=== PATIENT | female | born 1960 | race Caucasian/White ===

== ENCOUNTER 2017-11-25 16:16 | Emergency (ER) | payer OTHER, SELFPAY ==
[2017-11-25 16:17] VITALS: BP 157/88; PULSE 72; RESP 18; TEMP 36.8; O2SAT 96; BMI 32.7
--- NOTE | 2017-11-25 16:57 | CT_ITS ---
STUDY: CT ABDOMEN AND PELVIS WITH CONTRAST REASON FOR EXAM: Female, 57 years old. Right lower quadrant pain for 2 weeks RADIATION DOSAGE (If Supplied By Facility): CTDIvol = ( 16.25 ) mGy, DLP = ( 968.26 ) mGycm TECHNIQUE: Transaxial images were obtained from the dome of the diaphragm to the symphysis pubis without oral contrast. 100ml ml of Isovue 300 contrast was administered. Sagittal and coronal images were reconstructed. Individualized dose optimization techniques were used for this CT. COMPARISON: None. FINDINGS: There is minor atelectasis within the dependent portion of the lungs.. The visualized portions of the heart are within normal limits. Normal liver. Normal gallbladder and extrahepatic biliary system. Normal spleen. Normal pancreas. Normal bilateral adrenal glands. Normal right kidney. Normal left kidney. Normal visualized stomach. Normal small intestine. Normal colon. No evidence for acute appendicitis. Normal abdominal aorta. Normal inferior vena cava. Normal retroperitoneum. Normal urinary bladder. There are tiny calcifications within uterus possibly related to fibroids. Normal abdominal wall. Normal osseous structures. CT/Abdomen/Pelvis WITH Contrast IMPRESSION: Findings which may be consistent with tiny uterine fibroid calcifications.. No acute abnormalities. Electronically Signed: Victoriano Zhong MD at 18:59 EST , Service support ,
[2017-11-25 17:03] LABS: Anion Gap 8 (5-15); BUN 10 mg/dL (7-18); BUN/Creat Ratio 18.4 RATIO (10-20); Calcium,Total 8.9 mg/dL (8.5-10.1); Chloride 107 mmol/L (98-107); Creatinine, Serum 0.54 mg/dL (0.55-1.02); EST Glomerular Filtration Rate 123 mL/min (>60); Est Glom Filt Rate - Afr Amer 148 mL/min (>60); Estimated Creatinine Clearance 99.26 ml/min; Glucose 85 mg/dL (74-106); Potassium 3.5 mmol/L (3.5-5.1); Sodium Level 143 mmol/L (136-145)
[2017-11-25 17:12] LABS: Absolute Lymphocyte Count 3.12 X10^3/ul (0.83-4.51); Absolute Neutrophil Count 4.7 X10^3/uL (2.0-7.7); Basophil# 0.03 X10^3/uL; Basophil% 0.3 % (0-1); Eosinophil# 0.26 X10^3/uL; Hematocrit 40.6 % (37-47); Hemoglobin 13.3 g/dl (12.0-15.0); Lymphocyte # 3.12 X10^3/ul (4.0); Lymphocyte % 35.7 % (19-41); Mean Corp Hgb Conc 32.8 g/gl (32-36); Mean Corpuscular Hgb 29.7 pg (27.0-32.0); Mean Corpuscular Volume 90.6 fL (81-99); Mean Platelet Vol. 11.4 fl (6.2-12.0); Monocyte# 0.68 X10^3/uL; Monocyte% 7.8 % (0-10); Neutrophil # 4.65 X10^3/uL (2.7-7.7); Neutrophil % 53.1 % (47-70); Platelet Count 235 K/mm3 (150-450); RBC Distribution Width CV 13.6 % (11.6-14.6); RBC Distribution Width SD 44.8 fl (35.1-43.9); Red Blood Count 4.48 M/mm3 (4.2-5.4); White Blood Count 8.8 K/mm3 (4.4-11.0)
[2017-11-25 17:14] LABS: POSITIVE COUNT NO; POSITIVE DIFFERENTIAL NO; POSITIVE MORPHOLOGY NO
[2017-11-25 17:16] LABS: Bacteria 0 SEEN /hpf (None Seen); Mucous, Urine 0 SEEN /hpf (<or=2+); White Blood Cells 0 SEEN /hpf (0-5)
[2017-11-25 17:24] LABS: AST(SGOT) 26 U/L (15-37); Alanine Aminotransfer ALT/SGPT 41 U/L (13-56); Alkaline Phosphatase 96 U/L (45-117); Globulin 3.4 g/dL (2.2-4.2); Protein, Total 7.4 g/dL (6.4-8.2)
[2017-11-25 17:25] LABS: Color, Urine Yellow (Yellow); Glucose, Dipstick Normal (Normal); Ketone-Dipstick 50 mg/dl (Negative); Leukocyte Esterase-Dipstick Negative /ul (Negative); Nitrite-Dipstick Negative (Negative); Occult Blood-Urine 50 /ul (Negative); Protein-Dipstick 15 mg/dl (Negative); Urine Bilirubin Dipstick Negative (Negative); Urine Clarity Sl. Cloudy (Clear); Urine Urobilinogen Normal (Normal)
[2017-11-25 17:27] LABS: Lipase 152 U/L (73-393)
[2017-11-25 17:44] LABS: Red Blood Cells-Urine 0-5 SEEN /hpf (0-5); Squamous Epithelial Cells - UA 0-5 SEEN /hpf (5-10)
--- NOTE | 2017-11-25 17:47 | NURSING ---
NO LW OR POA
--- NOTE | 2017-11-25 19:07 | ED.VISSUMM ---
- ER Visit Summary Date of Service: 11/25/17 Chief Complaint: Abdominal pain History of Present Illness: The patient is a 57 F resents with 2 weeks of abdominal pain. States initially started as burning sensation in the lower pelvis about 2 weeks ago. Last night developed a sharp pain right lower quadrant. She notes a colonoscopy 7 years ago that was negative. She states that she has had similar symptoms in her 20s and was told it was IBS. Has not really had symptoms since. No vomiting or diarrhea or constipation. No urinary symptoms. No fevers. She went to urgent care was referred to the emergency department. Physical Examination: Afebrile vital signs are stable Gen: Well-nourished well-developed Head: Normocephalic atraumatic Eyes: Perrl EOMI ENT: TMs clear no rhinorrhea moist mucous membranes Neck: Supple no lymphadenopathy no JVD nontender CVS: Regular rate rhythm no murmurs normal S1-S2 Respiratory: No distress clear to auscultation bilaterally chest nontender Abdomen: Soft she has mild tenderness palpation along the descending colon and first part of the transverse colon. There is no guarding or rebound nondistended normal bowel sounds no masses Back: Nontender Extremity: Nontender no edema Skin: Normal color no rash Neuro: alert orientated ?3 CN II-XII intact normal strength sensation reflexes gait cerebellar Psych: Normal affect normal mood Test Results: CBC chemistries liver lipase normal. Urinalysis normal. CT of the abdomen pelvis demonstrated no acute disease. Emergency Department Course and Treatment: She will be referred to primary care for follow-up. Impression:. Acute abdominal pain This note was generated with Next[employer] dictation software. It may contain incorrect words, spelling, and punctuation that were not noted in review of the chart prior to signing ED Disposition - Plan for ED Patient: Disposition: Home or Assisted Living Chief Complaint: Abd Pain Instructions: ED Abdominal Pain Unkn Cause Referrals: Sue Francisco MD [Primary Care Provider] - As soon as possible (Call your doctor in the morning to arrange early follow-up)
[2017-11-25 19:16] VITALS: BP 134/88; PULSE 72; RESP 18; O2SAT 100
== END 2017-11-25 19:17 | disposition home or self-care (01) ==
PROVIDERS: Emergency Provider Emergency Medicine; Family Provider Internal Medicine; PCP Internal Medicine
DX: R10.31 Right lower quadrant pain (principal); R11.0 Nausea
CPT/HCPCS: 74177; 80048; 80076; 81001; 83690; 85025; 99283; Q9967; A4216

== ENCOUNTER → 2019-11-02 15:36 | Outpatient (CLI) | payer OTHER, SELFPAY ==
--- NOTE | 2019-11-02 15:52 | EKG12_ITS ---
Test Reason : PREOP Blood Pressure : / mmHG Vent. Rate : 119 BPM Atrial Rate : 111 BPM P-R Int : 000 ms QRS Dur : 076 ms QT Int : 332 ms P-R-T Axes : 000 019 010 degrees QTc Int : 467 ms Atrial fibrillation with rapid ventricular response Nonspecific ST abnormality , probably digitalis effect Abnormal ECG Confirmed by ADAM MARTINEZ, VIVIEN ([id number]), news editor IFRAH CABRERA ([id number]) on 11/06/2019 10:27:07 AM Referred By: Ed Ponce Confirmed By:MODESTO MEDINA MD
[2019-11-02 16:18] LABS: Absolute Lymphocyte Count 3.46 X10^3/uL (0.83-4.51); Absolute Neutrophil Count 4.4 X10^3/uL (2.0-7.7); Basophil# 0.04 X10^3/uL; Basophil% 0.5 % (0-1); Eosinophils% 1.1 % (0-5); Hematocrit 43.6 % (37-47); Hemoglobin 14.4 g/dL (12.0-15.0); Lymphocyte # 3.46 X10^3/ul (4.0); Lymphocyte % 39.5 % (19-41); Mean Corpuscular Hgb 30.2 pg (27.0-32.0); Mean Corpuscular Volume 91.4 fL (81-99); Mean Platelet Vol. 12.5 fl (6.2-12.0); NRBC Flagged by Analyzer 0 % (0-5); Neutrophil # 4.43 X10^3/uL (2.7-7.7); Neutrophil % 50.7 % (47-70); Platelet Count 216 K/mm3 (150-450); RBC Distribution Width CV 13.2 % (11.6-14.6); RBC Distribution Width SD 44.4 fl (35.1-43.9); Red Blood Count 4.77 M/mm3 (4.2-5.4); White Blood Count 8.8 K/mm3 (4.4-11.0)
[2019-11-02 18:19] LABS: Anion Gap 6 (5-15); BUN 18 mg/dL (7-18); BUN/Creat Ratio 25.6 RATIO (10-20); Calcium,Total 9.2 mg/dL (8.5-10.1); Chloride 111 mmol/L (98-107); EST Glomerular Filtration Rate 91 mL/min (>60); Est Glom Filt Rate - Afr Amer 110 mL/min (>60); Glucose 91 mg/dL (74-106); Potassium 3.6 mmol/L (3.5-5.1); Sodium Level 142 mmol/L (136-145)
== END ==
PROVIDERS: PCP Internal Medicine; Referring Provider Physician Assistant; Visit Provider Physician Assistant
DX: Z01.818 Encounter for other preprocedural examination (principal); Z01.810 Encounter for preprocedural cardiovascular examination
CPT/HCPCS: 36415; 80048; 85025; 93005

== ENCOUNTER 2019-11-02 16:15 | Emergency (ER) | payer OTHER, SELFPAY ==
[2019-11-02 16:16] VITALS: BP 152/103; PULSE 136; RESP 16; TEMP 36.6; O2SAT 97; BMI 31.8
--- NOTE | 2019-11-02 16:55 | ED.VIS.GEN ---
History of Present Illness Chief Complaint: Palpitations Informant: Patient Narrative: Patient is a 59-year-old female with history of postpolio syndrome and right knee pain presenting from preop testing with atrial fibrillation. Patient does not have a history of this. She denies any chest pain, palpitations or shortness of breath. 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 She does not have any cardiac history including hypertension or A. fib. She notes her elderly mother does have atrial fibrillation. She drinks 2 cups of coffee a day. She denies any tobacco, alcohol or drug use. She is currently in the process of getting established with Dr. Alicia for primary care doctor. She denies any leg swelling. She denies any other complaints at this time. Past Medical History - Allergies and Home Meds Allergies/Adverse Reactions: Allergies amoxicillin Adverse Reaction (Verified 11/02/19 16:36) Hives Penicillins Adverse Reaction (Verified 11/02/19 16:36) Anaphylaxis Sulfa (Sulfonamide Antibiotics) Adverse Reaction (Verified 11/02/19 16:36) Hives Primary Care Physician: Chris Alicia MD [Primary Care Provider] - Past Medical History: - - Post polio syndrome Surgical History: no surgical history Smoking Status: Former smoker Alcohol: Occasional Drugs: None Review of Systems General: Reports: Malaise. Denies: Chills, Fever, Sweats Eyes: Denies: Visual changes - bilaterally, Diplopia ENT: Denies: Rhinorrhea, Sore throat Cardiovascular: Denies: Chest pain, Palpitations Respiratory: Denies: Dyspnea, Cough, Dyspnea on exertion Gastrointestinal: Denies: Abdominal pain, Nausea, Vomiting, Diarrhea, Melena, Hematochezia Genitourinary: Denies: Dysuria, Hematuria, Frequency Musculoskeletal: Denies: Back pain, Extremity Pain Skin: Denies: Rash, Wounds Neurological: Denies: Headache, Weakness, Numbness Physical Exam Vital Signs/Narrative: Vital Signs Temp Pulse Resp BP Pulse Ox 11/02/19 16:16 98 F 136 H 16 152/103 H 97 Inital Vital Signs reviewed: Yes General: Well nourished, Well developed, No Acute Distress Head: Normocephalic, Atraumatic Eyes: Perrl, EOMI ENT: Moist mucous membranes, No rhinorrhea Neck: Supple, Nontender Cardiovascular: No murmurs, Irregular, Tachycardia. Negative for: Murmur Respiratory: No distress, CTA bilaterally, Chest nontender Abdomen: Soft, Nontender, Nondistended, Normal bowel sounds Back: Nontender, Normal Inspection Extremities: Nontender, No edema, - - Patient has braces on her bilateral ankles Skin: Normal color, No rash Neurological: Alert, Oriented x3, Cranial nerves II-XII grossly intact, Normal Strength, Normal Sensation Psychological: Normal affect, Normal Mood Diagnostic/Tx/Re-eval Chest X-Ray - ED: 2 View, Read by ED Physician, Read by Radiologist, No Acute Disease Clinical Impression(s) from Imaging Studies Chest X-Ray 11/02/19 17:27 IMPRESSION: Borderline cardiac enlargement. No CHF or pneumonic infiltrate. Electronically Signed: Fabian Shepherd MD at 18:23 EST , Service support , Laboratory Data 11/02/19 11/02/19 11/02/19 16:37 16:37 16:37 WBC 8.4 RBC 4.78 Hgb 14.3 Hct 43.6 MCV 91.2 MCH 29.9 MCHC 32.8 RDW Std Deviation 44.3 H RDW Coeff of [place] 13.2 Plt Count 199 MPV 12.3 H Immature Gran % (Auto) 0.200 Neut % (Auto) 50.1 Lymph % (Auto) 40.1 [place] % (Auto) 8.0 Eos % (Auto) 1.1 Baso % (Auto) 0.5 Absolute Neuts (auto) 4.2 Absolute Lymphs (auto) 3.36 Nucleated RBC % 0 PT 13.0 INR 1.0 Sodium 139 Potassium 3.5 Chloride 108 H Carbon Dioxide 27.0 Anion Gap 4 L BUN 18 Creatinine 0.69 Estim Creat Clear Calc 72.62 Est GFR (MDRD) Af Amer 112 Est GFR (MDRD) Non-Af 93 BUN/Creatinine Ratio 26.1 H Glucose 88 Calcium 9.3 Troponin I < 0.015 TSH 1.63 - Rhythm Strip Rhythm Strip: A-fib Rate: 119 Ectopy: None - EKG Initial EKG Interpretation: Atrial Fibrillation, - - Atrial fibrillation at a rate of 119 Normal axis QRS [address] segment changes - Medical Decision Making Patient is evaluated for new onset atrial fibrillation with RVR that was found incidentally on preop testing. Patient appears nontoxic in no acute distress. She is hemodynamically stable despite her tachycardia. Patient does not have any known risk factors for A. fib. Troponin, TSH, CBC and BMP are all within normal limits. Patient is given 5 of IV metoprolol with improvement of her rate. She continues to be asymptomatic. She is also given IV fluids. Chest x-ray does show some mild cardiomegaly so patient might have some underlining hypertension versus cardiomyopathy. Patient's chadsvasc2 score is 1 and she is low risk for stroke. At this time she does not require anticoagulation. As she is asymptomatic with a normal troponin I think she is stable for outpatient follow-up. I did discuss with PCP on-call, Dr. Santana who was agreeable with this. She will be started on a daily aspirin. She is also started on metoprolol twice daily for rate control. Patient is counseled on signs and symptoms requiring return to the emergency room. Patient verbalizes agreement and understand this plan. Patient discharged home in stable and improved condition. ED Disposition - Plan for ED Patient: Disposition: Home or Assisted Living Diagnosis: Atrial fibrillation Instructions: Atrial Fibrillation Prescriptions: Metoprolol Tartrate [Lopressor (beta antoni)] 12.5 mg PO BID #30 tab Prescription Printed Referrals: Chris Alicia MD [Primary Care Provider] - Additional Instructions: Start taking an 81 mg aspirin daily. Please call the office tomorrow to see if your new patient appointment can be moved up. You have been started on a new medication to help control your heart rate. Return the emergency room if you have any worsening symptoms.
[2019-11-02 17:04] LABS: Absolute Lymphocyte Count 3.36 X10^3/uL (0.83-4.51); Absolute Neutrophil Count 4.2 X10^3/uL (2.0-7.7); Basophil# 0.04 X10^3/uL; Basophil% 0.5 % (0-1); Eosinophil# 0.09 X10^3/uL; Eosinophils% 1.1 % (0-5); Hematocrit 43.6 % (37-47); Hemoglobin 14.3 g/dL (12.0-15.0); Lymphocyte # 3.36 X10^3/ul (4.0); Lymphocyte % 40.1 % (19-41); Mean Corp Hgb Conc 32.8 g/dL (32-36); Mean Corpuscular Hgb 29.9 pg (27.0-32.0); Mean Corpuscular Volume 91.2 fL (81-99); Mean Platelet Vol. 12.3 fl (6.2-12.0); Monocyte# 0.67 X10^3/uL; NRBC Flagged by Analyzer 0 % (0-5); Neutrophil # 4.19 X10^3/uL (2.7-7.7); Neutrophil % 50.1 % (47-70); Platelet Count 199 K/mm3 (150-450); RBC Distribution Width CV 13.2 % (11.6-14.6); RBC Distribution Width SD 44.3 fl (35.1-43.9); Red Blood Count 4.78 M/mm3 (4.2-5.4); White Blood Count 8.4 K/mm3 (4.4-11.0)
[2019-11-02 17:10] VITALS: BP 135/83; PULSE 112; RESP 16; O2SAT 96
[2019-11-02] MEDS: Metoprolol Tartrate 5 MG/5 ML Vial IV ×3 (17:11→17:51)
[2019-11-02] MEDS: 0.9% Normal Saline 1,000 ML 999 ML IV (17:11)
[2019-11-02 17:27] LABS: Anion Gap 4 (5-15); BUN 18 mg/dL (7-18); BUN/Creat Ratio 26.1 RATIO (10-20); Calcium,Total 9.3 mg/dL (8.5-10.1); Chloride 108 mmol/L (98-107); Creatinine, Serum 0.69 mg/dL (0.55-1.02); EST Glomerular Filtration Rate 93 mL/min (>60); Est Glom Filt Rate - Afr Amer 112 mL/min (>60); Estimated Creatinine Clearance 72.62 ml/min; Glucose 88 mg/dL (74-106); Potassium 3.5 mmol/L (3.5-5.1); Sodium Level 139 mmol/L (136-145); Thyroid Stim Hormone (TSH) 1.63 uIU/mL (0.358-3.74)
--- NOTE | 2019-11-02 17:27 | RAD_ITS ---
STUDY: X-RAY CHEST REASON FOR EXAM: Female, 59 years old. AFIB TECHNIQUE: PA and lateral views of the chest. COMPARISON: CT abdomen and pelvis November 25, 2017. FINDINGS: The lungs are clear and expanded. There is no demonstrated pleural abnormality. There is borderline cardiomegaly. Additional fullness in the right cardiophrenic angle on the frontal image correlates to a prominent right epicardial fat pad on CT. Normal mediastinum and amberly. Normal visualized pulmonary arteries. Normal visualized aortic arch and descending thoracic aorta. There are diffuse degenerative changes of the visualized thoracic spine. Normal visualized ribs, clavicles, and shoulders. There is no demonstrated abnormality of the visualized soft tissue structures of the upper abdomen. RAD/Chest PA and Lateral IMPRESSION: Borderline cardiac enlargement. No CHF or pneumonic infiltrate. Electronically Signed: Fabian Shepherd MD at 18:23 EST , Service support ,
[2019-11-02 17:36] VITALS: BP 132/84; PULSE 97; RESP 16; O2SAT 97
[2019-11-02 17:52] VITALS: BP 133/71; PULSE 86; RESP 16; O2SAT 96
[2019-11-02 18:10] VITALS: BP 144/88; PULSE 87; RESP 16; O2SAT 94
[2019-11-02] MEDS: Metoprolol Tartrate 25 MG Tablet 12.5 MG PO (19:13)
[2019-11-02 19:15] VITALS: BP 137/92; PULSE 96; RESP 18; O2SAT 98
== END 2019-11-02 19:16 | disposition home or self-care (01) ==
PROVIDERS: Emergency Provider Emergency Medicine; PCP Family Medicine
DX: I48.91 Unspecified atrial fibrillation (principal); Z87.891 Personal history of nicotine dependence; Z88.0 Allergy status to penicillin; Z88.2 Allergy status to sulfonamides; G14 Postpolio syndrome
CPT/HCPCS: 36415; 71046; 80048; 84443; 84484; 85025; 85610; 93005; 96361; 96374; 99285; J7030; A4216

== ENCOUNTER → 2019-11-07 15:11 | Outpatient (CLI) | payer OTHER, SELFPAY ==
[2019-11-06 15:08] VITALS: BMI 32.1
--- NOTE | 2019-11-07 15:12 | ECHOD_ITS ---
Reason For Study: Afib/Flutter Procedure This was a 2D Doppler, Color Flow transthoracic echocardiogram. Exam performed in department. Left Ventricle Normal LV size. Left ventricular systolic function is normal. Diastolic function is indeterminate. No regional wall motion abnormalities noted. Right Ventricle Normal RV size. Normal systolic function. Atria Normal left atrium. Normal right atrium. Mitral Valve Normal mitral valve. Tricuspid Valve Normal tricuspid valve. Mild (1+) tricuspid valve insufficiency. Pulmonary artery systolic pressure is 28 mmHg. Aortic Valve Trisinus/trileaflet aortic valve. Pulmonic Valve Normal pulmonic valve. Great Vessels Normal aortic root. The pulmonary artery is normal size. Normal inferior vena cava. Pericardium/Pleural No pericardial effusion. MMode/2D Measurements & Calculations LVIDd: 4.7 cm IVSd: 1.2 cm Ao root diam: 2.9 cm LVIDs: 2.9 cm LVPWd: 0.92 cm LA dimension: 4.0 cm RVDd: 2.3 cm FS: 39.3 % LAV(MOD-bp): 59.5 ml LA A4 area: 20.3 cm2 RA A4 area: 13.7 cm2 LAV(MOD-bp) Indexed: 31.8 ml/m2 LAV(MOD-sp2): 57.1 ml LAV(MOD-sp4): 56.7 ml Doppler Measurements & Calculations MV E max niki: 98.8 cm/sec Ao V2 max: 114.5 cm/sec LV V1 max: 82.8 cm/sec Ao max P.2 mmHg LV V1 max P.7 mmHg PA V2 max: 69.1 cm/sec TR max niki: 243.9 cm/sec TR max P.8 mmHg Interpretation Summary Normal LV size. Left ventricular systolic function is normal. Diastolic function is indeterminate. Pulmonary artery systolic pressure is 28 mmHg. Ordering Physician: Meliton Conway Referring Physician: Meliton Conway Performed By: Laron Zavaleta RCS
== END ==
PROVIDERS: PCP Family Medicine; Referring Provider Internal Medicine Cardiovascular Disease; Visit Provider Internal Medicine Cardiovascular Disease
DX: I48.91 Unspecified atrial fibrillation (principal); I48.92 Unspecified atrial flutter
CPT/HCPCS: 93306

== ENCOUNTER → 2020-04-12 12:40 | Outpatient (CLI) | payer OTHER, SELFPAY ==
[2020-03-26 15:10] VITALS: BMI 32.5
--- NOTE | 2020-04-12 12:42 | BI_ITS ---
MAMMOGRAPHY - BILATERAL SCREENING REASON FOR EXAM: Female, 60 years old. Routine annual screening examination. PERTINENT HISTORY: Mother with breast cancer. TECHNIQUE: Digital bilateral breast buffy (3D mammographic acquisition) in the CC and MLO projections. 2-D mediolateral oblique (MLO) and craniocaudad (CC) views of both breasts were obtained. CAD: Full Field Digital Mammography with Computer Added Detection was performed. COMPARISON: Comparison is made with prior examination dated March 02, 2019. FINDINGS: Breast Composition: There are scattered areas of fibroglandular density. There are no dominant masses or suspicious calcifications. Stable benign-appearing bilateral axillary lymph nodes. No other significant abnormalities are identified. There has been no significant change since the prior study. BI/SCREEN MAMM (CAD) W/BUFFY BILAT IMPRESSION: Stable bilateral screening mammogram. Yearly follow-up mammogram recommended. (A) ASSESSMENT CATEGORY: BIRADS Category 2: Benign. A letter regarding these results will be sent to the patient by the facility within 30 days. Approximately 10% of breast cancers are not detected by mammography. A normal mammogram should not delay biopsy of a clinically suspicious abnormality. [id number] Electronically Signed: Christoph Davila, at 13:50 EDT , Service support ,
== END ==
PROVIDERS: PCP Family Medicine; Referring Provider Family Medicine; Visit Provider Family Medicine
DX: Z12.31 Encounter for screening mammogram for malignant neoplasm of breast (principal); Z80.3 Family history of malignant neoplasm of breast
CPT/HCPCS: 77063; 77067

== ENCOUNTER 2020-04-17 08:18 | Day surgery (SDC) | payer OTHER, SELFPAY ==
[2020-03-26 15:10] VITALS: BMI 32.5
--- NOTE | 2020-03-28 09:26 | HP_ITS ---
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: No Is patient in pain?: No Allergies cephalexin [From Keflex] Allergy (Unknown, Verified 03/26/20 15:06) Unknown amoxicillin Adverse Reaction (Verified 02/20/20 14:00) Hives Penicillins Adverse Reaction (Verified 02/20/20 14:00) Anaphylaxis Sulfa (Sulfonamide Antibiotics) Adverse Reaction (Verified 02/20/20 14:00) Hives Medications metoprolol tartrate 50 mg tablet 50 mg PO BID #60 tab 11/06/19 [Rx Confirmed 03/26/20] aspirin 81 mg tablet,delayed release 81 mg PO DAILY #1 tab 02/22/20 [Rx Confirmed 03/26/20] multivitamin 1 tab PO DAILY 03/26/20 [History Confirmed 03/26/20] omega-3 fatty acids 1,000 mg capsule 1,000 mg PO DAILY 03/26/20 [History Confirmed 03/26/20] REPLACED BY [facility] Medical History Numbness and tingling (Acute) Arthritis (Acute) Shortness of breath on exertion (Acute) Abnormal electrocardiogram (Acute) Encounter for pre-operative cardiovascular clearance (Acute) New onset atrial fibrillation (Acute 10/2019) GBS (Guillain Viola syndrome) (Chronic) Obesity (Chronic) Post-polio syndrome (Chronic) Surgical History Hx of colonoscopy (Acute) Hx of wisdom tooth extraction (Acute) Hx of knee surgery (Acute) Family History Grandfather Heart disease maternal Grandmother CVA (cerebral vascular accident) maternal Mother Breast cancer Lung cancer Osteoporosis Social History (Updated 03/28/20 @ 10:[address] Brittany Davila MD) Smoking Status: Former smoker second hand exposure: No alcohol intake: current alcohol intake frequency: holidays/special occasions only substance use type: does not use caffeine: Yes what type of physical activity do you participate in: aerobics frequency: daily HPI HPI HPI: ROLANDO WILLIS, is a 60 F who presents to the office today for HPI HPI Surgical H&P: Yes HPI: ROLANDO WILLIS, is a 60 F who presents to the office today for screening colonoscopy. Patient denies any abdominal pain/nausea/vomiting. Patient denies a family history of colon cancer, patient states he has bowel once daily denies any blood. Patient has been on put on Eliquis in October due to abnormal EKG however that has since been stopped and patient is only on a baby aspirin 81 mg she is also on metoprolol which patient that was started by cardiology letter as well at that time however records show that she may have been on a dose prior to that. ROS General General: No weight change, fatigue, colon cancer, breast cancer or weakness HEENT HEENT: No difficulty swallowing, eye injury, eye surgery, swollen glands or hoarseness Endo Endocrine: No thyroid disease, diabetes mellitus, thyroid cancer, Hair loss, heat intolerance or cold intolerance Skin Skin: No rash or changing moles Breast Breast: No left breast lump, right breast lump, nipple discharge, breast pain, abnormal mammogram, abnormal US or breast enlargement Musc Musculoskeletal: Yes arthritis; no back problems, rheumatoid arthritis, gout or joint pain Psych Psychiatric: No depression, anxiety or hearing voices Resp Respiratory: No shortness of breath, No sleep apnea, No cough, No COPD, No asthma, No emphysema, No wheezing Gastro Gastrointestinal: No abdominal pain, No nausea or vomiting, No diarrhea, No constipation, No blood in stool, No acid reflux, No hemorrhoids, No ulcers, No gallbladder problem, No black,tarry stools Chance Hematologic: Yes blood thinners, No blood disorders, No bleeding, No anemia, No blood clots Neuro Neurologic: Yes numbness, Yes tingling, No weakness Exam Const General: cooperative, no acute distress, well developed Chest Breast Palpation: No nipple discharge Resp Effort & Inspection: normal respiratory effort Cardio Rate: regular rate GI Inspection: non-distended Palpation: soft, nontender Assessment & Plan Problems 1. Encounter for screening for malignant neoplasm of colon Z12.11 Plan I have discussed the above with the patient. I have offered the patient colonoscopy for evaluation. I have explained the risks/benefits of the procedure and described the procedure. I have discussed the risks with the patient, including but not limited to: infection, bleeding, perforation of the GI tract requiring emergency surgery, inability to complete the procedure, injury to any internal organs, complications of anesthesia, etc. - the patient understands and agrees to proceed. I have answered all the patient's questions to the patient's satisfaction and the patient has no further questions. The patient has been given instructions for the colon cleansing preparation. One day of clears, MiraLAX Dulcolax split prep Brittany Davila M.D. Pager: [phone] [facility] [address] [place] [address], [address] [place] [address] Office: [phone] Orders Orders: Colonoscopy 03/26/20 Plan Detail Follow Up We will schedule colonoscopy Coding Level of Care Code Off vis,new,level 2 Diagnoses Encounter for screening for malignant neoplasm of colon Z12.11 COVID (Procedure Consent) Procedure Criteria Procedure Criteria: Yes Elective The surgeon/proceduralist and patient have discussed in detail the risk of exposure to and/or potential harm posed by the COVID-19 virus with having a surgery/procedure at this time versus the risk of? delaying the surgery/procedure. It is not possible to know either the risk of delaying the surgery or procedure or chance of getting an infection with perfect accuracy, but a joint decision was made between the patient and the surgeon/proceduralist ?to proceed at this time with the scheduled surgery/procedure as indicated on the consent form. 03/28/20 1048 <Electronically signed by Brittany Zafar am, MD> Date _ Brittany Davila MD I have re-examined the patient. There are no clinical changes since date of exam.
[2020-04-17] VITALS (7 sets, daily range): BP systolic 101–126; BP diastolic 69–101; PULSE 71–111; RESP 16; TEMP 36.1–36.4; O2SAT 96–99; BMI 32.4
[2020-04-17] MEDS: Lactated Ringers 1,000 ML 100 ML IV (09:03)
--- NOTE | 2020-04-17 10:11 | OP.CCLET_ITS ---
04/17/2020 Chris Alicia [address] [place] [address] Re : Colonoscopy procedure for Deya Blount Dear Dr. Alicia This procedure was performed on Friday, April 17, 2020. My impressions and recommendations are as follows: Impressions : - Hemorrhoids found on perianal exam. - External and internal hemorrhoids. - The entire examined colon is normal. - No specimens collected. Recommendations : - Discharge patient to home. - Resume previous diet. - Continue present medications. - Repeat colonoscopy in 10 years for screening purposes. My findings are described in the full procedure note, which is enclosed. If I can be of further assistance, please feel free to contact me at Doctor phone number(s): , Work: . Sincerely, MD Brittany Rosas MD 04/17/2020 10:11:24 AM This report has been signed electronically.
--- NOTE | 2020-04-17 10:11 | OP.COLON_ITS ---
Patient Name: Deya Blount Procedure Date: 04/17/2020 9:34 AM Date of : 1960 Age: 60 Procedure: Colonoscopy Indications: Screening for colorectal malignant neoplasm Providers: Brittany Davila MD Referring MD: Chris Alicia Medicines: Monitored Anesthesia Care Patient Profile: This is a 60 year old female. Last Colonoscopy: December 2009. Complications: No immediate complications. Procedure: Pre-Anesthesia Assessment: - Prior to the procedure, a History and Physical was performed, and patient medications and allergies were reviewed. The patient's tolerance of previous anesthesia was also reviewed. The risks and benefits of the procedure and the sedation options and risks were discussed with the patient. All questions were answered, and informed consent was obtained. Prior Anticoagulants: The patient has taken aspirin, last dose was 1 day prior to procedure. ASA Grade Assessment: Per anesthesia. After reviewing the risks and benefits, the patient was deemed in satisfactory condition to undergo the procedure. After I obtained informed consent, the scope was passed under direct vision. Throughout the procedure, the patient's blood pressure, pulse, and oxygen saturations were monitored continuously. The pediatric colonoscope was introduced through the anus and advanced to the cecum, identified by the appendiceal orifice, ileocecal valve and palpation. The colonoscopy was performed without difficulty. The patient tolerated the procedure well. The quality of the bowel preparation was good. Scope In: 9:43:42 AM Scope Withdrawal Time 0 hours 9 minutes 3 seconds Scope Out: 10:05:14 AM Total Procedure Duration Time 0 hours 21 minutes 32 seconds Findings: Hemorrhoids were found on perianal exam. External and internal hemorrhoids were found during retroflexion and during digital exam. The hemorrhoids were Grade I (internal hemorrhoids that do not prolapse). The entire examined colon appeared normal. Impression: - Hemorrhoids found on perianal exam. - External and internal hemorrhoids. - The entire examined colon is normal. - No specimens collected. Recommendation: - Discharge patient to home. - Resume previous diet. - Continue present medications. - Repeat colonoscopy in 10 years for screening purposes. Procedure Code(s): --- Professional --- G0121, PT, Colorectal cancer screening; colonoscopy on individual not meeting criteria for high risk Diagnosis Code(s): --- Professional --- Z12.11, Encounter for screening for malignant neoplasm of colon K64.0, First degree hemorrhoids CPT copyright 2017 [employer]. All rights reserved. The codes documented in this report are preliminary and upon polisher eyeglass frames review may be revised to meet current compliance requirements. MD Brittany Rosas MD 04/17/2020 10:11:24 AM This report has been signed electronically. Number of Addenda: 0 Note Initiated On: 04/17/2020 9:34 AM
== END 2020-04-17 11:00 | disposition home or self-care (01) ==
LOC: EN 08:19 → AC 08:21
PROVIDERS: PCP Family Medicine; Referring Provider Family Medicine; Visit Provider Surgery
PROC: 0DJD8ZZ Inspection of Lower Intestinal Tract, Via Natural or Artificial Opening Endoscopic (ICD-10-PCS; CPT 45378; principal; 2020-04-17 09:25)
DX: Z12.11 Encounter for screening for malignant neoplasm of colon (principal); K64.0 First degree hemorrhoids; K64.4 Residual hemorrhoidal skin tags; Z79.01 Long term (current) use of anticoagulants; Z79.82 Long term (current) use of aspirin; Z87.891 Personal history of nicotine dependence; Z88.0 Allergy status to penicillin; Z88.1 Allergy status to other antibiotic agents; Z88.2 Allergy status to sulfonamides; G61.0 Guillain-Barre syndrome; G14 Postpolio syndrome; I48.91 Unspecified atrial fibrillation
CPT/HCPCS: 45378; 87635; G2023; J7120; J2405; U0003

== ENCOUNTER 2020-12-17 11:58 | Day surgery (SDC) | payer OTHER, SELFPAY ==
[2020-12-04 15:18] VITALS: BMI 30.7
[2020-12-05 17:56] LABS: Anion Gap 7 (5-15); BUN 14 mg/dL (7-18); BUN/Creat Ratio 23.2 RATIO (10-20); Calcium,Total 9.4 mg/dL (8.5-10.1); Chloride 107 mmol/L (98-107); EST Glomerular Filtration Rate 107 mL/min (>60); Est Glom Filt Rate - Afr Amer 130 mL/min (>60); Glucose 81 mg/dL (74-106); Potassium 3.7 mmol/L (3.5-5.1); Sodium Level 142 mmol/L (136-145)
[2020-12-16 11:39] VITALS: BMI 30.7
--- NOTE | 2020-12-16 15:50 | RAD_ITS ---
STUDY: X-RAY CHEST REASON FOR EXAM: Female, 60 years old. Preop. DCCV. TECHNIQUE: PA and lateral views of the chest. COMPARISON: 11/02/2019. FINDINGS: The lungs are clear and expanded. There is no demonstrated pleural abnormality. Normal size heart. Normal mediastinum and amberly. Normal visualized pulmonary arteries. Normal visualized aortic arch and descending thoracic aorta. Minimal degenerative changes of the thoracic spine. Normal visualized ribs, clavicles, and shoulders. There is no demonstrated abnormality of the visualized soft tissue structures of the upper abdomen. RAD/Chest PA and Lateral IMPRESSION: No acute cardiopulmonary disease. Electronically Signed: Mario Berrios DO at 16:06 EDT Tel [phone], Service support ,
--- NOTE | 2020-12-17 13:42 | CARDIOVERS ---
Cardioversion Cardioversion: DC cardioversion. 60-year-old lady with a history of paroxysmal atrial fibrillation. Patient presented to the catheterization lab in the postabsorptive nonsedated state. Patient was seen by Dr. Ibrahim of the critical care division. Atrial fibrillation was confirmed. Patient has been on continuous anticoagulation. Informed consent was obtained. Anterior-posterior pads were applied. The patient was then administered 40 mg of intravenous propofol. 200 J of DC cardioversion energy biphasic were applied with prompt reversal to sinus rhythm. The patient reverted back to atrial fibrillation and required another 200 J of DC cardioversion energy. Conclusion: Successful DC cardioversion to sinus rhythm. We will continue beta-antoni. We will continue anticoagulation. We will start flecainide 100 mg twice a day.
--- NOTE | 2020-12-17 13:52 | PRO.PCM_ITS ---
Procedure Report Date of Procedure: 12/17/20 CONSCIOUS SEDATION REPORT DATE OF SERVICE: December 17, 2020 BRIEF HISTORY OF PRESENT ILLNESS: The patient is a 60-year-old female who presented to [facility] for an elective outpatient cardioversion due to underlying atrial fibrillation. The patient is currently anticoagulated on Eliquis. Her last surface echocardiogram revealed an ejection fraction of approximately 55 to 60%. She denied any prior anesthetic complications. She is a lifelong non-smoker and denies ever having been diagnosed with obstructive sleep apnea. PHYSICAL EXAMINATION: VITAL SIGNS: Reviewed and were acceptable. GENERAL: The patient is a female, in no apparent distress, speaking in full sentences. HEENT: Normocephalic, atraumatic. Mucous membranes are moist and pink. Good mouth opening noted. Trachea is midline. Good neck mobility. CHEST: S1, S2 irregularly irregular. No murmurs, rubs or gallops were noted. LUNGS: Clear to auscultation bilaterally without appreciable wheezes, rales or rhonchi. ABDOMEN: Soft, nontender, nondistended. Positive bowel sounds. EXTREMITIES: There is no clubbing, cyanosis or edema. ASA Class: II DESCRIPTION OF PROCEDURE: After confirmation of informed consent, the patient's anesthesia plan was reviewed in detail. Propofol was chosen. Risks and benefits were reviewed and the patient agreed to proceed. At 1334, the patient was given her first bolus of propofol. The patient received a total of 40 mg of propofol throughout the entire procedure to facilitate 2 separate attempts at cardioversion, each at 200 J, the latter of which was successful in achieving normal sinus rhythm. The patient was monitored until 1346, at which time she reached her baseline mental status and function. The patient tolerated the procedure well. COMPLICATIONS: None ESTIMATED BLOOD LOSS: None RECOMMENDATIONS: Okay to recover in usual fashion. [id number]: Other Procedure See Report - [id number]
== END 2020-12-17 14:40 | disposition home or self-care (01) ==
LOC: CLSP 11:59
PROVIDERS: Nurse Practitioner Family; PCP Family Medicine; Referring Provider Internal Medicine Cardiovascular Disease; Visit Provider Internal Medicine Cardiovascular Disease
DX: I48.0 Paroxysmal atrial fibrillation (principal); G61.0 Guillain-Barre syndrome; G14 Postpolio syndrome; Z87.891 Personal history of nicotine dependence; Z79.01 Long term (current) use of anticoagulants
CPT/HCPCS: 36415; 71046; 80048; 92960; 93005; J7040

== ENCOUNTER → 2021-02-27 07:00 | Outpatient (CLI) | payer OTHER, SELFPAY ==
[2020-12-16 11:39] VITALS: BMI 30.7
--- NOTE | 2021-02-27 09:18 | STRESSREP ---
Stress Test Report Pharmacologic myocardial perfusion stress test 61-year-old lady with a history of atrial fibrillation. Stress protocol: Resting EKG demonstrates sinus bradycardia with a rate of 53 bpm normal intervals are noted resting blood pressure is 138/78 mmHg. 0.4 mg of regadenoson was infused per usual protocol followed up intravenous saline flush injection continuous EKG monitoring was performed. The maximum heart rate was 88 bpm which was 55% of maximum predicted heart rate the maximum workload was 1 metabolic equivalent. At rest there were no ST or T wave changes noted to suggest ischemia. Myocardial perfusion protocol. 10.7 mCi of technetium 99m sestamibi was injected at rest. 0.4 mg of regadenoson was infused per usual protocol. At peak infusion 33.9 mCi of technetium 99m sestamibi was injected stress images were obtained stress and rest images were reconstructed and compared in the short axis vertical long and horizontal long axis. Gated images were also obtained for Perfusion SPECT analysis: Review of the stress images demonstrate normal uptake of tracer noted in all areas of the myocardium. The resting images similarly demonstrate normal uptake of tracer noted in all areas of the myocardium. No areas of reversibility are noted to suggest ischemia and no previous infarct is noted. Gated SPECT analysis: The gated ejection fraction is 67%. Conclusion: Normal pharmacologic myocardial perfusion stress test. Preserved ejection fraction.
== END ==
PROVIDERS: PCP Family Medicine; Referring Provider Internal Medicine Cardiovascular Disease; Visit Provider Internal Medicine Cardiovascular Disease
DX: I48.19 Other persistent atrial fibrillation (principal); I48.0 Paroxysmal atrial fibrillation
CPT/HCPCS: 78452; 93017; A9500; A4216; J2785

== ENCOUNTER → 2021-04-23 08:41 | Outpatient (CLI) | payer OTHER, SELFPAY ==
[2021-03-05 14:34] VITALS: BMI 30.5
[2021-04-23 09:00] LABS: Absolute Lymphocyte Count 2.31 X10^3/uL (0.83-4.51); Absolute Neutrophil Count 2.4 X10^3/uL (2.0-7.7); Basophil# 0.03 X10^3/uL; Basophil% 0.6 % (0-1); Eosinophils% 1.9 % (0-5); Hematocrit 41.7 % (37-47); Hemoglobin 14.1 g/dL (12.0-15.0); Lymphocyte # 2.31 X10^3/ul (0.83-4.51); Lymphocyte % 43.7 % (19-41); Mean Corp Hgb Conc 33.8 g/dL (32-36); Mean Corpuscular Hgb 31.3 pg (27.0-32.0); Mean Corpuscular Volume 92.7 fL (81-99); Mean Platelet Vol. 12.4 fl (6.2-12.0); Monocyte# 0.45 X10^3/uL; Monocyte% 8.5 % (0-10); NRBC Flagged by Analyzer 0 % (0-5); Neutrophil # 2.39 X10^3/uL (2.7-7.7); Neutrophil % 45.1 % (47-70); Platelet Count 141 K/mm3 (150-450); RBC Distribution Width CV 13.3 % (11.6-14.6); RBC Distribution Width SD 45.3 fl (35.1-43.9); White Blood Count 5.3 K/mm3 (4.4-11.0)
[2021-04-23 09:23] LABS: Anion Gap 6 (5-15); BUN 16 mg/dL (7-18); BUN/Creat Ratio 28.4 RATIO (10-20); Calcium,Total 8.7 mg/dL (8.5-10.1); Chloride 111 mmol/L (98-107); Cholesterol 196 mg/dL (200); Creatinine, Serum 0.56 mg/dL (0.55-1.02); EST Glomerular Filtration Rate 116 mL/min (>60); Est Glom Filt Rate - Afr Amer 140 mL/min (>60); Ferritin 139 ng/mL (8-252); Glucose 94 mg/dL (74-106); High Density Lipoprotein 53 mg/dL; Potassium 4.1 mmol/L (3.5-5.1); Sodium Level 143 mmol/L (136-145); Thyroid Stim Hormone (TSH) 1.77 uIU/mL (0.358-3.74); Triglycerides 100 mg/dL; Very Low Density Lipoprotein 20 mg/dL (5-40)
[2021-04-23 16:56] LABS: Xtra Tube EP Lab EXTRA TUBE
== END ==
PROVIDERS: PCP Family Medicine; Referring Provider Family Medicine; Visit Provider Family Medicine
DX: I48.91 Unspecified atrial fibrillation (principal); Z79.01 Long term (current) use of anticoagulants
CPT/HCPCS: 36415; 80048; 80061; 82728; 84443; 85025

== ENCOUNTER → 2021-05-01 07:28 | Outpatient (CLI) | payer OTHER, SELFPAY ==
[2021-03-05 14:34] VITALS: BMI 30.5
--- NOTE | 2021-05-01 16:07 | BI_ITS ---
MAMMOGRAPHY - BILATERAL SCREENING REASON FOR EXAM: Female, 61 years old. Routine annual screening examination. PERTINENT HISTORY: Screening TECHNIQUE: Digital bilateral breast buffy (3D mammographic acquisition) in the CC and MLO projections. 2-D mediolateral oblique (MLO) and craniocaudad (CC) views of both breasts were obtained. CAD: Full Field Digital Mammography with Computer Added Detection was performed. COMPARISON: 04/12/2020 FINDINGS: Breast Composition: Scattered There are no dominant masses or suspicious calcifications. No other significant abnormalities are identified. BI/SCRN MAMM (CAD)W/BUFFY BILAT IMPRESSION: Stable bilateral screening mammogram. Yearly follow-up mammogram recommended. (A) ASSESSMENT CATEGORY: BIRADS Category 1: Negative. A letter regarding these results will be sent to the patient by the facility within 30 days. BR1 Approximately 10% of breast cancers are not detected by mammography. A normal mammogram should not delay biopsy of a clinically suspicious abnormality. [id number] Electronically Signed: Justyn Marion DO at 14:32 EDT Tel , Service support ,
== END ==
PROVIDERS: PCP Family Medicine; Referring Provider Family Medicine; Visit Provider Family Medicine
DX: Z12.31 Encounter for screening mammogram for malignant neoplasm of breast (principal)
CPT/HCPCS: 77063; 77067

== ENCOUNTER 2021-12-10 09:01 | Outpatient (CLI) | payer OTHER, SELFPAY | END 2021-12-10 23:59 | disposition home or self-care (01) | LOC: PSN 09:03 | PROVIDERS: PCP Family Medicine; Referring Provider Internal Medicine Cardiovascular Disease; Visit Provider Internal Medicine Cardiovascular Disease | DX: I48.19 Other persistent atrial fibrillation (principal); I48.0 Paroxysmal atrial fibrillation; Z79.899 Other long term (current) drug therapy; Z51.81 Encounter for therapeutic drug level monitoring | CPT/HCPCS: 93225; 93226 ==

== ENCOUNTER → 2021-12-19 | Day surgery (SDC) | payer OTHER, SELFPAY ==
[2021-12-18 08:09] VITALS: BMI 31.6
[2021-12-19 11:48] LABS: Anion Gap 3 (5-15); BUN 10 mg/dL (7-18); BUN/Creat Ratio 17.4 RATIO (10-20); Calcium,Total 8.9 mg/dL (8.5-10.1); Chloride 109 mmol/L (98-107); Creatinine, Serum 0.58 mg/dL (0.55-1.02); EST Glomerular Filtration Rate 113 mL/min (>60); Est Glom Filt Rate - Afr Amer 137 mL/min (>60); Estimated Creatinine Clearance 87.96 ml/min; Glucose 107 mg/dL (74-106); Sodium Level 142 mmol/L (136-145)
== END | disposition home or self-care (01) ==
LOC: CLSP 11:22
PROVIDERS: PCP Family Medicine; Visit Provider Internal Medicine Cardiovascular Disease
DX: I48.0 Paroxysmal atrial fibrillation (principal); R00.1 Bradycardia, unspecified; Z87.891 Personal history of nicotine dependence
CPT/HCPCS: 36415; 80048; 93005

== ENCOUNTER 2022-02-02 06:25 | Inpatient (IN) | payer OTHER, SELFPAY ==
[2022-02-02] VITALS (32 sets, daily range): BP systolic 80–144; BP diastolic 47–112; PULSE 59–129; RESP 14–31; TEMP 36.4–37; O2SAT 92–100; BMI 31.6
--- NOTE | 2022-02-02 06:49 | EKG12_ITS ---
Test Reason : REPEAT-CARDIOVERSION Blood Pressure : / mmHG Vent. Rate : 093 BPM Atrial Rate : 277 BPM P-R Int : 000 ms QRS Dur : 094 ms QT Int : 362 ms P-R-T Axes : 000 -14 009 degrees QTc Int : 450 ms Atrial flutter with variable A-V block ST depression, consider subendocardial injury Abnormal ECG Confirmed by ISSAC MARTINEZ, CECILY ([id number]), department editor YOBANI COTA ([id number]) on 02/03/2022 1:15:22 PM Referred By: KAROLINE Confirmed By:CECILY DAVENPORT MD
--- NOTE | 2022-02-02 06:49 | RAD_ITS ---
STUDY: X-RAY CHEST REASON FOR EXAM: Female, 62 years old. dyspnea TECHNIQUE: Single AP portable view of the chest. COMPARISON: December 16, 2020 FINDINGS: The lungs are clear and expanded. There is no demonstrated pleural abnormality. Normal size heart. Normal mediastinum and amberly. Normal visualized pulmonary arteries. There is atherosclerotic tortuosity of the aortic arch and descending thoracic aorta. Normal visualized thoracic spine. Normal visualized ribs, clavicles, and shoulders. There is no demonstrated abnormality of the visualized soft tissue structures of the upper abdomen. RAD/Chest 1 View (Portable) IMPRESSION: No acute process. Electronically Signed: Olegario Vasquez MD at 8:12 EDT ,
[2022-02-02 06:58] LABS: Absolute Lymphocyte Count 1.84 X10^3/uL (0.83-4.51); Basophil# 0.03 X10^3/uL; Basophil% 0.4 % (0-1); Eosinophil# 0.05 X10^3/uL; Eosinophils% 0.6 % (0-5); Hematocrit 47.6 % (37-47); Lymphocyte # 1.84 X10^3/ul (0.83-4.51); Lymphocyte % 23.1 % (19-41); Mean Corp Hgb Conc 33.6 g/dL (32-36); Mean Corpuscular Hgb 30.8 pg (27.0-32.0); Mean Corpuscular Volume 91.5 fL (81-99); Mean Platelet Vol. 12.4 fl (6.2-12.0); Monocyte# 1.01 X10^3/uL; Monocyte% 12.7 % (0-10); NRBC Flagged by Analyzer 0 % (0-5); Neutrophil % 62.8 % (47-70); Platelet Count 207 K/mm3 (150-450); RBC Distribution Width CV 12.9 % (11.6-14.6); RBC Distribution Width SD 43.2 fl (35.1-43.9)
[2022-02-02] MEDS: 0.9% Normal Saline 1,000 ML 999 ML IV (06:58)
[2022-02-02 07:06] LABS: International Normalized Ratio 1.4
[2022-02-02 07:07] LABS: Partial Thromboplast Time 29.5 Seconds (24.1-36.2)
[2022-02-02] MEDS: Etomidate 20 MG/10 ML Vial 10 MG IV (07:15)
[2022-02-02 07:22] LABS: Anion Gap 11 (5-15); BUN 14 mg/dL (7-18); BUN/Creat Ratio 16.4 RATIO (10-20); Calcium,Total 8.8 mg/dL (8.5-10.1); Chloride 104 mmol/L (98-107); Creatinine, Serum 0.85 mg/dL (0.55-1.02); EST Glomerular Filtration Rate 72 mL/min (>60); Est Glom Filt Rate - Afr Amer 87 mL/min (>60); Estimated Creatinine Clearance 56.77 ml/min; Glucose 169 mg/dL (74-106); Magnesium 2.2 mg/dL (1.6-2.6); Potassium 3.4 mmol/L (3.5-5.1); Sodium Level 139 mmol/L (136-145); Thyroid Stim Hormone (TSH) 1.72 uIU/mL (0.358-3.74); Troponin-I HS 8 pg/mL (3.0-54.0)
[2022-02-02 07:36] LABS: BNP,B-Type NATRIURETIC PEPTIDE 72.5 pg/mL (0-100)
--- NOTE | 2022-02-02 07:37 | EDS_ITS ---
HPI History of Present Illness Chief Complaint: Shortness of Breath Narrative Narrative: Patient is a 62-year-old female who has a past medical history of atrial fibrillation. She is on Xarelto as well as metoprolol and flecainide secondary to this. She states that on Wednesday she began to feel unwell. She states she developed a low-grade fever up to 100 with some congestion cough and shortness of breath. She states her symptoms have been persistent throughout the weekend but seem to worsen this morning. She states she has been taking her medications as directed and the only dose that she missed where her metoprolol and flecainide which she did not take this morning because of her worsening symptoms and the fact she was presenting to the ER for evaluation [facility] Medical History Arthritis GBS (Guillain Golden syndrome) New onset atrial fibrillation (10/2019) Numbness and tingling Obesity Paroxysmal atrial fibrillation Post-polio syndrome Home Medications multivitamin 1 tab PO DAILY 03/26/20 [History Last Taken 02/01/22] metoprolol tartrate 50 mg tablet 50 mg PO BID #180 tab 08/18/21 [Rx Last Taken 02/01/22] flecainide 100 mg PO BID 02/02/22 [History Last Taken 02/01/22] rivaroxaban [Xarelto] 20 mg PO DAILY 02/02/22 [History Last Taken 02/01/22] Allergy/AdvReac Type Severity Reaction Status Date / Time cephalexin [From Keflex] Allergy Unknown Unknown Verified 09/04/21 09:59 amoxicillin AdvReac Hives Verified 09/04/21 09:59 Penicillins AdvReac Anaphylaxis Verified 09/04/21 09:59 Sulfa (Sulfonamide AdvReac Hives Verified 09/04/21 09:59 Antibiotics) Family History (Reviewed 09/04/21 @ 09:58 by Enid Allen GLOBAL CATEGORY MANAGER, GLOBAL CATEGORY MANAGER-C) Grandfather Heart disease maternal Grandmother CVA (cerebral vascular accident) maternal Mother Breast cancer Lung cancer Osteoporosis Surgical History History of cardioversion (12/17/20) Hx of colonoscopy Hx of knee surgery Hx of wisdom tooth extraction Social History Smoking Status: Former smoker how long ago did patient quit smokin years ago second hand exposure: No alcohol intake: current alcohol intake frequency: holidays/special occasions only substance use type: does not use caffeine: Yes Type: coffee Number of servings: 2 what type of physical activity do you participate in: aerobics frequency: daily ROS ROS ED Constitutional Constitutional ED: Reports chills, fever(s) and subjective Eyes Eyes: Denies change in vision ENT ENT ED: Reports rhinorrhea; Denies sore throat Cardiovascular Cardiovascular: Reports palpitations and racing heartbeat; Denies chest pain Respiratory/Chest Respiratory/Chest: Reports cough and dyspnea Gastrointestinal Gastrointestinal: Reports nausea; Denies abdominal pain, diarrhea or vomiting Genitourinary Genitourinary ED: Denies dysuria Musculoskeletal Musculoskeletal: Reports myalgias Integumentary Denies rash Neurologic Neurologic: Denies headache(s) Hematologic/Lymphatic Hematologic/Lymphatic: Reports easy bleeding and easy bruising EXAM Physical Exam Const Vital Signs: 02/02/22 06:26 02/02/22 06:32 02/02/22 06:33 Temperature 97.9 F Temperature Source Oral Pulse Rate 125 H 122 H Pulse Rate [1 (Initial Baseline)] Pulse Rate [2] Pulse Rate [3] Pulse Rate [4] Respiratory Rate 22 H Respiratory Rate [1 (Initial Baseline)] Respiratory Rate [2] Respiratory Rate [3] Respiratory Rate [4] Respiratory Effort Normal Non-Labored Respiratory Depth Normal Respiratory Pattern Tachypnea Blood Pressure 117/62 Blood Pressure [1 (Initial Baseline)] Blood Pressure [2] Blood Pressure [3] Blood Pressure [4] Blood Pressure Mean 80 Pulse Ox 97 98 Oxygen Delivery Method Room Air Nasal Cannula Nasal Cannula Oxygen Delivery Method [1 (Initial Baseline)] Oxygen Delivery Method [2] Oxygen Delivery Method [3] Oxygen Delivery Method [4] Oxygen Flow Rate (L/min) 2 2 Oxygen Flow Rate (L/min) [1 (Initial Baseline)] Oxygen Flow Rate (L/min) [2] Oxygen Flow Rate (L/min) [3] Oxygen Flow Rate (L/min) [4] 02/02/22 07:13 02/02/22 07:15 02/02/22 07:24 Temperature 98.6 F Temperature Source Pulse Rate 128 H Pulse Rate [1 (Initial Baseline)] 129 H Pulse Rate [2] 98 Pulse Rate [3] 107 H Pulse Rate [4] 105 H Respiratory Rate 25 H Respiratory Rate [1 (Initial Baseline)] 16 Respiratory Rate [2] 16 Respiratory Rate [3] 20 H Respiratory Rate [4] 24 H Respiratory Effort Respiratory Depth Respiratory Pattern Blood Pressure 109/51 L Blood Pressure [1 (Initial Baseline)] 109/51 L Blood Pressure [2] 139/79 H Blood Pressure [3] 134/72 H Blood Pressure [4] 124/64 H Blood Pressure Mean Pulse Ox 96 Oxygen Delivery Method Nasal Cannula Nasal Cannula Oxygen Delivery Method [1 (Initial Baseline)] Nasal Cannula Oxygen Delivery Method [2] Nasal Cannula Oxygen Delivery Method [3] Nasal Cannula Oxygen Delivery Method [4] Nasal Cannula Oxygen Flow Rate (L/min) 2 2 Oxygen Flow Rate (L/min) [1 (Initial Baseline)] 2 Oxygen Flow Rate (L/min) [2] 2 Oxygen Flow Rate (L/min) [3] 2 Oxygen Flow Rate (L/min) [4] 2 Positive well nourished and well developed General Appearance ED: well developed HEENT Reports dry mucous membranes Mouth ED: Yes dry mucous membranes Mouth: dry mucous membranes Eyes PERRL and EOMs intact bilaterally General Eye ED: Negative for pale conjunctiva Neck supple and no JVD Lymph Lymphatic Narrative: Positive anterior cervical lymphadenopathy Resp clear to auscultation bilaterally Resp Narrative: Breath sounds are diminished throughout but overall clear to auscultation without nasal flaring or retractions or accessory muscle use. There is slight tachypnea noted Cardio Rate: other Other Details: Irregularly irregular rhythm with tachycardic rate consistent with atrial fibrillation with rapid ventricular response GI normal to inspection, nondistended, normoactive bowel sounds, non-tender, non- distended and no masses GI Narrative: No voluntary guarding or rigidity no pulsatile mass Auscultation: normoactive bowel sounds Palpation: soft Extremity normal to inspection Extremity Narrative: No asymmetric edema no pitting edema negative Homans' sign bilaterally Neuro oriented x3 and CN's II-XII intact bilaterally Sensorium / Orientation: alert Motor Exam: strength 5/5 throughout Psych mental status grossly normal Skin no rashes or lesions noted Skin Narrative: Skin turgor is increased MDM MDM MDM Narrative Medical decision making narrative: Patient presented to the ER in atrial fibrillation with RVR going approximately 140 bpm. Despite this her oxygen level was in the mid 90s and her blood pressure was acceptable at 99/63. Her history is concerning for a viral infection leading to a atrial fibrillation exacerbation. Secondary to this a basic work-up was obtained. The patient was also displaying signs of dehydration so she was started on a liter of fluid and digoxin was added for the rate as her blood pressure was borderline hypotensive. At this time the patient will be signed out to the oncoming physician for further Lab Data Attestation: I reviewed the patient's lab results. Labs: Laboratory Results - last 24 hr 02/02/22 02/02/22 02/02/22 06:32 06:32 06:32 WBC 8.0 RBC 5.20 Hgb 16.0 H Hct 47.6 H MCV 91.5 MCH 30.8 MCHC 33.6 RDW Std Deviation 43.2 RDW Coeff of [place] 12.9 Plt Count 207 MPV 12.4 H Immature Gran % (Auto) 0.400 Neut % (Auto) 62.8 Lymph % (Auto) 23.1 [place] % (Auto) 12.7 H Eos % (Auto) 0.6 Baso % (Auto) 0.4 Absolute Neuts (auto) 5.0 Absolute Lymphs (auto) 1.84 Nucleated RBC % 0 PT 17.0 H INR 1.4 APTT 29.5 Sodium 139 Potassium 3.4 L Chloride 104 Carbon Dioxide 24.0 Anion Gap 11 BUN 14 Creatinine 0.85 Estim Creat Clear Calc 56.77 Est GFR (MDRD) Af Amer 87 Est GFR (MDRD) Non-Af 72 BUN/Creatinine Ratio 16.4 Glucose 169 H Calcium 8.8 Magnesium 2.2 Troponin I High Sens 8 B-Natriuretic Peptide TSH 1.72 02/02/22 06:32 WBC RBC Hgb Hct MCV MCH MCHC RDW Std Deviation RDW Coeff of [place] Plt Count MPV Immature Gran % (Auto) Neut % (Auto) Lymph % (Auto) [place] % (Auto) Eos % (Auto) Baso % (Auto) Absolute Neuts (auto) Absolute Lymphs (auto) Nucleated RBC % PT INR APTT Sodium Potassium Chloride Carbon Dioxide Anion Gap BUN Creatinine Estim Creat Clear Calc Est GFR (MDRD) Af Amer Est GFR (MDRD) Non-Af BUN/Creatinine Ratio Glucose Calcium Magnesium Troponin I High Sens B-Natriuretic Peptide 72.5 TSH Radiography Diagnostic Testin view chest x-ray as interpreted by the emergency medicine physician reveals no acute infiltrate pneumothorax or pleural effusion Discharge Plan Triage Chief Complaint: Shortness of Breath ED Provider: Tristan Woodward Dx/Rx/DC Orders Clinical Impression: Atrial fibrillation with RVR, COVID-19 Prescriptions: No Action multivitamin Tablet 1 tab PO DAILY RF: 0 flecainide 100 mg tablet 100 mg PO BID RF: 0 Xarelto 20 mg tablet 20 mg PO DAILY RF: 0 metoprolol tartrate 50 mg tablet 50 mg PO BID Qty: 180 RF: 3 Primary Care Provider: Chris Alicia Referrals: Chris Alicia MD [Primary Care Provider] -
--- NOTE | 2022-02-02 08:00 | EKG12_ITS ---
Test Reason : SOB\DIZZY Blood Pressure : / mmHG Vent. Rate : 141 BPM Atrial Rate : 153 BPM P-R Int : 000 ms QRS Dur : 092 ms QT Int : 282 ms P-R-T Axes : 000 007 237 degrees QTc Int : 431 ms Atrial fibrillation Marked ST abnormality, possible inferior subendocardial injury Marked ST abnormality, possible anterolateral subendocardial injury Abnormal ECG Confirmed by KYM MARTINEZ, DIOMEDES ([id number]), assignment editor YOBANI COTA ([id number]) on 02/04/2022 11:15:51 AM Referred By: Confirmed By:DIOMEDES MEJÍA MD
[2022-02-02] MEDS: Metoprolol Tartrate 5 MG/5 ML Vial IV (08:30)
--- NOTE | 2022-02-02 09:23 | ECHOD_ITS ---
Reason For Study: Afib, Aflutter Procedure This was a limited 2D transthoracic echocardiogram. Exam performed portable in patient room. The exam was abbreviated due to the COVID 19 protocol. Left Ventricle Normal LV size. Left ventricular systolic function is lower limits of normal. The estimated ejection fraction is 50 %. No regional wall motion abnormalities noted. Right Ventricle Normal RV size. Normal systolic function. Atria Normal left atrium. Normal right atrium. Mitral Valve Normal mitral valve. Tricuspid Valve Normal tricuspid valve. Aortic Valve Normal aortic valve. Pulmonic Valve Normal pulmonic valve. Great Vessels Normal aortic root. The pulmonary artery is normal size. Normal inferior vena cava. Pericardium/Pleural No pericardial effusion. MMode/2D Measurements & Calculations LVIDd: 4.3 cm IVSd: 1.3 cm LVAd ap4: 21.5 cm2 LVIDs: 2.9 cm LVPWd: 1.2 cm LVLd ap4: 6.7 cm FS: 32.8 % EDV(MOD-sp4): 57.3 ml EDV(sp4-el): 58.6 ml LVAs ap4: 14.0 cm2 LVLs ap4: 5.7 cm ESV(MOD-sp4): 29.2 ml ESV(sp4-el): 29.5 ml EF(MOD-sp4): 49.0 % EF(sp4-el): 49.7 % SV(MOD-sp4): 28.1 ml SV(sp4-el): 29.1 ml ECHO/Echo Complete Interpretation Summary Normal LV size. Left ventricular systolic function is lower limits of normal. The estimated ejection fraction is 50 %. Structurally normal valves. Ordering Physician: Helder Sánchez Referring Physician: Chris Alicia Performed By: Vidhi Magana, CARMELLA, RVT
[2022-02-02] MEDS: Acetaminophen 325 MG Tablet 650 MG PO (10:41)
[2022-02-02] MEDS: Metoprolol Tartrate 50 MG Tablet PO ×2 (10:41→22:47)
[2022-02-02] MEDS: dexAMETHasone 4 MG Tablet 6 MG PO (11:36)
--- NOTE | 2022-02-02 12:52 | CASEMGMT ---
ELIAZAR AMEZCUA assessment: Initial transition planning/care coordination assessment completed with pt. ELIAZAR AMEZCUA introduced self and role at [facility], pt voices understanding and consents to assessment. Pt is in no distress on room air. Pt is A/Ox4 and answers all questions appropriately. Care providers, pharmacy, and demographics verified. Presentation: Pt c/o difficulty catching her breath, reports fever over w/e Admitting dx: Afib RVR, COVID PCP: Ravin Specialists: Man cardio [facility]acy[facility] Insurance: MMO Prescription Benefit: MMO Living Will/HPOA: Pt has LW/HPOA and is aware that they are not on file at [facility]. Pt states her , Jorge Blount, is HPOA. LNOK: Jorge Blount, /HPOA; Saurav Garcia, son Living Arrangements: Pt lives with in 1 story home and states no concerns at home. Pt is independent with ADL's. Transportation: Pt drives self and states no transportation concerns. DME/HHC: Pt states no current DME and declines need for any further DME. Pt to be provided [facility] pulse ox at discharge. Pt states no hx of HHC or SNF in the past. Pt states no concerns with going home at time of discharge. 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 Pt does not smoke cigarettes or drink ETOH. Pt states no further concerns/needs. CM to follow for any further discharge planning/needs. Advised pt to ask for CM if any further questions/concerns/needs arise, voices understanding. Pt Goal: Home Plan[place] ELIAZAR AMEZCUA
--- NOTE | 2022-02-02 14:22 | PCM.HP.STD ---
HPI - General General Date of Admission: 02/02/22 HPI Narrative ROLANDO WILLIS, is a 62 F who presents to the hospital with worsening shortness of breath. 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 She started feeling more short of breath and like she was going to pass out. She does have a history of A. fib. She presented to the ER where she tested positive for COVID despite having both her vaccinations as well as the booster, and she was scheduled for her second booster tomorrow. She is to be in persistent atrial fibrillation and was darted on amiodarone drip and IV Toprol all. She had not taken her flecainide or her oral metoprolol this morning prior to admission. Chest x-ray on admission was negative, there is no signs of pneumonia from COVID. She was requiring initially 2 L of oxygen however she is currently on room air during my evaluation. 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) New onset atrial fibrillation (10/2019) Numbness and tingling Obesity Paroxysmal atrial fibrillation Post-polio syndrome Home Medications multivitamin 1 tab PO DAILY 03/26/20 [History Last Taken 02/01/22] metoprolol tartrate 50 mg tablet 50 mg PO BID #180 tab 08/18/21 [Rx Last Taken 02/01/22] flecainide 100 mg PO BID 02/02/22 [History Last Taken 02/01/22] rivaroxaban [Xarelto] 20 mg PO DAILY 02/02/22 [History Last Taken 02/01/22] Allergy/AdvReac Type Severity Reaction Status Date / Time cephalexin [From Keflex] Allergy Unknown Unknown Verified 09/04/21 09:59 amoxicillin AdvReac Hives Verified 09/04/21 09:59 Penicillins AdvReac Anaphylaxis Verified 09/04/21 09:59 Sulfa (Sulfonamide AdvReac Hives Verified 09/04/21 09:59 Antibiotics) Family History Grandfather Heart disease maternal Grandmother CVA (cerebral vascular accident) maternal Mother Breast cancer Lung cancer Osteoporosis Surgical History History of cardioversion (12/17/20) Hx of colonoscopy Hx of knee surgery Hx of wisdom tooth extraction Social History (Reviewed 09/04/21 @ 09:58 by Enid Allen 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, 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) Smoking Status: Former smoker how long ago did patient quit smokin years ago second hand exposure: No alcohol intake: current alcohol intake frequency: holidays/special occasions only substance use type: does not use caffeine: Yes Type: coffee Number of servings: 2 what type of physical activity do you participate in: aerobics frequency: daily ROS Constitutional Constitutional: Reports chills, fatigue and fever(s); Denies malaise Eyes Eyes: Denies blurry vision ENT HEENT: Reports nasal discharge; Denies headache(s) Cardiovascular Cardiovascular: Reports palpitations; Denies chest pain, dyspnea on exertion or syncope Respiratory/Chest Respiratory/Chest: Reports shortness of breath at rest; Denies cough or shortness of breath with exertion Gastrointestinal Gastrointestinal: Reports nausea; Denies constipation, diarrhea or vomiting Genitourinary Genitourinary: Denies dysuria Musculoskeletal Musculoskeletal: Reports myalgias Neurologic Neurologic: Denies focal weakness, numbness or tremor(s) Psychiatric Psychiatric: Denies anxiety or depression Vital Signs Vital Signs Vital Signs: 02/02/22 06:26 02/02/22 06:32 02/02/22 06:33 Temperature 97.9 F Temperature Source Oral Pulse Rate 125 H 122 H Pulse Rate [1 (Initial Baseline)] Pulse Rate [2] Pulse Rate [3] Pulse Rate [4] Pulse Strength Respiratory Rate 22 H Respiratory Rate [1 (Initial Baseline)] Respiratory Rate [2] Respiratory Rate [3] Respiratory Rate [4] Respiratory Effort Normal Non-Labored Respiratory Depth Normal Respiratory Pattern Tachypnea Blood Pressure 117/62 Blood Pressure [1 (Initial Baseline)] Blood Pressure [2] Blood Pressure [3] Blood Pressure [4] Blood Pressure Mean 80 Blood Pressure Source Blood Pressure Position Blood Pressure Location Pulse Ox 97 98 Oxygen Delivery Method Room Air Nasal Cannula Nasal Cannula Oxygen Delivery Method [1 (Initial Baseline)] Oxygen Delivery Method [2] Oxygen Delivery Method [3] Oxygen Delivery Method [4] Oxygen Flow Rate (L/min) 2 2 Oxygen Flow Rate (L/min) [1 (Initial Baseline)] Oxygen Flow Rate (L/min) [2] Oxygen Flow Rate (L/min) [3] Oxygen Flow Rate (L/min) [4] 02/02/22 07:13 02/02/22 07:15 02/02/22 07:24 Temperature 98.6 F Temperature Source Pulse Rate 128 H Pulse Rate [1 (Initial Baseline)] 129 H Pulse Rate [2] 98 Pulse Rate [3] 107 H Pulse Rate [4] 105 H Pulse Strength Respiratory Rate 25 H Respiratory Rate [1 (Initial Baseline)] 16 Respiratory Rate [2] 16 Respiratory Rate [3] 20 H Respiratory Rate [4] 24 H Respiratory Effort Respiratory Depth Respiratory Pattern Blood Pressure 109/51 L Blood Pressure [1 (Initial Baseline)] 109/51 L Blood Pressure [2] 139/79 H Blood Pressure [3] 134/72 H Blood Pressure [4] 124/64 H Blood Pressure Mean Blood Pressure Source Blood Pressure Position Blood Pressure Location Pulse Ox 96 Oxygen Delivery Method Nasal Cannula Nasal Cannula Oxygen Delivery Method [1 (Initial Baseline)] Nasal Cannula Oxygen Delivery Method [2] Nasal Cannula Oxygen Delivery Method [3] Nasal Cannula Oxygen Delivery Method [4] Nasal Cannula Oxygen Flow Rate (L/min) 2 2 Oxygen Flow Rate (L/min) [1 (Initial Baseline)] 2 Oxygen Flow Rate (L/min) [2] 2 Oxygen Flow Rate (L/min) [3] 2 Oxygen Flow Rate (L/min) [4] 2 02/02/22 09:02 02/02/22 09:05 02/02/22 09:38 Temperature 97.8 F 97.8 F 97.7 F L Temperature Source Oral Oral Temporal Pulse Rate 101 H 101 H 87 Pulse Rate [1 (Initial Baseline)] Pulse Rate [2] Pulse Rate [3] Pulse Rate [4] Pulse Strength Respiratory Rate 16 16 22 H Respiratory Rate [1 (Initial Baseline)] Respiratory Rate [2] Respiratory Rate [3] Respiratory Rate [4] Respiratory Effort Respiratory Depth Respiratory Pattern Blood Pressure 144/73 H 144/73 H 122/69 H Blood Pressure [1 (Initial Baseline)] Blood Pressure [2] Blood Pressure [3] Blood Pressure [4] Blood Pressure Mean 96 96 86 Blood Pressure Source Monitor Monitor Blood Pressure Position Semi-Fowlers Semi-Fowlers Blood Pressure Location Right Arm Right Arm Pulse Ox 95 95 95 Oxygen Delivery Method Room Air Room Air Room Air Oxygen Delivery Method [1 (Initial Baseline)] Oxygen Delivery Method [2] Oxygen Delivery Method [3] Oxygen Delivery Method [4] Oxygen Flow Rate (L/min) Oxygen Flow Rate (L/min) [1 (Initial Baseline)] Oxygen Flow Rate (L/min) [2] Oxygen Flow Rate (L/min) [3] Oxygen Flow Rate (L/min) [4] 02/02/22 09:45 02/02/22 10:00 02/02/22 10:15 Temperature 97.7 F L 97.7 F L 97.6 F L Temperature Source Temporal Temporal Temporal Pulse Rate 90 89 88 Pulse Rate [1 (Initial Baseline)] Pulse Rate [2] Pulse Rate [3] Pulse Rate [4] Pulse Strength Normal (2+) Respiratory Rate 20 H 18 21 H Respiratory Rate [1 (Initial Baseline)] Respiratory Rate [2] Respiratory Rate [3] Respiratory Rate [4] Respiratory Effort Respiratory Depth Respiratory Pattern Blood Pressure 119/73 126/73 H 143/67 H Blood Pressure [1 (Initial Baseline)] Blood Pressure [2] Blood Pressure [3] Blood Pressure [4] Blood Pressure Mean 88 90 92 Blood Pressure Source Monitor Monitor Monitor Blood Pressure Position Semi-Fowlers Semi-Fowlers Semi-Fowlers Blood Pressure Location Right Arm Right Arm Right Arm Pulse Ox 95 96 99 Oxygen Delivery Method Room Air Room Air Room Air Oxygen Delivery Method [1 (Initial Baseline)] Oxygen Delivery Method [2] Oxygen Delivery Method [3] Oxygen Delivery Method [4] Oxygen Flow Rate (L/min) Oxygen Flow Rate (L/min) [1 (Initial Baseline)] Oxygen Flow Rate (L/min) [2] Oxygen Flow Rate (L/min) [3] Oxygen Flow Rate (L/min) [4] 02/02/22 10:20 02/02/22 10:30 02/02/22 10:41 Temperature 97.6 F L Temperature Source Temporal Pulse Rate 87 92 Pulse Rate [1 (Initial Baseline)] Pulse Rate [2] Pulse Rate [3] Pulse Rate [4] Pulse Strength Respiratory Rate 22 H Respiratory Rate [1 (Initial Baseline)] Respiratory Rate [2] Respiratory Rate [3] Respiratory Rate [4] Respiratory Effort Normal Non-Labored Respiratory Depth Normal Respiratory Pattern Normal Blood Pressure 113/78 Blood Pressure [1 (Initial Baseline)] Blood Pressure [2] Blood Pressure [3] Blood Pressure [4] Blood Pressure Mean 89 Blood Pressure Source Monitor Blood Pressure Position Semi-Fowlers Blood Pressure Location Right Arm Pulse Ox 96 Oxygen Delivery Method Room Air Room Air Oxygen Delivery Method [1 (Initial Baseline)] Oxygen Delivery Method [2] Oxygen Delivery Method [3] Oxygen Delivery Method [4] Oxygen Flow Rate (L/min) Oxygen Flow Rate (L/min) [1 (Initial Baseline)] Oxygen Flow Rate (L/min) [2] Oxygen Flow Rate (L/min) [3] Oxygen Flow Rate (L/min) [4] 02/02/22 10:45 02/02/22 10:50 02/02/22 11:00 Temperature 97.6 F L 97.7 F L Temperature Source Temporal Temporal Pulse Rate 112 H 93 93 Pulse Rate [1 (Initial Baseline)] Pulse Rate [2] Pulse Rate [3] Pulse Rate [4] Pulse Strength Respiratory Rate 18 14 Respiratory Rate [1 (Initial Baseline)] Respiratory Rate [2] Respiratory Rate [3] Respiratory Rate [4] Respiratory Effort Respiratory Depth Respiratory Pattern Blood Pressure 116/86 H 102/80 Blood Pressure [1 (Initial Baseline)] Blood Pressure [2] Blood Pressure [3] Blood Pressure [4] Blood Pressure Mean 96 87 Blood Pressure Source Monitor Monitor Blood Pressure Position Semi-Fowlers Semi-Fowlers Blood Pressure Location Right Arm Right Arm Pulse Ox 95 93 Oxygen Delivery Method Room Air Room Air Oxygen Delivery Method [1 (Initial Baseline)] Oxygen Delivery Method [2] Oxygen Delivery Method [3] Oxygen Delivery Method [4] Oxygen Flow Rate (L/min) Oxygen Flow Rate (L/min) [1 (Initial Baseline)] Oxygen Flow Rate (L/min) [2] Oxygen Flow Rate (L/min) [3] Oxygen Flow Rate (L/min) [4] 02/02/22 11:30 02/02/22 12:00 02/02/22 13:00 Temperature 97.6 F L 97.6 F L 97.7 F L Temperature Source Temporal Temporal Temporal Pulse Rate 78 71 59 L Pulse Rate [1 (Initial Baseline)] Pulse Rate [2] Pulse Rate [3] Pulse Rate [4] Pulse Strength Respiratory Rate 18 17 19 H Respiratory Rate [1 (Initial Baseline)] Respiratory Rate [2] Respiratory Rate [3] Respiratory Rate [4] Respiratory Effort Respiratory Depth Respiratory Pattern Blood Pressure 95/62 85/54 L 101/61 Blood Pressure [1 (Initial Baseline)] Blood Pressure [2] Blood Pressure [3] Blood Pressure [4] Blood Pressure Mean 73 64 74 Blood Pressure Source Monitor Monitor Monitor Blood Pressure Position Semi-Fowlers Semi-Fowlers Semi-Fowlers Blood Pressure Location Right Arm Right Arm Right Arm Pulse Ox 95 95 94 Oxygen Delivery Method Room Air Room Air Room Air Oxygen Delivery Method [1 (Initial Baseline)] Oxygen Delivery Method [2] Oxygen Delivery Method [3] Oxygen Delivery Method [4] Oxygen Flow Rate (L/min) Oxygen Flow Rate (L/min) [1 (Initial Baseline)] Oxygen Flow Rate (L/min) [2] Oxygen Flow Rate (L/min) [3] Oxygen Flow Rate (L/min) [4] 02/02/22 13:42 Temperature Temperature Source Pulse Rate Pulse Rate [1 (Initial Baseline)] Pulse Rate [2] Pulse Rate [3] Pulse Rate [4] Pulse Strength Respiratory Rate Respiratory Rate [1 (Initial Baseline)] Respiratory Rate [2] Respiratory Rate [3] Respiratory Rate [4] Respiratory Effort Normal Non-Labored Respiratory Depth Normal Respiratory Pattern Normal Blood Pressure Blood Pressure [1 (Initial Baseline)] Blood Pressure [2] Blood Pressure [3] Blood Pressure [4] Blood Pressure Mean Blood Pressure Source Blood Pressure Position Blood Pressure Location Pulse Ox Oxygen Delivery Method Room Air Oxygen Delivery Method [1 (Initial Baseline)] Oxygen Delivery Method [2] Oxygen Delivery Method [3] Oxygen Delivery Method [4] Oxygen Flow Rate (L/min) Oxygen Flow Rate (L/min) [1 (Initial Baseline)] Oxygen Flow Rate (L/min) [2] Oxygen Flow Rate (L/min) [3] Oxygen Flow Rate (L/min) [4] Weight Weight: 178 lb 12.718 oz Body Mass Index (BMI) 31.6 Physical Exam Const alert and oriented x3 General Appearance: cooperative HEENT normocephalic and moist oral mucous membranes Eyes PERRL, EOMs intact bilaterally and conjunctivae normal Neck supple and no JVD Resp normal respiratory effort, no retractions, no use of accessory muscles and clear to auscultation bilaterally Auscultation: Negative for crackles, rales, rhonchi or wheezes Cardio regular rate, S1 normal heart sound, S2 normal heart sound and no murmurs Rhythm: abnormal rhythm GI soft to palpation, non-tender and non-distended; Negative for hepatosplenomegaly Extremity no clubbing, cyanosis or edema Skin no rashes or lesions noted Neuro no focal motor deficits and no sensory deficits noted Psych affect normal Appearance: appropriate Results Lab / Micro Data Result Diagrams: 02/02/22 06:32 02/02/22 06:32 Labs: Laboratory Results - last 24 hr 02/02/22 06:32: WBC 8.0, RBC 5.20, Hgb 16.0 H, Hct 47.6 H, MCV 91.5, MCH 30.8, MCHC 33.6, RDW Std Deviation 43.2, RDW Coeff of [place] 12.9, Plt Count 207, MPV 12.4 H, Immature Gran % (Auto) 0.400, Neut % (Auto) 62.8, Lymph % (Auto) 23.1, [place] % (Auto) 12.7 H, Eos % (Auto) 0.6, Baso % (Auto) 0.4, Absolute Neuts (auto) 5.0, Absolute Lymphs (auto) 1.84, Nucleated RBC % 0 02/02/22 06:32: PT 17.0 H, INR 1.4, APTT 29.5 02/02/22 06:32: Sodium 139, Potassium 3.4 L, Chloride 104, Carbon Dioxide 24.0, Anion Gap 11, BUN 14, Creatinine 0.85, Estim Creat Clear Calc 56.77, Est GFR (MDRD) Af Amer 87, Est GFR (MDRD) Non-Af 72, BUN/Creatinine Ratio 16.4, Glucose 169 H, Calcium 8.8, Magnesium 2.2, Troponin I High Sens 8, TSH 1.72 02/02/22 06:32: B-Natriuretic Peptide 72.5 Micro: Microbiology 02/02/22 07:00 Nasal Secretion SARS-CoV-2 & FLU Antigen (Rapid) - Final SARS-CoV-2 (COVID 19) Radiology Impression Chest X-Ray 02/02/22 06:49 IMPRESSION: No acute process. Electronically Signed: Olegario Vasquez MD at 8:12 EDT Reading Location ID and State: [facility] / [place] , Service support , Assessment & Plan Assessment/Plan (1) Atrial fibrillation with RVR: (2) COVID-19: PLAN: 1. COVID-19/A. fib with RVR ? She does have known A. fib and it is likely that the COVID infection pushed her into RVR ? She was started on an amiodarone drip. She was given a bolus of amiodarone as well as digoxin, and then she was also given 5 of IV metoprolol as well as her oral metoprolol dose ? Currently she has a normal heart rate but she is still in A. fib ? Discussed the situation with cardiology and they recommended restarting flecainide in the morning and then potentially increasing her metoprolol to 75 mg p.o.twice daily if necessary. At this time did not consult cardiology ? Continue with Xarelto ? We will also continue with remdesivir as well as Decadron given that she is within the 10 days of symptom onset and was initially requiring oxygen. I did not obtain a D-dimer or CTA of the chest secondary to the fact that she is already anticoagulated and the chest x-ray was negative DVT: Xarelto Charges/Coding Visit Charges Inpatient E&M: 66731 Init Hosp L2
[2022-02-02] MEDS: Rivaroxaban 20 MG Tablet PO (15:50)
[2022-02-03] VITALS (14 sets, daily range): BP systolic 98–120; BP diastolic 55–98; PULSE 61–76; RESP 17–22; TEMP 36.7; O2SAT 92–98
[2022-02-03 06:08] LABS: Absolute Lymphocyte Count 1.42 X10^3/uL (0.83-4.51); Absolute Neutrophil Count 4.3 X10^3/uL (2.0-7.7); Basophil# 0.01 X10^3/uL; Basophil% 0.2 % (0-1); Hematocrit 44.8 % (37-47); Lymphocyte # 1.42 X10^3/ul (0.83-4.51); Lymphocyte % 21.4 % (19-41); Mean Corp Hgb Conc 33.5 g/dL (32-36); Mean Corpuscular Hgb 30.7 pg (27.0-32.0); Mean Corpuscular Volume 91.6 fL (81-99); Mean Platelet Vol. 12.5 fl (6.2-12.0); Monocyte# 0.86 X10^3/uL; NRBC Flagged by Analyzer 0 % (0-5); Neutrophil # 4.32 X10^3/uL (2.7-7.7); Neutrophil % 65.1 % (47-70); Platelet Count 178 K/mm3 (150-450); RBC Distribution Width CV 12.8 % (11.6-14.6); RBC Distribution Width SD 43.2 fl (35.1-43.9); Red Blood Count 4.89 M/mm3 (4.2-5.4); White Blood Count 6.6 K/mm3 (4.4-11.0)
[2022-02-03 06:42] LABS: ALB/GLOB Ratio 0.9 RATIO (0.9-2.4); AST(SGOT) 19 U/L (15-37); Alanine Aminotransfer ALT/SGPT 31 U/L (13-56); Albumin, Serum 3.2 g/dL (3.2-5.0); Alkaline Phosphatase 85 U/L (45-117); Anion Gap 7 (5-15); BUN 10 mg/dL (7-18); BUN/Creat Ratio 18.6 RATIO (10-20); Calcium,Total 8.6 mg/dL (8.5-10.1); Chloride 109 mmol/L (98-107); Creatinine, Serum 0.54 mg/dL (0.55-1.02); EST Glomerular Filtration Rate 122 mL/min (>60); Est Glom Filt Rate - Afr Amer 148 mL/min (>60); Estimated Creatinine Clearance 89.35 ml/min; Globulin 3.6 g/dL (2.2-4.2); Glucose 106 mg/dL (74-106); Potassium 3.3 mmol/L (3.5-5.1); Protein, Total 6.8 g/dL (6.4-8.2); Sodium Level 140 mmol/L (136-145)
[2022-02-03] MEDS: Metoprolol Tartrate 50 MG Tablet PO (10:04)
[2022-02-03] MEDS: Flecainide 100 MG Tablet PO (10:07)
[2022-02-03] MEDS: dexAMETHasone 4 MG Tablet 6 MG PO (10:07)
--- NOTE | 2022-02-03 10:30 | CASEMGMT ---
Pt does not qualify for home oxygen at discharge and pt provided with [facility] pulse ox to take home at discharge. Cinthia PEREA CM
--- NOTE | 2022-02-03 10:48 | PCM.DC ---
Discharge Instructions Diet Discharge Diet: No restrictions Activity Discharge Activity: Return to Normal Activity Return to work on:: 02/10/22 Additional Activity Instructions:: Self isolate for at least 10 days (01/30-) since symptoms began or the first positive COVID-19 test AND at least one day (24 hours) have passed since resolution of fever without the use of fever-reducing agents AND improvement of symptoms (e.g., cough, shortness of breath) When around people in the same room, wear a face mask. Individuals also in the room should wear a mask. If possible, use a different bathroom and bedroom. Perform adequate hand hygiene. Avoid sharing dishes, glasses, etc. You may have your COVID booster after you have completed quarantine. Dressing / Incision Call your doctor if you observe: Shortness of breath and Chest pain Follow Up Care Test Results: Test results from this visit will be discussed in further detail at your follow-up appointment, if applicable. Discharge Plan Admission Admit Date/Time: 02/02/22 08:41 Primary Reason for Your Visit: atrial fibrillation with RVR. COVID 19 Attending Provider: Chris Jung Primary Care Provider: Chris Alicia Consulting Providers: Helder Sánchez Discharge Orders/Prescriptions Prescriptions: New dexamethasone 4 mg Tablet 6 mg PO DAILY 8 Days Qty: 12 RF: 0 Continued multivitamin Tablet 1 tab PO DAILY RF: 0 flecainide 100 mg tablet 100 mg PO BID RF: 0 Xarelto 20 mg tablet 20 mg PO DAILY RF: 0 metoprolol tartrate 50 mg tablet 50 mg PO BID Qty: 180 RF: 3 Referrals / Follow Up: [facility] [Provider Group] - 03/04/22 9:00 am Chris Alicia MD [Primary Care Provider] - Within 2 Weeks Disposition Disposition (needs filled in before D/C Order can be placed): Home, Self Care
--- NOTE | 2022-02-03 11:01 | DS.PCM_ITS ---
Providers Date of Admission: 02/02/22 Primary Care Physician: Dr. Chris Alicia MD Reason For Visit: AFIB RVR AND COVID Diagnosis Discharge Diagnosis (1) Atrial fibrillation with RVR: Status: Acute Code(s): I48.91 - Unspecified atrial fibrillation (2) COVID-19: Status: Acute Code(s): U07.1 - COVID-19 Medications at Discharge Home Medications multivitamin 1 tab PO DAILY 03/26/20 metoprolol tartrate 50 mg tablet 50 mg PO BID #180 tab 08/18/21 Xarelto 20 mg PO DAILY 02/02/22 flecainide 100 mg PO BID 02/02/22 dexamethasone 6 mg PO DAILY 8 Days #12 tab 02/03/22 Hospital Course Operations None Procedures 2-D Echocardiogram Summary of Care Provided Minutes Spent on Discharge: 32 Hospital Course: This is a 62-year-old female with a history of atrial fibrillation presents with shortness of breath. Patient started not feeling well on Wednesday of January 30. And then to start feeling worse and short of breath on the . Patient was found to be in atrial fibrillation with RVR. Patient was started on amiodarone drip and has since been in a normal rate but still in A. fib. Patient's A. fib was precipitated by an underlying COVID-19 infection. Patient did have some transient hypoxemia and was on remdesivir as well as dexamethasone. Patient is no longer hypoxic and was ambulated and did well and therefore will not require oxygen but will be discharged with dexamethasone completed 10-day course. Patient will continue with her home doses of metoprolol tartrate flecainide with no change at this time. Patient continue with her anticoagulation with rivaroxaban. Patient did well and improved much sooner than initially anticipated. Patient will be discharged home today. Physical Exam Const alert and no apparent distress Cardio regular rate, regular rhythm, S1 normal heart sound and S2 normal heart sound GI normal to inspection, nondistended, normoactive bowel sounds, soft to palpation, non-tender and non-distended Extremity normal to inspection and full ROM Neuro oriented x3 Sensorium / Orientation: awake, alert and oriented to person Weight / BMI Weight Weight: 81.1 kg Body Mass Index (BMI) 31.6 ABG / Lab / Microbiology Data Result Diagrams: 02/03/22 05:16 02/03/22 05:16 Laboratory: Laboratory Results - last 24 hr 02/03/22 05:16: WBC 6.6, RBC 4.89, Hgb 15.0, Hct 44.8, MCV 91.6, MCH 30.7, MCHC 33.5, RDW Std Deviation 43.2, RDW Coeff of [place] 12.8, Plt Count 178, MPV 12.5 H, Immature Gran % (Auto) 0.300, Neut % (Auto) 65.1, Lymph % (Auto) 21.4, [place] % (Auto) 13.0 H, Eos % (Auto) 0.0, Baso % (Auto) 0.2, Absolute Neuts (auto) 4.3, Absolute Lymphs (auto) 1.42, Nucleated RBC % 0 02/03/22 05:16: Sodium 140, Potassium 3.3 L, Chloride 109 H, Carbon Dioxide 24.0, Anion Gap 7, BUN 10, Creatinine 0.54 L, Estim Creat Clear Calc 89.35, Est GFR (MDRD) Af Amer 148, Est GFR (MDRD) Non-Af 122, BUN/Creatinine Ratio 18.6, Glucose 106, Calcium 8.6, Total Bilirubin 0.40, AST 19, ALT 31, Alkaline Phosphatase 85, Total Protein 6.8, Albumin 3.2, Globulin 3.6, Albumin/Globulin Ratio 0.9 Microbiology: Microbiology 02/02/22 07:00 Nasal Secretion SARS-CoV-2 & FLU Antigen (Rapid) - Final SARS-CoV-2 (COVID 19) Radiography Diagnostic Testing: Radiology Impression Echocardiogram 02/02/22 09:23 Interpretation Summary Normal LV size. Left ventricular systolic function is lower limits of normal. The estimated ejection fraction is 50 %. Structurally normal valves. Ordering Physician: Helder Sánchez Referring Physician: Chris Alicia Performed By: Vidhi Magana, CARMELLA, RVT D/C Instructions Discharge Diet: No restrictions Return to work on: 02/10/22 Additional Activity Instructions: Self isolate for at least 10 days (01/30- ) since symptoms began or the first positive COVID-19 test AND at least one day (24 hours) have passed since resolution of fever without the use of fever-reducing agents AND improvement of symptoms (e.g., cough, shortness of breath) When around people in the same room, wear a face mask. Individuals also in the room should wear a mask. If possible, use a different bathroom and bedroom. Perform adequate hand hygiene. Avoid sharing dishes, glasses, etc. You may have your COVID booster after you have completed quarantine. Call your doctor if you observe: Shortness of breath and Chest pain Meaningful Use Info Meaningful Use Diagnoses (Choose all that apply): None applicable Discharge Plan Admission Admit Date/Time: 02/02/22 08:41 Primary Reason for Your Visit: atrial fibrillation with RVR. COVID 19 Attending Provider: Chris Jung Primary Care Provider: Chris Alicia Consulting Providers: Helder Sánchez Discharge Orders/Prescriptions Prescriptions: New dexamethasone 4 mg Tablet 6 mg PO DAILY 8 Days Qty: 12 RF: 0 Continued multivitamin Tablet 1 tab PO DAILY RF: 0 flecainide 100 mg tablet 100 mg PO BID RF: 0 Xarelto 20 mg tablet 20 mg PO DAILY RF: 0 metoprolol tartrate 50 mg tablet 50 mg PO BID Qty: 180 RF: 3 Referrals / Follow Up: [facility] [Provider Group] - 03/04/22 9:00 am Chris Alicia MD [Primary Care Provider] - Within 2 Weeks Disposition Disposition (needs filled in before D/C Order can be placed): Home, Self Care Charges/Coding Visit Charges Inpatient E&M: 22249 Disch Hosp
--- NOTE | 2022-02-03 13:13 | PHA.DC.MR ---
Pharmacy Service has performed discharge medication reconciliation for this patient. The patient's discharge medication list was reviewed for discrepancies and discrepancies were resolved. Patient discharged before this [facility] was able to attempt to call for counseling. Medications reviewed. Home Medications multivitamin 1 tab PO DAILY 03/26/20 metoprolol tartrate 50 mg tablet 50 mg PO BID #180 tab 08/18/21 Xarelto 20 mg PO DAILY 02/02/22 flecainide 100 mg PO BID 02/02/22 dexamethasone 6 mg PO DAILY 8 Days #12 tab 02/03/22
== END 2022-02-03 11:56 | disposition home or self-care (01) | DRG 178 ==
LOC: ED 06:54 → PCU 09:10
PROVIDERS: Admitting Provider Family Medicine; Emergency Provider Emergency Medicine; PCP Family Medicine
DX: U07.1 COVID-19 (principal); I48.19 Other persistent atrial fibrillation; G61.0 Guillain-Barre syndrome; Z87.891 Personal history of nicotine dependence; Z79.01 Long term (current) use of anticoagulants
CPT/HCPCS: 36415; 71045; 80048; 80053; 83735; 83880; 84443; 84484; 85025; 85610; 85730; 87428; 93005; 93306; 99285; J7030; J7050; A4216; J0248

== ENCOUNTER → 2022-02-17 | Outpatient (CLI) | payer OTHER, SELFPAY ==
[2022-02-17 17:54] LABS: Absolute Lymphocyte Count 2.85 X10^3/uL (0.83-4.51); Absolute Neutrophil Count 4.2 X10^3/uL (2.0-7.7); Basophil# 0.04 X10^3/uL; Basophil% 0.5 % (0-1); Eosinophil# 0.16 X10^3/uL; Eosinophils% 1.9 % (0-5); Hematocrit 43.3 % (37-47); Hemoglobin 14.1 g/dL (12.0-15.0); Lymphocyte # 2.85 X10^3/ul (0.83-4.51); Lymphocyte % 34.3 % (19-41); Mean Corp Hgb Conc 32.6 g/dL (32-36); Mean Corpuscular Hgb 30.4 pg (27.0-32.0); Mean Corpuscular Volume 93.3 fL (81-99); Mean Platelet Vol. 13.4 fl (6.2-12.0); Monocyte# 0.99 X10^3/uL; Monocyte% 11.9 % (0-10); NRBC Flagged by Analyzer 0 % (0-5); Neutrophil # 4.24 X10^3/uL (2.7-7.7); Neutrophil % 51.2 % (47-70); Platelet Count 189 K/mm3 (150-450); RBC Distribution Width CV 13.2 % (11.6-14.6); RBC Distribution Width SD 44.5 fl (35.1-43.9); Red Blood Count 4.64 M/mm3 (4.2-5.4); White Blood Count 8.3 K/mm3 (4.4-11.0)
[2022-02-17 18:10] LABS: ALB/GLOB Ratio 1.1 RATIO (0.9-2.4); AST(SGOT) 20 U/L (15-37); Alanine Aminotransfer ALT/SGPT 44 U/L (13-56); Albumin, Serum 3.5 g/dL (3.2-5.0); Alkaline Phosphatase 89 U/L (45-117); Anion Gap 4 (5-15); BUN 19 mg/dL (7-18); Calcium,Total 8.9 mg/dL (8.5-10.1); Chloride 109 mmol/L (98-107); EST Glomerular Filtration Rate 89 mL/min (>60); Est Glom Filt Rate - Afr Amer 108 mL/min (>60); Globulin 3.1 g/dL (2.2-4.2); Glucose 102 mg/dL (74-106); Magnesium 2.5 mg/dL (1.6-2.6); Potassium 3.9 mmol/L (3.5-5.1); Protein, Total 6.6 g/dL (6.4-8.2); Sodium Level 141 mmol/L (136-145)
== END | disposition home or self-care (01) ==
LOC: MTLAB 15:25
PROVIDERS: PCP Family Medicine; Referring Provider Family Medicine; Visit Provider Family Medicine
DX: I48.91 Unspecified atrial fibrillation (principal)
CPT/HCPCS: 36415; 80053; 83735; 85025

== ENCOUNTER → 2022-03-16 | Day surgery (SDC) | payer OTHER, SELFPAY ==
[2022-03-16 07:01] VITALS: BMI 31.6
[2022-03-16 10:58] LABS: Anion Gap 1 (5-15); BUN 17 mg/dL (7-18); BUN/Creat Ratio 23.2 RATIO (10-20); Calcium,Total 9.2 mg/dL (8.5-10.1); Chloride 109 mmol/L (98-107); Creatinine, Serum 0.73 mg/dL (0.55-1.02); EST Glomerular Filtration Rate 85 mL/min (>60); Est Glom Filt Rate - Afr Amer 103 mL/min (>60); Glucose 96 mg/dL (74-106); Potassium 4.2 mmol/L (3.5-5.1); Sodium Level 142 mmol/L (136-145)
== END | disposition home or self-care (01) ==
PROVIDERS: Nurse Practitioner Family; PCP Family Medicine; Referring Provider Internal Medicine Cardiovascular Disease; Visit Provider Internal Medicine Cardiovascular Disease
DX: I48.91 Unspecified atrial fibrillation (principal)
CPT/HCPCS: 36415; 80048; 93005

== ENCOUNTER → 2022-04-14 | Outpatient (CLI) | payer OTHER, SELFPAY ==
--- NOTE | 2022-04-14 15:41 | RAD_ITS ---
EXAM: XR RIGHT ANKLE COMPLETE, 3 OR MORE VIEWS CLINICAL INDICATION: FOOT PAIN TECHNIQUE: Frontal, lateral and oblique views of the right ankle. This report was created using [employer] report generation technology. COMPARISON: None. FINDINGS: BONES/JOINTS: Large plantar calcaneal spur. No acute fracture. No subluxation. Normal alignment. Preservation of the joint space. No sclerotic or destructive changes observed. SOFT TISSUES: Unremarkable. No soft tissue swelling or gas. No radiopaque foreign body. RAD/Ankle min 3 Views IMPRESSION: 1. Large plantar calcaneal spur. 2. Normal ankle. Electronically Signed: Taras Engle MD at 5:04 EDT ,
== END | disposition home or self-care (01) ==
LOC: MTRAD 15:39
PROVIDERS: PCP Family Medicine; Referring Provider Family Medicine; Visit Provider Family Medicine
DX: M79.671 Pain in right foot (principal)
CPT/HCPCS: 73610

== ENCOUNTER → 2022-06-15 | Outpatient (CLI) | payer OTHER, SELFPAY ==
[2022-06-15 17:46] LABS: Absolute Lymphocyte Count 2.67 X10^3/uL (0.83-4.51); Absolute Neutrophil Count 5.1 X10^3/uL (2.0-7.7); Basophil# 0.04 X10^3/uL; Basophil% 0.5 % (0-1); Eosinophil# 0.11 X10^3/uL; Eosinophils% 1.3 % (0-5); Hematocrit 39.8 % (37-47); Hemoglobin 13.3 g/dL (12.0-15.0); Lymphocyte # 2.67 X10^3/ul (0.83-4.51); Lymphocyte % 30.5 % (19-41); Mean Corp Hgb Conc 33.4 g/dL (32-36); Mean Corpuscular Hgb 31.4 pg (27.0-32.0); Mean Corpuscular Volume 93.9 fL (81-99); Mean Platelet Vol. 12.1 fl (6.2-12.0); Monocyte# 0.84 X10^3/uL; Monocyte% 9.6 % (0-10); NRBC Flagged by Analyzer 0 % (0-5); Neutrophil # 5.08 X10^3/uL (2.7-7.7); Neutrophil % 57.9 % (47-70); Platelet Count 168 K/mm3 (150-450); RBC Distribution Width CV 12.8 % (11.6-14.6); RBC Distribution Width SD 43.9 fl (35.1-43.9); Red Blood Count 4.24 M/mm3 (4.2-5.4); White Blood Count 8.8 K/mm3 (4.4-11.0)
[2022-06-15 17:47] LABS: Anion Gap 7 (5-15); BUN 16 mg/dL (7-18); BUN/Creat Ratio 23.1 RATIO (10-20); Calcium,Total 8.9 mg/dL (8.5-10.1); Chloride 106 mmol/L (98-107); Creatinine, Serum 0.69 mg/dL (0.55-1.02); EST Glomerular Filtration Rate 91 mL/min (>60); Est Glom Filt Rate - Afr Amer 110 mL/min (>60); Glucose 87 mg/dL (74-106); Potassium 3.9 mmol/L (3.5-5.1); Sodium Level 141 mmol/L (136-145)
[2022-06-15 17:49] LABS: BNP,B-Type NATRIURETIC PEPTIDE 194.2 pg/mL (0-100)
== END | disposition home or self-care (01) ==
LOC: LAB 16:16
PROVIDERS: PCP Family Medicine; Visit Provider Nurse Practitioner Gerontology
DX: R07.89 Other chest pain (principal); R06.09 Other forms of dyspnea; R53.83 Other fatigue
CPT/HCPCS: 36415; 80048; 83880; 85025

== ENCOUNTER → 2022-06-26 | Outpatient (CLI) | payer OTHER, SELFPAY ==
--- NOTE | 2022-06-26 17:12 | STRESSREP ---
Stress Test Report Pharmacologic myocardial perfusion stress test. 63-year-old lady with a history of atrial fibrillation and chest heaviness. Stress protocol: Resting EKG demonstrates atrial fibrillation with a rate of 67 bpm normal intervals are noted the resting blood pressure is 128/78 mmHg. 0.4 mg of regadenoson was infused per usual protocol followed Intravenous saline flush injection continuous EKG monitoring was performed. At rest there were no ST or T wave changes noted to suggest abnormal flow reserve. At peak infusion there was downsloping ST depression noted in leads II, III and aVF of approximately 1.3 mm. The above is likely suggestive of abnormal flow reserve. The final blood pressure was 130/80 mmHg. Myocardial perfusion protocol. 11.9 mCi of technetium 99m sestamibi was injected at rest. 0.4 mg of regadenoson was infused per usual protocol. At peak infusion 34.7 mCi of technetium 99m sestamibi was injected stress images were obtained stress and rest images were reconstructed and compared in the short axis vertical long and horizontal long axis. Gated images were also obtained to Perfusion SPECT analysis: Review of the stress images demonstrate normal uptake of tracer noted in all areas of the myocardium. The resting images similarly demonstrate normal uptake of tracer noted in all areas of the myocardium. No areas of reversibility are noted suggest ischemia no previous infarct is noted. Gated SPECT analysis: The gated ejection fraction is noted to be 63%. Conclusion: Normal pharmacologic myocardial perfusion stress test. Atrial fibrillation noted. Preserved ejection fraction.
== END | disposition home or self-care (01) ==
LOC: CVS 06:32
PROVIDERS: PCP Family Medicine; Referring Provider Nurse Practitioner Gerontology; Visit Provider Nurse Practitioner Gerontology
DX: R07.89 Other chest pain (principal); I48.91 Unspecified atrial fibrillation; R06.09 Other forms of dyspnea; R53.83 Other fatigue
CPT/HCPCS: 78452; 93017; A9500; A4216; J2785

== ENCOUNTER → 2022-07-29 | Outpatient (CLI) | payer OTHER, SELFPAY ==
--- NOTE | 2022-07-29 16:18 | RAD_ITS ---
INDICATION: Cardioversion-atrial fibrillation EXAMINATION/TECHNIQUE: X-RAY - XR Chest 2 Views COMPARISON: February 02, 2022. FINDINGS: LINES/DEVICES: None. LUNGS: No consolidation, edema or effusion. No pneumothorax. MEDIASTINUM AND CARDIOVASCULAR STRUCTURES: Cardiac silhouette not enlarged. BONES AND SOFT TISSUES: Unremarkable. RAD/Chest PA and Lateral IMPRESSION: No radiographic evidence of acute cardiopulmonary disease. Electronically Signed: Anuj Meza MD at 16:44 EDT ,
[2022-07-29 17:23] LABS: Anion Gap 3 (5-15); BUN 17 mg/dL (7-18); BUN/Creat Ratio 24.7 RATIO (10-20); Calcium,Total 9.6 mg/dL (8.5-10.1); Chloride 106 mmol/L (98-107); Creatinine, Serum 0.69 mg/dL (0.55-1.02); EST Glomerular Filtration Rate 92 mL/min (>60); Est Glom Filt Rate - Afr Amer 111 mL/min (>60); Glucose 90 mg/dL (74-106); Potassium 4.1 mmol/L (3.5-5.1); Sodium Level 141 mmol/L (136-145)
== END | disposition home or self-care (01) ==
LOC: RAD 16:12
PROVIDERS: PCP Family Medicine; Referring Provider Nurse Practitioner Gerontology; Visit Provider Nurse Practitioner Gerontology
DX: I48.91 Unspecified atrial fibrillation (principal)
CPT/HCPCS: 36415; 71046; 80048

== ENCOUNTER → 2022-08-17 | Day surgery (SDC) | payer OTHER, SELFPAY ==
[2022-08-14 07:00] VITALS: BMI 33.5
--- NOTE | 2022-08-17 12:40 | PCM.OP.BLANK ---
Problems Associated Problem List Diagnoses (1) New onset atrial fibrillation: Operative Report Date of Procedure: 08/17/22 DC cardioversion. 62-year-old lady with a history of atrial fibrillation. The patient was seen by Dr. Vazquez of the critical care division. Patient was noted to be in persistent atrial fibrillation. Patient was confirmed to be compliant with her medications. Anterior-posterior pads were applied informed consent was obtained. The patient was then administered 40 mg of intravenous propofol and 200 J of biphasic DC cardioversion energy were applied with prompt reversal to sinus rhythm. Patient tolerated the procedure well. Conclusion: Successful DC cardioversion from atrial fibrillation to sinus rhythm. Continue current medications.
--- NOTE | 2022-08-17 13:22 | PCM.OP.PRO ---
Procedure Report Date of Procedure: 08/17/22 CONSCIOUS SEDATION REPORT BRIEF HISTORY OF PRESENT ILLNESS: The patient is a 62-year-old female who presented to [facility] for an elective outpatient cardioversion due to underlying atrial fibrillation. The patient reports no PO intake since midnight, but is currently therapeutic on anticoagulation. The patient does not have a history of GRACE, but does snore on a regular basis. The patient reports a history of smoking, but denies COPD. The patient denies any recent constitutional symptoms such as fevers, chills, nausea or vomiting. The patient denies previous applicable anesthetic complications. Patient's last known ejection fraction was 50%. Patient did verify that she had taken Xarelto on the day of the procedure. PHYSICAL EXAMINATION: VITAL SIGNS: Reviewed and were acceptable. GENERAL: The patient is a female, in no apparent distress, speaking in full sentences. HEENT: Normocephalic, atraumatic. Mucous membranes are moist and pink. Good mouth opening noted. Trachea is midline. Good neck mobility. MP III CHEST: S1, S2 irregularly irregular. No murmurs, rubs or gallops were noted. LUNGS: Clear to auscultation bilaterally without appreciable wheezes, rales or rhonchi. ABDOMEN: Soft, nontender, nondistended. Positive bowel sounds. EXTREMITIES: There is no clubbing, cyanosis or edema. ASA Class: II DESCRIPTION OF PROCEDURE: After confirmation of informed consent, the patient's anesthesia plan was reviewed in detail. Propofol was chosen. Risks and benefits were reviewed and the patient agreed to proceed. At 12:30 PM, the patient was given 40 mg of propofol. The patient achieved an appropriate level of sedation and received 1 attempt synchronized cardioversion, at [address] Conway at the bedside. This was successful in achieving normal sinus rhythm. The patient was monitored until 12:45 PM, at which time the patient reached their baseline mental status and function. The patient tolerated the procedure well. COMPLICATIONS: None ESTIMATED BLOOD LOSS: None RECOMMENDATIONS: Okay to recover in usual fashion. Procedures Pulmonary 9xxxx: [id number] Con Sedation
== END | disposition home or self-care (01) ==
LOC: CLSP 11:00
PROVIDERS: PCP Family Medicine; Referring Provider Internal Medicine Cardiovascular Disease; Visit Provider Internal Medicine Cardiovascular Disease
DX: I48.0 Paroxysmal atrial fibrillation (principal); Z79.899 Other long term (current) drug therapy; Z79.01 Long term (current) use of anticoagulants; Z87.891 Personal history of nicotine dependence
CPT/HCPCS: 92960; 93005; J7040

== ENCOUNTER 2022-10-23 10:52 | Observation (INO) | payer OTHER, SELFPAY ==
[2022-10-23] VITALS (14 sets, daily range): BP systolic 117–198; BP diastolic 66–106; PULSE 55–599; RESP 15–19; TEMP 35.7–37.1; O2SAT 95–98; BMI 35.4
--- NOTE | 2022-10-23 11:00 | RAD_ITS ---
STUDY: X-RAY CHEST REASON FOR EXAM: Female, 62 years old. Neuro deficit, acute, stroke suspected TECHNIQUE: Single AP portable view of the chest. COMPARISON: Comparison is made with prior study 07/29/2022. FINDINGS: EKG electrode are seen. The lungs are clear and expanded. Scattered calcified granuloma. There is no demonstrated pleural abnormality. Normal size heart. Normal mediastinum and amberly. Normal visualized pulmonary arteries. There is atherosclerotic tortuosity of the aortic arch and descending thoracic aorta. There are degenerative changes of the visualized thoracic spine. Normal visualized ribs, clavicles, and shoulders. There is no demonstrated abnormality of the visualized soft tissue structures of the upper abdomen. RAD/Chest 1 View IMPRESSION: No acute abnormality is seen. Electronically Signed: Christoph Davila MD at 12:35 EST ,
--- NOTE | 2022-10-23 11:00 | CT_ITS ---
STUDY: CT HEAD STROKE PROTOCOL W/O CONTRAST INJECTION REASON FOR EXAM: Female, 62 years old. Neuro deficit, acute, stroke suspected RADIATION DOSAGE (If Supplied By Facility): CTDIvol = ( 44.99 ) mGy, DLP = ( 812.98 ) mGycm TECHNIQUE: Transaxial CT imaging of the brain was performed without administration of intravenous contrast material. Individualized dose optimization techniques were used for this CT. COMPARISON: No relevant priors. FINDINGS: Normal soft tissue structures. There is hyperostosis frontalis internus. Normal size ventricles and extra-axial spaces for the patient''s age. Normal white matter tracts of the cerebral hemispheres. Normal basal ganglia and thalami. Normal brainstem. Normal cerebellum. There is no intracranial hemorrhage. There are no findings of an acute ischemic infarction. Normal visualized paranasal sinuses. ASPECT score: 10 CT/STROKE Brain/Head without Cont IMPRESSION: Normal unenhanced CT scan of the brain. N.B. : The above Results were Read Back by Christoph Davila MD to Ni Elena and understanding confirmed on 10/23/2022 11:13:45 (ET). Electronically Signed: Christoph Davila MD at 11:14 EST ,
--- NOTE | 2022-10-23 11:00 | EKG12_ITS ---
Test Reason : STROKE TEAM Blood Pressure : / mmHG Vent. Rate : 056 BPM Atrial Rate : 056 BPM P-R Int : 262 ms QRS Dur : 112 ms QT Int : 454 ms P-R-T Axes : 048 -09 041 degrees QTc Int : 438 ms Sinus bradycardia with 1st degree A-V block Minimal voltage criteria for LVH, may be normal variant ( [place] product ) Nonspecific ST abnormality Abnormal ECG Confirmed by ISSAC MARTINEZ, CECILY ([id number]), graphic editor YOBANI COTA ([id number]) on 10/26/2022 9:18:08 AM Referred By: Confirmed By:CECILY DAVENPORT MD
--- NOTE | 2022-10-23 11:02 | CT_ITS ---
We are attempting to reach an attending provider to discuss findings. An addendum with communication details will be sent when the communication is complete. STUDY: CTA HEAD AND NECK WITH CONTRAST REASON FOR EXAM: Female, 62 years old. Neuro deficit, acute, stroke suspected RADIATION DOSAGE (If Supplied By Facility): CTDIvol = ( 20.20 ) mGy, DLP = ( 727.41 ) mGycm TECHNIQUE: CT angiography was performed with a multi-detector CT scanner. Data acquisition was obtained from the skull base through the vertex following intravenous administration of IV 100mL Isovue-370. MIP images were reconstructed from the axial data set. Post-processing of the angiographic images was performed, with multiplanar reformation and 3D reconstruction. Individualized dose optimization techniques were used for this CT. COMPARISON: No relevant priors. FINDINGS: Normal bilateral petrous carotid arteries. Normal right cavernous carotid artery with a normal supraclinoid bifurcation. Normal left cavernous carotid artery with a normal supraclinoid bifurcation. Normal right A1 segments of the anterior cerebral artery. Normal left A1 segments of the anterior cerebral artery. Normal intact anterior communicating artery (ACOM). Normal bilateral A2 segments of the anterior cerebral arteries. Normal right M1 and M2 segments of the middle cerebral arteries, with a normal M1 bifurcation. Normal left M1 and M2 segments of the middle cerebral arteries, with a normal M1 bifurcation. Normal right posterior communicating artery (PCOM). Normal left posterior communicating artery (PCOM). Normal bilateral vertebral arteries. Normal basilar artery with a normal basilar bifurcation. The visualized bilateral superior cerebellar (SCA) arteries are normal. Normal bilateral P1, P2 and visualized P3 segments of the posterior cerebral arteries. There is no demonstrated aneurysm of the [place]. There is no demonstrated abnormality of the visualized brain. AORTIC ARCH: Normal visualized aortic arch. Normal origins of the brachiocephalic, left common carotid, and left subclavian arteries. RIGHT CAROTID ARTERIES: Normal right common carotid artery (CCA). Normal right common carotid bulb. Normal origin of the right internal carotid (ICA) artery without a hemodynamically significant stenosis. Normal visualized cervical portion of the right internal carotid artery. Normal origin of the right external carotid artery (ECA). LEFT CAROTID ARTERIES: Normal left common carotid artery (CCA). Normal left common carotid bulb. Normal origin of the left internal carotid (ICA) artery without a hemodynamically significant stenosis. Normal visualized cervical portion of the left internal carotid artery. Normal origin of the left external carotid artery (ECA). VERTEBRAL ARTERIES: Normal bilateral vertebral arteries. CT/STROKE CTA Head AND Neck W/Con IMPRESSION: Normal CTA Head and neck with contrast. Electronically Signed: Christoph Davila MD at 11:41 EST ,
--- NOTE | 2022-10-23 11:02 | ED.VIS.STROK ---
HPI History of Present Illness Chief Complaint: Dizziness Detail of Chief Complaint: Numbness and tingling to left arm and left leg Informant: patient Narrative Narrative: Patient presents to the ER via EMS. 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 Patient's had off-and-on similar symptoms over the last several weeks. Patient also had some change in vision initially where she had these thunder bolts that she would see and then things kind of went dark for short time. Patient currently on Xarelto for history of A. fib. Patient also on flecainide. She denies falls or head injuries. She denies headache. She denies recent illness. No prior history of stroke. She denies weakness at this time. She denies difficulty with speech. Prior similar symptoms: Yes [facility] Medical History (Reviewed 07/29/22 @ 15:43 by Enid Allen BUNDLE TIER AND LABELER, BUNDLE TIER AND LABELER-C) Arthritis GBS (Guillain Glendale syndrome) New onset atrial fibrillation (10/2019) Numbness and tingling Obesity Paroxysmal atrial fibrillation Persistent atrial fibrillation (12/16/21) Post-polio syndrome Home Medications multivitamin 1 tab PO DAILY supplement 03/26/20 [History Last Taken 02/01/22] flecainide 150 mg tablet 150 mg PO .COMPLEX #180 tabs 02/19/22 [Rx Last Taken Unknown] flecainide 100 mg tablet 100 mg PO Q12H #180 tabs 06/17/22 [Rx Last Taken 08/17/22] metoprolol tartrate 50 mg tablet 50 mg PO BID #180 tabs 06/17/22 [Rx Last Taken 08/17/22] rivaroxaban 20 mg tablet (Xarelto) 20 mg PO DAILY blood thinner #90 tabs 06/17/22 [Rx Last Taken 08/16/22] flecainide 50 mg tablet 50 mg PO Q12H #180 tabs 09/02/22 [Rx Last Taken Unknown] loratadine 10 mg PO/SL DAILY 10/23/22 [History Last Taken Unknown] Allergy/AdvReac Type Severity Reaction Status Date / Time cephalexin [From Keflex] Allergy Unknown Unknown Verified 10/23/22 10:55 amoxicillin AdvReac Hives Verified 10/23/22 10:55 Penicillins AdvReac Anaphylaxis Verified 10/23/22 10:55 Sulfa (Sulfonamide AdvReac Hives Verified 10/23/22 10:55 Antibiotics) Family History Grandfather Heart disease maternal Grandmother CVA (cerebral vascular accident) maternal Mother Breast cancer Lung cancer Osteoporosis Surgical History History of cardioversion (12/17/20) Hx of colonoscopy Hx of knee surgery Hx of wisdom tooth extraction Social History Smoking Status: Former smoker how long ago did patient quit smokin years ago second hand exposure: No alcohol intake: current alcohol intake frequency: holidays/special occasions only substance use type: does not use caffeine: Yes Type: coffee Number of servings: 2 what type of physical activity do you participate in: aerobics frequency: daily ROS ROS ED Review of Systems ROS Unobtainable: other Constitutional Constitutional ED: Reports lethargy; Denies chills, fever(s), sweats or weight loss Eyes Eyes: Denies blurry vision, change in vision or diplopia ENT ENT ED: Denies rhinorrhea or sore throat Cardiovascular Cardiovascular: Denies chest pain, orthopnea or racing heartbeat Respiratory/Chest Respiratory/Chest: Denies cough, dyspnea, dyspnea on exertion, orthopnea or sputum Gastrointestinal Gastrointestinal: Denies abdominal pain, diarrhea, nausea or vomiting Genitourinary Genitourinary ED: Denies dysuria, hematuria or urinary frequency Musculoskeletal Musculoskeletal: Denies arthralgias, back pain, myalgias or neck pain Integumentary Denies abscess, Abrasions or rash Neurologic Neurologic: Reports paresthesias and other Details: Dizziness ; Denies headache(s) or weakness Psychiatric Psychiatric: Denies anxiety, depression or suicidal thoughts Endocrine Endocrinology: Denies polydipsia, polyphagia or polyuria Hematologic/Lymphatic Hematologic/Lymphatic: Denies easy bleeding, easy bruising or lymphadenopathy Allergic/Immunologic Allergic/Immunologic ED: Denies mouth swelling, tongue swelling or urticaria EXAM Physical Exam Const Vital Signs: 10/23/22 10:55 10/23/22 11:04 10/23/22 10:58 Temperature 96.2 F L Temperature Source Temporal Pulse Rate 61 599 H Respiratory Rate 17 16 Blood Pressure 183/103 H 183/103 H Blood Pressure Mean 129 129 Pulse Ox 98 96 98 Oxygen Delivery Method Room Air Room Air Room Air 10/23/22 11:12 10/23/22 11:19 10/23/22 11:40 Temperature Temperature Source Pulse Rate 64 63 58 L Respiratory Rate 19 H 16 18 Blood Pressure 198/106 H 162/72 H 156/84 H Blood Pressure Mean 136 102 108 Pulse Ox 98 98 98 Oxygen Delivery Method Room Air Room Air Positive well nourished and well developed General Appearance ED: well developed and NAD HEENT Reports TM's clear and moist mucous membranes normocephalic and atraumatic; Negative for trauma or tenderness Tympanic Membrane ED: Yes TM's clear Eyes PERRL and EOMs intact bilaterally General Eye ED: Negative for pale conjunctiva or scleral icterus Neck no lymphadenopathy, supple and no JVD General: Negative for tenderness Chest Wall inspection of chest normal and palpation of chest normal Chest: Negative for tenderness Resp normal respiratory effort and clear to auscultation bilaterally Effort and Inspection: Negative for respiratory distress or pain with movement Auscultation: Negative for rhonchi, wheezes or diminished lung sounds Cardio regular rate, regular rhythm, S1 normal heart sound, S2 normal heart sound and no murmurs Peripheral Pulses: pulses 2+ throughout GI normal to inspection, nondistended, normoactive bowel sounds, soft to palpation, non-tender, non-distended and no masses Back/Spine no CVA tenderness and no thoracic nor lumbar tenderness Extremity normal to inspection General Extremety ED: Negative for edema General Extremity: Negative for edema Neuro oriented x3, CN's II-XII intact bilaterally, no sensory deficits noted and gait normal Neuro Narrative: Finger-nose and heel alford testing within normal limits, negative Romberg, negative for drift, fundi benign. Currently NIH stroke scale 0. Sensorium / Orientation: awake, alert, oriented to person, oriented to place and oriented to time Motor Exam: strength 5/5 throughout and strength abnormal Psych mental status grossly normal Skin no rashes or lesions noted and no wounds MDM MDM MDM Narrative Medical decision making narrative: IV established on arrival. 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 Concern for stroke therefore stroke team was called immediately. Patient not a thrombolytic candidate as she is on Xarelto and currently NIH stroke scale is a 0. Patient CT scan of the brain without contrast was unremarkable. She also had CTA head and neck which were unremarkable. I discussed case with stroke neurologist who recommended admission to our facility to complete stroke work-up. In the differential would be stroke versus complex migraine versus other etiology. Lab work-up was unremarkable. EKG and troponin were unremarkable. Patient also per EMS was noted to be bradycardic at times with heart rates in the 30s and 40s on their transport of patient to the ER. Patient states that she did have her flecainide increased to the 150 mg but this was 2 months ago. Case discussed with hospitalist will evaluate patient for admission. Lab Data Labs: Laboratory Results - last 24 hr 10/23/22 10/23/22 10/23/22 11:00 11:00 11:00 WBC 6.9 RBC 5.01 Hgb 15.9 H Hct 47.1 H MCV 94.0 MCH 31.7 MCHC 33.8 RDW Std Deviation 44.3 H RDW Coeff of [place] 12.9 Plt Count 186 MPV 12.1 H Immature Gran % (Auto) 0.300 Neut % (Auto) 57.6 Lymph % (Auto) 30.9 Barren % (Auto) 9.0 Eos % (Auto) 1.6 Baso % (Auto) 0.6 Absolute Neuts (auto) 4.0 Absolute Lymphs (auto) 2.14 Nucleated RBC % 0 PT 15.0 H INR 1.2 APTT 28.2 Sodium 142 Potassium 4.1 Chloride 108 H Carbon Dioxide 27.0 Anion Gap 7 BUN 11 Creatinine 0.66 Estim Creat Clear Calc 73.11 Est GFR (MDRD) Af Amer 116 Est GFR (MDRD) Non-Af 96 BUN/Creatinine Ratio 16.7 Glucose 108 H Calcium 9.4 Troponin I High Sens 5 Radiography Diagnostic Testing: Clinical Impression(s) from Imaging Studies Brain CT 10/23/22 11:00 IMPRESSION: Normal unenhanced CT scan of the brain. N.B. : The above Results were Read Back by Christoph Davila MD to Ni Elena and understanding confirmed on 10/23/2022 11:13:45 (ET). Electronically Signed: Christoph Davila MD at 11:14 EST , ADDENDUM: 10/23/22 1121 IMPRESSION: Normal unenhanced CT scan of the brain. N.B. : The above Results were Read Back by Christoph Davila MD to Ni Elena and understanding confirmed on 10/23/2022 11:13:45 (ET). Electronically Signed: Christoph Davila MD at 11:14 EST , Head/Neck CTA 10/23/22 11:02 IMPRESSION: Normal CTA Head and neck with contrast. Electronically Signed: Christoph Davila MD at 11:41 EST , 1 view chest x-ray obtained interpreted by myself no acute disease process. There is no evidence of infiltrate or pneumothorax. Radiology in agreement. EKG Initial EKG: Attestation: I personally reviewed and interpreted this EKG as follows: Comments: Sinus rhythm with rate of [address] changes Prior EKG tracings: available for review Prior: Unchanged Discharge Plan Triage Chief Complaint: Dizziness ED Provider: Ni Elena Dx/Rx/DC Orders Clinical Impression: Paresthesias, Hypertension, Bradycardia Prescriptions: No Action multivitamin Tablet 1 tab PO DAILY flecainide 50 mg tablet 50 mg PO Q12H Qty: 180 3RF Rx Instructions: Take along with 100mg tablet for a total dose of 150mg every 12 hours. loratadine 10 mg PO/SL DAILY flecainide 150 mg tablet 150 mg PO .COMPLEX Qty: 180 3RF Rx Instructions: 150 mg PO keep for prn use for increased heart rate; flecainide 100 mg tablet 100 mg PO Q12H Qty: 180 3RF metoprolol tartrate 50 mg tablet 50 mg PO BID Qty: 180 3RF Xarelto 20 mg tablet 20 mg PO DAILY Qty: 90 3RF Rx Instructions: must administer with evening meal Primary Care Provider: Chris Alicia Referrals: Chris Alicia MD [Primary Care Provider] - Disposition Disposition: Acute Care Hospital [facility]
--- NOTE | 2022-10-23 11:11 | CM.ED ---
SW Note Referral Source: Stroke Alert Referral Reason: Stroke Alert SW met with patient's , Jorge. 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 JULIA educated Jorge on procedure with tele evaluation with neurologist at [facility]. Jorge reports no concerns or needs. Emotional support provided. SW remains available if needs arise. Rochelle REYNOSO
[2022-10-23 11:16] LABS: Absolute Lymphocyte Count 2.14 X10^3/uL (0.83-4.51); Basophil# 0.04 X10^3/uL; Basophil% 0.6 % (0-1); Eosinophil# 0.11 X10^3/uL; Eosinophils% 1.6 % (0-5); Hematocrit 47.1 % (37-47); Hemoglobin 15.9 g/dL (12.0-15.0); Lymphocyte # 2.14 X10^3/ul (0.83-4.51); Lymphocyte % 30.9 % (19-41); Mean Corp Hgb Conc 33.8 g/dL (32-36); Mean Corpuscular Hgb 31.7 pg (27.0-32.0); Mean Platelet Vol. 12.1 fl (6.2-12.0); Monocyte# 0.62 X10^3/uL; NRBC Flagged by Analyzer 0 % (0-5); Neutrophil # 3.99 X10^3/uL (2.7-7.7); Neutrophil % 57.6 % (47-70); Platelet Count 186 K/mm3 (150-450); RBC Distribution Width CV 12.9 % (11.6-14.6); RBC Distribution Width SD 44.3 fl (35.1-43.9); Red Blood Count 5.01 M/mm3 (4.2-5.4); White Blood Count 6.9 K/mm3 (4.4-11.0)
[2022-10-23 11:26] LABS: International Normalized Ratio 1.2; Partial Thromboplast Time 28.2 Seconds (24.1-36.2)
[2022-10-23 11:31] LABS: Anion Gap 7 (5-15); BUN 11 mg/dL (7-18); BUN/Creat Ratio 16.7 RATIO (10-20); Calcium,Total 9.4 mg/dL (8.5-10.1); Chloride 108 mmol/L (98-107); Creatinine, Serum 0.66 mg/dL (0.55-1.02); EST Glomerular Filtration Rate 96 mL/min (>60); Est Glom Filt Rate - Afr Amer 116 mL/min (>60); Estimated Creatinine Clearance 73.11 ml/min; Glucose 108 mg/dL (74-106); Potassium 4.1 mmol/L (3.5-5.1); Sodium Level 142 mmol/L (136-145); Troponin-I HS 5 pg/mL (3.0-54.0)
--- NOTE | 2022-10-23 12:47 | HP.PCM.HOS_ITS ---
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 HPI Narrative ROLANDO WILLIS, is a 62 F with history of chronic A. fib on Xarelto was brought by EMS for dizziness lightheadedness and sled down with support of table to the floor without fall. 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 She she felt like going to pass out. She did not pass out. Patient felt like blurry vision with darkness and thunderbolt before her eyes. She also felt numbness in her left arm and leg and head. EMS vitals shows shows her BP was high 169/96, heart rate 65 but in ER shows more bradycardic heart rate in low 50s. Twelve-lead EKG was done, individually reviewed sinus bradycardia at 56 bpm, first-degree block, nonspecific ST-T changes. Minimal criteria for LVH. Patient has history of Patient has persistent A. fib and on flecainide which required cardioversion in July. About 1 and half months ago she was still tachycardic and therefore flecainide dose was increased to 150 mg p.o. twice daily and is on Xarelto. In ED, CT head and CTA head and neck were done which did not show acute abnormality. NIH stroke scale 0 therefore not candidate for tPA. [facility] Medical History Arthritis GBS (Guillain [place] syndrome) New onset atrial fibrillation (10/2019) Numbness and tingling Obesity Paroxysmal atrial fibrillation Persistent atrial fibrillation (12/16/21) Post-polio syndrome Home Medications multivitamin 1 tab PO DAILY supplement 03/26/20 [History Last Taken 10/23/22] flecainide 100 mg tablet 100 mg PO Q12H #180 tabs 06/17/22 [Rx Last Taken 10/23/22] metoprolol tartrate 50 mg tablet 50 mg PO BID #180 tabs 06/17/22 [Rx Last Taken 10/23/22] rivaroxaban 20 mg tablet (Xarelto) 20 mg PO DAILY blood thinner #90 tabs 06/17/22 [Rx Last Taken 10/22/22] flecainide 50 mg tablet 50 mg PO Q12H #180 tabs 09/02/22 [Rx Last Taken 10/23/22] calcium carbonate 600 mg-vitamin D3 20 mcg (800 unit) chewable tablet (Caltrate 600 plus D) 1 tab PO DAILY SUPPLEMENT 10/23/22 [History Last Taken 10/23/22] loratadine 10 mg PO/SL DAILY 10/23/22 [History Last Taken 10/23/22] Allergy/AdvReac Type Severity Reaction Status Date / Time cephalexin [From Keflex] Allergy Unknown Unknown Verified 10/23/22 10:55 amoxicillin AdvReac Hives Verified 10/23/22 10:55 Penicillins AdvReac Anaphylaxis Verified 10/23/22 10:55 Sulfa (Sulfonamide AdvReac Hives Verified 10/23/22 10:55 Antibiotics) Family History Grandfather Heart disease maternal Grandmother CVA (cerebral vascular accident) maternal Mother Breast cancer Lung cancer Osteoporosis Surgical History History of cardioversion (12/17/20) Hx of colonoscopy Hx of knee surgery Hx of wisdom tooth extraction Social History Smoking Status: Former smoker how long ago did patient quit smokin years ago second hand exposure: No alcohol intake: current alcohol intake frequency: holidays/special occasions only substance use type: does not use caffeine: Yes Type: coffee Number of servings: 2 what type of physical activity do you participate in: aerobics frequency: daily ROS ROS Narrative Physical exam: Constitutional: Reports fatigue and weakness, dizziness and lightheadedness as mentioned in HPI HEENT: Head numbness. Blurry vision. Reports systems reviewed and no addt'l complaints, except as documented Respiratory/Chest: Denies chest pain. Patient reports dyspnea on exertion/shortness of breath since July progressively worsening. Gastrointestinal: Denies coffee ground emesis, hematemesis or vomiting Genitourinary: Denies burning urination or new urinary tract symptoms Musculoskeletal: Bilateral below-knee weakness with foot drop in 1969 when she was 11-year-old. Bilateral below knee braces. Neurologic: Denies seizure-like activity. As described in HPI. 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 No rash Endocrinology: Reports systems reviewed and no addt'l complaints, except as documented Hematologic/Lymphatic: Reports systems reviewed and no addt'l complaints, except as documented Rest 14 ROS are negative except as mentioned in HPI Vital Signs Vital Signs Vital Signs: 10/23/22 10:55 10/23/22 11:04 10/23/22 10:58 Temperature 96.2 F L Temperature Source Temporal Pulse Rate 61 599 H Respiratory Rate 17 16 Blood Pressure 183/103 H 183/103 H Blood Pressure Mean 129 129 Pulse Ox 98 96 98 Oxygen Delivery Method Room Air Room Air Room Air 10/23/22 11:12 10/23/22 11:19 10/23/22 11:40 Temperature Temperature Source Pulse Rate 64 63 58 L Respiratory Rate 19 H 16 18 Blood Pressure 198/106 H 162/72 H 156/84 H Blood Pressure Mean 136 102 108 Pulse Ox 98 98 98 Oxygen Delivery Method Room Air Room Air 10/23/22 12:00 10/23/22 12:17 Temperature 97.2 F L Temperature Source Temporal Pulse Rate 55 L 55 L Respiratory Rate 15 16 Blood Pressure 144/83 H 144/83 H Blood Pressure Mean 103 103 Pulse Ox 98 98 Oxygen Delivery Method Room Air Room Air Weight Weight: 200 lb 2.876 oz Body Mass Index (BMI) 35.4 Physical Exam Narrative Physical exam General: Alert, Oriented x3, Cooperative HEENT: Atraumatic, PERRLA, EOMI, Normocephalic Oral: No Gingival or Mucosal Lesions/ Ulcerations Neck: Supple, No JVD, Negative Carotid Bruits Lungs: Air entry diminished in bilateral lung bases. No crepitation/rhonchi Cardiovascular: Sinus bradycardia, Normal S1, Normal S2, No murmurs Abdomen: Bowel Sounds Present, Soft, Non Tender, Non-Distended : No renal angle tenderness. No suprapubic tenderness. Extremities: No edema, Capillary Refill Less than 3 Seconds Skin: No rashes, No breakdown Musculoskeletal: No Tenderness to Palpation of Joints or Extremities. Muscles atrophy of lower legs below knee and thenar and hypothenar hand muscles. Neurological: Cranial nerves II-XII grossly intact, DTR 2+/4, NIH stroke scale 0. Chronic weakness of lower legs. Psych/Mental Status: Flat affect. Results Lab / Micro Data Result Diagrams: 10/23/22 11:00 10/23/22 11:00 Labs: Laboratory Results - last 24 hr 10/23/22 11:00: WBC 6.9, RBC 5.01, Hgb 15.9 H, Hct 47.1 H, MCV 94.0, MCH 31.7, MCHC 33.8, RDW Std Deviation 44.3 H, RDW Coeff of [place] 12.9, Plt Count 186, MPV 1 2.1 H, Immature Gran % (Auto) 0.300, Neut % (Auto) 57.6, Lymph % (Auto) 30.9, [place] % (Auto) 9.0, Eos % (Auto) 1.6, Baso % (Auto) 0.6, Absolute Neuts (auto) 4.0, Absolute Lymphs (auto) 2.14, Nucleated RBC % 0 10/23/22 11:00: PT 15.0 H, INR 1.2, APTT 28.2 10/23/22 11:00: Sodium 142, Potassium 4.1, Chloride 108 H, Carbon Dioxide 27.0, Anion Gap 7, BUN 11, Creatinine 0.66, Estim Creat Clear Calc 73.11, Est GFR (MDRD) Af Amer 116, Est GFR (MDRD) Non-Af 96, BUN/Creatinine Ratio 16.7, Glucose 108 H, Calcium 9.4, Troponin I High Sens [address] 10/23/22 11:00 IMPRESSION: Normal unenhanced CT scan of the brain. N.B. : The above Results were Read Back by Christoph Davila MD to Ni Elena and understanding confirmed on 10/23/2022 11:13:45 (ET). Electronically Signed: Christoph Davila MD at 11:14 EST , ADDENDUM: 10/23/22 1121 IMPRESSION: Normal unenhanced CT scan of the brain. N.B. : The above Results were Read Back by Christoph Davila MD to [place] Elena and understanding confirmed on 10/23/2022 11:13:45 (ET). Electronically Signed: Christoph Davila MD at 11:14 EST , Chest X-Ray 10/23/22 11:00 IMPRESSION: No acute abnormality is seen. Electronically Signed: Christoph Davila MD at 12:35 EST , Head/Neck CTA 10/23/22 11:02 IMPRESSION: Normal CTA Head and neck with contrast. Electronically Signed: Christoph Davila MD at 11:41 EST , Assessment & Plan Assessment/Plan (1) Near syncope: PLAN: Plan This is 62-year-old pleasant lady was brought by EMS for dizziness lightheadedness and numbness on the left side. 1. Near syncope with left-sided numbness, rule out stroke: Patient is being admitted in PCU. First troponin is negative. Stroke order including MRI brain and 2D echo ordered. CT brain and CT head and neck reported normal. NIH stroke scale monitoring, PT OT speech and swallow evaluation as per stroke guidelines. BP and glucose control as per stroke guidelines. No prior history of a stroke. 2. Persistent A. fib on Xarelto: Currently patient is in sinus bradycardia. Serum magnesium ordered. Potassium normal. Dose of flecainide was recently increased to 150 mg twice daily but I will keep 100 mg twice daily because of bradycardia with holding parameters. Patient on metoprolol 50 mg twice daily, continued with holding parameters. 3. Progressively worsening dyspnea on exertion: 2D echo is ordered.She also felt numbness and tingling of left arm and leg. Patient had a stress test reported normal in May 2022.2D echo in January 2020 reported EF 50% with structurally normal valves. No RWMA. Patient does not have leg swelling. 4. 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 based on lumbar puncture finding but later on in [facility] said it looked more like polio. She has below-knee muscle atrophy and wears braces and also atrophy of muscles of hand. Usually muscle atrophy and weakness in polio is asymmetrical. 5. VT prophylaxis: Patient on Xarelto 20 mg daily at 5 PM. Continued Living will/advanced directive/end of life care: Patient does not have living will or advanced directive. After discussion of benefits/risks procedures involved with full code, DNR CC arrest and DNR CC, the patient opted for full code. Patient does want artificial life support including intubation, tube feed, ventilator and/chest compression, central venous catheter, vasopressor and DC shock if needed Total time spent in [id number] encounter in discussion of advanced d irective 17 minutes. Clinical Impression(s) from Imaging Studies Brain CT 10/23/22 11:00 IMPRESSION: Normal unenhanced CT scan of the brain. N.B. : The above Results were Read Back by Christoph Davila MD to Ni Elena and understanding confirmed on 10/23/2022 11:13:45 (ET). Electronically Signed: Christoph Davila MD at 11:14 EST , ADDENDUM: 10/23/22 1121 IMPRESSION: Normal unenhanced CT scan of the brain. N.B. : The above Results were Read Back by Christoph Davila MD to Ni Elena and understanding confirmed on 10/23/2022 11:13:45 (ET). Electronically Signed: Christoph Davila MD at 11:14 EST , Chest X-Ray 10/23/22 11:00 IMPRESSION: No acute abnormality is seen. Head/Neck CTA 10/23/22 11:02 IMPRESSION: Normal CTA Head and neck with contrast. Charges/Coding Visit Charges Inpatient E&M: 21232 Init Hosp L3 Procedures Hospitalists Procedures: 75667 Advncd Care Plan 30 Min
[2022-10-23 13:09] LABS: Magnesium 2.4 mg/dL (1.6-2.6)
--- NOTE | 2022-10-23 13:13 | ECHOD_ITS ---
Reason For Study: TIA/CVA Procedure This was a 2D Doppler, Color Flow transthoracic echocardiogram. Exam performed in department. Left Ventricle Mildly dilated left ventricle. The estimated ejection fraction is 45-50 %. Right Ventricle Normal right ventricle. Normal systolic function. Atria Normal left atrium. Normal right atrium. Mitral Valve Anterior leaflet diffuse mitral valve thickening. No mitral valve insufficiency. Tricuspid Valve Normal tricuspid valve. Trivial eccentric tricuspid valve insufficiency. Aortic Valve Normal aortic valve. Pulmonic Valve The pulmonic valve is not well visualized. Great Vessels Normal aortic root. Pericardium/Pleural No pericardial effusion. There is no pleural effusion. Medication Performed a rapid injection of agitated mix of 9 cc saline and 1cc air to assess for atrial septal defect. MMode/2D Measurements & Calculations LVIDd: 4.3 cm IVSd: 1.2 cm Ao root diam: 3.0 cm LVIDs: 3.0 cm LVPWd: 1.2 cm RVDd: 2.5 cm FS: 28.4 % LAV(MOD-sp4): 56.2 ml LVAd ap4: 21.0 cm2 LVAs ap2: 13.3 cm2 LVLd ap4: 6.1 cm LVLs ap2: 5.2 cm EDV(MOD-sp4): 57.8 ml ESV(MOD-sp2): 29.3 ml EDV(sp4-el): 61.7 ml ESV(sp2-el): 28.8 ml LA dimension(2D): 3.7 cm LA A4 area: 19.4 cm2 RA A4 area: 16.7 cm2 Doppler Measurements & Calculations MV E max niki: 85.1 cm/sec Ao V2 max: 96.4 cm/sec LV V1 max: 76.7 cm/sec Ao max P.7 mmHg LV V1 max P.4 mmHg Ao V2 mean: 66.7 cm/sec LV V1 mean P.3 mmHg Ao mean P.1 mmHg LV V1 mean: 53.1 cm/sec Ao V2 VTI: 17.3 cm LV V1 VTI: 13.2 cm AV (velocity ratio): 0.77 PA V2 max: 66.7 cm/sec TR max niki: 248.1 cm/sec PA V2 mean: 48.7 cm/sec TR max P.6 mmHg ECHO/Echo Complete Interpretation Summary The estimated ejection fraction is 45-50 %. cardiac rhythm A fib Mildly reduced LV systolic function in comparison to previous study Ordering Physician: Jan Doshi Referring Physician: VIRGILIO HAY Performed By: Tracy Altamirano RCS
--- NOTE | 2022-10-23 13:13 | MRI_ITS ---
STUDY: MRI BRAIN WITHOUT CONTRAST REASON FOR EXAM: Female, 62 years old. suspected stroke TECHNIQUE: Multiplanar multisequence imaging of the brain was performed without the administration of intravenous contrast. COMPARISON: Noncontrast head CT same date FINDINGS: The ventricles, cisterns, and sulci are within normal limits for patients age. There is no restricted diffusion to suggest acute ischemia or infarction. No succeptibility artifict to suggest intracranial hemorrhage or mineralization. Major intracranial signal voids are preserved. There is no midline shift, mass effect, or extra axial fluid collections are seen. No CP angle or IAC mass is seen. The orbits are unremarkable. The sella turcica and craniovertebral junction are within normal limits. The visualized paranasal sinuses are clear. The mastoid air cells are clear. Smoothly marginated lesion in the right side of the neck at the level of the angle of the mandible measures 3.6 x 1.4 cm. MRI/Brain without Contrast IMPRESSION: No intracranial hemorrhage, acute infarct, or space occupying lesion seen on this noncontrast MRI of the brain. 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 Differential diagnosis includes cystic lymph nodes, cervical dermoid cyst or neurogenic tumors. Further evaluation by routine neck CT with contrast recommended. Electronically Signed: Adan Yin MD at 15:55 EST ,
[2022-10-23 13:27] LABS: Thyroid Stim Hormone (TSH) 1.47 uIU/mL (0.358-3.74)
[2022-10-23] MEDS: Lactated Ringers 1,000 ML 100 ML IV (15:59)
[2022-10-23] MEDS: Contrast Allergy Safety Check IV (16:30)
[2022-10-23 18:40] LABS: Bedside Glucose 162 mg/dL (74-106)
[2022-10-23] MEDS: Metoprolol Tartrate 50 MG Tablet PO (21:11)
[2022-10-23] MEDS: Rivaroxaban 20 MG Tablet PO (21:11)
[2022-10-23] MEDS: Flecainide 100 MG Tablet PO (21:11)
[2022-10-23] MEDS: Atorvastatin Calcium 80 MG Tablet PO (21:11)
[2022-10-24 01:05] LABS: Bedside Glucose 93 mg/dL (74-106)
[2022-10-24 03:04] VITALS: BP 127/72; PULSE 67; RESP 18; TEMP 36.5; O2SAT 96
--- NOTE | 2022-10-24 06:27 | PCA ---
patients bed had to be zero'd out due to inaccurate weight, patient has been weighed again and the weight is still off
[2022-10-24 06:59] VITALS: PULSE 70
[2022-10-24 07:05] LABS: Bedside Glucose 98 mg/dL (74-106)
[2022-10-24 07:19] LABS: Absolute Lymphocyte Count 2.28 X10^3/uL (0.83-4.51); Basophil# 0.03 X10^3/uL; Basophil% 0.5 % (0-1); Eosinophils% 1.7 % (0-5); Hematocrit 48.3 % (37-47); Hemoglobin 16.3 g/dL (12.0-15.0); Lymphocyte # 2.28 X10^3/ul (0.83-4.51); Lymphocyte % 38.4 % (19-41); Mean Corp Hgb Conc 33.7 g/dL (32-36); Mean Corpuscular Hgb 31.7 pg (27.0-32.0); Mean Corpuscular Volume 93.8 fL (81-99); Mean Platelet Vol. 12.1 fl (6.2-12.0); Monocyte# 0.53 X10^3/uL; Monocyte% 8.9 % (0-10); NRBC Flagged by Analyzer 0 % (0-5); Neutrophil # 2.98 X10^3/uL (2.7-7.7); Neutrophil % 50.3 % (47-70); Platelet Count 173 K/mm3 (150-450); RBC Distribution Width CV 12.7 % (11.6-14.6); RBC Distribution Width SD 44.2 fl (35.1-43.9); Red Blood Count 5.15 M/mm3 (4.2-5.4); White Blood Count 5.9 K/mm3 (4.4-11.0)
[2022-10-24 07:51] LABS: Anion Gap 6 (5-15); BUN 12 mg/dL (7-18); Calcium,Total 9.3 mg/dL (8.5-10.1); Chloride 108 mmol/L (98-107); Cholesterol 212 mg/dL (200); Creatinine, Serum 0.66 mg/dL (0.55-1.02); EST Glomerular Filtration Rate 95 mL/min (>60); Est Glom Filt Rate - Afr Amer 115 mL/min (>60); Estimated Creatinine Clearance 73.11 ml/min; Glucose 94 mg/dL (74-106); High Density Lipoprotein 67 mg/dL; Potassium 4.1 mmol/L (3.5-5.1); Sodium Level 142 mmol/L (136-145); Triglycerides 97 mg/dL; Very Low Density Lipoprotein 19 mg/dL (5-40)
--- NOTE | 2022-10-24 07:53 | DCINST_ITS ---
Discharge Instructions Follow Up Care Test Results: Test results from this visit will be discussed in further detail at your follow- up appointment, if applicable. Discharge Plan Admission Admit Date/Time: 10/23/22 11:54 Attending Provider: Jan Doshi Primary Care Provider: Chris Alicia Instructions Additional Instructions / Restrictions: Hold metoprolol and flecainide if heart rate is less than 55/min. Discharge Orders/Prescriptions Prescriptions: New atorvastatin 20 mg tablet 20 mg PO QHS Qty: 30 2RF Continued multivitamin Tablet 1 tab PO DAILY Caltrate 600 plus D 600 mg-20 mcg (800 unit) Tablet,Chewable 1 tab PO DAILY acetaminophen [Tylenol Extra Strength] 500 mg Tablet 1,000 mg PO Q6H PRN (Reason: pain) loratadine [Claritin] 10 mg Tablet 10 mg PO DAILY cyclosporine [Restasis] 0.05 % Dropperette 1 drp EACH EYE Q12H flecainide 100 mg tablet 100 mg PO Q12H Qty: 180 3RF Rx Instructions: Hold for heart less than 60 or systolic blood pressure less than 100 mmHg. metoprolol tartrate 50 mg tablet 50 mg PO BID Qty: 180 3RF Rx Instructions: Hold for heart less than 60 or systolic blood pressure less than 100 mmHg. Xarelto 20 mg tablet 20 mg PO DAILY Qty: 90 3RF Rx Instructions: must administer with evening meal Discontinued flecainide 50 mg tablet 50 mg PO Q12H Qty: 180 3RF Rx Instructions: Take along with 100mg tablet for a total dose of 150mg every 12 hours. Referrals / Follow Up: Meliton Conway MD [Med Staff - Active Staff] - Within 1 Month (Follow-up with Chaparrita Pope, cardiology) Chris Alicia MD [Primary Care Provider] - Within 2 Weeks Disposition Disposition (needs filled in before D/C Order can be placed): Home, Self Care
--- NOTE | 2022-10-24 09:57 | DS.PCM_ITS ---
Providers Date of Admission: 10/23/22 Date of Discharge: 10/24/22 Primary Care Physician: Dr. Chris Alicia MD Reason For Visit: TIA/STROKE Diagnosis Discharge Diagnosis (1) Near syncope: Status: Acute Code(s): R55 - Syncope and collapse Plan This is 62-year-old pleasant lady was brought by EMS for dizziness lightheadedness and numbness on the left side. 1. Near syncope with left-sided numbness, most likely due to bradycardia/low cardiac output. Stroke ruled out: Patient is being admitted in PCU. First troponin is negative. Stroke order including MRI brain and 2D echo ordered. CT brain and CT head and neck reported normal. NIH stroke scale monitoring, PT OT speech and swallow evaluation as per stroke guidelines. BP and glucose control as per stroke guidelines. No prior history of a stroke. 10/24: MRI brain and CTA head and neck are normal. Fasting profile shows elevated total cholesterol 212, LDL 126 therefore low-dose atorvastatin 20 mg daily started and prescription given. Advised to follow-up fasting profile in 3 months. A1c pending. 2. Persistent A. fib on Xarelto: Currently patient is in sinus bradycardia. Serum magnesium ordered. Potassium normal. Dose of flecainide was recently increased to 150 mg twice daily but I will keep 100 mg twice daily because of bradycardia with holding parameters. Patient on metoprolol 50 mg twice daily, continued with holding parameters. 10/24: Discussed with Dr. Conway. Flecainide decreased back to 100 mg twice daily. On metoprolol 50 mg twice daily. Advised to follow-up heart rate before taking metoprolol and flecainide and hold if heart rate less than 55/min. Discussed with patient and at the bedside. 3. Progressively worsening dyspnea on exertion: 2D echo is ordered.She also felt numbness and tingling of left arm and leg. Patient had a stress test reported normal in May 2022.2D echo in January 2020 reported EF 50% with structurally normal valves. No RWMA. Patient does not have leg swelling. 10/16: Echo pending. 4. 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 based on lumbar puncture finding but later on in [facility] said it looked more like polio. She has below-knee muscle atrophy and wears braces and also atrophy of muscles of hand. Usually muscle atrophy and weakness in polio is asymmetrical. 5. VT prophylaxis: Patient on Xarelto 20 mg daily at 5 PM. Continued Living will/advanced directive/end of life care: Patient does not have living will or advanced directive. After discussion of benefits/risks procedures involved with full code, DNR CC arrest and DNR CC, the patient opted for full code. Patient does want artificial life support including intubation, tube feed, ventilator and/chest compression, central venous catheter, vasopressor and DC shock if needed Discharge medication reconciliation done. Discharge follow-up instructions completed. Discharge process discussed with the patient and all questions were answered to patient's satisfaction. Total time spent, exact 35 minutes on discharge meds reconciliation, examination, coordination of care with nurses and ancillary staff, review of imaging and blood test and discussion with the patient on follow-up instructions. Clinical Impression(s) from Imaging Studies Brain CT 10/23/22 11:00 IMPRESSION: Normal unenhanced CT scan of the brain. N.B. : The above Results were Read Back by Christoph Davila MD to [place] and understanding confirmed on 10/23/2022 11:13:45 (ET). Electronically Signed: Christoph Davila MD at 11:14 EST , ADDENDUM: 10/23/22 1121 IMPRESSION: Normal unenhanced CT scan of the brain. N.B. : The above Results were Read Back by Christoph Davila MD to Ni Elena and understanding confirmed on 10/23/2022 11:13:45 (ET). Electronically Signed: Christoph Davila MD at 11:14 EST , Chest X-Ray 10/23/22 11:00 IMPRESSION: No acute abnormality is seen. Head/Neck CTA 10/23/22 11:02 IMPRESSION: Normal CTA Head and neck with contrast. Medications at Discharge Home Medications multivitamin 1 tab PO DAILY supplement 03/26/20 rivaroxaban 20 mg tablet (Xarelto) 20 mg PO DAILY blood thinner #90 tabs 06/17/22 acetaminophen 500 mg tablet (Tylenol Extra Strength) 1,000 mg PO Q6H PRN pain 10/23/22 calcium carbonate 600 mg-vitamin D3 20 mcg (800 unit) chewable tablet (Caltrate 600 plus D) 1 tab PO DAILY SUPPLEMENT 10/23/22 cyclosporine 0.05 % eye drops in a dropperette (Restasis) 1 drp EACH EYE Q12H 10/23/22 loratadine 10 mg tablet (Claritin) 10 mg PO DAILY 10/23/22 atorvastatin 20 mg tablet 20 mg PO QHS #30 tabs 10/24/22 flecainide 100 mg tablet 100 mg PO Q12H #180 tabs 10/24/22 metoprolol tartrate 50 mg tablet 50 mg PO BID #180 tabs 10/24/22 Physical Exam Narrative Seen and examined. pharmaceutical assistant shows sinus rhythm 66. No chest pain or shortness of breath or dizziness. Near syncope symptoms with 40-minute Physical exam General: Alert, Oriented x3, Cooperative HEENT: Atraumatic, PERRLA, EOMI, Normocephalic Oral: No Gingival or Mucosal Lesions/ Ulcerations Neck: Supple, No JVD, Negative Carotid Bruits Lungs: Air entry diminished in bilateral lung bases. No crepitation/rhonchi Cardiovascular: Sinus bradycardia, Normal S1, Normal S2, No murmurs Abdomen: Bowel Sounds Present, Soft, Non Tender, Non-Distended : No renal angle tenderness. No suprapubic tenderness. Extremities: No edema, Capillary Refill Less than 3 Seconds Skin: No rashes, No breakdown Musculoskeletal: No Tenderness to Palpation of Joints or Extremities. Muscles atrophy of lower legs below knee and thenar and hypothenar hand muscles. Wears braces in both lower legs. Neurological: Cranial nerves II-XII grossly intact, DTR 2+/4, NIH stroke scale 0. Chronic weakness of lower legs. Psych/Mental Status: Flat affect. Weight / BMI Weight Weight: 179 lb 7.3 oz Body Mass Index (BMI) 35.4 ABG / Lab / Microbiology Data Result Diagrams: 10/24/22 07:00 10/24/22 07:00 Laboratory: Laboratory Results - last 24 hr 10/23/22 11:00: WBC 6.9, RBC 5.01, Hgb 15.9 H, Hct 47.1 H, MCV 94.0, MCH 31.7, MCHC 33.8, RDW Std Deviation 44.3 H, RDW Coeff of [place] 12.9, Plt Count 186, MPV 12.1 H, Immature Gran % (Auto) 0.300, Neut % (Auto) 57.6, Lymph % (Auto) 30.9, [place] % (Auto) 9.0, Eos % (Auto) 1.6, Baso % (Auto) 0.6, Absolute Neuts (auto) 4.0, Absolute Lymphs (auto) 2.14, Nucleated RBC % 0 10/23/22 11:00: PT 15.0 H, INR 1.2, APTT 28.2 10/23/22 11:00: Sodium 142, Potassium 4.1, Chloride 108 H, Carbon Dioxide 27.0, Anion Gap 7, BUN 11, Creatinine 0.66, Estim Creat Clear Calc 73.11, Est GFR (MDRD) Af Amer 116, Est GFR (MDRD) Non-Af 96, BUN/Creatinine Ratio 16.7, Glucose 108 H, Calcium 9.4, Troponin I High Sens 5 10/23/22 11:00: Magnesium 2.4 10/23/22 11:00: TSH 1.47 10/23/22 18:22: POC Glucose 162 H 10/23/22 21:17: POC Glucose 93 10/24/22 06:05: POC Glucose 98 10/24/22 07:00: WBC 5.9, RBC 5.15, Hgb 16.3 H, Hct 48.3 H, MCV 93.8, MCH 31.7, MCHC 33.7, RDW Std Deviation 44.2 H, RDW Coeff of [place] 12.7, Plt Count 173, MPV 12.1 H, Immature Gran % (Auto) 0.200, Neut % (Auto) 50.3, Lymph % (Auto) 38.4, [place] % (Auto) 8.9, Eos % (Auto) 1.7, Baso % (Auto) 0.5, Absolute Neuts (auto) 3.0, Absolute Lymphs (auto) 2.28, Nucleated RBC % 0 10/24/22 07:00: Sodium 142, Potassium 4.1, Chloride 108 H, Carbon Dioxide 28.0, Anion Gap 6, BUN 12, Creatinine 0.66, Estim Creat Clear Calc 73.11, Est GFR (MDRD) Af Amer 115, Est GFR (MDRD) Non-Af 95, BUN/Creatinine Ratio 18.0, Glucose 94, Calcium 9.3, Triglycerides 97, Cholesterol 212 H, LDL Cholesterol 126, VLDL Cholesterol 19, HDL Cholesterol 67 Radiography Diagnostic Testing: Radiology Impression Brain CT 10/23/22 11:00 IMPRESSION: Normal unenhanced CT scan of the brain. N.B. : The above Results were Read Back by Christoph Davila MD to [place] and understanding confirmed on 10/23/2022 11:13:45 (ET). Electronically Signed: Christoph Davila MD at 11:14 EST , ADDENDUM: 10/23/22 1121 IMPRESSION: Normal unenhanced CT scan of the brain. N.B. : The above Results were Read Back by Christoph Davila MD to [place] and understanding confirmed on 10/23/2022 11:13:45 (ET). Electronically Signed: Christoph Davila MD at 11:14 EST , Chest X-Ray 10/23/22 11:00 IMPRESSION: No acute abnormality is seen. Electronically Signed: Christoph Davila MD at 12:35 EST , Head/Neck CTA 10/23/22 11:02 IMPRESSION: Normal CTA Head and neck with contrast. Electronically Signed: Christoph Davila MD at 11:41 EST , Brain MRI 10/23/22 13:13 IMPRESSION: No intracranial hemorrhage, acute infarct, or space occupying lesion seen on this noncontrast MRI of the brain. 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 Differential diagnosis includes cystic lymph nodes, cervical dermoid cyst or neurogenic tumors. Further evaluation by routine neck CT with contrast recommended. Electronically Signed: Adan Yin MD at 15:55 EST , Meaningful Use Info Meaningful Use Diagnoses (Choose all that apply): None applicable Discharge Plan Admission Admit Date/Time: 10/23/22 11:54 Attending Provider: Jan Doshi Primary Care Provider: Chris Alicia Instructions Additional Instructions / Restrictions: Hold metoprolol and flecainide if heart rate is less than 55/min. Discharge Orders/Prescriptions Prescriptions: New atorvastatin 20 mg tablet 20 mg PO QHS Qty: 30 2RF Continued multivitamin Tablet 1 tab PO DAILY Caltrate 600 plus D 600 mg-20 mcg (800 unit) Tablet,Chewable 1 tab PO DAILY acetaminophen [Tylenol Extra Strength] 500 mg Tablet 1,000 mg PO Q6H PRN (Reason: pain) loratadine [Claritin] 10 mg Tablet 10 mg PO DAILY cyclosporine [Restasis] 0.05 % Dropperette 1 drp EACH EYE Q12H flecainide 100 mg tablet 100 mg PO Q12H Qty: 180 3RF Rx Instructions: Hold for heart less than 60 or systolic blood pressure less than 100 mmHg. metoprolol tartrate 50 mg tablet 50 mg PO BID Qty: 180 3RF Rx Instructions: Hold for heart less than 60 or systolic blood pressure less than 100 mmHg. Xarelto 20 mg tablet 20 mg PO DAILY Qty: 90 3RF Rx Instructions: must administer with evening meal Discontinued flecainide 50 mg tablet 50 mg PO Q12H Qty: 180 3RF Rx Instructions: Take along with 100mg tablet for a total dose of 150mg every 12 hours. Referrals / Follow Up: Meliton Conway MD [Med Staff - Active Staff] - Within 1 Month (Follow-up with Chaparrita Pope, cardiology) Chris Alicia MD [Primary Care Provider] - Within 2 Weeks Disposition Disposition (needs filled in before D/C Order can be placed): Home, Self Care Charges/Coding Visit Charges Inpatient E&M: 18779 Disch Hosp >30min
--- NOTE | 2022-10-24 10:00 | EKG12_ITS ---
Test Reason : AM EKG Blood Pressure : / mmHG Vent. Rate : 067 BPM Atrial Rate : 267 BPM P-R Int : 000 ms QRS Dur : 098 ms QT Int : 394 ms P-R-T Axes : 000 -19 243 degrees QTc Int : 416 ms Atrial flutter with variable A-V block Minimal voltage criteria for LVH, may be normal variant ( Sixto product ) Marked ST abnormality, possible inferior subendocardial injury Abnormal ECG When compared with ECG of 23-OCT-2022 11:27, MANUAL COMPARISON REQUIRED, DATA IS UNCONFIRMED Confirmed by ISSAC MARTINEZ, CECILY ([id number]), news video editor YOBANI COTA ([id number]) on 10/29/2022 10:50:14 AM Referred By: Confirmed By:CECILY DAVENPORT MD
[2022-10-24 10:26] VITALS: BP 123/73; PULSE 77; RESP 16; TEMP 36.3; O2SAT 97
[2022-10-24 10:29] VITALS: BP 123/73; PULSE 77
[2022-10-24] MEDS: Loratadine 10 MG Tablet PO (10:29)
[2022-10-24] MEDS: Flecainide 100 MG Tablet PO (10:29)
[2022-10-24] MEDS: Multivitamins,Therapeutic Tablet 1 TABLET PO (10:29)
[2022-10-24] MEDS: Metoprolol Tartrate 50 MG Tablet PO (10:29)
[2022-10-24 11:05] VITALS: BMI 35.4
[2022-10-24 12:07] LABS: Hemoglobin A1c 5.7 % (3.8-5.6)
== END 2022-10-24 09:56 | disposition home or self-care (01) ==
LOC: ED 12:05 → PCU 12:15
PROVIDERS: Admitting Provider Internal Medicine; Emergency Provider Emergency Medicine; PCP Family Medicine; Visit Provider Internal Medicine
DX: R55 Syncope and collapse (principal); I48.19 Other persistent atrial fibrillation; Z79.01 Long term (current) use of anticoagulants; I10 Essential (primary) hypertension; R00.1 Bradycardia, unspecified; R29.700 NIHSS score 0; Z87.891 Personal history of nicotine dependence; Z79.899 Other long term (current) drug therapy; R20.0 Anesthesia of skin; E66.9 Obesity, unspecified; G14 Postpolio syndrome; Z68.35 Body mass index [BMI] 35.0-35.9, adult; R06.09 Other forms of dyspnea
CPT/HCPCS: 99285; 36415; 70450; 70496; 70498; 70551; 71045; 80048; 80061; 82962; 83036; 83735; 84443; 84484; 85025; 85610; 85730; 93005; 93306; 94762; 96360; 96361; 99221; J7120; Q9967; G0378

== ENCOUNTER → 2023-01-20 | Outpatient (CLI) | payer OTHER, SELFPAY ==
[2023-01-20 15:35] LABS: Erythrocyte Sedimentation Rate 19 mm/hr (0-30)
[2023-01-20 15:40] LABS: Absolute Lymphocyte Count 1.82 X10^3/uL (0.83-4.51); Absolute Neutrophil Count 3.6 X10^3/uL (2.0-7.7); Basophil# 0.04 X10^3/uL; Basophil% 0.6 % (0-1); Eosinophils% 3.2 % (0-5); Hematocrit 44.5 % (37-47); Hemoglobin 14.7 g/dL (12.0-15.0); Lymphocyte # 1.82 X10^3/ul (0.83-4.51); Lymphocyte % 29.2 % (19-41); Mean Corpuscular Hgb 31.8 pg (27.0-32.0); Mean Corpuscular Volume 96.3 fL (81-99); Mean Platelet Vol. 13.2 fl (6.2-12.0); Monocyte# 0.59 X10^3/uL; Monocyte% 9.5 % (0-10); NRBC Flagged by Analyzer 0 % (0-5); Neutrophil # 3.59 X10^3/uL (2.7-7.7); Neutrophil % 57.5 % (47-70); Platelet Count 177 K/mm3 (150-450); RBC Distribution Width CV 12.9 % (11.6-14.6); RBC Distribution Width SD 45.9 fl (35.1-43.9); Red Blood Count 4.62 M/mm3 (4.2-5.4); White Blood Count 6.2 K/mm3 (4.4-11.0)
[2023-01-20 16:12] LABS: CRP < 2.90 mg/L (0.0-3.0); Rheumatoid Factor < 10.0 IU/mL (<15); Uric Acid 5.8 mg/dL (2.6-6.0)
[2023-01-22 14:09] LABS: ANTINUCLEAR ANTIBODIES DIRECT Negative (Negative)
== END | disposition home or self-care (01) ==
PROVIDERS: PCP Family Medicine; Visit Provider Family Medicine
DX: M25.50 Pain in unspecified joint (principal)
CPT/HCPCS: 36415; 84550; 85025; 85652; 86038; 86140; 86225; 86235; 86431

== ENCOUNTER → 2023-06-16 | Outpatient (CLI) | payer OTHER, SELFPAY ==
--- NOTE | 2023-06-16 16:00 | BI_ITS ---
MAMMOGRAPHY - BILATERAL SCREENING REASON FOR EXAM: Female, 63 years old. Routine annual screening examination. PERTINENT HISTORY: Mother with breast cancer. Aunt with breast cancer. TECHNIQUE: Digital bilateral breast buffy (3D mammographic acquisition) in the CC and MLO projections. 2-D mediolateral oblique (MLO) and craniocaudad (CC) views of both breasts were obtained. CAD: Full Field Digital Mammography with Computer Added Detection was performed. COMPARISON: Comparison is made with prior study of May 01, 2021 and April 12, 2020. FINDINGS: Breast Composition: There are scattered areas of fibroglandular density. There are no dominant masses or suspicious calcifications. Stable benign-appearing bilateral axillary lymph nodes. No other significant abnormalities are identified. There has been no significant change since the prior study. BI/SCRN MAMM (CAD)W/BUFFY BILAT IMPRESSION: Stable bilateral screening mammogram. Yearly follow-up mammogram recommended. (A) ASSESSMENT CATEGORY: BIRADS Category 2: Benign. A letter regarding these results will be sent to the patient by the facility within 30 days. Approximately 10% of breast cancers are not detected by mammography. A normal mammogram should not delay biopsy of a clinically suspicious abnormality. [id number] Electronically Signed: Christoph Davila MD at 9:26 EDT ,
== END | disposition home or self-care (01) ==
LOC: OPBI 15:59
PROVIDERS: PCP Family Medicine; Referring Provider Family Medicine; Visit Provider Family Medicine
DX: Z12.31 Encounter for screening mammogram for malignant neoplasm of breast (principal); Z80.3 Family history of malignant neoplasm of breast
CPT/HCPCS: 77063; 77067

== ENCOUNTER → 2023-09-01 | Outpatient (CLI) | payer OTHER, SELFPAY ==
--- NOTE | 2023-09-01 13:58 | ECHOD_ITS ---
Reason For Study: Afib/Flutter Procedure This was a 2D Doppler, Color Flow transthoracic echocardiogram. Exam performed in department. Left Ventricle Normal LV size. Left ventricular systolic function is normal. The estimated ejection fraction is 55 %. Stage 2 diastolic dysfunction. No regional wall motion abnormalities noted. Right Ventricle Normal RV size. Normal systolic function. Atria Normal left atrium. Normal right atrium. Mitral Valve Normal mitral valve. Tricuspid Valve Normal tricuspid valve. Mild (1+) tricuspid valve insufficiency. Pulmonary artery systolic pressure is 38 mmHg. Aortic Valve Normal aortic valve. Trisinus/trileaflet aortic valve. Pulmonic Valve Normal pulmonic valve. Great Vessels Normal aortic root. The pulmonary artery is normal size. Normal inferior vena cava. Pericardium/Pleural No pericardial effusion. MMode/2D Measurements & Calculations LVIDd: 4.5 cm IVSd: 1.1 cm Ao root diam: 3.1 cm LVIDs: 2.9 cm LVPWd: 1.0 cm LA dimension: 3.8 cm RVDd: 3.1 cm FS: 35.3 % LAV(MOD-bp): 53.0 ml LA A4 area: 17.5 cm2 RA A4 area: 14.7 cm2 LAV(MOD-bp) Indexed: 28.0 ml/m2 LAV(MOD-sp2): 55.3 ml LAV(MOD-sp4): 46.0 ml TAPSE: 1.9 cm Time Measurements MV dec time: 0.18 sec Doppler Measurements & Calculations MV E max neel: 77.5 cm/sec Lat Peak E' Neel: 11.1 cm/sec Med Peak E' Neel: 11.0 cm/sec MV A max neel: 51.8 cm/sec E/E' lat: 7.0 E/E' med: 7.0 MV E/A: 1.5 MV V2 max: 87.4 cm/sec MV P1/2t max neel: 87.4 cm/sec Ao V2 max: 148.8 cm/sec MV max P.1 mmHg MV P1/2t: 64.4 msec Ao max P.9 mmHg MV V2 mean: 48.2 cm/sec Ao V2 mean: 100.2 cm/sec MV mean P.1 mmHg MV dec slope: 397.3 cm/sec2 Ao mean P.7 mmHg MV V2 VTI: 22.5 cm MVA(P1/2t): 3.4 cm2 Ao V2 VTI: 31.6 cm AV (velocity ratio): 0.66 LV V1 max: 94.6 cm/sec PA V2 max: 97.6 cm/sec TR max neel: 293.2 cm/sec LV V1 max P.6 mmHg PA V2 mean: 71.1 cm/sec TR max P.4 mmHg LV V1 mean P.1 mmHg LV V1 mean: 67.8 cm/sec LV V1 VTI: 21.0 cm ECHO/Echo Complete Interpretation Summary Normal LV size. Left ventricular systolic function is normal. The estimated ejection fraction is 55 %. Stage 2 diastolic dysfunction. Pulmonary artery systolic pressure is 38 mmHg. Ordering Physician: Meliton Conway Referring Physician: Chris Alicia Performed By: Laron Zavaleta RCS
== END | disposition home or self-care (01) ==
LOC: CVS 13:57
PROVIDERS: PCP Family Medicine; Referring Provider Internal Medicine Cardiovascular Disease; Visit Provider Internal Medicine Cardiovascular Disease
DX: Z98.890 Other specified postprocedural states (principal); Z86.79 Personal history of other diseases of the circulatory system
CPT/HCPCS: 93306

== ENCOUNTER → 2023-10-13 | Outpatient (CLI) | payer OTHER, SELFPAY ==
--- OUTSIDE RECORDS SUMMARY | 2023-10-13 17:15 | XMS RPT_ITS | CCD ---
Author Name Unknown Address [address] [facility] [address] [place] [address] Organization [facility] Care Team Providers Care Kier Hand Name Role Phone STANDARD PROCESSING Attending Unavailable Unavailable Primary Care Provider Unavailalec Alicia MD, Virgilio Vieira Primary Care Provider [phone] Meliton Conway MD Unavailable Virgilio Alicia MD Primary Care Provider [phone] SATNAM, VIRGILIO A Primary Care Unavailable ALICIA, VIRGILIO A Primary Care Unavailable MELITON CONWAY Referring Unavailable KAMI, FEDERICO G Attending Unavailable ALICIA, VIRGILIO A Primary Care Unavailable KAMI, FEDERICO G Attending Unavailable KAMI, FEDERICO G Referring Unavailable ALICIA, VIRGILIO A Primary Care Unavailable JUAN ALBERTO, CAN Attending Unavailable ALICIA, VIRGILIO A Primary Care Unavailable ALICIA, VIRGILIO A Referring Unavailable ALICIA, VIRGILIO A Primary Care Unavailable ALICIA, VIRGILIO A Referring Unavailable LIYA MILLAN Attending Unavailable SELF, SELF Referring Unavailable KAMI, FEDERICO G Admitting Unavailable KAMI, FEDERICO G Attending Unavailable ALICIA, VIRGILIO A Primary Care Unavailable Allergies Allergy Classification Reported Allergen(s) Allergy Type Date of Onset Reaction(s) Facility (8 sources) Amoxicillin; Translations: [AMOXICILLIN] Drug Allergy 4 Hives, Anaphylaxis, Rash [facility] Work Phone: (8 sources) Cephalosporins (Antibiotic); Translations: [CEPHALOSPORINS] Propensity to adverse reactions 4 Hives [facility] Work Phone: (4 sources) Sulfonamides (Antibiotic); Translations: [SULFA (SULFONAMIDE ANTIBIOTICS)] Propensity to adverse reactions 4 Shortness of Breath [facility] Work Phone: (4 sources) Ampicillin Drug Allergy 3 Diarrhea, Hives, Rash, Shortness of Breath [facility] (4 sources) casein (cow milk) allergenic extract Drug Allergy 3 Diarrhea, Hives, Itching, Rash, Shortness of Breath [facility] (4 sources) Cephalexin Drug Allergy 3 Hives, Itching, Rash, Shortness of Breath [facility] (4 sources) Sulfonamides (Antibiotic) Propensity to adverse reactions to drug 3 Diarrhea, Hives, Rash, Shortness of Breath [facility] Medications Current Medications Medication Drug Class(es) Dates Sig (Normalized) Sig (Original) ascorbic acid 1000 mg oral tablet (4 sources) Vitamin C take 1 tablet by mouth once daily Ascorbic Acid (Vitamin C) 1000 MG tablet Take 1 tablet by mouth daily. 0 Active aspirin 81 mg chewable tablet (4 sources) Platelet Aggregation Inhibitor, Nonsteroidal Anti-inflammatory Drug Start: 03-03-2023 End: 03-03-2023 aspirin 81 MG Chew Tab chewable tablet Chew 1 tablet daily every morning. Take for 30 days and then stop in one month. 0 03/03/2023 Active [id number]-WLAGR-ZHE LURONIC ACID PO (4 sources) COLLAGEN-BORON- HYALURONIC ACID PO cycloSPORINE 0.5 mg/ml ophthalmic suspension (7 sources) Calcineurin Inhibitor Immunosuppressant Start: 11-21-2022 take 1 drop(s) into the eye(s) twice daily Restasis 0.05 % Emulsion ophthalmic suspension Place 1 drop in both eyes 2 times daily. 0 11/21/2022 Active Completed/Discontinued Medications Medication Drug Class(es) Dates Sig (Normalized) Sig (Original) acetaminophen 325 mg oral tablet (1 source) Start: 03-03-2023 End: 03-03-2023 take 1 tablet by mouth every six hours as needed Acetaminophen (TYLENOL) tablet 325 mg [id number] 200 actuat albuterol 0.09 mg/actuat metered dose inhaler (3 sources) beta2-Adrenergic Agonist Start: 09-27-2017 take 2 puff(s) by inhalation every six hours as needed albuterol HFA (PROAIR HFA) 90 mcg/actuation inhaler Indications: Cough , Acute bronchitis, unspecified organism Inhale 2 Puffs as instructed every 6 hours as needed. 1 Inhaler 0 09/27/2017 Active Problems Active Problems Problem Classification Problem Date Documented Date Episodic/Chronic Anxiety disorders (3 sources) Generalized anxiety disorder; Translations: [Generalized anxiety disorder] 07-11-2010 Chronic Cardiac dysrhythmias (10 sources) Atrial fibrillation; Translations: [Unspecified atrial fibrillation] Onset: 07-05-2023 Chronic Essential hypertension (2 sources) Essential hypertension; Translations: [Essential (primary) hypertension] Chronic Menopausal disorders (3 sources) Menopausal syndrome; Translations: [Menopausal and female climacteric states] Onset: 04-19-2014 04-19-2014 Chronic Mood disorders (3 sources) Dysthymia; Translations: [Dysthymic disorder] 07-11-2010 Chronic Other CHIEF BUILDING INSPECTOR infection and poliomyelitis (3 sources) Post poliomyelitis syndrome; 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] Onset: 08-31-2013 08-31-2013 Chronic Other diseases of bladder and urethra (3 sources) Overactive bladder; Translations: [Overactive bladder] Onset: 11-04-2011 11-04-2011 Chronic Other ear and sense organ disorders (1 source) Blood in ear canal; Translations: [Otorrhagia, left ear] Episodic Other injuries and conditions due to external causes (1 source) Injury of ear; Translations: [Unspecified injury of ear, initial encounter] Episodic Other nervous system disorders (3 sources) Acute infective polyneuritis; 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] 09-22-2021 Chronic Otitis media and related conditions (1 source) Dysfunction of left eustachian tube; Translations: [Unspecified Eustachian tube disorder, left ear] 04-05-2023 Episodic Unclassified (2 sources) Other persistent atrial fibrillation; Translations: [Other persistent atrial fibrillation] Onset: 03-03-2023 Past or Other Problems Problem Classification Problem Date Documented Date Episodic/Chronic Other connective tissue disease (3 sources) H/O: musculoskeletal disease; Translations: [Personal history of other diseases of the musculoskeletal system and connective tissue] Onset: 10-09-2013 10-09-2013 Episodic Residual codes; unclassified (3 sources) Insomnia; Translations: [Insomnia, unspecified] Onset: 10-09-2013 10-09-2013 Episodic Results Test Name Value Interpretation Reference Range Facil ity Vital Signs Date Time Vital Sign Value Performing Clinician Facility 04-05-2023 14:09-0400 Body temperature 97.81 [degF] Regulo Sparks DIALYSIS CHIEF EQUIPMENT TECHNICIAN.POULTRY SCIENTIST Work Phone: [facility] 04-05-2023 14:09-0400 Body weight 86.09 kg Regulo King DIALYSIS CHIEF EQUIPMENT TECHNICIAN.POULTRY SCIENTIST Work Phone: [facility] 04-05-2023 14:09-0400 Diastolic blood pressure 88 mm[Hg] Regulo Bridger DIALYSIS CHIEF EQUIPMENT TECHNICIAN.POULTRY SCIENTIST Work Phone: [facility] 04-05-2023 14:09-0400 Heart rate 76 /min Regulo Bridger DIALYSIS CHIEF EQUIPMENT TECHNICIAN.POULTRY SCIENTIST Work Phone: [facility] 04-05-2023 14:09-0400 Respiratory rate 18 /min Regulo King DIALYSIS CHIEF EQUIPMENT TECHNICIAN.POULTRY SCIENTIST Work Phone: [facility] 04-05-2023 14:09-0400 SaO2% (BldA) [Mass fraction] 96 % Regulo Sparks DIALYSIS CHIEF EQUIPMENT TECHNICIAN.POULTRY SCIENTIST Work Phone: [facility] 04-05-2023 14:09-0400 Systolic blood pressure 132 mm[Hg] Regulo Sparks DIALYSIS CHIEF EQUIPMENT TECHNICIAN.POULTRY SCIENTIST Work Phone: [facility] 03-04-2023 08:13-0400 Body height 162.6 cm Liyahuong Phelane DIALYSIS CHIEF EQUIPMENT TECHNICIAN-POULTRY SCIENTIST Work Phone: [facility] 03-04-2023 08:13-0400 Body mass index (BMI) [Ratio] 30.9 kg/m2 Liyahuong Phelane DIALYSIS CHIEF EQUIPMENT TECHNICIAN-POULTRY SCIENTIST Work Phone: [facility] 03-04-2023 08:13-0400 Body weight 81.65 kg Liya Yanasona LOPEZ-POULTRY SCIENTIST Work Phone: [facility] 03-03-2023 18:43-0400 Heart rate 90 /min Federico Fry MD Work Phone: [facility] 06-07-2023 18:43-0400 SaO2% (BldA) [Mass fraction] 96 % Federico Fry MD Work Phone: [facility] 03-03-2023 18:30-0400 Diastolic blood pressure 55 mm[Hg] Federico Fry MD Work Phone: [facility] 03-03-2023 18:30-0400 Respiratory rate 19 /min Federico Fry MD Work Phone: [facility] 03-03-2023 18:30-0400 Systolic blood pressure 112 mm[Hg] Federico Fry MD Work Phone: [facility] 03-03-2023 15:04-0400 Body temperature 97.59 [degF] Federico Fry MD Work Phone: [facility] 03-03-2023 08:57-0400 Body height 162.6 cm Federico Fry MD Work Phone: [facility] 03-03-2023 08:57-0400 Body mass index (BMI) [Ratio] 30.9 kg/m2 Federico Fry MD Work Phone: [facility] 03-03-2023 08:57-0400 Body weight 81.65 kg Federico Fry MD Work Phone: [facility] 09-02-2022 12:19-0500 Body temperature 97.9 [degF] Bailee Lara APRN.POULTRY SCIENTIST Work Phone: [facility] 09-02-2022 12:19-0500 Body weight 87.09 kg Bailee Lara APRN.POULTRY SCIENTIST Work Phone: [facility] 09-02-2022 12:19-0500 Diastolic blood pressure 68 mm[Hg] Bailee Lara APRN.POULTRY SCIENTIST Work Phone: [facility] 12-07-2022 12:19-0500 Heart rate 82 /min Bailee Lara DIALYSIS CHIEF EQUIPMENT TECHNICIAN.POULTRY SCIENTIST Work Phone: [facility] 09-02-2022 12:19-0500 Respiratory rate 16 /min Bailee Pastrana-Soren DIALYSIS CHIEF EQUIPMENT TECHNICIAN.POULTRY SCIENTIST Work Phone: [facility] 09-02-2022 12:19-0500 SaO2% (BldA) [Mass fraction] 98 % Bailee Pastrana-Soren DIALYSIS CHIEF EQUIPMENT TECHNICIAN.POULTRY SCIENTIST Work Phone: [facility] 09-02-2022 12:19-0500 Systolic blood pressure 118 mm[Hg] Bailee Pastrana-Soren DIALYSIS CHIEF EQUIPMENT TECHNICIAN.POULTRY SCIENTIST Work Phone: [facility] Encounters Encounter Date Encounter Type Care Provider Facility Start: 07-05-2023 ambulatory CAN AVENDANO Facility:[facility] Start: 04-05-2023 End: 04-05-2023 ambulatory VIRGILIO ALICIA Facility:[facility] Start: 04-05-2023 End: 04-05-2023 Patient encounter procedure Regulo Sparks DIALYSIS CHIEF EQUIPMENT TECHNICIAN.POULTRY SCIENTIST Work Phone: [facility] Procedures Date Procedure Procedure Detail Performing Clinician Start: 03-03-2023 Ephys evl trnsptl tx atrial fib isolat pulm vein Federico Fry MD Work Phone: Start: 03-03-2023 End: 03-03-2023 Assay of magnesium Barbara Hammond DIALYSIS CHIEF EQUIPMENT TECHNICIAN -POULTRY SCIENTIST Work Phone: Start: 03-03-2023 CBC AND ELECTRONIC DIFF Estrellita Dozier DIALYSIS CHIEF EQUIPMENT TECHNICIAN-POULTRY SCIENTIST Work Phone: Start: 03-03-2023 Complete blood count with white cell differential, automated Estrellita Dozier DIALYSIS CHIEF EQUIPMENT TECHNICIAN-POULTRY SCIENTIST Work Phone: Start: 03-03-2023 Ct heart contrast ev al cardiac structure&morph Federico Fry MD Work Phone: Start: 03-02-2019 Mammography Bailee Monzon DIALYSIS CHIEF EQUIPMENT TECHNICIAN.POULTRY SCIENTIST Work Phone: Start: 01-18-2010 Melissa Monzon APRN.CNP Work Phone: Plan of Treatment Date Care Activity Detail Author Start: 06-29-2023 End: 06-29-2023 Patient encounter procedure 06/29/2023 Office Visit Electrophysiology Federico Fry MD [address] [place] [id number] [facility] Start: 05-28-2023 Influenza vaccination [facility] Start: 04-14-2023 End: 03-03-2024 Cardiac telemetry MOBILE CARDIAC TELEMETRY ECG Routine Atrial fibrillation, persistent Expected: 04/14/2023, Expires: 03/03/2024 [facility] Immunizations Immunization Date Immunization Notes Care Provider Fa cili 12-11-2006 tetanus toxoid, redu amari diphtheria toxoid, and acellular pertussis vaccine, adsorbed Bailee Lara APRN.POULTRY SCIENTIST Work Phone: [facility] 10-20-2006 pneumococcal polysaccharide vaccine, 23 valent Bailee Lara APRN.POULTRY SCIENTIST Work Phone: [facility] Work Phone: Payers Date Payer Category Payer Unknown [id number] 2016 Unknown [id number] 1960 Unknown [id number] 1960 Unknown [id number] 1960 Unknown [id number] 1960 Unknown [id number] 1960 Unknown [id number] 1960 Unknown [id number] Social History Date Type Detail Facility Start: 09-02-2022 End: 03-03-2023 Tobacco smoking status NHIS Ex-smoker [facility] Work Phone: End: 02-03-1983 History of tobacco use Current smoker [facility] Work Phone: End: 02-03-1983 History of tobacco use Cigarette Smoker [facility] Work Phone: Start: 09-02-2022 End: 03-03-2023 Tobacco use and exposure Smokeless tobacco non-user [facility] Work Phone: Start: 09-02-2022 End: 04-05-2023 Alcohol intake Current drinker of alcohol (finding) [facility] Start: 05-15-2009 Alcohol Comment Pt drinks abou t once per month (social occasions) [facility] Start: 1960 Sex Assigned At Female [facility] Start: 03-03-2023 End: 04-05-2023 Alcohol intake [facility] Start: 03-03-2023 Alcohol Comment 1 glass of win e every evening [facility] Start: 1960 Sex Assigned At Not on file O GARCIA [facility] Start: 02-21-2023 End: 03-03-2023 Exposure to SARS-CoV-2 (event) Not sure [facility] Start: 04-05-2023 Tobacco use panel [facility] Start: 06-06-2019 Gender identity Identifies as female gender (finding) [facility] Start: 06-06-2019 Sexual orientation Heterosexual (fin georgina) [facility] Clinical Notes 08-19-2010 to 04-05-2023 Regulo Sparks APRN.POULTRY SCIENTIST - 04/05/2023 2:42 PM Twyla Millan APRN-JOSEPH - 03/04/2023 8:30 AM EDTPatient InstructionsNursing Notes - Lynn Lynch RN - 03/03/2023 7:31 PM EDTDischarge Instr - Diet Note Date & Type Note Facility 04-05-2023 Note HNO ID: [id number] Author: Regulo Sparks APRN.POULTRY SCIENTIST Service: ? Author Type: Nurse Practitioner Type: Progress Notes Filed: 04/05/2023 2:46 PM Note Text: Subjective HPI HPI Deya Willis is a 63 year old female who presents today for CC of decrease in left ear hearing, pressure. This started 10 days ago. Has tried peroxide for relief. Symptoms are worsened by nothing. Risk factors chronic nasal allergies. Nonsmoker. 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 fluticasone (FLONASE) 50 mcg/actuation nasal spray Use 2 Sprays in each nostril once daily. Rinse mouth after use. flecainide (TAMBOCOR) 100 mg tablet (Patient not taking: Reported on 04/05/2023) metoprolol tartrate, short acting, (LOPRESSOR) 50 mg tablet XARELTO 20 mg tablet RESTASIS 0.05 % ophthalmic emulsion Use 1 Drop in both eyes twice daily. methylPREDNISolone (MEDROL DOSE-PACK) 4 mg Dose-Pack As Instructed per package (Patient not taking: Reported on 09/02/2022) tiZANidine (ZANAFLEX) 4 mg tablet Take 1 tablet by mouth every 8 hours as needed. meloxicam (MOBIC) 15 mg tablet Take 1 tablet by mouth once daily. albuterol HFA (PROAIR HFA) 90 mcg/actuation inhaler Inhale 2 Puffs as instructed every 6 hours as needed. COMPOUNDED PRESCRIPTION AFO FOR BOTH LEGS DX POST POLIO SYNDROME Diagnosis: G14 cholecalciferol (VITAMIN D3) 1,000 unit tab Take 1 tablet by mouth once daily. loratadine(CLARITIN 10 MG TAB) Take one(1) tablet daily as needed for allergy symptoms. multivitamins w-minerals/lut(CENTRUM SILVER TAB) Take one(1) tablet daily. FAMILY HISTORY Problem Relation Age of Onset Diabetes Other cousin, TYPE I Cancer Mother lung, breast Breast Cancer Maternal Aunt TRIPLE NEGATIVE Social History Tobacco Use Smoking status: Former Years: 5.00 Types: Cigarettes Quit date: 02/03/1983 Years since quittin.1 Smokeless tobacco: Never Substance Use Topics Alcohol use: Yes Comment: Pt drinks about once per month (social occasions) Drug use: No ROS Objective Blood pressure 132/88, pulse 76, temperature 36.6 ?C (97.8 ?F), resp. rate 18, weight 86.1 kg (189 lb 12.8 oz), last menstrual period 10/22/2009, SpO2 96 %. Physical Exam Constitutional: General: She is not in acute distress. Appearance: She is not toxic-appearing or diaphoretic. HENT: Head: Normocephalic and atraumatic. Right Ear: Hearing, tympanic membrane, ear canal and external ear normal. Left Ear: Hearing, tympanic membrane, ear canal and external ear normal. Nose: Nose normal. Pulmonary: Effort: Pulmonary effort is normal. No accessory muscle usage or respiratory distress. Lymphadenopathy: Cervical: No cervical adenopathy. Right cervical: No superficial cervical adenopathy. Left cervical: No superficial cervical adenopathy. Neurological: Mental Status: She is alert and oriented to person, place, and time. ASSESSMENT/PLAN: 1. ETD (Eustachian tube dysfunction), left - ICD9: 381.81, ICD10: H69.92 -use medication as prescribed -follow up if symptoms persist, worsen, change - with ENT - PREDNISONE 10 MG TABLET - FLUTICASONE PROPIONATE 50 MCG/ACTUATION NASAL SPRAY,SUSPENSION Regulo Sparks APRN.[facility] 04-05-2023 History of Presen t illness Narrative Subjective HPI HPI Deya Willis is a 63 year old female who presents today for CC of decrease in left ear hearing, pressure. This started 10 days ago. Has tried peroxide for relief. Symptoms are worsened by nothing. Risk factors chronic nasal allergies. Nonsmoker. 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 fluticasone (FLONASE) 50 mcg/actuation nasal spray Use 2 Sprays in each nostril once daily. Rinse mouth after use. flecainide (TAMBOCOR) 100 mg tablet (Patient not taking: Reported on 04/05/2023) metoprolol tartrate, short acting, (LOPRESSOR) 50 mg tablet XARELTO 20 mg tablet RESTASIS 0.05 % ophthalmic emulsion Use 1 Drop in both eyes twice daily. methylPREDNISolone (MEDROL DOSE-PACK) 4 mg Dose-Pack As Instructed per package (Patient not taking: Reported on 09/02/2022) tiZANidine (ZANAFLEX) 4 mg tablet Take 1 tablet by mouth every 8 hours as needed. meloxicam (MOBIC) 15 mg tablet Take 1 tablet by mouth once daily. albuterol HFA (PROAIR HFA) 90 mcg/actuation inhaler Inhale 2 Puffs as instructed every 6 hours as needed. COMPOUNDED PRESCRIPTION AFO FOR BOTH LEGS DX POST POLIO SYNDROME Diagnosis: G14 cholecalciferol (VITAMIN D3) 1,000 unit tab Take 1 tablet by mouth once daily. loratadine(CLARITIN 10 MG TAB) Take one(1) tablet daily as needed for allergy symptoms. multivitamins w-minerals/lut(CENTRUM SILVER TAB) Take one(1) tablet daily. FAMILY HISTORY Problem Relation Age of Onset Diabetes Other cousin, TYPE I Cancer Mother lung, breast Breast Cancer Maternal Aunt TRIPLE NEGATIVE Social History Tobacco Use Smoking status: Former Years: 5.00 Types: Cigarettes Quit date: 02/03/1983 Years since quittin.1 Smokeless tobacco: Never Substance Use Topics Alcohol use: Yes Comment: Pt drinks about once per month (social occasions) Drug use: No ROS Objective Blood pressure 132/88, pulse 76, temperature 36.6 C (97.8 F), resp. rate 18, weight 86.1 kg (189 lb 12.8 oz), last menstrual period 10/22/2009, SpO2 96 %. Physical Exam Constitutional: General: She is not in acute distress. Appearance: She is not toxic-appearing or diaphoretic. HENT: Head: Normocephalic and atraumatic. Right Ear: Hearing, tympanic membrane, ear canal and external ear normal. Left Ear: Hearing, tympanic membrane, ear canal and external ear normal. Nose: Nose normal. Pulmonary: Effort: Pulmonary effort is normal. No accessory muscle usage or respiratory distress. Lymphadenopathy: Cervical: No cervical adenopathy. Right cervical: No superficial cervical adenopathy. Left cervical: No superficial cervical adenopathy. Neurological: Mental Status: She is alert and oriented to person, place, and time. ASSESSMENT/PLAN: 1. ETD (Eustachian tube dysfunction), left - ICD9: 381.81, ICD10: H69.92 -use medication as prescribed -follow up if symptoms persist, worsen, change - with ENT - PREDNISONE 10 MG TABLET - FLUTICASONE PROPIONATE 50 MCG/ACTUATION NASAL SPRAY,SUSPENSION Regulo Sparks APRN.POULTRY SCIENTIST documented in this encounter [facility] 03-04-2023 History of Presen t illness Narrative ESTABLISHED PATIENT VIDEO VISIT - CARDIAC ELECTROPHYSIOLOGY Primary care provider: Virgilio Alicia MD Electrophysiology physician: Federico Fry MD Local cardiology provider: Meliton Conway MD Provider for this encounter: BEN Ritchie It was my pleasure to see Deya Willis in real-time audiovisual consultation for Cardiovascular Electrophysiology on 03/04/2023. Ms. Willis is a 63 y.o. female with a history including AF, AFL, systolic HF borderline EF, HTN, obesity, former tobacco use, and Guillain [place] syndrome. Ms. Willis follows with our group for management of atrial arrhythmias, diagnosed in 2020 and historically managed with flecainide. She developed recurrent AF in 01/2022 in the setting of COVID infection, managed with uptitration of flecainide and DCCV. Echo 01/2022 showed EF 50%. Stress testing 05/2022 negative for ischemia. Echo 09/2022 showed EF 45-50%. She developed symptomatic bradyarrhythmias in 10/2022, managed with down titration of flecainide which was ineffective requiring additional DCCVs. She underwent PVI ablation with PWI for AF and CTI ablation for AFL on 03/03/2023. Femoral venous access sites inspected post procedure without evidence of hematoma. She is being seen today for follow up after same day discharge yesterday. ASSESSMENT and PLAN Ms. Willis is managed today for the following issues: persistent atrial fibrillation and typical atrial flutter She reports feeling OK. Groin access site is soft and non tender with no ecchymosis. - Continue metoprolol for rhythm control. - Continue rivaoxaban for stroke risk reduction in setting of [id number] Score: 3 (for CHF, HTN, and gender). - Continue low dose aspirin for 30 days. - Pantoprazole for 30 days to prevent esophageal problems. - as400 programmer to evaluate for recurrence of atrial arrhythmias in 6-8 weeks. hypertension No BP reported today. - Encouraged periodic home monitoring. - Continue current regimen. obesity, class 1 Body mass index is 30.9 kg/m . - Discussed the health benefits of diet and lifestyle modifications to promote weight loss. RECOMMENDED FOLLOW UP We will plan on return visit in 3-4 months, or sooner if needed. If you have any questions or concerns, please do not hesitate to contact me. Sincerely, Liya M Yana, DIALYSIS CHIEF EQUIPMENT TECHNICIAN-POULTRY SCIENTIST Clinical Electrophysiology, Division of Cardiovascular Medicine, [facility] SUBJECTIVE Today the patient reports feeling pretty good . Reports episodes of burning in LLE a/w muscle cramps/spasms; denies pallor or cyanosis. Experienced these prior to the procedure. Typically practices water PT routine, eager to return to the pool in 1 week. Review of Systems Constitutional: Negative for decreased appetite, malaise/fatigue, weight gain and weight loss. HENT: Positive for sore throat (mild, improving). Negative for nosebleeds. Eyes: Negative for blurred vision. Cardiovascular: Negative for chest pain, dyspnea on exertion, irregular heartbeat, near-syncope, orthopnea, palpitations, paroxysmal nocturnal dyspnea and syncope. Respiratory: Negative for cough, shortness of breath and sleep disturbances due to breathing. Hematologic/Lymphatic: Negative for bleeding problem. Bruises/bleeds easily. Musculoskeletal: Positive for muscle cramps (LLE occured overnight, occured preprocedure also). Negative for falls. Gastrointestinal: Negative for change in bowel habit, hematemesis, hematochezia and melena. Genitourinary: Negative for dysuria and hematuria. Neurological: Positive for dizziness (constant, chronic) and headaches (mild). Negative for light-headedness. Psychiatric/Behavioral: The patient has insomnia. OBJECTIVE Physical Exam This physical examination was performed in a telemedical setting. Constitutional: In general, the patient appears well and in no acute distress. Obese. Eyes: Gaze appears conjugate. No apparent xanthelasmas. ENMT: No nasal deformities noted. No nasal discharge. Cardiovascular: No gross jugular venous distention visible. No periorbital or facial edema to suggest intravascular volume overload. Respiratory: No respiratory distress, normal work of breathing. No audible wheezing or stridor. Skin: Without apparent icterus, rash, or other lesions of the visualized skin. No significant facial wounds or ecchymoses apparent. Neurologic: Alert. Oriented to self, place, and time. Psychiatric: Good attention and normal thought process. Mood is fair. Good insight into situation and disease process. The following historical elements were reviewed by a provider in the specific IHIS dave and updated as appropriate: Tobacco Allergies Meds Problems Vital signs. I have reviewed each of the following bulleted unique test results as part of today's service: Notes from Kami Hammond EP report 02/2023 CT PV 02/2023 ECG 12/2022 TTE 09/2022 Stress test 2021 TTE 2021 As part of the visit today, I have independently reviewed the following images/tracings: ECG I have ordered the following: No orders of the defined types were placed in this encounter. NOTES: I confirm that this is a telehealth visit, using the synchronous technology for real-time patient interaction as denoted below. The patient's identity with name and date of was confirmed. By scheduling this appointment, the patient has already verbally consented to the submission of and accepts potential risks, benefits, and possible coinsurance/copay cost associated with a telehealth visit, and care was taken to assess for presence of any medical issues that would be more appropriate for expedited in-person assessment. I personally spent the following amount of time to complete the visit: ACTIVITY TIME Direct synchronous communication with the patient by video. 21 minutes Other patient care activities related to this service including chart/data review, coordination of care, and/or preparation of documentation. 11 minutes Total time spent on this service. 32 minutes Medical decision making complexity was low. documented in this encounter [facility] 03-04-2023 Instructions BEN Ritchie - 03/04/2023 8:30 AM EDT Follow up as scheduled with Federico Fry MD on 06/29/2023. If you have any questions, please contact the nurse's line: - for urgent questions: call [phone] option 6. - non urgent questions: send [email or web address] message documented in this encounter [facility] 03-03-2023 Note Formatting of this n ote might be different from the original. Discharge instructions and printed AVS reviewed with patient by Mary RN, all questions answered. Pt verbalizes understanding. IV dc'd with no difficulty and catheter tip intact. Telemetry dc'd. VS stable at time of discharge. Patient being discharged to home by private car with . No patient belongings left at bedside. Post procedure recovery without events. Right groin site without bleeding or hematoma, palpable pedal pulse. Ambulates prior to DC without difficulty. [facility] 03-03-2023 Miscellaneous Notes Discharge instructions and printed AVS reviewed with patient by Mary RN, all questions answered. Pt verbalizes understanding. IV dc'd with no difficulty and catheter tip intact. Telemetry dc'd. VS stable at time of discharge. Patient being discharged to home by private car with . No patient belongings left at bedside. Post procedure recovery without events. Right groin site without bleeding or hematoma, palpable pedal pulse. Ambulates prior to DC without difficulty. Patient seen and examined. VSS. Lungs CTA. Heart tones regular without rub. Voiding without difficulty. No CP/dyspnea. 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 Patient verbalized understanding of all discharge instructions. Patient okay for discharge this evening at 7:30 pm when discharge criteria met. BEN Pickering 0910am Report of PIV WITH ULTRASOUND GUIDANCE Consultation and Evaluation: Patient seen and evaluated for PIV insertion using ultrasound guidance. ID band present, allergies and limb precautions verified with patient/nurse. Skin integrity within normal limits at time of insertion. No evidence of ecchymosis, infiltration, hematoma, edema, or any condition that would prevent safe insertion of a PIV [X ] ultrasound used [ ] ultrasound not used Procedure explained to patient. Anatomical distortion to interfere with placement: none PROCEDURE DETAILS: PIV Insertion Procedure Using standard aseptic technique access was obtained. Good blood return noted, catheter flushed easily with 10mls 0.9 NS per lumen. Securement device used to secure PIV. Dressing applied. Pt denies pain at insertion site. Peripheral IV Line - Single Lumen 03/03/23 0910 forearm, anterior, left 18 gauge;1 1/4 in length (Active) 03/03/23 0910 Present On Admission : no Guiding Device: ultrasound Lumen 1: Location: forearm, anterior, left Device/Lot Number: [id number] catheter system Gauge/Length: 18 gauge;1 1/4 in length Unsuccessful Insertion Attempts: Unsuccessful Attempt Location/Site: Pain Prevention/Patient Tolerance: Removal: Additional Comments: Lumen 2: Lumen 3: Peripheral IV Present on Admission: (Retired/Read Only) Location: (Retired/Read Only) Device: (Retired/Read Only) Gauge/Length: Humidifier Operator/Lot Number: Unsuccessful Insertion Attempts: (Retired/Read Only) Unsuccessful Attempt Locations: Pain Prevention: Patient Tolerance: Insertion: Removal Indication: Peripheral IV Location - Orientation: Peripheral IV Location: Patient tolerated procedure well without any complications [] Lidocaine 1% used prior insertion [] No Lidocaine used Extra insertion note if applicable: RN notified of procedure completion [x ] Obtained labs. [X] Call light in reach. [X] Bed low and locked. [X] Tray table within reach. Education: Patient/Family informed to notify nurse of any complications including pain, redness, swelling, or leakage post insertion. Pt arrives to room 2442 in [facility] for ablation. ECG completed. IV started in left arm. Labs drawn and sent. 0.9 NS IVF initiated @ 10mL/ hr per pump. Pt prep completed. Valuables given to self. Clothes secured in room. Questions about procedure answered. Family brought to bedside. Bed in low position, side rail up x2 and call light given to pt. Tele monitor shows sr. documented in this encounter [facility] 03-03-2023 Note Formatting of this n ote might be different from the original. Patient seen and examined. VSS. Lungs CTA. Heart tones regular without rub. Voiding without difficulty. No CP/dyspnea. Pt provided with follow up video visit at 8:30 am tomorrow EP HYDROMETER CALIBRATORKvng Deya Willis was instructed to remove groin dressings, wear loose fitting pants to allow for visualization of access sites, have AVS instructions present and to check blood pressure prior to visit. Patient verbalized understanding of all discharge instructions. Patient okay for discharge this evening at 7:30 pm when discharge criteria met. BEN Pickering [facility] 03-03-2023 Hospital Discharg e instructions BEN Frederick - 03/03/2023 9:31 AM EDT Post Ablation Activity Your activity is restricted only as indicated by your physician. Please refer to education for ablation and other care recommendations. - No driving for 24 hours - Keep incision dry - Limit bending at the waist for 48 hours - May resume regular activity in 1-2 weeks unless otherwise notified - Return to work in 1 week - No tub baths or hot tub for 2 weeks or until groin site is healed - No lifting greater than 10-15 pounds for 1 week. Rest for 24 hours after you are home. You should have someone with you to help you the first night you are home. DO NOT drive for 24 hours. DO NOT make any important decisions for 24 hours. DO NOT work around the stove, machinery or power equipment for 24 hours. BEN Frederick - 03/03/2023 9:31 AM EDT Diet: Your doctor has recommended that you follow these diet instructions at home. Refer to the patient education materials you received during your hospital stay. If you would like more nutrition counseling, ask your doctor about making an appointment with an outpatient dietitian. Heart Healthy Diet to promote heart health. Choose healthy fats and oils such as canola or olive oil. Limit high cholesterol foods. Avoid added salt and caffeine in your foods. Controlled Carbohydrate Diet This diet controls carbohydrate intake to help manage and maintain consistent blood glucose levels. Simple sugars are limited and carbohydrate intake is balanced throughout the day. Avoid adding salt to your food and use heart healthy fats such as canola or olive oil. BEN Frederick - 03/03/2023 9:32 AM EDT Images from the original note were not included. NOTIFY PHYSICIAN BLEEDING/BRUISING -If severe bleeding, apply pressure -Increased bleeding from site -Increased bruising or hematoma Chest pain or shortness of breath Respiratory Changes Call your doctor or nurse if you have shortness of breath that gets worse -Cough that gets worse -Coughing up blood Stroke Symptoms Call 911 if you suddenly have any of these signs of a stroke: -Numbness or muscle weakness -Trouble swallowing -Problems talking -Dizziness or feeling unsteady -Severe headache -Confusion SYMPTOMS OF DVT DVT = Deep Vein Thrombus, or Blood Clot -any tender, swollen, or reddened areas from your groin to your heels. -numbness or tingling in groin or calf -the skin on your leg looks pale or blue or it feels cold to touch -any shortness of breath -chest pain -fever or chills NAUSEA: When you are nauseated, you may feel weak and sweaty and notice a lot of saliva in your mouth. Nausea often leads to vomiting. Most of the time you do not need to worry about nausea and vomiting, but they can be signs of other illnesses. The doctor has checked you carefully, but problems can develop later. If you notice any problems or new symptoms, get medical treatment right away. Follow-up care is a rausch part of your treatment and safety. Be sure to make and go to all appointments, and call your doctor if you are having problems. It's also a good idea to know your test results and keep a list of the medicines you take. How can you care for yourself at home? To prevent dehydration, drink plenty of fluids, enough so that your urine is light yellow or clear like water. Choose water and other caffeine-free clear liquids until you feel better. If you have kidney, heart, or liver disease and have to limit fluids, talk with your doctor before you increase the amount of fluids you drink. Rest in bed until you feel better. When you are able to eat, try clear soups, mild foods, and liquids until all symptoms are gone for 12 to 48 hours. Other good choices include dry toast, crackers, cooked cereal, and gelatin dessert, such as Jell-O. When should you call for help? Call 911 anytime you think you may need emergency care. For example, call if: You passed out (lost consciousness) Call your doctor now or seek immediate medical care if: You have symptoms of dehydration, such as: Dry eyes and a dry mouth Passing only a little dark urine Feeling thirstier than usual You have new or worsening belly pain You have a new or higher fever You vomit blood or what looks like coffee grounds Watch closely for changes in your health, and be sure to contact your doctor if: You have on going nausea and vomiting Your vomiting gets worse Your vomiting last longer than 2 days You are not getting better as expected Where can you learn more? Go to [email or web address].net/osumy chart. BEN Frederick - 03/03/2023 9:32 AM EDT Catheter site care You can remove your bandages the day after the procedure. You may shower 24 to 48 hours after the procedure, if your doctor okays it. Pat the incision dry. Do not soak the catheter site until it is healed. Don't take a bath for 1 week, or until your doctor tells you it is okay. Watch for bleeding from the site. A small amount of blood (up to the size of a quarter) on the bandage can be normal. If you are bleeding, lie down and press on the area for 15 minutes to try to make it stop. If the bleeding does not stop, call your doctor or seek immediate medical care. documented in this encounter [facility] 03-03-2023 Note Formatting of this n ote is different from the original. 0910am Report of PIV WITH ULTRASOUND GUIDANCE Consultation and Evaluation: Patient seen and evaluated for PIV insertion using ultrasound guidance. ID band present, allergies and limb precautions verified with patient/nurse. Skin integrity within normal limits at time of insertion. No evidence of ecchymosis, infiltration, hematoma, edema, or any condition that would prevent safe insertion of a PIV [X ] ultrasound used [ ] ultrasound not used Procedure explained to patient. Anatomical distortion to interfere with placement: none PROCEDURE DETAILS: PIV Insertion Procedure Using standard aseptic technique access was obtained. Good blood return noted, catheter flushed easily with 10mls 0.9 NS per lumen. Securement device used to secure PIV. Dressing applied. Pt denies pain at insertion site. Peripheral IV Line - Single Lumen 03/03/23 0910 forearm, anterior, left 18 gauge;1 1/4 in length (Active) 03/03/23909 Present On Admission : no Guiding Device: ultrasound Lumen 1: Location: forearm, anterior, left Device/Lot Number: [id number] catheter system Gauge/Length: 18 gauge;1 1/4 in length Unsuccessful Insertion Attempts: Unsuccessful Attempt Location/Site: Pain Prevention/Patient Tolerance: Removal: Additional Comments: Lumen 2: Lumen 3: Peripheral IV Present on Admission: (Retired/Read Only) Location: (Retired/Read Only) Device: (Retired/Read Only) Gauge/Length: Humidifier Operator/Lot Number: Unsuccessful Insertion Attempts: (Retired/Read Only) Unsuccessful Attempt Locations: Pain Prevention: Patient Tolerance: Insertion: Removal Indication: Peripheral IV Location - Orientation: Peripheral IV Location: Patient tolerated procedure well without any complications [] Lidocaine 1% used prior insertion [] No Lidocaine used Extra insertion note if applicable: RN notified of procedure completion [x ] Obtained labs. [X] Call light in reach. [X] Bed low and locked. [X] Tray table within reach. Education: Patient/Family informed to notify nurse of any complications including pain, redness, swelling, or leakage post insertion. [facility] 03-03-2023 Note Formatting of this n ote might be different from the original. Pt arrives to room 2442 in [facility] for ablation. ECG completed. IV started in left arm. Labs drawn and sent. 0.9 NS IVF initiated @ 10mL/ hr per pump. Pt prep completed. Valuables given to self. Clothes secured in room. Questions about procedure answered. Family brought to bedside. Bed in low position, side rail up x2 and call light given to pt. [facility] monitor [facility] History and physical note Chief Complaint Atrial Fibrillation HPI Deya Willis is a 63 y.o. 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 She is on flecainide; dose increased for recurrent afib and then again decreased to 100 mg BID for concerning bradycardia. She was recently seen by Dr Fry for evaluation for persistent atrial fibrillation with plan for ablation and possible initiation of IV Sotalol. She presents today for scheduled procedure. Today she denies CP, SOB, lightheadedness, dizziness, fatigue. She is anticoagulated on Xarelto for [id number] of 3. She has held one dose as instructed. She has held one dose of metoprolol as instructed. Her flecainide was stopped in December per Dr. Fry. She denies any recent illness, fevers, chills, s/s infection. She has been NPO since midnight. There is no problem list on file for this patient. Past Medical History: Diagnosis Date Arrhythmia Arthritis Congestive heart failure Essential hypertension, benign No past surgical history on file. Medications Prior to Admission Medication Sig Dispense Refill Last Dose LORATADINE ALLERGY RELIEF PO 03/02/2023 at 0800 Metoprolol 50 MG tab regular release Take 1 tablet by mouth 2 times daily. 03/02/2023 at 1700 Restasis 0.05 % Emulsion ophthalmic suspension Place 1 drop in both eyes 2 times daily. 03/02/2023 Xarelto 20 MG tablet Take 1 tablet by mouth daily. 03/01/2023 at 1700 Ascorbic Acid (Vitamin C) 1000 MG tablet Take 1 tablet by mouth daily. 03/01/2023 Cholecalciferol (Vitamin D3) 10 MCG/ML Liquid Take 10 mcg by mouth daily. 03/01/2023 [id number] ACID PO 03/01/2023 Cyanocobalamin (Vitamin B-12) 3000 MCG/ML Liquid daily. 03/01/2023 Multiple Vitamins-Minerals (MULTIVITAMIN ADULT, MINERALS, PO) 03/01/2023 Allergies Allergen Reactions Amoxicillin Anaphylaxis, Hives and Rash Ampicillin Diarrhea, Hives, Rash and Shortness of Breath Cephalexin Hives, Itching, Rash and Shortness of Breath Milk Protein Diarrhea, Hives, Itching, Rash and Shortness of Breath Sulfa Antibiotics Diarrhea, Hives, Rash and Shortness of Breath Cephalosporins Hives Keflex Social History Socioeconomic History Marital status: Tobacco Use Smoking status: Former Types: Cigarettes Smokeless tobacco: Never Substance and Sexual Activity Alcohol use: Yes Alcohol/week: 7.0 standard drinks Types: 7 Glasses of wine per week Comment: 1 glass of wine every evening Drug use: Never Family History Problem Relation Age of Onset No known problems Mother No known problems Father Referring MD: Dr. Meliton Davis PCP Virgilio SCHULER MD: Dr. Federico Fry Anticoagulation: Xarelto Has the patient missed any doses of anticoagulation. Yes, held one dose as instructed When was the last dose taken. Wednesday evening [id number]- Vasc score: 3 (HF, HTN,gender) Previous antiarrythmic medications: Flecainide stopped in December per Dr. Fry given persistent arrhythmia Prior Cardiac testing: CT Pulmonary Veins 03/03/2023: PULMONARY VEIN CT Normal pulmonary venous anatomy. No LA/ZOHAIB thrombus. STUDY QUALITY: Study quality is good. Echo O[facility] 10/23/2022: -Estimated LVEF 45-50% -Cardiac rhythm Afib -Mildly reduced LV systolic function Stress Test OSH 06/26/2022: -Gated EF noted to be 63% -Normal pharmacologic myocardial perfusion stress test -Atrial Fibrillation Noted -Preserved Ejection Fraction Review of System Constitutional: Negative for fever, weight loss, weight gain and malaise/fatigue. Skin: Negative. HEENT: Negative. Cardiovascular: Negative for leg swelling. Negative for palpitations, chest pain, dyspnea, orthopnea, claudication, edema and PND. Negative for lightheadedness or syncope. Respiratory: Negative for cough. Is not experiencing shortness of breath currently. Gastrointestinal: Negative for abdominal pain, nausea, vomiting, diarrhea, melena, and constipation. Endocrine: Negative for polyuria, polydipsia, heat or cold intolerance. Genitourinary: Negative for frequency or burning with urination. Past history of BPH or difficult catheterization? NO. Neurological: Negative for dizziness and headaches. Psychiatric: Negative for depression, nervous/anxious and substance abuse. Telemetry/EKG: SR BP 183/84 (BP Location: Right arm, BP Position: Lying) Pulse 65 Temp 98 F (36.7 C) (Oral) Resp 20 Ht 1.626 m (5' 4 ) Wt 81.6 kg (180 lb) SpO2 100% BMI 30.90 kg/m Smoking Status Former Body mass index is 30.9 kg/m . Physical Exam General appearance - alert, LOC x 3, well appearing, and in no distress Neck - supple, no significant adenopathy, carotids upstroke normal bilaterally without bruits. Chest - lungs clear to auscultation, breath sounds equal and symmetric Heart - regular rate and rhythm, S1 and S2 normal, no murmurs, clicks, gallops or rubs, normal bilateral carotid upstroke without bruits, no JVD Abdomen - soft, nontender, nondistended, no masses or organomegaly, bowel sounds present x 4 quadrants. Extremities - peripheral pulses normal, no pedal edema, no clubbing or cyanosis Skin - normal coloration and turgor, no rashes, no suspicious skin lesions noted Lab Results Component Value Date CREATSERUM 0.59 03/03/2023 Lab Results Component Value Date WBC 6.45 03/03/2023 HGB 13.9 03/03/2023 HCT 42.2 03/03/2023 PLATELET 181 03/03/2023 MCV 94.6 03/03/2023 No results found for: INR Assessment and Plan Atrial Fibrillation -One dose of Xarelto held as instructed -NPO since midnight -Labs pending -CT Pulmonary Veins today shows no thrombus Okay to proceed with ablation pending lab results Associated attestation - Federico Fry MD - 03/03/2023 12:49 PM EDT Discussed procedure with pt and re-addressed risk/benefits. Pt is ready to proceed. Consent signed A and O x 3 Skin W and Dry Proceed with planned procedure [facility] 03-03-2023 History and physical note Chief Complaint Atrial Fibrillation HPI Deya Willsi is a 63 y.o. 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 She is on flecainide; dose increased for recurrent afib and then again decreased to 100 mg BID for concerning bradycardia. She was recently seen by Dr Fry for evaluation for persistent atrial fibrillation with plan for ablation and possible initiation of IV Sotalol. She presents today for scheduled procedure. Today she denies CP, SOB, lightheadedness, dizziness, fatigue. She is anticoagulated on Xarelto for [id number] of 3. She has held one dose as instructed. She has held one dose of metoprolol as instructed. Her flecainide was stopped in December per Dr. Fry. She denies any recent illness, fevers, chills, s/s infection. She has been NPO since midnight. There is no problem list on file for this patient. Past Medical History: Diagnosis Date Arrhythmia Arthritis Congestive heart failure Essential hypertension, benign No past surgical history on file. Medications Prior to Admission Medication Sig Dispense Refill Last Dose LORATADINE ALLERGY RELIEF PO 03/02/2023 at 0800 Metoprolol 50 MG tab regular release Take 1 tablet by mouth 2 times daily. 03/02/2023 at 1700 Restasis 0.05 % Emulsion ophthalmic suspension Place 1 drop in both eyes 2 times daily. 03/02/2023 Xarelto 20 MG tablet Take 1 tablet by mouth daily. 03/01/2023 at 1700 Ascorbic Acid (Vitamin C) 1000 MG tablet Take 1 tablet by mouth daily. 03/01/2023 Cholecalciferol (Vitamin D3) 10 MCG/ML Liquid Take 10 mcg by mouth daily. 03/01/2023 [id number] ACID PO 03/01/2023 Cyanocobalamin (Vitamin B-12) 3000 MCG/ML Liquid daily. 03/01/2023 Multiple Vitamins-Minerals (MULTIVITAMIN ADULT, MINERALS, PO) 03/01/2023 Allergies Allergen Reactions Amoxicillin Anaphylaxis, Hives and Rash Ampicillin Diarrhea, Hives, Rash and Shortness of Breath Cephalexin Hives, Itching, Rash and Shortness of Breath Milk Protein Diarrhea, Hives, Itching, Rash and Shortness of Breath Sulfa Antibiotics Diarrhea, Hives, Rash and Shortness of Breath Cephalosporins Hives Keflex Social History Socioeconomic History Marital status: Tobacco Use Smoking status: Former Types: Cigarettes Smokeless tobacco: Never Substance and Sexual Activity Alcohol use: Yes Alcohol/week: 7.0 standard drinks Types: 7 Glasses of wine per week Comment: 1 glass of wine every evening Drug use: Never Family History Problem Relation Age of Onset No known problems Mother No known problems Father Referring MD: Dr. Meliton Davis PCP Virgilio SCHULER MD: Dr. Federico Fry Anticoagulation: Xarelto Has the patient missed any doses of anticoagulation. Yes, held one dose as instructed When was the last dose taken. Wednesday evening [id number]- Vasc score: 3 (HF, HTN,gender) Previous antiarrythmic medications: Flecainide stopped in December per Dr. Fry given persistent arrhythmia Prior Cardiac testing: CT Pulmonary Veins 03/03/2023: PULMONARY VEIN CT Normal pulmonary venous anatomy. No LA/ZOHAIB thrombus. STUDY QUALITY: Study quality is good. Echo OSH 10/23/2022: -Estimated LVEF 45-50% -Cardiac rhythm Afib -Mildly reduced LV systolic function Stress Test OSH 06/26/2022: -Gated EF noted to be 63% -Normal pharmacologic myocardial perfusion stress test -Atrial Fibrillation Noted -Preserved Ejection Fraction Review of System Constitutional: Negative for fever, weight loss, weight gain and malaise/fatigue. Skin: Negative. HEENT: Negative. Cardiovascular: Negative for leg swelling. Negative for palpitations, chest pain, dyspnea, orthopnea, claudication, edema and PND. Negative for lightheadedness or syncope. Respiratory: Negative for cough. Is not experiencing shortness of breath currently. Gastrointestinal: Negative for abdominal pain, nausea, vomiting, diarrhea, melena, and constipation. Endocrine: Negative for polyuria, polydipsia, heat or cold intolerance. Genitourinary: Negative for frequency or burning with urination. Past history of BPH or difficult catheterization? NO. Neurological: Negative for dizziness and headaches. Psychiatric: Negative for depression, nervous/anxious and substance abuse. Telemetry/EKG: BP 183/84 (BP Location: Right arm, BP Position: Lying) Pulse 65 Temp 98 F (36.7 C) (Oral) Resp 20 Ht 1.626 m (5' 4 ) Wt 81.6 kg (180 lb) SpO2 100% BMI 30.90 kg/m Smoking Status Former Body mass index is 30.9 kg/m . Physical Exam General appearance - alert, LOC x 3, well appearing, and in no distress Neck - supple, no significant adenopathy, carotids upstroke normal bilaterally without bruits. Chest - lungs clear to auscultation, breath sounds equal and symmetric Heart - regular rate and rhythm, S1 and S2 normal, no murmurs, clicks, gallops or rubs, normal bilateral carotid upstroke without bruits, no JVD Abdomen - soft, nontender, nondistended, no masses or organomegaly, bowel sounds present x 4 quadrants. Extremities - peripheral pulses normal, no pedal edema, no clubbing or cyanosis Skin - normal coloration and turgor, no rashes, no suspicious skin lesions noted Lab Results Component Value Date CREATSERUM 0.59 03/03/2023 Lab Results Component Value Date WBC 6.45 03/03/2023 HGB 13.9 03/03/2023 HCT 42.2 03/03/2023 PLATELET 181 03/03/2023 MCV 94.6 03/03/2023 No results found for: INR Assessment and Plan Atrial Fibrillation -One dose of Xarelto held as instructed -NPO since midnight -Labs pending -CT Pulmonary Veins today shows no thrombus Okay to proceed with ablation pending lab results Associated attestation - Federico Fry MD - 03/03/2023 12:49 PM EDT Discussed procedure with pt and re-addressed risk/benefits. Pt is ready to proceed. Consent signed A and O x 3 Skin W and Dry Proceed with planned procedure documented in this encounter [facility] 09-02-2022 Note HNO ID: [id number] Author: Bailee Lara APRN.POULTRY SCIENTIST Service: ? Author Type: Nurse Practitioner Type: Progress Notes Filed: 09/02/2022 12:40 PM Note Text: Subjective Ear Problem Associated symptoms include ear discharge. Pertinent negatives include no headaches or rash. Deya Willis is a 62 year old female who presents with bleeding from her left ear. She was cleaning her ear with a Q-tip this morning when she jammed it into her ear canal. She had momentary sharp pain but it did not persist. She went to work and when she bent over it started bleeding. She denies pain or hearing difficulty. Review of Systems Constitutional: Negative for chills and fever. HENT: Positive for ear discharge and ear pain. Skin: Negative for rash. Neurological: Negative for dizziness and headaches. BP 118/68 Pulse 82 Temp 36.6 ?C (97.9 ?F) Resp 16 Wt 87.1 kg (192 lb) LMP 10/22/2009 SpO2 98% BMI 32.96 kg/m? 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 meloxicam (MOBIC) 15 mg tablet Take 1 tablet by mouth once daily. COMPOUNDED PRESCRIPTION AFO FOR BOTH LEGS DX POST POLIO SYNDROME Diagnosis: G14 cholecalciferol (VITAMIN D3) 1,000 unit tab Take 1 tablet by mouth once daily. loratadine(CLARITIN 10 MG TAB) Take one(1) tablet daily as needed for allergy symptoms. multivitamins w-minerals/lut(CENTRUM SILVER TAB) Take one(1) tablet daily. flecainide (TAMBOCOR) 100 mg tablet metoprolol tartrate, short acting, (LOPRESSOR) 50 mg tablet XARELTO 20 mg tablet RESTASIS 0.05 % ophthalmic emulsion Use 1 Drop in both eyes twice daily. methylPREDNISolone (MEDROL DOSE-PACK) 4 mg Dose-Pack As Instructed per package (Patient not taking: Reported on 09/02/2022) albuterol HFA (PROAIR HFA) 90 mcg/actuation inhaler Inhale 2 Puffs as instructed every 6 hours as needed. FAMILY HISTORY Problem Relation Age of Onset Diabetes Other cousin, TYPE I Cancer Mother lung, breast Breast Cancer Maternal Aunt TRIPLE NEGATIVE Social History Tobacco Use Smoking status: Former Years: 5.00 Types: Cigarettes Quit date: 02/03/1983 Years since quittin.6 Smokeless tobacco: Never Substance Use Topics Alcohol use: Yes Comment: Pt drinks about once per month (social occasions) Drug use: No Objective Physical Exam Vitals and nursing note reviewed. Constitutional: Appearance: Normal appearance. HENT: Left Ear: External ear normal. No decreased hearing noted. Drainage (blood in ear canal) present. Ears: Comments: Blood in ear canal impairs exam of clinically significant portions of the external auditory canal, tympanic membrane or middle ear condition. Unable to visualize TM. Skin: General: Skin is warm and dry. Findings: No erythema or rash. Neurological: Mental Status: She is alert. ASSESSMENT/PLAN: 1. Ear injury, initial encounter - ICD9: 959.09, ICD10: S09.91XA (primary diagnosis) - CONSULT TO ENT 2. Blood in left ear canal - ICD9: 388.69, ICD10: H92.22 - CONSULT TO ENT - Patient will be seen at [facility] in half an hour. She is on their schedule for 1:15 today. She is agreeable with this plan. Bailee Lara APRN.JOSEPH [facility] 09-02-2022 Instructions Bailee Lara APRN.JOSEPH - 09/02/2022 12:31 PM EST ASSESSMENT/PLAN: 1. Ear injury, initial encounter - ICD9: 959.09, ICD10: S09.91XA (primary diagnosis) - CONSULT TO ENT 2. Blood in left ear canal - ICD9: 388.69, ICD10: H92.22 - CONSULT TO ENT - Patient will be seen at [facility] in half an hour. She is on their schedule for 1:15 today. She is agreeable with this plan. Bailee Lara APRN.JOSEPH documented in this encounter [facility] 09-02-2022 History of Presen t illness Narrative Subjective Ear Problem Associated symptoms include ear discharge. Pertinent negatives include no headaches or rash. Deya Willis is a 62 year old female who presents with bleeding from her left ear. She was cleaning her ear with a Q-tip this morning when she jammed it into her ear canal. She had momentary sharp pain but it did not persist. She went to work and when she bent over it started bleeding. She denies pain or hearing difficulty. Review of Systems Constitutional: Negative for chills and fever. HENT: Positive for ear discharge and ear pain. Skin: Negative for rash. Neurological: Negative for dizziness and headaches. 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 meloxicam (MOBIC) 15 mg tablet Take 1 tablet by mouth once daily. COMPOUNDED PRESCRIPTION AFO FOR BOTH LEGS DX POST POLIO SYNDROME Diagnosis: G14 cholecalciferol (VITAMIN D3) 1,000 unit tab Take 1 tablet by mouth once daily. loratadine(CLARITIN 10 MG TAB) Take one(1) tablet daily as needed for allergy symptoms. multivitamins w-minerals/lut(CENTRUM SILVER TAB) Take one(1) tablet daily. flecainide (TAMBOCOR) 100 mg tablet metoprolol tartrate, short acting, (LOPRESSOR) 50 mg tablet XARELTO 20 mg tablet RESTASIS 0.05 % ophthalmic emulsion Use 1 Drop in both eyes twice daily. methylPREDNISolone (MEDROL DOSE-PACK) 4 mg Dose-Pack As Instructed per package (Patient not taking: Reported on 09/02/2022) albuterol HFA (PROAIR HFA) 90 mcg/actuation inhaler Inhale 2 Puffs as instructed every 6 hours as needed. FAMILY HISTORY Problem Relation Age of Onset Diabetes Other cousin, TYPE I Cancer Mother lung, breast Breast Cancer Maternal Aunt TRIPLE NEGATIVE Social History Tobacco Use Smoking status: Former Years: 5.00 Types: Cigarettes Quit date: 02/03/1983 Years since quittin.6 Smokeless tobacco: Never Substance Use Topics Alcohol use: Yes Comment: Pt drinks about once per month (social occasions) Drug use: No Objective Physical Exam Vitals and nursing note reviewed. Constitutional: Appearance: Normal appearance. HENT: Left Ear: External ear normal. No decreased hearing noted. Drainage (blood in ear canal) present. Ears: Comments: Blood in ear canal impairs exam of clinically significant portions of the external auditory canal, tympanic membrane or middle ear condition. Unable to visualize TM. Skin: General: Skin is warm and dry. Findings: No erythema or rash. Neurological: Mental Status: She is alert. ASSESSMENT/PLAN: 1. Ear injury, initial encounter - ICD9: 959.09, ICD10: S09.91XA (primary diagnosis) - CONSULT TO ENT 2. Blood in left ear canal - ICD9: 388.69, ICD10: H92.22 - CONSULT TO ENT - Patient will be seen at [facility] in half an hour. She is on their schedule for 1:15 today. She is agreeable with this plan. Bailee Lara APRN.POULTRY SCIENTIST documented in this encounter [facility] documented as of this encounter (statuses as of 09/02/2022) [facility]11-[facility]-2010 History of Past illness Narrative* Problem Noted Date Resolved Date Pain in joint, pelvic region and thigh 0 11/04/2011 Lateral epicondylitis 08/19/2010 11/04/2011 Routine gynecological examination 07/11/2010 11/04/2011 Overview: Sees Dr. 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 Compounded HRT Fibromyalgia 07/11/2010 11/04/2011 Overview: Dx per Chemdaniel, neurologist Tibialis tendinitis 11/17/2005 07/11/2010 Other acquired deformity of ankle and foot(736.7 9) 11/12/2005 07/11/2010 Allergic rhinitis, cause unspecified 11/04/2011 Overview: Allergic rhinitis Last Assessment & Plan: Controlled with loratidine. documented as of this encounter (statuses as of 10/28/2022) [facility] History of Past illness Narrative* Problem Noted Date Diagnosed Date Resolved Date Pain in joint, pelvic region and thigh 08/19/2010 11/04/2011 Lateral epicondylitis 08/19/20102011 Routine gynecological examination 07/11/2010 11/04/2011 Overview: Sees Dr. 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 Compounded HRT Fibromyalgia 07/11/2010 11/04/2011 Overview: Dx per Kevin, neurologist Tibialis tendinitis 11/17/2005 07/11/20 10 Other acquired deformity of ankle and foot(736.79) 11/12/2005 07/11/2010 Allergic rhinitis, cause unspecified 11/04/2011 Overview: Allergic rhinitis Last Assessment & Plan: Controlled with loratidine. documented as of this encounter (statuses as of 04/06/2023) [facility] Ear injury, initial encounter- Primary Blood in left ear canal [facility] Diagnosis Atrial fibrillation, unspecified type (HCC)- Primary documented in this encounter [facility] note* Diagnosis Atrial fibrillation, persistent- Primary Atrial fibrillation Paroxysmal atrial fibrillation Atrial fibrillation Paroxysmal atrial fibrillation Atrial fibrillation [facility] Diagnosis Paroxysmal atrial fibrillation Atrial fibrillation [facility] Diagnosis Persistent atrial fibrillation- Primary Atrial fibrillation Typical atrial flutter Atrial flutter Hypertension, essential Unspecified essential hypertension documented in this encounter [facility] note* Diagnosis ETD (Eustachian tube dysfunction), left- Primary [facility] Outpatient Procedure (Routine) - Authorized Specialty Diagnoses / Procedures Referred By Julio Cesar payton Ref[facility] To [facility] Diagnoses Atrial fibrillation, unspecified type (HCC) Procedures ECG COMPLETE ECG ROUTINE ECG W/LEAST 12 LDS W/I&R Colten Estrada MD [address] [place] [address] [facility] [address] [address] Referral ID Status Reason Start Date Expiration Date Visits Requested Visits Authorized [id number] Authorized Auto-Generat ed Referral 10/28/2022 10/28/[address] [facility] Summary Purpose Family History No Family History Records FoundNo Family History Records FoundNo Family History Records Found Advance Directives No Advanced Directives Records FoundLatest Code Status on File Code Status Date Activated Date Inactivated Comments Full Code 03/03/2023 2:46 PM Latest Code Status on File Code Status Date Activated Date Inactivated Comments Full Code 03/03/2023 2:46 PM Reason for Referral Specialty Diagnoses / Procedures Referred By Julio Cesar payton Referred To Contact Ent - Otolaryngology Diagnoses Ear injury, initial encounter Blood in left ear canal Procedures CONSULT TO ENT OFFICE/OUTPATIENT [facility] MDM 60-74 MINUTES Bailee Lara, JESSICA.POULTRY SCIENTIST [address] [place] [address] Referral ID Status Reason Start Date Expiration Date Visits Requested Visits Authorized [id number] Authorized PCP Requested Referral 09/02/2022 09/02/2023 1 1 Specialty Diagnoses / Procedures Referred By Contac t Referred To Contact Diagnoses Atrial fibrillation, persistent Procedures MOBILE CARDIAC TELEMETRY Manish Barbara M, DIALYSIS CHIEF EQUIPMENT TECHNICIAN-JOSEPH [address] [place] [id number] Referral ID Status Reason Start Date Expiration Date V isits Requested Visits Authorized [id number] New Request 03/03/2023 03/27/2024 1 1 Specialty Diagnoses / Procedures Referred By Contac t Referred To Contact Diagnoses Paroxysmal atrial fibrillation Procedures CT CARDIAC PULMONARY VENOGRAM OK CHG CT HEART CONTRAST EVAL CARDIAC STRUCT/MORPH Federico Fry MD [address] [place] [address] Referral ID Status Reason Start Date Expiration Date Visits Re quested Visits Authorized [id number] Closed 12/29/2022 01/23/2024 1 1 Additional Source Comments INFORMATION SOURCE (unrecogn ized section and content) DATE CREATED AUTHOR AUTHOR'S ORGANIZ ATION 04/06/2023 [facility] DATE CREATED AUTHOR AUTHOR'S ORGANIZ ATION 07/11/2023 [facility] Source Comments (unrecognize d section and content) In the event this informatio n is protected by the Federal Confidentiality of Alcohol and Drug Abuse Patient Records regulations: The Federal rules restrict any use of the information to criminally investigate or prosecute any alcohol or drug abuse patient.[facility] the event this information is protected by the Federal Confidentiality of Alcohol and Drug Abuse Patient Records regulations: The Federal rules restrict any use of the information to criminally investigate or prosecute any alcohol or drug abuse patient.[facility] the event this information is protected by the Federal Confidentiality of Alcohol and Drug Abuse Patient Records regulations: The Federal rules restrict any use of the information to criminally investigate or prosecute any alcohol or drug abuse patient.[facility] Reason for Visit (unrecogniz ed section and content) Specialty Diagnoses / Procedures Referred By Julio Cesar t Referred To Contact Diagnoses Paroxysmal atrial fibrillation Paroxysmal atrial fibrillation [I48.0] Procedures OK COMPRE EP EVAL ABLTJ ATR FIB PULM VEIN ISOLATION ABLATION SCHED INTERCARDIAC A-FIB TRANSEPTAL BY PULM VEIN ISOLATION W/EP EVAL ([id number]) Federico Fry MD [address] [place] [id number] [facility] [address] [place] [id number] Referral ID Status Reason Start Date Expiration Date Visits Re quested Visits Authorized [id number] 1 1 Reason Comments Follow-up S/p sdd-headache Sore Throat Reason Comments Ear Problem L ear pressure and d ecreased hearing x10 days Scheduled Active and Recently Administ ered Medications (unrecognized section and content) PRN Medication Order 03/01/2023 03/02/2023 03/03/2023 Acetaminophen (TYLENOL) tablet 325 mg 325 mg, Oral, EVERY 6 HOURS NEEDED, Starting on Wed03/03/23 at 1445, Until Wed03/03/23 at 2148, Mild Pain, Maximum dose of acetaminophen is 4000 mg from all sources in 24 hours., Post-op/Post-Proc HYDROmorphone (DILAUDID) injection 0.2 mg(Linked Group 1) 0.2 mg, Intravenous, EVERY 5 MINUTES NEEDED, Starting on Wed03/03/23 at 0852, Until Wed03/03/23 at 2148, Moderate Pain, Severe Pain, Use as initial dose. Higher dose may be administered if lower dose did not result in adverse effects (RR<10, decrease in level of consciousness) and was previously documented as ineffective. May give a total of 4mg in PACU., Recovery 161 (See Alternativ e - Provider: Lynn Lynch RN) HYDROmorphone (DILAUDID) injection 0.2 mg 0.2 mg, Intravenous, EVERY 2 HOURS NEEDED, Starting on Wed03/03/23 at 1445, Until Wed03/03/23 at 2148, Severe Pain, Post-op/Post-Proc HYDROmorphone (DILAUDID) injection 0.5 mg(Linked Group 1) 0.5 mg, Intravenous, EVERY 5 MINUTES NEEDED, Starting on Wed03/03/23 at 0852, Until Wed03/03/23 at 2148, Moderate Pain, Severe Pain, Higher dose may be administered if lower dose did not result in adverse effects (RR<10, decrease in level of consciousness) and was previously documented as ineffective. Decrease back to lower dose if patient has adverse effects, or no PRN used in previous 30 minutes. May give a total of 4mg in PACU ., Recovery 161 (Given - Provid er: Lynn Lynch RN) Lidocaine (XYLOCAINE) 10 mg/mL injection (CANCELED) NEEDED, Starting on Wed03/03/23 at 1243, Until Wed03/03/23 at 1457, Intra-op/Intra-Proc 1243 (Given - Provid er: Silvino Garduno MD) magnesium oxide (MAG-OX) tablet 800 mg 800 mg, Oral, ADMINISTER DIRECTED, Starting on Wed03/03/23 at 1445, Until Wed03/03/23 at 2148, See admin instructions, For Magnesium 1.6 - 2.0, give 800 mg of Magnesium oxide, Post-op/Post-Proc Magnesium sulfate 4 g in sterile water 50 ml premix IVPB 4 g, Intravenous, Administer over 4 Hours, ADMINISTER DIRECTED, Starting on Wed03/03/23 at 1445, Until Wed03/03/23 at 2147, Other, Magnesium Replacement Therapy, If Magnesium less than 1.6, give 4 g Magnesium Sulfate IVPB over 4 hours (may give over 1 hour if arrhythmias present)., Post-op/Post-Proc Ondansetron 4mg/2ml (ZOFRAN) injection 4 mg 4 mg, Intravenous, ONCE NEEDED, 1 dose, Starting on Wed03/03/23 at 0852, Until Wed03/03/23 at 2147, Nausea / Vomiting, FIRST line antiemetic, Do not administer within 6 hours of intra-operative dose., Recovery Ondansetron 4mg/2ml (ZOFRAN) injection 4 mg 4 mg, Intravenous, EVERY 4 HOURS NEEDED, Starting on Wed03/03/23 at 1445, Until Wed03/03/23 at 2147, Nausea / Vomiting, Post-op/Post-Proc oxyCODONE (ROXICODONE) tablet 5 mg(Linked Group 2) 5 mg, Oral, EVERY 4 HOURS NEEDED, Starting on Wed03/03/23 at 1445, Until Wed03/03/23 at 2147, Moderate Pain, Severe Pain, PRN for Moderate Pain. Use for Severe Pain if IV not available for use as initial dose. Higher dose may be administred if lower dose was previously documented as ineffective and did not result in adverse effects (RR<10, decrease in level of consciousness)., Post-op/Post-Proc oxyCODONE HCl (ROXICODONE) tablet 10 mg(Linked Group 2) 10 mg, Oral, EVERY 4 HOURS NEEDED, Starting on Wed03/03/23 at 1445, Until Wed03/03/23 at 2147, Moderate Pain, Severe Pain, PRN for Moderate Pain. Use for Severe Pain if IV not available for use as initial dose. Higher dose may be administred if lower dose was previously documented as ineffective and did not result in adverse effects (RR<10, decrease in level of consciousness), Post-op/Post-Proc Potassium chloride (K-DUR) tablet ER 20 mEq 20 mEq, Oral, ADMINISTER DIRECTED, Starting on Wed03/03/23 at 1445, Until Wed03/03/23 at 2147, See admin instructions, If Cr 2.0 - 2.5 mg/dL For Potassium less than 3.6, give 20 mEq Potassium Chloride orally, recheck in AM. If Cr greater than 2.5 mg/dL contact physician/LIP for Potassium less than 3.6 for replacement orders. If potassium is low please administer magnesium first if indicated, Post-op/Post-Proc Potassium chloride (K-DUR) tablet ER 40-60 mEq 40-60 mEq, Oral, ADMINISTER DIRECTED, Starting on Wed03/03/23 at 1445, Until Wed03/03/23 at 2147, See admin instructions, If Cr less than 2.0 mg/dL 1. For Potassium 3.6 - 4.0, give 40 mEq of Potassium Chloride orally, recheck in the AM. 2. For Potassium less than 3.6, give 60 mEq Potassium Chloride orally, recheck in 8 hours. 3. If potassium is low please administer magnesium first if indicated., Post-op/Post-Proc Sodium chloride 0.9% IV solution 500 mL Intravenous, at 10 mL/hr, ADMINISTER DIRECTED, Starting on Wed03/03/23 at 0832, Until Wed03/03/23 at 2147, Per treatment plan, Start the morning of procedure., Pre-op/Pre-Proc 0926 ($$New Bag$$ - Provider: Lynn Lynch RN)1202 (Paused - Provider: CHARLEE Palma - Comment: Switch to gravity)1203 ($$New Bag$$ - Provider: CHARLEE Palma)1445 (Anesthesia Volume Adjustment - Provider: CHARLEE Palma) Sodium chloride 0.9% IV solution Intravenous, at 1 mL/hr, CONTINUOUS NEEDED, Starting on Wed03/03/23 at 1445, Until Wed03/03/23 at 2148, See administration instructions, Per pressure bag for all transduced lines., Post-op/Post-Proc Linked Groups Order Group 1: HYDROmorphone (DILAUDID) injection 0.2 mgJump to med 0.2 mg, Intravenous, EVERY 5 MINUTES NEEDED, Starting on Wed03/03/23 at 0852, Until Wed03/03/23 at 8, Moderate Pain, Severe Pain
Use as initial dose. Higher dose may be administered if lower dose did not result in adverse effects (RR<10, decrease in level of consciousness) and was previously documented as ineffective. May give a total of 4mg in PACU.
Recovery Or HYDROmorphone (DILAUDID) injection 0.5 mgJump to med 0.5 mg, Intravenous, EVERY 5 MINUTES NEEDED, Starting on Wed03/03/23 at 0852, Until Wed03/03/23 at 2148, Moderate Pain, Severe Pain
Higher dose may be administered if lower dose did not result in adverse effects (RR<10, decrease in level of consciousness) and was previously documented as ineffective. Decrease back to lower dose if patient has adverse effects, or no PRN used in previous 30 minutes. May give a total of 4mg in PACU .
Recovery Group 2: oxyCODONE (ROXICODONE) tablet 5 mgJump to med 5 mg, Oral, EVERY 4 HOURS NEEDED, Starting on Wed03/03/23 at 1445, Until Wed03/03/23 at 2148, Moderate Pain, Severe Pain
PRN for Moderate Pain. Use for Severe Pain if IV not available for use as initial dose. Higher dose may be administred if lower dose was previously documented as ineffective and did not result in adverse effects (RR<10, decrease in level of consciousness).
Post-op/Post-Proc Or oxyCODONE HCl (ROXICODONE) tablet 10 mgJump to med 10 mg, Oral, EVERY 4 HOURS NEEDED, Starting on Wed03/03/23 at 1445, Until Wed03/03/23 at 2148, Moderate Pain, Severe Pain
PRN for Moderate Pain. Use for Severe Pain if IV not available for use as initial dose. Higher dose may be administred if lower dose was previously documented as ineffective and did not result in adverse effects (RR<10, decrease in level of consciousness)
Post-op/Post-Proc Care Teams (unrecognized sec tion and content) Kier Hand Relationship Specialty Start Date End Date Virgilio Alicia MD [address] [place] [address] PCP - General Family Medicine 10/23/22 Meliton Conway MD [address] [facility] [place] [id number] Cardiovascular Disease 11/13/22 Kier Hand Relationship Specialty Start Date End Date Virgilio Alicia MD [address] [place] [address] PCP - General Family Medicine 10/23/22 Meliton Conway MD [address] [place] [address] Cardiovascular Disease 11/13/22 Kier Hand Relationship Specialty Start Date End Date Virgilio Alicia MD [address] [place] [address] PCP - General Family Medicine 04/05/23 FOR RECORDS PERTAINING TO PATIENTS WHO ARE OR HAVE BEEN ENROLLED IN A CHEMICAL DEPENDENCY/SUBSTANCEABUSE PROGRAM, SOME INFORMATION MAY BE OMITTED. This clinical summary was aggregated from multiple sources. Caution should be exercised in using it in the provision of clinical care. This summary normalizes information from multiple sources, and as a consequence, information in this document may materially change the coding, format and clinical context of patient data. In addition, data may be omitted in some cases. CLINICAL DECISIONS SHOULD BE BASED ON THE PRIMARY CLINICAL RECORDS. [facility]. provides no warranty or guarantee of the accuracy or completeness of information in this document.
[2023-10-18 15:07] LABS: HPV APTIMA, High Risk Negative (Negative)
== END | disposition home or self-care (01) ==
LOC: LABSPEC 16:58
PROVIDERS: PCP Family Medicine; Referring Provider Nurse Practitioner Women's Health; Visit Provider Nurse Practitioner Women's Health
DX: N95.9 Unspecified menopausal and perimenopausal disorder (principal)
CPT/HCPCS: 87624; 88175; G0145

== ENCOUNTER → 2024-06-19 | Outpatient (CLI) | payer OTHER, SELFPAY ==
--- NOTE | 2024-06-19 15:09 | BI_ITS ---
MAMMOGRAPHY - BILATERAL SCREENING REASON FOR EXAM: Female, 64 years old. Routine annual screening examination. PERTINENT HISTORY: Mother with breast cancer. Aunt with breast cancer. TECHNIQUE: Digital bilateral breast buffy (3D mammographic acquisition) in the CC and MLO projections. 2-D mediolateral oblique (MLO) and craniocaudad (CC) views of both breasts were obtained. CAD: Full Field Digital Mammography with Computer Added Detection was performed. COMPARISON: Comparison is made with prior study June 16, 2023 and May 01, 2021. FINDINGS: Breast Composition: There are scattered areas of fibroglandular density. There are no dominant masses or suspicious calcifications. Stable bilateral fat containing axillary lymph nodes. No other significant abnormalities are identified. There has been no significant change since the prior study. BI/SCRN MAMM (CAD)W/BUFFY BILAT IMPRESSION: Stable bilateral screening mammogram. Yearly follow-up mammogram recommended. (A) ASSESSMENT CATEGORY: BIRADS Category 2: Benign. A letter regarding these results will be sent to the patient by the facility within 30 days. Approximately 10% of breast cancers are not detected by mammography. A normal mammogram should not delay biopsy of a clinically suspicious abnormality. [id number] Electronically Signed: Christoph Davila MD at 8:39 EDT ,
== END | disposition home or self-care (01) ==
LOC: OPBI 15:09
PROVIDERS: PCP Family Medicine; Referring Provider Nurse Practitioner Women's Health; Visit Provider Nurse Practitioner Women's Health
DX: Z12.31 Encounter for screening mammogram for malignant neoplasm of breast (principal); Z80.3 Family history of malignant neoplasm of breast
CPT/HCPCS: 77063; 77067

== ENCOUNTER → 2024-09-25 | Outpatient (CLI) | payer OTHER, SELFPAY ==
[2024-09-25 12:30] LABS: AST(SGOT) 16 U/L (15-37); Alanine Aminotransfer ALT/SGPT 33 U/L (13-56); Albumin, Serum 3.7 g/dL (3.2-5.0); Alkaline Phosphatase 81 U/L (45-117); Bilirubin, Direct 0.12 mg/dL (0.00-0.30); Cholesterol 183 mg/dL (200); Globulin 3.4 g/dL (2.2-4.2); High Density Lipoprotein 58 mg/dL; Protein, Total 7.1 g/dL (6.4-8.2); Triglycerides 75 mg/dL; Very Low Density Lipoprotein 15 mg/dL (5-40)
== END | disposition home or self-care (01) ==
LOC: LAB 10:39
PROVIDERS: PCP Family Medicine; Referring Provider Physician Assistant Medical; Visit Provider Physician Assistant Medical
DX: I10 Essential (primary) hypertension (principal); E78.5 Hyperlipidemia, unspecified
CPT/HCPCS: 36415; 80061; 80076

== ENCOUNTER → 2025-03-06 | Outpatient (CLI) | payer MEDICARE, SELFPAY ==
--- NOTE | 2025-03-06 08:26 | CT_ITS ---
PROCEDURE: EXTREMITY LOWER WITHOUT CONTRA 03/06/2025 REASON FOR EXAM: PER RAULITO PROTOCOL, UNILATERAL PRIMARY OSTEOARTHRITIS, LEFT KNEE TECHNIQUE: Axial CT images of the left lower extremity obtained without intravenous contrast. Coronal and Sagittal reconstruction series were provided. CONTRAST: No contrast. One or more dose reduction techniques were used (e.g., Automated exposure control, adjustment of the mA and/or kV according to patient size, use of iterative reconstruction technique). RADIATION DOSE SUMMARY: CTDlvol: 18.5 mGy DLP: 1469.03 mGycm COMPARISON: None FINDINGS: Bones: No fracture or bony destruction. Joints: Imaging of the left hip joint was performed. No significant joint space narrowing is seen. No evidence of subluxation. Imaging of the knee joint was performed. There is a marked degree of joint space narrowing involving the medial compartment of the joint with degenerative spur formation. Minimal patellofemoral osteoarthritis. Imaging of the left ankle joint was obtained. There is evidence of calcaneal spurs. Soft Tissues: No significant joint effusion seen. CT/Extremity Lower without Contra IMPRESSION: Marked degree of joint space narrowing involving the medial compartment of the knee joint with degenerative spur formation. Reading Location: [place] [id number]
--- OUTSIDE RECORDS SUMMARY | 2025-03-06 09:01 | XMS RPT_ITS | CCD ---
Author Organization [facility] Care Team Providers Care Health Economist Name Role Phone Dr. Virgilio Alicia Primary Care Provider Dr. Virgilio Alicia Referring Provider [phone] Alejandro JARRELL, ASUNCIONC [place] Attending Provider Dr. Virgilio Alicia Primary Care Provider Dr. Meliton Conway Attending Provider Dr. Meliton Conway Referring Provider Dr. Tristan Woodward Emergency Provider Dr. Helder áSnchez Admit Provider Dr. Helder Sánchez Attending Provider Dr. Helder Sánchez Other Provider Dr. Virgilio Jung Attending Provider Dr. Virgilio Jung Other Provider Dr. Virgilio Alicia Primary Care Provider Dr. Meliton Conway Attending Provider Dr. Virgilio Alicia Referring Provider ASUNCION Allen [facility] [place] Attending Provider Dr. Virgilio Alicia Primary Care Provider STANDARD PROCESSING Attending Unavailable Dr. Virgilio Alicia Primary Care Provider Dr. Virgilio Alicia Referring Provider ASUNCION Allen [facility] [place] Attending Provider Alejandro JARRELL LINUX SYSTEM ADMIN-C [place] Other Provider Dr. Meliton Conway Attending Provider [phone] Meliton Conway Referring Provider [phone] Meliton Conway Other Provider Dr. Guillaume Vazquez Attending Provider Helena Campbell Attending Provider Unavailable Unavailable Primary Care Provider Unavailabl e Dr. Virgilio Alicia Primary Care Provider Dr. Virgilio Alicia Referring Provider Alejandro LINUX SYSTEM ADMIN, LINUX SYSTEM ADMINYumiko Rossi Attending Provider Dr. Ni Elena Emergency Provider Tico, Dr. Montoya Admit Provider Tico, Dr. Montoya Attending Provider Tico, Dr. Montoya Other Provider Dr. Virgilio Alicia Primary Care Provider Dr. Ni Elena Emergency Provider Tico, Dr. Montoya Admit Provider Tico, Dr. Montoya Attending Provider Tico, Dr. Montoya Other Provider Dr. Karen Cain Attending Provider Dr. Karen Cain Referring Provider Dr. Meliton Conway Attending Provider [phone] Meliton Conway Referring Provider [phone] Virgilio Alicia Referring Provider Virgilio Alicia MD Primary Care Provider Meliton Conway MD Unavailable Virgilio Alicia MD Primary Care Provider VIRGILIO ALICIA Primary Care Unavailable Dr. Virgilio Alicia Primary Care Provider Dr. Virgilio Alicia Referring Provider Dr. Meliton Conway Attending Provider [phone] Virgilio Alicia Primary Care Provider Dr. Meliton Conway Attending Provider [phone] Meliton Conway Referring Provider [phone] Virgilio Alicia Referring Provider VISHNU Mcdaniel Attending Provider Annamarie LINUX SYSTEM ADMIN, WESLY-Gisselle Campos Attending Provider [phone] CAN AVENDANO Attending Unavailable ALICIA, VIRGILIO A Primary Care Unavailable ALICIA, VIRGILIO A Referring Unavailable ALICIA, VIRGILIO A Primary Care Unavailable ALICIA, VIRGILIO A Referring Unavailable LIYA RUTLEDGE Attending Unavailable KAMI, FEDERICO Kumar Attending Unavailable KAMI, FEDERICO G Referring Unavailable ALICIA, VIRGILIO A Primary Care Unavailable SELF, SELF Referring Unavailable KAMI, FEDERICO G Admitting Unavailable KAMI, FEDERICO G Attending Unavailable ALICIA, VIRGILIO A Primary Care Unavailable MELITON CONWAY Referring Unavailable KAMI, FEDERICO Kumar Attending Unavailable ALICIA, VIRGILIO A Primary Care Unavailable Alicia, Virgilio Primary Care Unavailable Chaparrita Mcdaniel Referring Unavail able Chaparrita Mcdaniel Attending Unavail able Jossyttjosué Helder Referring Unavailable Karen Cain Attending Unavailable Alicia, Virgilio Primary Care Unavailable Spittle, Helder Referring Unavailable Spittle, Helder Attending Unavailable Alicia, Virgilio Primary Care Unavailable Spittle, Helder Referring Unavailable Spittle, Helder Attending Unavailable Alicia, Virgilio Primary Care Unavailable Annamarie LINUX SYSTEM ADMINBeth Attending Unavailable Alicia, Virgilio Primary Care Unavailable Alicia, Virgilio Referring Unavailable Alicia, Virgilio Primary Care Unavailable Alicia, Virgilio Referring Unavailable Chaparrita Mcdaniel Attending Unavail able Alicia, Virgilio Referring Unavailable Alicia, Virgilio Primary Care Unavailable Kash Serrato Attending Unavailable Alicia, Virgilio Primary Care Unavailable Alicia, Virgilio Referring Unavailable Alex Milner Attending Unavailable Beth De Luna NP Referring Unavailable Beth De Luna NP Attending Unavailable Alicia, Virgilio Primary Care Unavailable Allergies Allergy Classification Reported Allergen(s) Allergy Type Date of Onset Reaction(s) Facility (20 sources) Amoxicillin; Translations: [AMOXICILLIN] Drug Allergy 06-25-20 04 Hives, Anaphylaxis, Rash [facility] Work Phone: (20 sources) Cephalexin Drug Allergy 09-04-20 21 Hives, Itching, Rash, Shortness of Breath [facility] (19 sources) Penicillins; Translations: [Penicillins] Propensity to adverse reactions 09-04-20 21 Anaphylaxis [facility] (20 sources) Sulfonamides (Antibiotic); Translations: [SULFA (SULFONAMIDE ANTIBIOTICS)] Propensity to adverse reactions 06-25-20 04 Shortness of Breath [facility] Work Phone: (8 sources) Cephalosporins (Antibiotic); Translations: [CEPHALOSPORINS] Propensity to adverse reactions 06-25-20 04 Hives [facility] Work Phone: (4 sources) Ampicillin Drug Allergy 12-30-19 23 Diarrhea, Hives, Rash, Shortness of Breath [facility] (4 sources) casein (cow milk) allergenic extract Drug Allergy 12-30-19 23 Diarrhea, Hives, Itching, Rash, Shortness of Breath [facility] (4 sources) Sulfonamides (Antibiotic) Propensity to adverse reactions to drug 12-30-19 23 Diarrhea, Hives, Rash, Shortness of Breath [facility] (1 source) Amoxicillin Drug Allergy 02-15-20 25 [facility] (1 source) Cephalexin Drug Allergy 02-15-20 25 [facility] (1 source) Milk Drug allergy (disorder) 02-15-20 25 [facility] (1 source) Mold Extract Drug Allergy 02-15-20 25 [facility] (1 source) Ragweed pollen Drug allergy (disorder) 02-15-20 25 [facility] Medications Current Medications Medication Drug Class(es) Dates Sig (Normalized) Sig (Original) ascorbic acid 1000 mg oral tablet (4 sources) Vitamin C take 1 tablet by mouth once daily Ascorbic Acid (Vitamin C) 1000 MG tablet Take 1 tablet by mouth daily. 0 Active aspirin 81 mg delayed release oral tablet (20 sources) Platelet Aggregation Inhibitor, Nonsteroidal Anti-inflammatory Drug Start: 09-28-2023 take 1 tablet by mouth once daily Aspirin (Adult Aspirin Regimen) 81 mg tablet,delayed release (DR/EC) Active 81 MG PO DAILY September 28, 2023 12:00am Start: 03-03-2023 End: 03-03-2023 aspirin 81 MG Chew Tab chewa ble tablet Chew 1 tablet daily every morning. Take for 30 days and then stop in one month. 0 03/03/2023 Active Start: 02-22-2020 End: 12-04-2020 take 1 tablet by mouth once daily Aspirin (Adult Aspirin Regimen) 81 mg tablet,delayed release (DR/EC) Discontinued 81 MG PO DAILY February 21, 2020 11:00pm December 04, 2020 3:19pm cholecalciferol 0.05 mg oral capsule (8 sources) Vitamin D Start: 10-13-2023 take 50 ug by mouth once daily Cholecalciferol (Vitamin D3) Active 50 MCG PO DAILY October 13, 2023 12:00am Start: 11-11-2015 take 1 tablet by jacob th once daily cholecalciferol (VITAMIN D3) 1,000 unit tab Take 1 tablet by mouth once daily. 0 11/11/2015 Active take 10 ug by mouth once daily Cholecalciferol (Vitamin D3) 10 MCG/ML Liquid Take 10 mcg by mouth daily. 0 Active Comment on above: Take 1 tablet by jacob th once daily. [id number]-CFHHW-TRUPIL ONIC ACID PO (4 sources) [id number] YA LURONIC ACID PO cycloSPORINE 0.5 mg/ml ophthalmic suspension (20 sources) Calcineurin Inhibitor Immunosuppressant Start: 11-21-19 take 1 drop(s) into the eye(s) twice daily Restasis 0.05 % Emulsion ophthalmic suspension Place 1 drop in both eyes 2 times daily. 0 11/21/2022 Active Start: 08-16-2022 take 1 drop(s) into the eye(s) twice daily RESTASIS 0.05 % ophthalmic emulsion Use 1 Drop in both eyes twice daily. 0 08/16/2022 Active Start: 03-05-2021 End: 09-04-2021 Cyclosporine (Restasis) 0.05 % dropperette Discontinued 1 DRP OPHTHALMIC TWICE A DAY March 04, 2021 11:00pm September 04, 2021 9:45am Comment on above: Use 1 Drop in both e yes twice daily. Cyclosporine (Restasis) 0.05 % Dropperette (5 sources) Start: 10-23-2022 Cyclosporine (Restasis) 0.05 % Dropperette Active 1 DRP EACH EYE Q12H October 23, 2022 1:00am Start: 10-23-2022 Cyclosporine ( Restasis) 0.05 % Dropperette Active 1 DRP EACH EYE Q12H October 23, 2022 12:00am fluorometholone 1 mg/ml ophthalmic suspension (1 source) Corticosteroid Start: 10-13-2023 Fluorometholone Active 1 DRP OPHTHALMIC EVERY 6 HOURS October 13, 2023 12:00am furosemide 40 mg oral tablet (3 sources) Loop Diuretic Start: 06-17-2022 take 1 tablet by mouth once daily Furosemide (Lasix) 40 mg tablet Active 40 MG PO DAILY June 16, 2022 11:00pm ketoconazole 20 mg/ml topical cream (1 source) Azole Antifungal Start: 10-13-2023 Ketoconazole Active 1 APPLIC TOPICAL DAILY October 13, 2023 12:00am loratadine 10 mg oral tablet (9 sources) Start: 04-05-2009 take 1 tablet by mouth once daily Loratadine (Claritin) 10 mg Tablet Active 10 MG PO DAILY October 23, 2022 12:00am Comment on above: Take one(1) tablet d aily as needed for allergy symptoms. LORATADINE ALLERGY RELIEF PO (4 sources) LORATADINE ALLER GY RELIEF PO metoprolol tartrate 50 mg oral tablet (20 sources) beta-Adrenergic Yvrose Start: 10-24-2022 End: 06-21-2023 Metoprolol Tartrate Active 50 MG PO TWICE A DAY 180 June 21, 2023 7:40am Hold for heart less than 60 or systolic blood pressure less than 100 mmHg. Start: 11-06-2019 End: 03-03-2023 take 50 mg by mouth twice daily Metoprolol Tartrate Discontinued 50 MG PO TWICE A DAY 180 June 17, 2022 1:15pm October 24, 2022 9:54am Start: 11-02-2019 End: 11-06-2019 take 12.5 mg by mouth twice daily Metoprolol Tartrate Discontinued 12.5 MG PO TWICE A DAY November 02, 2019 12:00am November 06, 2019 3:27pm Multiple Vitamins-Minerals (MULTIVITAMIN ADULT, MINERALS, PO) (4 sources) Multiple Vitamin s-Minerals (MULTIVITAMIN ADULT, MINERALS, PO) Multivitamin preparation (18 sources) Start: 03-26-2020 take 1 tablet by mouth once daily Multivitamin Active 1 TABLET PO DAILY March 26, 2020 3:07pm Start: 03-26-2020 take 1 tablet by jacob th once daily Multivitamin Active 1 TABLET PO DAILY March 25, 2020 11:00pm Start: 03-26-2020 take 1 tablet by jacob th once daily Multivitamin Active 1 TABLET PO DAILY March 26, 2020 12:00am oxybutynin chloride 5 mg oral tablet (1 source) Cholinergic Muscarinic Antagonist Start: 10-13-2023 take 5 mg by mouth once daily Oxybutynin Chloride Active 5 MG PO DAILY October 13, 2023 12:00am pantoprazole 40 mg delayed release oral tablet (4 sources) Proton Pump Inhibitor Start: 03-03-2023 End: 03-03-2023 [address]op[address] tablet Indications: Prevention of esophageal injury after catheter ablation Take 1 tablet by mouth daily. Take for 30 days and then stop in one month. 30 tablet 0 03/03/2023 Active predniSONE 20 mg oral tablet (2 sources) Start: 04-05-2023 End: 04-10-2023 take 2 tablets by mouth once daily predniSONE (DELTASONE) 20 mg tablet Indications: ETD (Eustachian tube dysfunction), left Take 2 tablets by mouth once daily for 5 days. 10 tablet 0 04/05/2023 04/10/2023 Active Start: 04-05-2023 End: 04-05-2023 predniSONE (DELTASONE) 10 mg tablet Indications: ETD (Eustachian tube dysfunction), left Take 4 tabs daily for 3 days, then 2 tabs daily for 3 days, then 1 tab daily for 3 days with food. 21 tablet 0 04/05/2023 04/05/2023 Discontinued Comment on above: Take 2 tablets by mo flh once daily for 5 days. Take 4 tabs daily fo r 3 days, then 2 tabs daily for 3 days, then 1 tab daily for 3 days with food. rivaroxaban 20 mg oral tablet (20 sources) Factor Xa Inhibitor Start: 10-13-2023 take 1 tablet by mouth once daily at dinner Rivaroxaban (Xarelto) 20 mg tablet Active 20 MG PO DAILY October 13, 2023 12:00am must administer with evening meal Start: 09-04-2021 End: 09-28-2023 take 1 tablet by mouth once daily at dinner Rivaroxaban (Xarelto) 20 mg tablet Discontinued 20 MG PO DAILY May 24, 2023 7:30am September 28, 2023 4:37pm must administer with evening meal vitamin b12 3 mg/ml oral solution (4 sources) Vitamin B12 take 1 dose by mouth once daily Cyanocobalamin (Vitamin B-12) 3000 MCG/ML Liquid Take 1 Dose by mouth daily. 0 Active Completed/Discontinued Medications Medication Drug Class(es) Dates Sig (Normalized) Sig (Original) acetaminophen 325 mg oral tablet (6 sources) Start: 03-03-2023 End: 03-03-2023 take 1 tablet by mouth every six hours as needed Acetaminophen (TYLENOL) tablet 325 mg Start: 10-23-2022 take 2 tablets by mo uth every six hours Acetaminophen (Tylenol Extra Strength) 500 mg Tablet Active 1000 MG PO EVERY 6 HOURS October 23, 2022 12:00am [id number] 200 actuat albuterol 0.09 mg/actuat metered dose inhaler (3 sources) beta2-Adrenergic Agonist Start: 09-27-2017 take 2 puff(s) by inhalation every six hours as needed albuterol HFA (PROAIR HFA) 90 mcg/actuation inhaler Indications: Cough , Acute bronchitis, unspecified organism Inhale 2 Puffs as instructed every 6 hours as needed. 1 Inhaler 0 09/27/2017 Active Comment on above: Inhale 2 Puffs as instructed every 6 vaibhav rs as needed. apixaban 5 mg oral tablet (20 sources) Factor Xa Inhibitor Start: 11-06-2020 End: 09-04-2021 take 1 tablet by mouth twice daily Apixaban (Eliquis) 5 mg tablet Discontinued 5 MG PO TWICE A DAY 60 November 06, 2020 12:00am September 04, 2021 10:08am Start: 12-12-2019 End: 02-22-2020 take 1 tablet by mouth twice daily Apixaban (Eliquis) 5 mg tablet Discontinued 5 MG PO TWICE A DAY 90 December 11, 2019 11:00pm February 22, 2020 3:39pm atorvastatin 20 mg oral tablet (5 sources) HMG-CoA Reductase Inhibitor Start: 10-24-2022 End: 03-18-2023 take 20 mg by mouth at bedtime Atorvastatin Discontinued 20 MG PO AT BEDTIME October 24, 2022 12:00am March 18, 2023 12:17pm calcium carbonate 1500 mg / cholecalciferol 800 unt chewable tablet (6 sources) Vitamin D Start: 10-23-2022 End: 09-24-2023 take 1 tablet by mouth once daily Calcium Carbonate-Vitamin D3 (Caltrate 600 Plus D) 600 mg-20 mcg (800 unit) Tablet,Chewable Discontinued 1 TABLET PO DAILY October 23, 2022 12:00am September 24, 2023 10:06am COMPOUNDED PRESCRIPTION (3 sources) Start: 08-17-2016 COMPOUNDED PRESCRIPTION 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 Start: 09-02-2022 End: 10-24-2022 take 2 tablets by mouth every twelve hours, then take 3 tablets by mouth every twelve hours Flecainide Discontinued 50 MG PO Q12H 180 September 02, 2022 12:00am October 24, 2022 9:52am Take along with 100mg tablet for a total dose of 150mg every 12 hours. Start: 08-29-2022 End: 03-03-2023 flecainide (TAMBOCOR) 100 mg tablet Start: 02-19-2022 End: 10-24-2022 take 100 mg by mouth every twelve hours Flecainide Discontinued 100 MG PO Q12H 180 June 17, 2022 1:15pm October 24, 2022 9:54am Start: 02-16-2022 End: 02-19-2022 take 150 mg by mouth every twelve hours Flecainide Discontinued 150 MG PO Q12H 180 February 15, 2022 11:00pm February 19, 2022 4:19pm Start: 02-02-2022 End: 02-16-2022 take 100 mg by mouth twice daily Flecainide Discontinued 100 MG PO TWICE A DAY February 02, 2022 5:30am February 16, 2022 10:01am Start: 12-17-2020 End: 02-02-2022 take 100 mg by mouth every twelve hours Flecainide Discontinued 100 MG PO Q12H 60 December 15, 2021 11:09am February 02, 2022 5:30am fluticasone propionate 0.05 mg/actuat metered dose nasal spray (1 source) Corticosteroid Start: 04-05-2023 take 2 spray(s) by mouth once daily fluticasone (FLONASE) 50 mcg/actuation nasal spray Indications: ETD (Eustachian tube dysfunction), left Use 2 Sprays in each nostril once daily. Rinse mouth after use. 1 Each 0 04/05/2023 Active Comment on above: Use 2 Sprays in each nostril once daily. Rinse mouth after use. 1 ml HYDROmorphone hydrochloride 1 mg/ml cartridge (1 source) Opioid Agonist Start: 03-03-2023 End: 03-03-2023 take 0.2 mg intravenously every two hours as needed HYDROmorphone (DILAUDID) injection 0.2 mg HYDROmorphone (DILAUDID) injection 0.2 mg (1 source) Start: 03-03-2023 End: 03-03-2023 HYDROmorphone (DILAUDID) injection 0.2 mg iohexol (OMNIPAQUE) 350 MG/ML injection 1-171 mL (1 source) Start: 03-03-2023 End: 03-03-2023 iohexol (OMNIPAQUE) 350 MG/ML injection 1-171 mL magnesium oxide 400 mg oral tablet (1 source) Start: 03-03-2023 End: 03-03-2023 magnesium oxide (MAG-OX) tablet 800 mg 50 ml magnesium sulfate 80 mg/ml injection (1 source) Start: 03-03-2023 End: 03-03-2023 Magnesium sulfate 4 g in sterile water 50 ml premix IVPB meloxicam 15 mg oral tablet (20 sources) Nonsteroidal Anti-inflammatory Drug Start: 06-08-2019 End: 12-12-2019 take 15 mg by mouth once daily Meloxicam Discontinued 15 MG PO DAILY November 02, 2019 12:00am December 12, 2019 9:47am Comment on above: Take 1 tablet by jacob th once daily. methylPREDNISolone (3 sources) Corticosteroid Start: 07-28-2019 End: 04-05-2023 methylPREDNISolone (MEDROL DOSE-PACK) 4 mg Dose-Pack Indications: Acute left-sided low back pain with left-sided sciatica As Instructed per package 1 Package 0 07/28/2019 04/05/2023 Discontinued Start: 07-28-2019 methylPREDNISo lone (MEDROL DOSE-PACK) 4 mg Dose-Pack Indications: Acute left-sided low back pain with left-sided sciatica As Instructed per package 1 Package 0 07/28/2019 Active Comment on above: As Instructed per vishnu villaseñor multivitamins w-minerals/lut(CENTRUM SILVER TAB) (3 sources) Start: 9 multivitamins w-minerals/lut(CENTRU M SILVER TAB) Take one(1) tablet daily. 0 04/05/2009 Active Comment on above: Take one(1) tablet d aily. [place]-3 Fatty Acids (18 sources) Start: 0 End: take 1000 mg by mouth once daily [place]-3 Fatty Acids Discontinued 1000 MG PO DAILY March 26, 2020 3:07pm November 05, 2020 4:47pm Start: 03-26-2020 End: 11-05-2020 take 1000 mg by mouth once daily [place]-3 Fatty Acids Discontinued 1000 MG PO DAILY March 25, 2020 11:00pm November 05, 2020 3:47pm Start: 03-26-2020 End: 11-05-2020 take 1000 mg by mouth once daily [place]-3 Fatty Acids Discontinued 1000 MG PO DAILY March 26, 2020 12:00am November 05, 2020 4:47pm 2 ml ondansetron 2 mg/ml injection (2 sources) Serotonin-3 Receptor Antagonist Start: 03-03-2023 End: 03-03-2023 Ondansetron 4mg/2ml (ZOFRAN) injection 4 mg oxyCODONE (1 source) Opioid Agonist Start: 03-03-2023 End: 03-03-2023 take 1 tablet by mouth every four hours as needed oxyCODONE (ROXICODONE) tablet 5 mg microencapsulated potassium chloride 20 meq extended release oral tablet (2 sources) Start: 03-03-2023 End: 03-03-2023 Potassium chloride (K-DUR) tablet ER 20 mEq Start: 03-03-2023 End: 03-03-2023 Potassium chloride (K-DUR) t ablet ER 40-60 mEq Sodium Chloride (4 sources) Start: 03-03-2023 End: 03-03-2023 Sodium chloride 0.9% IV solu tion Start: 03-03-2023 End: 03-03-2023 Sodium chloride 0.9% IV solu tion Start: 03-03-2023 End: 03-03-2023 Sodium chloride 0.9% IV solu tion 500 mL Start: 03-03-2023 End: 03-03-2023 Sodium chloride (PF) 0.9 % i njection 1-100 mL tiZANidine 4 mg oral tablet (3 sources) Central alpha-2 Adrenergic Agonist Start: 07-28-2019 take 1 tablet by mouth every eight hours as needed tiZANidine (ZANAFLEX) 4 mg tablet Indications: Acute left-sided low back pain with left-sided sciatica Take 1 tablet by mouth every 8 hours as needed. 10 tablet 0 07/28/2019 Active Comment on above: Take 1 tablet by jacob th every 8 hours as needed. Problems Active Problems Problem Classification Problem Date Documented Date Episodic/Chronic Anxiety disorders (3 sources) Generalized anxiety disorder; Translations: [Generalized anxiety disorder] 07-11-2010 Chronic Cardiac dysrhythmias (20 sources) Atrial fibrillation; Translations: [Unspecified atrial fibrillation] Onset: 10-28-2019 Chronic Cardiac dysrhythmias (9 sources) Bradycardia; Translations: [Bradycardia, unspecified] 10-23-2022 Episodic Disorders of lipid metabolism (1 source) Hyperlipidemia, unspecified; Translations: [Hyperlipidemia, unspecified] Onset: 09-25-2024 Chronic Essential hypertension (14 sources) Hypertensive disorder; Translations: [Essential (primary) hypertension] Onset: 10-19-2024 10-23-2022 Chronic Malaise and fatigue (16 sources) Fatigue; Translations: [Other fatigue] Episodic Menopausal disorders (3 sources) Menopausal syndrome; Translations: [Menopausal and female climacteric states] Onset: 04-19-2014 04-19-2014 Chronic Mood disorders (3 sources) Dysthymia; Translations: [Dysthymic disorder] 07-11-2010 Chronic Nonspecific chest pain (16 sources) Finding of region of thorax; Translations: [Other chest pain] Episodic Osteoarthritis (1 source) Unilateral primary osteoarthritis, left knee; Translations: [Unilateral primary osteoarthritis, left knee] Onset: 03-01-2025 Chronic Other aftercare (18 sources) Patient encounter status; Translations: [Encounter for therapeutic drug level monitoring] 12-16-2021 Episodic 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) Post poliomyelitis [...] injury of ear, initial encounter] Episodic Other lower respiratory disease (20 sources) Dyspnea on exertion; Translations: [Shortness of breath] 06-15-2022 Episodic Other lower respiratory disease (7 sources) Other forms of dyspnea; Translations: [Other respiratory abnormalities] Episodic Other nervous system disorders (3 sources) Acute infective polyneuritis; 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] 09-22-2021 Chronic Other nervous system disorders (18 sources) Numbness and tingling sensation of skin; Translations: [Anesthesia of skin] 12-17-2020 Episodic Other nervous system disorders (6 sources) Paresthesia; Translations: [Paresthesia of skin] 10-23-2022 Episodic Other nervous system disorders (3 sources) Paresthesia of skin; Translations: [Disturbance of skin sensation] 10-23-2022 Episodic Other nutritional; endocrine; and metabolic disorders (6 sources) Obesity; Translations: [Obesity, unspecified] Chronic Otitis media and related conditions (1 source) Dysfunction of left eustachian tube; Translations: [Unspecified Eustachian tube disorder, left ear] 04-05-2023 Episodic Residual codes; unclassified (3 sources) H/O: atrial fibrillation; Translations: [Other specified postprocedural states] 03-18-2023 Episodic Residual codes; unclassified (2 sources) Other specified postprocedural states; Translations: [Other postprocedural status] 03-18-2023 Episodic Syncope (9 sources) Near syncope; Translations: [Syncope and collapse] 10-23-2022 Episodic Unclassified (2 sources) Other persistent atrial fibrillation; Translations: [Other persistent atrial fibrillation] Onset: 03-03-2023 Unclassified (1 source) Cough, unspecified; Translations: [Cough, unspecified] Onset: 08-16-2024 Viral infection (20 sources) Disease caused by 2019-nCoV; Translations: [COVID-19] Episodic Past or Other Problems Problem Classification Problem Date Documented Date Episodic/Chronic Influenza (1 source) Influenza due to other identified influenza virus with other respiratory manifestations; Translations: [Influenza due to other identified influenza virus with other respiratory manifestations] Onset: 11-01-2024 Episodic Nausea and vomiting (1 source) Nausea; Translations: [Nausea] Onset: 11-01-2024 Episodic Other connective tissue disease (3 sources) H/O: musculoskeletal disease; Translations: [Personal history of other diseases of the musculoskeletal system and connective tissue] Onset: 10-09-2013 10-09-2013 Episodic Other screening for suspected conditions (not mental disorders or infectious disease) (20 sources) Electrocardiogram abnormal; Translations: [Abnormal electrocardiogram [ECG] [EKG]] Onset: 07-11-2024 12-17-2020 Episodic Other upper respiratory infections (1 source) Acute pharyngitis, unspecified; Translations: [Acute pharyngitis, unspecified] Onset: 08-16-2024 Episodic Residual codes; unclassified (3 sources) Insomnia; Translations: [Insomnia, unspecified] Onset: 10-09-2013 10-09-2013 Episodic Results Test Name Value Interpretation Reference Range Facility MRSA/SAID NASAL SCREENon MRSA+SAID SCRN Reason for Exam: Surgery MRSA MRSA Negative S. AUREUS S. aureus Negative Normal [facility] Comment on above: Performed By: #### L 501.5200, M100.651, L500.2500, L100.0100 #### [facility] [address] [place], [address] 12 Lead EKGon 02-23-2025 12 Lead EKG [facility] [address] [place] [address] 12 Lead EKG 02/23/25 0910 MR#: [id number] Acct: [id number] Name: DEYA BLOUNT Rep #: [id number] : 1960 65 From: Karen Cain MD Attending Dr: Dr. Helder Jane DO Status: PRE [facility] [place] [facility] [place] Ordering Dr: Helder Jane DO Date: 02/23/25 Location: [facility] [place] Sex: F C Admitted: Test Reason : PREOP Blood Pressure : */* mmHG Vent. Rate : 64 BPM Atrial Rate : 64 BPM P-R Int : 180 ms QRS Dur : 80 ms QT Int : 396 ms P-R-T Axes : 57 -15 -10 degrees QTcB Int : 408 ms Normal sinus rhythm Nonspecific ST abnormality Abnormal ECG Confirmed by KAREN CAIN ([id number]), editor producer YOBANI COTA ([id number]) on 02/26/2025 8:12:22 AM Referred By: Helder Jane Confirmed By: KAREN CAIN 02/26/25 0812 Date Karen Cain MD CC: Dr. Virgilio Alicia MD; Dr. Helder Jane DO Signed Normal [facility] Basic Metabolic Profile (BMP )on 02-23-2025 BUN/CRE 23.5 RATIO High 10-20 [facility] Comment on above: Performed By: #### L 501.5200, M100.651, L500.2500, L100.0100 #### [facility] [address] [place], [address] Calcium [Mass/Vol] 9.5 mg/dL Normal 7.6-11.0 [facility] Comment on above: Performed By: #### L 501.5200, M100.651, L500.2500, L100.0100 #### [facility] [address] [place], [address] Chloride [Moles/Vol] 102 mmol/L Normal 98-108 [facility] Comment on above: Performed By: #### L 501.5200, M100.651, L500.2500, L100.0100 #### [facility] [address] [place], [address] CO2 [Moles/Vol] 26.3 mmol/L Normal 21.0-32.0 [facility] Comment on above: Performed By: #### L 501.5200, M100.651, L500.2500, L100.0100 #### [facility] [address] [place], [address] Creatinine [Mass/Vol] 0.55 mg/dL Low 0.70-1.20 [facility] Comment on above: Performed By: #### L 501.5200, M100.651, L500.2500, L100.0100 #### [facility] [address] [place], [address] GAP 10 Normal 5-15 [facility] Comment on above: Performed By: #### L 501.5200, M100.651, L500.2500, L100.0100 #### [facility] [address] [place], [address] GFR/1.73 sq M.predicted among non-blacks MDRD (S/P/Bld) [Vol rate/Area] 102 mL/min/{1.73_m2} Normal >60 [facility] Comment on above: Result Comment: mL/m in/1.73m2 CKD-EPI Creatinine Equation (2020) Performed By: #### L 501.5200, M100.651, L500.2500, L100.0100 #### [facility] [address] [place], [address] Glucose [Mass/Vol] 96 mg/dL Normal 70-99 [facility] Comment on above: Performed By: #### L 501.5200, M100.651, L500.2500, L100.0100 #### [facility] [address] [place], [address] Potassium [Moles/Vol] 4.0 mmol/L Normal 3.3-5.1 [facility] Comment on above: Performed By: #### L 501.5200, M100.651, L500.2500, L100.0100 #### [facility] [address] [place], [address] Sodium [Moles/Vol] 138 mmol/L Normal 133-145 [facility] Comment on above: Performed By: #### L 501.5200, M100.651, L500.2500, L100.0100 #### [facility] [address] [place], [address] Urea nitrogen [Mass/Vol] 13 mg/dL Normal 4-19 [facility] Comment on above: Performed By: #### L 501.5200, M100.651, L500.2500, L100.0100 #### [facility] [address] [place], [address] CBC W/Diff, Automatedon 05-3 0-2024 Absolute Lymph 2.12 X10 3/uL Normal 0.83-4.51 [facility] Comment on above: Performed By: #### L 501.5200, M100.651, L500.2500, L100.0100 #### [facility] [address] [place], [address] Absolute Neut 3.1 X10 3/uL Normal 2.0-7.7 [facility] Comment on above: Performed By: #### L 501.5200, M100.651, L500.2500, L100.0100 #### [facility] [address] [place], [address] Basophils/100 WBC (Bld) 0.9 % Normal 0-1 [facility] Comment on above: Performed By: #### L 501.5200, M100.651, L500.2500, L100.0100 #### [facility] [address] [place], [address] Eosinophils/100 WBC (Bld) 6.3 % High 0-5 [facility] Comment on above: Performed By: #### L 501.5200, M100.651, L500.2500, L100.0100 #### [facility] [address] [place], [address] Erythrocyte distribution width (RBC) [Ratio] 12.9 % Normal 11.6-14.6 [facility] Comment on above: Performed By: #### L 501.5200, M100.651, L500.2500, L100.0100 #### [facility] [address] [place], [address] Hematocrit (Bld) [Volume fraction] 41.2 % Normal 37-47 [facility] Comment on above: Performed By: #### L 501.5200, M100.651, L500.2500, L100.0100 #### [facility] [address] [place], [address] Hemoglobin (Bld) [Mass/Vol] 14.0 g/dL Normal 12.0-15.0 [facility] Comment on above: Performed By: #### L 501.5200, M100.651, L500.2500, L100.0100 #### [facility] [address] [place], [address] IG% 0.200 Normal 0.0-0.9 [facility] Comment on above: Result Comment: IG% - Immature Granulocytes (promyelocytes, myelocytes and metamyelocytes) > 1% indicates that a LEFT SHIFT is Present. Performed By: #### L 501.5200, M100.651, L500.2500, L100.0100 #### [facility] [address] [place], [address] Lymphocytes/100 WBC (Bld) 32.6 % Normal 19-41 [facility] Comment on above: Performed By: #### L 501.5200, M100.651, L500.2500, L100.0100 #### [facility] [address] [place], [address] MCH (RBC) [Entitic mass] 31.5 pg Normal 27.0-32.0 [facility] Comment on above: Performed By: #### L 501.5200, M100.651, L500.2500, L100.0100 #### [facility] [address] [place], [address] MCHC (RBC) [Mass/Vol] 34.0 g/dL Normal 32-36 [facility] Comment on above: Performed By: #### L 501.5200, M100.651, L500.2500, L100.0100 #### [facility] [address] [place], [address] MCV (RBC) [Entitic vol] 92.6 fL Normal 81-99 [facility] Comment on above: Performed By: #### L 501.5200, M100.651, L500.2500, L100.0100 #### [facility] [address] [place], [address] Monocytes/100 WBC (Bld) 12.6 % High 0-10 [facility] Comment on above: Performed By: #### L 501.5200, M100.651, L500.2500, L100.0100 #### [facility] [address] [place], [address] Neutrophils/100 WBC (Bld) 47.4 % Normal 47-70 [facility] Comment on above: Performed By: #### L 501.5200, M100.651, L500.2500, L100.0100 #### [facility] [address] [place], [address] Nucleated RBC (Bld) [#/Vol] 0 10*3/uL Normal 0-5 [facility] Comment on above: Performed By: #### L 501.5200, M100.651, L500.2500, L100.0100 #### [facility] [address] [place], [address] Platelet mean volume (Bld) [Entitic vol] 11.4 fL Normal 6.2-12.0 [facility] Comment on above: Performed By: #### L 501.5200, M100.651, L500.2500, L100.0100 #### [facility] [address] [place], [address] Platelets (Bld) [#/Vol] 210 10*3/uL Normal 150-450 [facility] Comment on above: Performed By: #### L 501.5200, M100.651, L500.2500, L100.0100 #### [facility] [address] [place], [address] RBC (Bld) [#/Vol] 4.45 10*6/uL Normal 4.2-5.4 [facility] Comment on above: Performed By: #### L 501.5200, M100.651, L500.2500, L100.0100 #### [facility] [address] [place], [address] RDW SD 43.9 fl Normal 35.1-43.9 [facility] Comment on above: Performed By: #### L 501.5200, M100.651, L500.2500, L100.0100 #### [facility] [address] [place], [address] WBC (Bld) [#/Vol] 6.5 10*3/uL Normal 4.4-11.0 [facility] Comment on above: Performed By: #### L 501.5200, M100.651, L500.2500, L100.0100 #### [facility] [address] [place], [address] MR/PAT.ERWIN 02-23-2025 MR/PAT.[facility] Medical Records Department [address] [place] [address] PAT - Anesthesia 02/23/25 1639 MR#: [id number] Acct: [id number] Name: DEYA BLOUNT Rep #: [id number] : 1960 65 From: Carlos Eduardo Nelson MD PCP: Dr. Virgilio Alicia MD Status:PRE [facility] [place] [place] Y Race: C Location: [facility] [place] Pre-Assessment Diagnosis/Proposed Procedure Planned Operative Procedure(s): (L) Total Knee Replacement Robotic Arm Assist Anesthesia History Anesthesia History - stereoptician: Anesthesia History - stereoptician Hx Hospitalization No 02/14/25 14:42 Any Problems With Anesthesia No 02/14/25 14:42 Cholinesterase deficiency No 02/14/25 14:42 You/Your Family Experience No 02/14/25 14:42 fever (hyperthermia) with Relationship Recent Exposure to Contagious No 08/16/24 14:19 Disease Does patient have nerve No 02/14/25 14:42 stimulator Patient instructed to have device shut off --Does patient have Pacemaker or ICD? When Was Last Pacemaker Check QUESTION #4 FULL TEXT: You/Your Family Experience fever (hyperthermia) with Anesthesia Last Oral Intake Last Oral intake: Last Oral Intake NPO since Meds taken in AM with sips of water? Meds patient instructed to take am of surgery PONV PONV - stereoptician: PONV - stereoptician Female Yes 02/14/25 14:42 HX of Motion Sickness No 02/14/25 14:42 HX of N/V After Surgery No 02/14/25 14:42 Non-Smoker Yes 02/14/25 14:42 Duration of Surgery greater No 02/14/25 14:42 than 60 minutes Number of Risk Factors 2 02/14/25 14:42 PONV Score Moderate Risk 02/14/25 14:42 Height Weight Height Weight: Anesthesia: Height Weight Height 5 ft 3 in 11/28/24 13:16 Respiratory Assessment Respiratory Assessment - stereoptician: Respiratory Tract Infection Hx - stereoptician Hx Respiratory Tract Infection No 02/14/25 14:42 STOP Sleep Apnea STOP Sleep Apnea - stereoptician: STOP Sleep Apnea - stereoptician Hx Hypertension Yes: CONTROLLED ON MED 02/14/25 14:42 Hx Sleep Apnea No 02/14/25 14:42 CPAP BIPAP Do you snore loudly (louder No 02/14/25 14:42 than talking or can be heard Do you often feel tired/ No 02/14/25 14:42 fatigued/ sleepy during daytime? Has anyone observed you stop No 02/14/25 14:42 breathing during sleep? STOP Results Negative 02/14/25 14:42 QUESTION #5 FULL TEXT : Do you snore loudly (louder than talking or can be heard through closed doors)? Tobacco Use History Tobacco Use History - stereoptician: Tobacco Use History - stereoptician Tobacco Use Cigarettes 08/16/24 14:19 Smoking Status Former smoker 02/14/25 14:42 Hx Tobacco Use No 02/14/25 14:42 Years Smoking Packs Smoked per Day Smoking Cessation Date was No - quit smoking greater 02/14/25 14:42 within the last 15 years than 15 years ago Hx Smoking Cessation Date 09/29/79 02/14/25 14:42 Hx Smoking Cessation Counseling Hematologic Medial History Hematologic Hx - stereoptician: Hematologic Medical Hx - room designer Hx of Blood Transfusion No 02/14/25 14:42 Hx of Transfusion in last 3 No 02/14/25 14:42 Months Date of Last Transfusion (if within last 3 months) Ever experience any problems No 02/14/25 14:42 with transfusion(s)? Specify any problems Hx of Preganancy in last 3 No 02/14/25 14:42 Months Nurse Filling Out Transfusion VCHRISTIN 02/14/25 14:42 Questions: Date: 02/14/25 02/14/25 14:42 Time: 14:46 02/14/25 14:42 Patient unable to answer at this time (ie. confused, unrespo /Reproduction History /Reproductive History - stereoptician: /Reproductive Hx- stereoptician Hx Now No 02/14/25 14:42 Gestational Age (in weeks): EDC: Hx Hx Para Hx Section SAB No 02/14/25 14:42 [facility] Medical History (Updated 02/14/25 @ 14:42 by Pebbles Anderson) Wears glasses Post-menopausal Cancer Alcohol use History of steroid therapy Excessive bleeding Fibromyalgia Former smoker Leg cramps History of pain when walking History of stress test History of echocardiogram Cardiology follow-up encounter History of atrial fibrillation Influenza A Hypertension Chest heaviness TAYLOR (dyspnea on exertion) Fatigue COVID-19 Persistent atrial fibrillation (12/16/21) Paroxysmal atrial fibrillation Numbness and tingling Arthritis GBS (Guillain [place] syndrome) Obesity New onset atrial fibrillation (10/2019) Post-polio syndrome Home Medications ???Medication ???Instructions ???Recorded ???Last Taken ???Type multivitamin 1 tab PO DAILY supplement 03/26/20 10/23/22 History a (more content not included)... Normal [facility] Magnesiumon 02-23-2025 Magnesium [Mass/Vol] 2.3 mg/dL High 1.5-2.2 [facility] Comment on above: Performed By: #### L 501.5200, M100.651, L500.2500, L100.0100 #### [facility] [address] 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[employer] Office Visit Report [facility] [address], [address] [place] [address] OFFICE VISIT Date of Service: 11/28/24 MR#: [id number] Acct: [id number] Name: JAZZMINEADAMDEYA SAMMY Rep #: [id number] : 1960 Provider: GIGI dozier Age/Sex: 64/F Location: [facility] [place] Status: Signed Intake Vital Signs 10/13/23 14:49 09/25/24 10:00 11/28/24 13:08 11/28/24 13:16 Height 5 ft 3 in 5 ft 3 in 5 ft 3 in 5 ft 3 in Weight: 193 lb 193 lb BMI 34.2 34.2 BP 133/70 H 134/80 H Blood Pressure Location Lt brachial Position Sitting Respiration 18 Pulse 66 Pulse Source Monitor Pulse Oximetry (%) 96 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 Complaint: 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: No Is patient in pain?: No Allergies cephalexin (From Keflex) Allergy (Unknown, Verified 11/28/24 13:20) Unknown amoxicillin Adverse Reaction (Verified 11/28/24 13:20) Hives Penicillins Adverse Reaction (Verified 11/28/24 13:20) Anaphylaxis Sulfa (Sulfonamide Antibiotics) Adverse Reaction (Verified 11/28/24 13:20) Hives Medications ???Medication ???Instructions ???Recorded ???Confirmed ???Type multivitamin 1 tab PO DAILY supplement 03/26/20 11/28/24 History acetaminophen 500 mg tablet 1,000 mg PO Q6H PRN pain 10/23/22 11/28/24 History (Tylenol Extra Strength) cyclosporine 0.05 % eye drops in a 1 drp EACH EYE Q12H 10/23/2201/19 History dropperette (Restasis) loratadine 10 mg tablet (Claritin) 10 mg PO DAILY 10/23/22 11/28/24 History aspirin 81 mg tablet,delayed 81 mg PO DAILY #1 TAB 09/28/2301/19 Rx release (Adult Aspirin Regimen) cholecalciferol (vitamin D3) 50 50 mcg PO DAILY 10/13/23 11/28/24 History mcg (2,000 unit) capsule fluorometholone 0.1 % eye 1 drp ophthalmic (eye) Q6H 10/13/2 4 11/28/24 History drops,suspension ketoconazole 2 % topical cream 1 applic topical DAILY 10/13/23 History metoprolol tartrate 50 mg tablet 50 mg PO BID #180 TABLETS 09/25/24 11/28/24 Rx mirabegron 25 mg tablet,extended 25 mg PO QDAY #30 tabs 11/28/24 Rx release 24 hr Is last menstrual period known: No Post menopausal: Yes Patient : No : No PFSH Medical History Influenza A Hypertension Chest heaviness TAYLOR (dyspnea on exertion) Fatigue COVID-19 Persistent atrial fibrillation (12/16/21) Paroxysmal atrial fibrillation Numbness and tingling Arthritis GBS (Guillain [place] syndrome) Obesity New onset atrial fibrillation (10/2019) Post-polio syndrome Surgical History S/P Mohs surgery for basal cell carcinoma S/P trigger finger release History of cardiac radiofrequency ablation (03/03/23) History of electrophysiologic study (03/03/23) History of cardioversion (12/17/20) Hx of colonoscopy Hx of wisdom tooth extraction Hx of knee surgery Family History Grandfather Heart disease maternal Grandmother CVA (cerebral vascular accident) maternal Mother Breast cancer Lung cancer Osteoporosis Social History household members: spouse number of children: 1 current occupational status: employed 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- [employer] Smoking Status: Former smoker how long ago did patient quit smokin years ago second hand exposure: No alcohol intake: current alcohol intake frequency: holidays/special occasions only substance use type: does not use caffeine: Yes Type: coffee Number of servings: 2 what type of physical activity do you participate in: aerobics frequency: daily seatbelt use: always do you feel safe at home: Yes additional social history: - Jorge- Retired History 1 Elective abortions Hx Para 1 Spontaneous abortions Hx # Term Pregnancies Ectopic pregnancies Hx # Pregnancies Multiple births # of living children 1 Past Pregnancies Del. Date Name GA/Weeks Outcome Route Bth Weight Gen Labor Lgth Anesthesia Del Locatn Provider FOB Unknown Saurav Garcia 1982 HPI Encounter for routine gynecological examination Details: DEYA BLOUNT is a 64 year old who presents for annual exam. States oxybutynin not as helpful in controlling her urinary urgency and incontinence. 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 She does wear bilateral lower leg braces. 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 Last PAP: 2023 History of abnormal PAP: no Last mammogram: 05/2024 History of abnormal mammogram: no Colon cancer screenin Other preventative health care screenings: Mary Alicia Female Reproductive History Questions: metorrha (more content not included)... Normal [facility] Urgent Care Visit Reporton 0 10-14-2024 Urgent Care Visit Report [facility] [address], [address] [place] [address] OFFICE VISIT Date of Service: 10/14/24 MR#: [id number] Acct: [id number] Name: DEYA BLOUNT Rep #: [id number] : 1960 Provider: VISHNU Suero Age/Sex: 64/F Location: [facility] [place] Status: Signed Intake Vital Signs 09/25/24 10:00 10/14/24 12:31 Height 5 ft 3 in Weight: 193 lb BMI 34.2 BP 133/70 H 120/60 Blood Pressure Location Lt brachial Lt brachial Position Sitting Sitting Respiration 18 12 Pulse 66 73 Pulse Source Monitor NIBP Temp 98.4 F Temp Source Oral Pulse Oximetry (%) 96 94 Oxygen Delivery Method room air Intake Visit Reasons: FEVER/BA/COUGH/DIZZINE SS/NAUSEA Chief Complaint: Fever, BA, Cough, Dizziness, Nausea, Bilat ear pain Allergies cephalexin (From Keflex) Allergy (Unknown, Verified 10/14/24 12:32) Unknown amoxicillin Adverse Reaction (Verified 10/14/24 12:32) Hives Penicillins Adverse Reaction (Verified 10/14/24 12:32) Anaphylaxis Sulfa (Sulfonamide Antibiotics) Adverse Reaction (Verified 10/14/24 12:32) Hives Medications ???Medication ???Instructions ???Recorded ???Confirmed ???Type multivitamin 1 tab PO DAILY supplement 03/26/20 10/14/24 History acetaminophen 500 mg tablet 1,000 mg PO Q6H PRN pain 10/23/22 10/14/24 History (Tylenol Extra Strength) cyclosporine 0.05 % eye drops in a 1 drp EACH EYE Q12H 10/23/22 10/14/24 History dropperette (Restasis) loratadine 10 mg tablet (Claritin) 10 mg PO DAILY 10/23/22 10/14/24 History aspirin 81 mg tablet,delayed 81 mg PO DAILY #1 TAB 09/28/23 10/14/24 Rx release (Adult Aspirin Regimen) cholecalciferol (vitamin D3) 50 50 mcg PO DAILY 10/13/23 10/14/24 History mcg (2,000 unit) capsule fluorometholone 0.1 % eye 1 drp ophthalmic (eye) Q6H 10/13/23 10/14/24 History drops,suspension ketoconazole 2 % topical cream 1 applic topical DAILY 10/13/23 10/14/24 History oxybutynin chloride 5 mg tablet 5 mg PO DAILY 10/13/23 10/14/24 History metoprolol tartrate 50 mg tablet 50 mg PO BID #180 TABLETS 09/25/24 10/14/24 Rx oseltamivir 75 mg capsule 75 mg PO BID 5 days #10 caps 10/14/24 10/14/24 Rx PFSH Medical History Hypertension Chest heaviness TAYLOR (dyspnea on exertion) Fatigue COVID-19 Persistent atrial fibrillation (12/16/21) Paroxysmal atrial fibrillation Numbness and tingling Arthritis GBS (Guillain [place] syndrome) Obesity New onset atrial fibrillation (10/2019) Post-polio syndrome Surgical History S/P Mohs surgery for basal cell carcinoma S/P trigger finger release History of cardiac radiofrequency ablation (03/03/23) History of electrophysiologic study (03/03/23) History of cardioversion (12/17/20) Hx of colonoscopy Hx of wisdom tooth extraction Hx of knee surgery Family History Grandfather Heart disease maternal Grandmother CVA (cerebral vascular accident) maternal Mother Breast cancer Lung cancer Osteoporosis Social History household members: spouse number of children: 1 current occupational status: employed 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- [employer] Smoking Status: Former smoker how long ago did patient quit smokin years ago second hand exposure: No alcohol intake: current alcohol intake frequency: holidays/special occasions only substance use type: does not use caffeine: Yes Type: coffee Number of servings: 2 what type of physical activity do you participate in: aerobics frequency: daily seatbelt use: always do you feel safe at home: Yes additional social history: - Jorge- Retired HPI HPI Chief Complaint: Fever, BA, Cough, Dizziness, Nausea, Bilat ear pain Details: DEYA BLOUNT, is a 64 F who presents to the office today for evaluation of fever, myalgia, cough, dizziness, nausea, and bilateral ear pain. Patient states that her symptoms have been present for approximately 4 days and have been progressively worsening. She states that she has experienced increased dizziness over the last several days and wonders if she might be experiencing vertigo. 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 Patient states that her use of OTC treatment options has been limited due to nausea but has not experienced vomiting, she has been able to take Tylenol and notes that her fever broke this morning. Patient states that her appetite has been low and she has only consumed crackers over the last 4 days. ROS Const Constitutional: Positive for chi (more content not included)... Normal [facility] Urgent Care Visit Report [facility] [address], [address] [place] [address] OFFICE VISIT Date of Service: 10/14/24 MR#: [id number] Acct: [id number] Name: DEYA BLOUNT Rep #: [id number] : 1960 Provider: VISHNU Suero Age/Sex: 64/F Location: [facility] [place] Status: Signed Intake Vital Signs 09/25/24 10:00 10/14/24 12:31 Height 5 ft 3 in BP 120/60 Blood Pressure Location Lt brachial Position Sitting Respiration 12 Pulse 73 Pulse Source NIBP Temp 98.4 F Temp Source Oral Pulse Oximetry (%) 94 Oxygen Delivery Method room air Intake Visit Reasons: FEVER/BA/COUGH/DIZZINE SS/NAUSEA Chief Complaint: Fever, BA, Cough, Dizziness, Nausea, Bilat ear pain Allergies cephalexin (From Keflex) Allergy (Unknown, Verified 11/28/24 13:20) Unknown amoxicillin Adverse Reaction (Verified 11/28/24 13:20) Hives Penicillins Adverse Reaction (Verified 11/28/24 13:20) Anaphylaxis Sulfa (Sulfonamide Antibiotics) Adverse Reaction (Verified 11/28/24 13:20) Hives Medications ???Medication ???Instructions ???Recorded ???Confirmed ???Type multivitamin 1 tab PO DAILY supplement 03/26/20 11/28/24 History acetaminophen 500 mg tablet 1,000 mg PO Q6H PRN pain 10/23/22 11/28/24 History (Tylenol Extra Strength) cyclosporine 0.05 % eye drops in a 1 drp EACH EYE Q12H 10/23/2201/19 History dropperette (Restasis) loratadine 10 mg tablet (Claritin) 10 mg PO DAILY 10/23/22 11/28/24 History aspirin 81 mg tablet,delayed 81 mg PO DAILY #1 TAB 09/28/2301/19 Rx release (Adult Aspirin Regimen) cholecalciferol (vitamin D3) 50 50 mcg PO DAILY 10/13/23 11/28/24 History mcg (2,000 unit) capsule fluorometholone 0.1 % eye 1 drp ophthalmic (eye) Q6H 4 11/28/24 History drops,suspension ketoconazole 2 % topical cream 1 applic topical DAILY 10/13/23 History metoprolol tartrate 50 mg tablet 50 mg PO BID #180 TABLETS 09/25/24 11/28/24 Rx mirabegron 25 mg tablet,extended 25 mg PO QDAY #30 tabs 11/28/24 Rx release 24 hr PFSH Medical History Influenza A Hypertension Chest heaviness TAYLOR (dyspnea on exertion) Fatigue COVID-19 Persistent atrial fibrillation (12/16/21) Paroxysmal atrial fibrillation Numbness and tingling Arthritis GBS (Guillain [place] syndrome) Obesity New onset atrial fibrillation (10/2019) Post-polio syndrome Surgical History S/P Mohs surgery for basal cell carcinoma S/P trigger finger release History of cardiac radiofrequency ablation (03/03/23) History of electrophysiologic study (03/03/23) History of cardioversion (12/17/20) Hx of colonoscopy Hx of wisdom tooth extraction Hx of knee surgery Family History Grandfather Heart disease maternal Grandmother CVA (cerebral vascular accident) maternal Mother Breast cancer Lung cancer Osteoporosis Social History household members: spouse number of children: 1 current occupational status: employed 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- [employer] Smoking Status: Former smoker how long ago did patient quit smokin years ago second hand exposure: No alcohol intake: current alcohol intake frequency: holidays/special occasions only substance use type: does not use caffeine: Yes Type: coffee Number of servings: 2 what type of physical activity do you participate in: aerobics frequency: daily seatbelt use: always do you feel safe at home: Yes additional social history: - Jorge- Retired HPI HPI Chief Complaint: Fever, BA, Cough, Dizziness, Nausea, Bilat ear pain Details: DEYA BLOUNT, is a 64 F who presents to the office today for Fever, BA, cough, dizziness, nausea, bilat ear pain x3 days. Ran omkar covid/flu test. Results POC OMKAR Covid FluAB PCR POC Omkar Covid PCR Not Detected Last Edit by Loulou Martinez on 10/14/24 12:40 POC OMKAR FLU ONLY FLU A DETECTED Last Edit by Loulou Martinez on 10/14/24 12:40 Coding Level of Care Code Off vis,new,level 3 Assessment and Plan Assessment and Plan Orders: Orders POC Omkar Covid FLUAB PCR 10/14/24 R11.0 - Nausea 12/09/24 1332 Date Alex MARES Cosigner Signature: Date (if applicable) CC: Normal [facility] Cardiology Visit Reporton Cardiology Visit Report [facility] [address] [place] [address] OFFICE VISIT Date of Service: 09/25/24 MR#: [id number] Acct: [id number] Name: DEYA BLOUNT Rep #: [id number] : 1960 Provider: VISHNU Leigh Age/Sex: 64/F Location: [facility] [place] Status: Signed HPI HPI History of Present Illness Details: Deya Blount is a 63-year-old female who presents here today for a cardiovascular follow-up visit. Has a history of an atrial tachyarrhythmia comprising of atrial flutter as well as atrial fibrillation. She had been seen by us previously when she was noted to be in atrial fibrillation and she converted back to sinus rhythm. She reverted back to atrial fibrillation and underwent cardioversion on 12/17/2020. She was started on flecainide 100 mg p.o. twice daily. She had presented to the emergency room in January of 2022 with COVID, she was noted to be in atrial fibrillation. Patient had an unsuccessful cardioversion in the emergency room, she went into atrial flutter with variable AV block after cardioversion. She was admitted to the hospital, and started on amiodarone drip for rate control, but remained in atrial fibrillation. She was then discharged home on her current metoprolol, flecainide, and Xarelto doses. She was scheduled for a cardioversion on 03/16/2022, she was noted to be in sinus rhythm on arrival, and cardioversion was cancelled. Most recently she had an episode where she got near syncopal and was brought to the hospital and was noted to be in atrial flutter with a slow ventricular response rate. Her flecainide had been increased to 150 mg twice a day and the dose was brought back to 100 mg twice a day together with her metoprolol. Cerebrovascular accident was ruled out by MRI. An echocardiogram was performed which demonstrated an ejection fraction of 45 to 50%. She had previously had a stress test in May 2022 demonstrating no evidence of ischemia. She was sent for a catheter ablation for atrial fibrillation and underwent under ultrasound guidance access test for double transseptal puncture and completed a wide area of circumferential ablation around each pulmonary vein and confirmed isolation with circular mapping catheters. From a cardiac standpoint, patient is doing well. She does not have any chest discomfort/heaviness/t ightness. She does not have any worsening symptoms of shortness of breath. She does not have any orthopnea. She denies PND. She does not have any symptoms of congestive heart failure. She does not have any palpitations that she is aware of. She does not have any lightheadedness or dizziness. She does not have any near-syncope or syncope. She does not have any lower extremity edema. She does not have any symptoms of claudication. She did sign up for [employer] on line. 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 Intake Vital Signs 09/24/23 10:03 08/16/24 14:19 09/25/24 10:00 Height 5 ft 3 in 5 ft 3 in 5 ft 3 in Weight: 193 lb BMI 34.2 BP 133/70 H Blood Pressure Location Lt brachial Position Sitting Respiration 18 Pulse 66 Pulse Source Monitor Pulse Oximetry (%) 96 Intake Visit Reasons: 1 Y FU Server Manager Required: No Is patient in pain?: No Allergies cephalexin (From Keflex) Allergy (Unknown, Verified 09/25/24 10:00) Unknown amoxicillin Adverse Reaction (Verified 09/25/24 10:00) Hives Penicillins Adverse Reaction (Verified 09/25/24 10:00) Anaphylaxis Sulfa (Sulfonamide Antibiotics) Adverse Reaction (Verified 09/25/24 10:00) Hives Medications ???Medication ???Instructions ???Recorded ???Confirmed ???Type multivitamin 1 tab PO DAILY supplement 03/26/20 09/25/24 History acetaminophen 500 mg tablet 1,000 mg PO Q6H PRN pain 10/23/22 09/25/24 History (Tylenol Extra Strength) cyclosporine 0.05 % eye drops in a 1 drp EACH EYE Q12H 10/23/22 09/25/24 History dropperette (Restasis) loratadine 10 mg tablet (Claritin) 10 mg PO DAILY 10/23/22 09/25/24 History aspirin 81 mg tablet,delayed 81 mg PO DAILY #1 TAB 09/28/23 09/25/24 Rx release (Adult Aspirin Regimen) cholecalciferol (vitamin D3) 50 50 mcg PO DAILY 10/13/23 09/25/24 History mcg (2,000 unit) capsule fluorometholone 0.1 % eye 1 drp ophthalmic (eye) Q6H 10/13/23 09/25/24 History drops,suspension ketoconazole 2 % topical cream 1 applic topical DAILY 10/13/23 09/25/24 History oxybutynin chloride 5 mg tablet 5 mg PO DAILY 10/13/23 09/25/24 History metoprolol tartrate 50 mg tablet 50 mg PO BID #180 TABLETS 09/25/24 09/25/24 Rx PFSH Medical History Hypertension Chest heaviness TAYLOR (dyspnea on exertion) Fatigue COVID-19 Persistent atrial fibrillation (12/16/21) Paroxysmal atrial fibrillation Numbness and tingling Arthritis GBS (Gu (more content not included)... Normal [facility] Lipid Profileon 09-25-2024 Cholesterol [Mass/Vol] 183 mg/dL Normal 200 [facility] Comment on above: Result Comment: <200 mg/dL Desirable 200-240 mg/dL Borderline >240 mg/dL High Risk Performed By: #### L 500.3400, L500.4100 #### [facility] [address] [place], [address] Cholesterol in HDL [Mass/Vol] 58 mg/dL Normal [facility] Comment on above: Result Comment: The drugs N-Acetylcysteine and Metamizole may falsely depress this assay. Reference Range HDL <40 mg/dL Low HDL Cholesterol HDL >or= 60 mg/dL High HDL Cholesterol Performed By: #### L 500.3400, L500.4100 #### [facility] [address] [place], [address] Cholesterol in LDL [Mass/Vol] 110 mg/dL Normal 0-130 [facility] Comment on above: Performed By: #### L 500.3400, L500.4100 #### [facility] [address] [place], [address] Cholesterol in VLDL [Mass/Vol] 15 mg/dL Normal 5-40 [facility] Comment on above: Performed By: #### L 500.3400, L500.4100 #### [facility] [address] [place], [address] Triglyceride [Mass/Vol] 75 mg/dL Normal [facility] Comment on above: Result Comment: The drugs N-Acetylcysteine and Metamizole may falsely depress this assay. Serum Triglycerides Reference Interval Normal <150 mg/dL Borderline high 150 - 199 mg/dL High 200 - 499 mg/dL Very High > or = 500 mg/dL Performed By: #### L 500.3400, L500.4100 #### [facility] [address] [place], [address] Liver Profileon 09-25-2024 Albumin [Mass/Vol] 3.7 g/dL Normal 3.2-5.0 [facility] Comment on above: Performed By: #### L 500.3400, L500.4100 #### [facility] [address] [place], [address] ALK P 81 U/L Normal 45-117 [facility] Comment on above: Performed By: #### L 500.3400, L500.4100 #### [facility] [address] [place], [address] ALT [Catalytic activity/Vol] 33 U/L Normal 13-56 [facility] Comment on above: Performed By: #### L 500.3400, L500.4100 #### [facility] [address] [place], [address] AST [Catalytic activity/Vol] 16 U/L Normal 15-37 [facility] Comment on above: Performed By: #### L 500.3400, L500.4100 #### [facility] [address] [place], [address] Bilirubin [Mass/Vol] 0.50 mg/dL Normal 0.20-1.00 [facility] Comment on above: Result Comment: For patients on eltrombopag therapy, use of Dimension Miller TBIL is not recommended. Performed By: #### L 500.3400, L500.4100 #### [facility] [address] [place], [address] Bilirubin.direct [Mass/Vol] 0.12 mg/dL Normal 0.00-0.30 [facility] Comment on above: Performed By: #### L 500.3400, L500.4100 #### [facility] [address] [place], [address] Globulin (S) [Mass/Vol] 3.4 g/dL Normal 2.2-4.2 [facility] Comment on above: Performed By: #### L 500.3400, L500.4100 #### [facility] [address] [place], [address] T PROT 7.1 g/dL Normal 6.4-8.2 [facility] Comment on above: Performed By: #### L 500.3400, L500.4100 #### [facility] [address] [place], [address] Urgent Care Visit Reporton 1 10-16-2023 Urgent Care Visit Report [facility] [address], [address] [place] [address] OFFICE VISIT Date of Service: 08/16/24 MR#: [id number] Acct: [id number] Name: DEYA BLOUNT Rep #: [id number] : 1960 Provider: VISHNU Darling Age/Sex: 64/F Location: [facility] [place] Status: Signed Intake Vital Signs 10/13/23 14:49 08/16/24 14:19 Height 5 ft 3 in 5 ft 3 in Weight: 193 lb 8 oz BMI 34.2 BP 122/78 H Blood Pressure Location Lt brachial Position Sitting Respiration 17 Pulse 86 Pulse Source NIBP Temp 98.6 F Temp Source Oral Pulse Oximetry (%) 98 Oxygen Delivery Method room air Intake Visit Reasons: Cough Chief Complaint: congestion, cough Server Manager Required: No Is patient in pain?: No Allergies cephalexin (From Keflex) Allergy (Unknown, Verified 10/13/23 14:43) Unknown amoxicillin Adverse Reaction (Verified 10/13/23 14:43) Hives Penicillins Adverse Reaction (Verified 10/13/23 14:43) Anaphylaxis Sulfa (Sulfonamide Antibiotics) Adverse Reaction (Verified 10/13/23 14:43) Hives Is last menstrual period known: No Post menopausal: No Patient : No Have you fallen in the past year?: No Nurse's Note: pt is having severe congestion, cough, covid test ran PFSH Medical History (Updated 10/13/23 @ 15:27 by Beth DeL una LINUX SYSTEM ADMIN, LINUX SYSTEM ADMIN-C) Hypertension Chest heaviness TAYLOR (dyspnea on exertion) Fatigue COVID-19 Persistent atrial fibrillation (12/16/21) Paroxysmal atrial fibrillation Numbness and tingling Arthritis GBS (Guillain [place] syndrome) Obesity New onset atrial fibrillation (10/2019) Post-polio syndrome Surgical History (Updated 10/13/23 @ 15:02 by Mary Thompson) S/P Mohs surgery for basal cell carcinoma S/P trigger finger release History of cardiac radiofrequency ablation (03/03/23) History of electrophysiologic study (03/03/23) History of cardioversion (12/17/20) Hx of colonoscopy Hx of wisdom tooth extraction Hx of knee surgery Family History Grandfather Heart disease maternal Grandmother CVA (cerebral vascular accident) maternal Mother Breast cancer Lung cancer Osteoporosis Social History (Updated 10/13/23 @ 15:03 by Mary Thompson) household members: spouse number of children: 1 current occupational status: employed 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- [employer] Smoking Status: Former smoker how long ago did patient quit smokin years ago second hand exposure: No alcohol intake: current alcohol intake frequency: holidays/special occasions only substance use type: does not use caffeine: Yes Type: coffee Number of servings: 2 what type of physical activity do you participate in: aerobics frequency: daily seatbelt use: always do you feel safe at home: Yes additional social history: - Jorge- Retired HPI HPI Chief Complaint: congestion, cough Details: DEYA BLOUNT, is a 64 F who presents to the office today for [facility] for approximately 5-day history of progressively worsening facial pressure/congestion with originally clear - but now purulent postnasal drip/cough and bilateral ear pressure. No complaints of fever, chills, myalgias, fatigue, runny nose, or nausea/vomiting/diarrh ea. No complaints of chest pain/shortness of breath/dyspnea on exertion. Non-smoker. 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 Requesting POC screening for COVID-19 and influenza. No other associated symptoms and no other alleviating/aggravatin g factors. ROS Const Constitutional: No other (as above) Exam Const General: cooperative, healthy appearing and no acute distress Nutritional Appearance: average body habitus Orientation: alert, awake and oriented x3 HENMT Head: normal to inspection Ears: hearing grossly normal bilaterally, external ears normal, TM's normal bilaterally and EAC's normal Nose: external nose normal, nares normal, septum normal and no nasal discharge Face and sinus: normal facial exam, bilateral maxillary sinus tender (with bilateral maxillary fullness to palpation) and face symmetric Mouth: oral mucosae normal, lip normal, tongue normal and oropharynx normal Throat: posterior oropharynx normal, tonsils normal, uvula midline and postnasal drainage (Purulent) Eyes General: appearance normal, both eyes and all related structures Neck Neck: normal visual inspection, full ROM, no meningeal signs, supple and lymphadenopathy (Bilateral anterior cervical lymph node swelling/tender to palpation) Neck mass: No Thyroid: thyroid normal Chest Chest palpation inspection: normal inspection of the chest Resp Effort Inspection: normal respiratory effort and able to speak in complete sentences Auscultation: Bilateral: Clear (more content not included)... Normal [facility] SCRN MAMM (CAD)W/BUFFY BILATo n 06-19-2024 SCRN MAMM (CAD)W/BUFFY BILAT [facility] [address] [place], [place] [id number] SCRN MAMM (CAD)W/BUFFY BILAT MR#: [id number] Acct: [id number] Name: DEYA BLOUNT Rep #: [id number] : 1960 F 64 From: Christoph mcwilliams MD PCP: Dr. Virgilio Alicia MD Status: [facility] Study: SCRN MAMM (CAD)W/BUFFY BILAT Date of Exam: 05/29 12/18 Exam# [id number] Ordering Dr: Beth De Luna NP LINUX SYSTEM ADMIN -C [id number] MAMMOGRAPHY - BILATERAL SCREENING REASON FOR EXAM: Female, 64 years old. Routine annual screening examination. PERTINENT HISTORY: Mother with breast cancer. Aunt with breast cancer. TECHNIQUE: Digital bilateral breast buffy (3D mammographic acquisition) in the CC and MLO projections. 2-D mediolateral oblique (MLO) and craniocaudad (CC) views of both breasts were obtained. CAD: Full Field Digital Mammography with Computer Added Detection was performed. COMPARISON: Comparison is made with prior study June 16, 2023 and May 01, 2021. FINDINGS: Breast Composition: There are scattered areas of fibroglandular density. There are no dominant masses or suspicious calcifications. Stable bilateral fat containing axillary lymph nodes. No other significant abnormalities are identified. There has been no significant change since the prior study. BI/SCRN MAMM (CAD)W/BUFFY BILAT IMPRESSION: Stable bilateral screening mammogram. Yearly follow-up mammogram recommended. (A) ASSESSMENT CATEGORY: BIRADS Category 2: Benign. A letter regarding these results will be sent to the patient by the facility within 30 days. Approximately 10% of breast cancers are not detected by mammography. A normal mammogram should not delay biopsy of a clinically suspicious abnormality. [id number] Electronically Signed: Christoph Davila MD at 8:39 EDT , CC: GIGI De Luna; Dr. Virgilio Alicia MD Lining Baster: Signed Normal [facility] Cervical or vaginal specimen microscopic examination by liquid based cytology (reported as document)Ordered By: Beth De Luna on 10-13-2023 Cytology report Cyto stain.thin prep Doc (Cvx/Vag) Comment . [facility] Comment on above: Criteria not met, HP V Genotype not performed.Performed at: [address] [id number] Director: Urszula Martins MD, Phone: [phone] at: =[facility] [id number] Director: Urszula Martins MD, Phone: [phone] Cervical or vagninal specime n microscopic examination by cytology stain (reported asOrdered By: Beth De Luna on 10-13-2023 Cytology report Cyto stain Doc (Cvx/Vag) Comment . [facility] Comment on above: The Pap smear is a s creening test designed to aid in thedetection of premalignant and malignant conditions of theuterine cervix. It is not a diagnostic procedure andshould not be used as the sole means of detecting cervicalcancer. Both false-positive and false-negative reports dooccur. Detection in cervical specim en of any of human papilloma virus (HPV) 16, 18, 31, 33,Ordered By: Beth De Luna on 10-13-2023 HPV 16+18+31+33+35+39+45+5 1+52+56+58+59+66+68 DNA Probe+sig amp Ql (Cvx) Negative Negative [facility] Comment on above: This nucleic acid am plification test detects fourteen high- risk HPV types (16,18,31,33,35,39,45,51,52,56,58,59,66,68)without differentiation. Laboratory - CytologyOrdered By: Beth De Luna on 10-13-2023 Telegraph Printer Mechanic Cyto stain Nom (Cvx/Vag) [ID] Comment . [facility] Comment on above: Deric Guillermo totechnologist (ASCP) Laboratory - Miscellaneous t estsOrdered By: Beth De Luna on 10-13-2023 Service comment (Unsp spec) [Interp] . . [facility] Thin prep Papanicolaou smear with manual screeningOrdered By: Beth De Luna on 10-13-2023 Thin prep Papanicolaou smear with manual screening Comment . [facility] Comment on above: NEGATIVE FOR INTRAEP ITHELIAL LESION OR MALIGNANCY. This liquid based Th inPrep(R) pap test was screened withthe use of an image guided system. CNOVon 04-05-2023 CNOV Office Visit (UCWSTR ) DEYA BLOUNT ([id number]) 1960 F Date Time Provider Department 04/05/23 2:00 PM MARIANGEL SPARKS [facility] During your visit today, we recorded the following information about you: Temperature Pulse Respiration Blood pressure 97.8 degrees 76/minute 18/minute 132/88 Weight 86.1 kg Mariangel Sparks APRN.CNP 04/05/2023 2:46 PM Signed Subjective HPI HPI Deya Hull Mnie is a 63 year old female who [...] DX W/COLLJ SPEC WHEN PFRMD 01/18/10 Colonoscopy [facility] inpt PAST SURGICAL HISTORY OF 1999 surgery [...] - FLUTICASONE PROPIONATE 50 MCG/ACTUATION NASAL SPRAY,SUSPENSION Mariangel Sparks APRN.REFRIGERATION SPECIALIST Allergies As of Date: 04/05/2023 Noted Allergy Reaction AMOXICILLIN 06/25/2004 4 - Hives CEPHALOSPORINS 06/25/2004 4 - Hives Comments: Keflex SULFA (SULFONAMIDE ANTIBIOTICS) 06/25/2004 12 - Shortness of Breath Date Reviewed: 04/05/2023 Reviewed by: Mariangel Sparks APRN.REFRIGERATION SPECIALIST - Fully Assessed Reason for Visit: Ear Problem [38] Cmt: L ear pressure and decreased hearing x10 days Primary Visit Diagnosis:ETD (Eustachian tube dysfunction), lef (more content not included)... Normal [facility] EP PROCEDURE - EPS/ABLATION/ DEVICEon 03-05-2023 EP PROCEDURE - EPS/ABLATION/DEVICE ? WACA PVI ? Posterior wall isolation ? CTI ablation ? EP study ? Intracardiac echo use Deya lBount is a 63 y.o. female who has a past medical history of persistent atrial fibrillation who presented to the [facility] EP lab for atrial fibrillation ablation. Patient arrived in sinus rhythm. Conclusions Right femoral access x 3. Transseptal puncture x 1 with ICE guidance. 3D electroanatomic/voltag e mapping using a Penta-ray catheter (Carto) was used to create an anatomical shell of the LA/PVs. STSF 4mm tip irrigated catheter was used for pulmonary vein isolation (WACA). Confirmed entry and exit block of all 4 pulmonary veins. Posterior wall isolation was done. CTI ablation was done for typical atrial flutter achieving bidirectional block. Protamine sulfate was used to reverse systemic anticoagulation. There was no pericardial effusion pre/post RFA as confirmed by ICE. 3-way stopcock access site closure was applied to both femoral access sites. EP study post RFA 1. Baseline rhythm is sinus rhythm 2. Normal sinus node function. 3. Normal AV node function, normal infranodal conduction (HV=48). 4. No evidence of accessory pathway. 5. No evidence of dual AV node physiology. 6. VA conduction present and is decremental. Recommendations 1. Groin care per protocol. 2. Resume systemic anticoagulation with xarelto tonight. 3. ASA x 30 days. 4. PPI x 30 days. 5. Same day discharge. 6. Routine post abaltion outpatient monitor and follow up with Dr. Mcclure. Table formatting from the original result was not included. Images from the original result were not included. Deya Blount EP Procedure - EPS/Ablation/Device Ordering Physician: FEDERICO MCCLURE Order #: [id number] Study Date: 03/03/2023 Patient Information Name MRN Description Sammy Blount [id number] 63 y.o. female Physicians Panel Physicians Referring Physician Case Authorizing Physician Federico Mcclure MD (Primary) MD Federico Holden MD Natee Sirinvaravong, MD (Fellow) Procedures AFIB Ablation Atrial Flutter Ablation Pre Procedure Diagnosis Paroxysmal atrial fibrillation [I48.0] Post Procedure Diagnosis Paroxysmal atrial fibrillation [I48.0] Indications Paroxysmal atrial fibrillation [I48.0 (ICD-10-CM)] Conclusion ? WACA PVI ? Posterior wall isolation ? CTI ablation ? EP study ? Intracardiac echo use Deya Blount is a 63 y.o. female who has a past medical history of persistent atrial fibrillation who presented to the [facility] EP lab for atrial fibrillation ablation. Patient arrived in sinus rhythm. Conclusions Right femoral access x 3. Transseptal puncture x 1 with ICE guidance. 3D electroanatomic/voltag e mapping using a Penta-ray catheter (Carto) was used to create an anatomical shell of the LA/PVs. STSF 4mm tip irrigated catheter was used for pulmonary vein isolation (WACA). Confirmed entry and exit block of all 4 pulmonary veins. Posterior wall isolation was done. CTI ablation was done for typical atrial flutter achieving bidirectional block. Protamine sulfate was used to reverse systemic anticoagulation. There was no pericardial effusion pre/post RFA as confirmed by ICE. 3-way stopcock access site closure was applied to both femoral access sites. EP study post RFA 1. Baseline rhythm is sinus rhythm 2. Normal sinus node function. 3. Normal AV node function, normal infranodal conduction (HV=48). 4. No evidence of accessory pathway. 5. No evidence of dual AV node physiology. 6. VA conduction present and is decremental. Recommendations 1. Groin care per protocol. 2. Resume systemic anticoagulation with xarelto tonight. 3. ASA x 30 days. 4. PPI x 30 days. 5. Same day discharge. 6. Routine post abaltion outpatient monitor and follow up with Dr. Mcclure. Consent The procedure was explained including the potential risks of infection, heart perforation, re-operation, and other risks pertinent to procedure. Informed consent and permission to proceed was given. Site Preparation On the day of the procedure, the patient was brought to the operating room and the groin prepped with chloraprep.The patient was draped in the usual sterile manner. Site prepped by RT Nati. Interval Collection conditions: post RF ablation. A-H: 90 ms. H-V: 48 ms. Atrial Pacing Atrial site studied: left atrium via coronary sinus. Collection conditions: post RF ablation. Longest SNRT: 1060 ms. Sinus cycle length: 730 ms. CSNRT: 330 ms. AV Wenckebach interval: 450 ms. Dual AV node physiology not present. Echo beats not identified. Accessory pathway not present. Pacing site 1: low right atrium. Record site 1: high right atrium. Conduction time 1: 135 ms. Pacing site 2: high right atrium. Record site 2: low right atrium. Conduction time 2: 135 ms. Ventricular Pacing Site paced: right ventricle. Collection conditions: post RF ablation. Ventriculoatrial (more content not included)... Normal [facility] CBC AND ELECTRONIC DIFFon Abs Baso Auto < Normal 0.00-0.15 [facility] Comment on above: Performed By: #### L [id number] #### [facility] (DEFAULT) [address] [address] Basophils/100 WBC (Bld) 0.5 % Normal [facility] Comment on above: Performed By: #### L [id number] #### [facility] (DEFAULT) [address] [address] DIFF STATUS Electronic Differential Normal [facility] Comment on above: Performed By: #### L [id number] #### [facility] (DEFAULT) [address] [address] Eosinophils (Bld) [#/Vol] 0.16 10*3/uL Normal 0.00-0.42 [facility] Comment on above: Performed By: #### L [id number] #### [facility] (DEFAULT) [address] [address] Eosinophils/100 WBC (Bld) 2.5 % Normal [facility] Comment on above: Performed By: #### L [id number] #### [facility] (DEFAULT) [address] [address] Hematocrit (Bld) [Volume fraction] 42.2 % Normal 34.9-44.3 [facility] Comment on above: Performed By: #### L [id number] #### [facility] (DEFAULT) [address] [address] Hemoglobin (Bld) [Mass/Vol] 13.9 g/dL Normal 11.4-15.2 [facility] Comment on above: Performed By: #### L [id number] #### [facility] (DEFAULT) [address] [address] Immature Grans % 0.3 % Normal [facility] Comment on above: Performed By: #### L [id number] #### [facility] (DEFAULT) [address] [address] Immature Grans Absolute < Normal <=0.08 [facility] Comment on above: Performed By: #### L [id number] #### [facility] (DEFAULT) [address] [address] Lymphocytes (Bld) [#/Vol] 2.10 10*3/uL Normal 1.16-3.51 [facility] Comment on above: Performed By: #### L [id number] #### [facility] (DEFAULT) [address] [address] Lymphocytes/100 WBC (Bld) 32.6 % Normal [facility] Comment on above: Performed By: #### L [id number] #### [facility] (DEFAULT) [address] [address] MCV (RBC) [Entitic vol] 94.6 fL Normal 79.6-97.7 [facility] Comment on above: Performed By: #### L [id number] #### [facility] (DEFAULT) [address] [address] Mean Cell Hgb 31.2 pg Normal 25.9-33.9 [facility] Comment on above: Performed By: #### L [id number] #### [facility] (DEFAULT) [address] [address] Mean Cell Hgb Conc 32.9 g/dL Normal 31.4-35.9 [facility] Comment on above: Performed By: #### L [id number] #### [facility] (DEFAULT) [address] [address] Monocytes (Bld) [#/Vol] 0.63 10*3/uL Normal 0.22-0.87 [facility] Comment on above: Performed By: #### L [id number] #### [facility] (DEFAULT) [address] [place] [address] Monocytes/100 WBC (Bld) 9.8 % Normal [facility] Comment on above: Performed By: #### L [id number] #### [facility] (DEFAULT) [address] [place] [address] Nucleated RBC 0.0 /100 WBC Normal <=0.2 [facility] Comment on above: Performed By: #### L [id number] #### [facility] (DEFAULT) [address] [place] [address] Platelet mean volume (Bld) [Entitic vol] 12.3 fL High 8.5-12.2 [facility] Comment on above: Performed By: #### L [id number] #### [facility] (DEFAULT) [address] [address] Platelets (Bld) [#/Vol] 181 10*3/uL Normal 150-393 [facility] Comment on above: Performed By: #### L [id number] #### [facility] (DEFAULT) [address] [place] [address] RBC (Bld) [#/Vol] 4.46 10*6/uL Normal 3.91-5.04 [facility] Comment on above: Performed By: #### L [id number] #### [facility] (DEFAULT) [address] [address] RBC Distribution 13.0 % Normal 10.8-14.9 [facility] Comment on above: Performed By: #### L [id number] #### [facility] (DEFAULT) [address] [address] Segs + Bands Auto 54.3 % Normal [facility] Comment on above: Performed By: #### L [id number] #### [facility] (DEFAULT) [address] [place] [address] Segs + Bands,Absolute Auto 3.51 K/uL Normal 1.64-7.28 [facility] Comment on above: Performed By: #### L [id number] #### [facility] (DEFAULT) [address] [place] [address] WBC (Bld) [#/Vol] 6.45 10*3/uL Normal 3.99-11.19 [facility] Comment on above: Performed By: #### L [id number] #### [facility] (DEFAULT) [address] [place] [address] Basophils (Bld) [#/Vol] K/uL 0.00 - 0.15 K/uL [facility] Basophils/100 WBC (Bld) 0.5 % [facility] Differential cell count method Nom (Bld) Electronic Differential [facility] Eosinophils (Bld) [#/Vol] 0.16 10*3/uL 0.00 - 0.42 K/uL [facility] Eosinophils/100 WBC (Bld) 2.5 % [facility] Erythrocyte distribution width (RBC) [Ratio] 13.0 % 10.8 - 14.9 % [facility] Hematocrit (Bld) [Volume fraction] 42.2 % 34.9 - 44.3 % [facility] Hemoglobin (Bld) [Mass/Vol] 13.9 g/dL 11.4 - 15.2 g/dL [facility] Immature granulocytes (Bld) [#/Vol] K/uL NINF - 0.08 K/uL [facility] Immature granulocytes/100 WBC (Bld) 0.3 % [facility] Interpretation and review of laboratory results Abnormal [facility] Lymphocytes (Bld) [#/Vol] 2.10 10*3/uL 1.16 - 3.51 K/uL [facility] Lymphocytes/100 WBC (Bld) 32.6 % [facility] MCH (RBC) [Entitic mass] 31.2 pg 25.9 - 33.9 pg [facility] MCHC (RBC) [Mass/Vol] 32.9 g/dL 31.4 - 35.9 g/dL [facility] MCV (RBC) [Entitic vol] 94.6 fL 79.6 - 97.7 fL [facility] Monocytes (Bld) [#/Vol] 0.63 10*3/uL 0.22 - 0.87 K/uL [facility] Monocytes/100 WBC (Bld) 9.8 % [facility] Neutrophils (Bld) [#/Vol] 3.51 10*3/uL 1.64 - 7.28 K/uL [facility] Nucleated RBC/100 WBC (Bld) [Ratio] 0.0 % [facility] Platelet mean volume (Bld) [Entitic vol] 12.3 fL High 8.5 - 12.2 fL [facility] Platelets (Bld) [#/Vol] 181 10*3/uL 150 - 393 K/uL [facility] RBC (Bld) [#/Vol] 4.46 10*6/uL [facility] Segmented neutrophils/100 WBC (Bld) 54.3 % [facility] WBC (Bld) [#/Vol] 6.45 10*3/uL 3.99 - 11. 19 K/uL [facility] CHEM 7 (LYTES,BUN,CREA,GLUC) on 03-03-2023 Anion gap [Moles/Vol] 12 mmol/L Normal 7-17 [facility] Comment on above: Performed By: #### DAYNA GRIFFITHS #### [facility] (DEFAULT) [address] [address] Chloride [Moles/Vol] 104 mmol/L Normal 98-108 [facility] Comment on above: Performed By: #### DAYNA GRIFFITHS #### [facility] (DEFAULT) [address] [address] CO2 [Moles/Vol] 29 mmol/L Normal 21-31 [facility] Comment on above: Performed By: #### DAYNA GRIFFITHS #### [facility] (DEFAULT) [address] [address] Creatinine [Mass/Vol] 0.60 mg/dL Normal 0.50-1.20 [facility] Comment on above: Performed By: #### Rufino KERN CHM7 #### [facility] (DEFAULT) [address] [place] [address] eGFR, CKD-EPI, Female > Normal >=60 [facility] Comment on above: Result Comment: Repo rted eGFR is based on the CKD-EPI 2020 equation using creatinine, age, and sex. Performed By: #### Rufino KERN CHM7 #### [facility] (DEFAULT) [address] [place] [address] Glucose [Mass/Vol] 86 mg/dL Normal 70-99 [facility] Comment on above: Performed By: #### Rufino KERN CHM7 #### [facility] (DEFAULT) [address] [place] [address] Osmolality [Osmolality] 294 mosm/kg Normal 278-305 [facility] Comment on above: Performed By: #### Rufino KERN CHM7 #### [facility] (DEFAULT) [address] [place] [address] Potassium [Moles/Vol] 3.8 mmol/L Normal 3.5-5.0 [facility] Comment on above: Performed By: #### Rufino KERN CHM7 #### [facility] (DEFAULT) [address] [place] [address] Sodium [Moles/Vol] 141 mmol/L Normal 135-145 [facility] Comment on above: Performed By: #### Rufino KERN CHM7 #### [facility] (DEFAULT) [address] [place] [address] Urea nitrogen [Mass/Vol] 14 mg/dL Normal 7-25 [facility] Comment on above: Performed By: #### Rufion KERN CHM7 #### [facility] (DEFAULT) [address] [place] [address] Urea nitrogen/Creatinine [Mass ratio] 23 mg/mg Normal [facility] Comment on above: Performed By: #### M , [facility] #### [facility] (DEFAULT) [address] [place] [address] Anion gap [Moles/Vol] 12 mmol/L 7 - 17 mmol/L [facility] Chloride [Moles/Vol] 104 mmol/L 98 - 10 8 mmol/L [facility] CO2 [Moles/Vol] 29 mmol/L 21 - 31 mmol/L [facility] Creatinine [Mass/Vol] 0.60 mg/dL 0.50 - 1.20 mg/dL [facility] GFR/1.73 sq M.predicted CKD-EPI (S/P/Bld) [Vol rate/Area] - PINF [facility] Comment on above: Reported eGFR is bas ed on the CKD-EPI 2020 equation using creatinine, age, and sex. Glucose [Mass/Vol] 86 mg/dL 70 - 99 mg/dL [facility] Osmolality Calc [Osmolality] 294 [facility] Potassium [Moles/Vol] 3.8 mmol/L 3.5 - 5.0 mmol/L [facility] Sodium [Moles/Vol] 141 mmol/L 135 - 145 mmol/L [facility] Urea nitrogen [Mass/Vol] 14 mg/dL 7 - 25 mg/dL [facility] Urea nitrogen/Creatinine [Mass ratio] 23 mg/mg [facility] CREAT/GFRon 03-03-2023 Creatinine [Mass/Vol] 0.59 mg/dL 0.50 - 1.20 mg/dL [facility] GFR/1.73 sq M.predicted CKD-EPI (S/P/Bld) [Vol rate/Area] - PINF [facility] Comment on above: Reported eGFR is bas ed on the CKD-EPI 2020 equation using creatinine, age, and sex. Interpretation and review of laboratory results Normal [facility] Test performed at address of the patient encounter. [facility] CT CARDIAC PULMONARY VENOGRA [facility] 03-03-2023 CT CARDIAC PULMONARY VENOGRAM [facility] CT Report Name: DEYA BLOUNT: 1960 Scan Date: 2023-03-03 08:16:58 Electronically signed by Diana Paulino 08:44:21 VITALS HEIGHT: 63.78 in (162.00 cm) WEIGHT: 185.19 lbs (84.00 kgs) BSA: 1.89 m^2 BMI: 32 kg/m^2 BP: 173 / 84 mmHg BASELINE HR: 67 BPM FINAL 63 y/o/f with AF PULMONARY VEIN CT Normal pulmonary venous anatomy. No LA/ZOHAIB thrombus. STUDY QUALITY: Study quality is good. OTHER FINDINGS: Calcific pulmonary nodule RLL <3 mm. PULMONARY VEIN LEFT ATRIAL APPENDAGE: No Thrombus LEFT SIDE MEASUREMENTS UPPER DIMENSIONS: 1.9 cm UPPER DIMENSIONS (2): 1.6 cm LOWER DIMENSIONS: 1.6 cm LOWER DIMENSIONS (2): 0.9 cm RIGHT SIDE MEASUREMENTS UPPER DIMENSIONS: 2.1 cm UPPER DIMENSIONS (2): 2 cm LOWER DIMENSIONS: 1.9 cm LOWER DIMENSIONS (2): 1.6 cm SCAN INFO TEST TYPE: Venogram SCANNER BI TESTER: [employer] SCANNER MODEL: [employer] CT750 HD DOSE REDUCTION ALGORITHM: Prospective/Step-and-s hoot SCAN COVERAGE ZONE: Pulmonary Veins/ZOHAIB EKG GATED: Yes GENERAL CONTRAST AGENT -- CONTRAST AGENT USED?: Yes TYPE: Omnipaque 350 DOSE: 70 ml RATE: 4 ml/s ROUTE: IV BOLUS TECHNIQUE: Biphasic SCAN DELAY TIME METHOD: Smart Prep SERUM CREATININE: 0.59 mg/dL GFR: 109.42 ml/min/1.73m^2 CREATININE DATE: CT CONTRAST REACTION: None RADIATION DOSE -- DLP: 490.52 SETUP -- DATE OF EVENT: SCAN TYPE: Clinical PATIENT TYPE: Outpatient REASON(S) FOR SCAN: EP procedure planning REFERRING PHYSICIAN: 1) Federico Mcclure FELLOW: ARRON WAYNE DO NURSE: Vero Neal ATTENDING PHYSICIAN: DIANA PAULINO TECHNOLOGIST: Ying Valle RT (R) (CT) BILLING Patient Account [id number] CPT Codes 15815 ICD10 Codes I48.0 Report generated by [employer], a product of [employer] Normal [facility] CT Report Name: DEYA BLOUNT : 1960 Scan Date: 2023-03-03 08:16:58 Electronically signed by Diana Paulino 2023-Robbie-07 08:44:21 VITALS HEIGHT: 63.78 in (162.00 cm) WEIGHT: 185.19 lbs (84.00 kgs) BSA: 1.89 m^2 BMI: 32 kg/m^2 BP: 173 / 84 mmHg BASELINE HR: 67 BPM FINAL IMPRESSION 63 y/o/f with AF PULMONARY VEIN CT Normal pulmonary venous anatomy. No LA/ZOHAIB thrombus. STUDY QUALITY: Study quality is good. OTHER FINDINGS: Calcific pulmonary nodule RLL <3 mm. PULMONARY VEIN LEFT ATRIAL APPENDAGE: No Thrombus LEFT SIDE MEASUREMENTS UPPER DIMENSIONS: 1.9 cm UPPER DIMENSIONS (2): 1.6 cm LOWER DIMENSIONS: 1.6 cm LOWER DIMENSIONS (2): 0.9 cm RIGHT SIDE MEASUREMENTS UPPER DIMENSIONS: 2.1 cm UPPER DIMENSIONS (2): 2 cm LOWER DIMENSIONS: 1.9 cm LOWER DIMENSIONS (2): 1.6 cm SCAN INFO TEST TYPE: Venogram SCANNER BI TESTER: [employer] SCANNER MODEL: [employer] CT750 HD DOSE REDUCTION ALGORITHM: Prospective/Step-and-s hoot SCAN COVERAGE ZONE: Pulmonary Veins/ZOHAIB EKG GATED: Yes GENERAL CONTRAST AGENT -- CONTRAST AGENT USED?: Yes TYPE: Omnipaque 350 DOSE: 70 ml RATE: 4 ml/s ROUTE: IV BOLUS TECHNIQUE: Biphasic SCAN DELAY TIME METHOD: Smart Prep SERUM CREATININE: 0.59 mg/dL GFR: 109.42 ml/min/1.73m^2 CREATININE DATE: CT CONTRAST REACTION: None RADIATION DOSE -- DLP: 490.52 SETUP -- DATE OF EVENT: SCAN TYPE: Clinical PATIENT TYPE: Outpatient REASON(S) FOR SCAN: EP procedure planning REFERRING PHYSICIAN: 1) Federico Mcclure FELLOW: ARRON WAYNE DO NURSE: Vero Neal ATTENDING PHYSICIAN: DIANA PAULINO TECHNOLOGIST: Ying Valle RT (R) (CT) BILLING Patient Account [id number] CPT Codes 31242 ICD10 Codes I48.0 Report generated by [employer], a product of [employer] CARDIOLOGY Diana Paulino DO - 03/03/2023 [facility] CT Report Name: DEYA BLOUNT : 1960 Scan Date: 2023-03-03 08:16:58 Electronically signed by Diana Paulino 08:44:21 VITALS ========= ========= HEIGHT: 63.78 in (162.00 cm) WEIGHT: 185.19 lbs (84.00 kgs) BSA: 1.89 m^2 BMI: 32 kg/m^2 BP: 173 / 84 mmHg BASELINE HR: 67 BPM FINAL IMPRESSION ========= ========= 63 y/o/f with AF PULMONARY VEIN CT Normal pulmonary venous anatomy. No LA/ZOHAIB thrombus. STUDY QUALITY: Study quality is good. OTHER FINDINGS: Calcific pulmonary nodule RLL <3 mm. PULMONARY VEIN ========= ========= LEFT ATRIAL APPENDAGE: No Thrombus LEFT SIDE MEASUREMENTS --------- UPPER DIMENSIONS: 1.9 cm UPPER DIMENSIONS (2): 1.6 cm LOWER DIMENSIONS: 1.6 cm LOWER DIMENSIONS (2): 0.9 cm RIGHT SIDE MEASUREMENTS --------- UPPER DIMENSIONS: 2.1 cm UPPER DIMENSIONS (2): 2 cm LOWER DIMENSIONS: 1.9 cm LOWER DIMENSIONS (2): 1.6 cm SCAN INFO ========= ========= TEST TYPE: Venogram SCANNER BI TESTER: [employer] SCANNER MODEL: [employer] CT750 [place] DOSE REDUCTION ALGORITHM: Prospective/Step-and-s hoot SCAN COVERAGE ZONE: Pulmonary Veins/ZOHAIB EKG GATED: Yes GENERAL --------- CONTRAST AGENT -- CONTRAST AGENT USED?: Yes TYPE: Omnipaque 350 DOSE: 70 ml RATE: 4 ml/s ROUTE: IV BOLUS TECHNIQUE: Biphasic SCAN DELAY TIME METHOD: Smart Prep SERUM CREATININE: 0.59 mg/dL GFR: 109.42 ml/min/1.73m^2 CREATININE DATE: CT CONTRAST REACTION: None RADIATION DOSE -- DLP: 490.52 SETUP -- DATE OF EVENT: SCAN TYPE: Clinical PATIENT TYPE: Outpatient REASON(S) FOR SCAN: EP procedure planning REFERRING PHYSICIAN: 1) Federico Mcclure FELLOW: ARRON WAYNE DO NURSE: Vero Neal ATTENDING PHYSICIAN: DIANA PAULINO TECHNOLOGIST: Ying Valle RT (R) (CT) BILLING ========= ========= Patient Account [id number] CPT Codes 57127 ICD10 Codes I48.0 Report generated by [employer], a product of [employer] [facility] Radiology Study observation (narrative) [facility] CT CARDIAC PULMONARY VENOGRA MOrdered By: Diana Paulino on 03-03-2023 [facility] Work Phone: MAGNESIUMon 03-03-2023 Interpretation and review of laboratory results Normal [facility] Magnesium [Mass/Vol] 2.1 mg/dL 1.6 - 2 .6 mg/dL [facility] Magnesium [Mass/Vol] 2.1 mg/dL Normal 1.6-2.6 [facility] Comment on above: Performed By: #### M DAYNA KERN #### [facility] (DEFAULT) [address] [place] [address] PT,INR,PTTon 03-03-2023 aPTT Coag (Bld) [Time] 24.4 s Normal 24.0-34.3 [facility] Comment on above: Performed By: #### P TPTT #### [facility] (DEFAULT) [address] [place] [address] INR Coag (PPP) [Relative time] 1.0 {INR} Normal 0.9-1.1 [facility] Comment on above: Performed By: #### P TPTT #### [facility] (DEFAULT) [address] [place] [address] PT Coag (PPP) [Time] 13.5 s Normal 11.9-14.2 [facility] Comment on above: Performed By: #### P TPTT #### [facility] (DEFAULT) [address] [place] [address] aPTT Coag (PPP) [Time] 24.4 s [facility] INR Coag (Bld) [Relative time] 1.0 {INR} 0.9 - 1.1 [facility] Interpretation and review of laboratory results Normal [facility] PT Coag (PPP) [Time] 13.5 s [facility] Absolute lymphocyte countOrd ered By: Dr. Khalil on 01-20-2023 Lymphocytes Auto (Unsp spec) [#/Vol] 1.82 10*3/uL 0.83-4.51 [facility] Basophil percentageOrdered B y: Dr. Khalil on 01-20-2023 Basophil percentage Not Reportable [facility] Basophils/100 WBC (Bld) 0.6 % 0-1 [facility] Eosinophils/100 WBC (Bld) 3.2 % 0-5 [facility] Neutrophils (Bld) [#/Vol] 3.6 10*3/uL 2.0-7.7 [facility] Neutrophils/100 WBC (Bld) 57.5 % 47-70 [facility] WBC (Bld) [#/Vol] 6.2 10*3/uL 4.4-11.0 [facility] Blood erythrocytes count (nu mber/volume)Ordered By: Dr. Khalil on 01-20-2023 RBC (Bld) [#/Vol] 4.62 10*6/uL 4.2-5.4 [facility] Blood hemoglobin measurement (mass/volume)Ordered By: Dr. Khalil on 01-20-2023 Hemoglobin (Bld) [Mass/Vol] 14.7 g/dL 12.0-15.0 [facility] Blood lymphocytes/100 leukoc ytesOrdered By: Dr. Khalil on 01-20-2023 Lymphocytes/100 WBC (Bld) 29.2 % 19-41 [facility] Blood monocytes/100 leukocyt esOrdered By: Dr. Khalil on 01-20-2023 Monocytes/100 WBC (Bld) 9.5 % 0-10 [facility] Blood platelet mean volumeOr dered By: Dr. Khalil on 01-20-2023 Platelet mean volume (Bld) [Entitic vol] 13.2 fL 6.2-12.0 [facility] Determination of erythrocyte mean corpuscular volume (MCV)Ordered By: Dr. Khalil on 01-20-2023 MCV (RBC) [Entitic vol] 96.3 fL 81-99 [facility] Erythrocyte sedimentation ra teOrdered By: Dr. Khalil on 01-20-2023 ESR (Bld) [Velocity] 19 mm/h 0-30 [facility] Hematocrit Auto (Bld) [Volum e fraction]Ordered By: Dr. Khalil on 01-20-2023 Hematocrit (Bld) [Volume fraction] 44.5 % 37-47 [facility] Laboratory - Hematology and Cell countsOrdered By: Dr. Khalil on 01-20-2023 Erythrocyte distribution width (RBC) [Entitic vol] 45.9 fL 35.1-43.9 [facility] Erythrocyte distribution width (RBC) [Ratio] 12.9 % 11.6-14.6 [facility] Immature granulocytes/100 WBC (Bld) 0.000 % 0.0-0.9 [facility] Comment on above: IG% - Immature Granu locytes (promyelocytes, myelocytes and metamyelocytes) > 1% indicates that a LEFT SHIFT is Present. MCH (RBC) [Entitic mass] 31.8 pg 27.0-32.0 [facility] Nucleated RBC/100 WBC (Bld) [Ratio] 0 % 0-5 [facility] MCHC Auto (RBC) [Mass/Vol]Or dered By: Dr. Khalil on 01-20-2023 MCHC (RBC) [Mass/Vol] 33.0 g/dL 32-36 [facility] No Panel InformationOrdered By: Dr. Khalil on 01-20-2023 Anti-Nuclear Antibody Screen Negative Negative [facility] Comment on above: Performed at: [address] [id number] Director: Rachid Jaimes PhD, Phone: [phone] Centromere B Antibody Not Reportable [facility] [employer] CLERK Antibody Not Reportable [facility] Platelets bldOrdered By: Dr. Khalil on 01-20-2023 Platelets (Bld) [#/Vol] 177 10*3/uL 150-450 [facility] Serum DNA double strand anti body assay (units/volume)Ordered By: Dr. Khalil on 01-20-2023 DNA double strand Ab Qn (S) Not Reportable [facility] Serum Julia-1 antibody assay (u nits/volume)Ordered By: Dr. Khalil on 01-20-2023 Julia-1 extractable nuclear Ab Qn (S) Not Reportable [facility] Serum Scl-70 extractable nuc lear antibody assay (units/volume)Ordered By: Dr. Khalil on 01-20-2023 SCL-70 extractable nuclear Ab Qn (S) Not Reportable [facility] Serum Alicia extractable nucl ear antibody detectionOrdered By: Dr. Khalil on 01-20-2023 Alicia extractable nuclear Ab Ql (S) Not Reportable [facility] Serum or plasma C reactive p rotein measurement (mass/volume)Ordered By: Dr. Khalil on 01-20-2023 CRP [Mass/Vol] mg/L 0.0-3.0 [facility] Comment on above: C-Reactive Protein ( CRP) provides useful information for thediagnosis, therapy and monitoring of inflammatory processesand associated diseases. For the evaluation of Relative Riskfor Cardiovascular Disease, a High Sensitivity CRP (HSCRP)should be ordered. Serum or plasma uric acid me asurement (mass/volume)Ordered By: Dr. Khalil on 01-20-2023 Urate [Mass/Vol] 5.8 mg/dL 2.6-6.0 [facility] Comment on above: The drugs N-Acetylcy steine and Metamizole may falsely depress this assay. Serum rheumatoid factor dete ctionOrdered By: Dr. Khalil on 01-20-2023 Rheumatoid factor Ql (S) < 10.0 IU/mL <15 [facility] Absolute lymphocyte countOrd ered By: Dr. Doshi on 10-24-2022 Lymphocytes Auto (Unsp spec) [#/Vol] 2.28 10*3/uL 0.83-4.51 [facility] Basophil percentageOrdered B y: Dr. Doshi on 10-24-2022 Basophils/100 WBC (Bld) 0.5 % 0-1 [facility] Chloride [Moles/Vol] 108 mmol/L 98-107 [facility] Cholesterol [Mass/Vol] 212 mg/dL <200 [facility] Comment on above: <200 mg/dL Desirable 200-240 mg/dL Borderline >240 mg/dL High Risk Eosinophils/100 WBC (Bld) 1.7 % 0-5 [facility] Glucose [Mass/Vol] 94 mg/dL 74-106 [facility] Neutrophils (Bld) [#/Vol] 3.0 10*3/uL 2.0-7.7 [facility] Neutrophils/100 WBC (Bld) 50.3 % 47-70 [facility] Potassium [Moles/Vol] 4.1 mmol/L 3.5-5.1 [facility] Comment on above: Slight Hemolysis, Re sult may be falsely increased. Sodium [Moles/Vol] 142 mmol/L 136-145 [facility] Triglyceride [Mass/Vol] 97 mg/dL <199 [facility] Comment on above: The drugs N-Acetylcy steine and Metamizole may falsely depress this assay.Serum Triglycerides Reference Interval Normal <150 mg/dL Borderline high 150 - 199 mg/dL High 200 - 499 mg/dL Very High > or = 500 mg/dL WBC (Bld) [#/Vol] 5.9 10*3/uL 4.4-11.0 [facility] Blood erythrocytes count (nu mber/volume)Ordered By: Dr. Doshi on 10-24-2022 RBC (Bld) [#/Vol] 5.15 10*6/uL 4.2-5.4 [facility] Blood hemoglobin measurement (mass/volume)Ordered By: Dr. Doshi on 10-24-2022 Hemoglobin (Bld) [Mass/Vol] 16.3 g/dL 12.0-15.0 [facility] Blood lymphocytes/100 leukoc ytesOrdered By: Dr. Doshi on 10-24-2022 Lymphocytes/100 WBC (Bld) 38.4 % 19-41 [facility] Blood monocytes/100 leukocyt esOrdered By: Dr. Doshi on 10-24-2022 Monocytes/100 WBC (Bld) 8.9 % 0-10 [facility] Blood platelet mean volumeOr dered By: Dr. Doshi on 10-24-2022 Platelet mean volume (Bld) [Entitic vol] 12.1 fL 6.2-12.0 [facility] Determination of erythrocyte mean corpuscular volume (MCV)Ordered By: Dr. Doshi on 10-24-2022 MCV (RBC) [Entitic vol] 93.8 fL 81-99 [facility] Glucose Glucometer (BldC) [M ass/Vol]Ordered By: Dr. Doshi on 10-24-2022 Glucose [Mass/Vol] 98 mg/dL 74-106 [facility] Comment on above: MANAGEMENT OF PATIEN T CARE PER NURSING PROTOCOL Hematocrit Auto (Bld) [Volum e fraction]Ordered By: Dr. Doshi on 10-24-2022 Hematocrit (Bld) [Volume fraction] 48.3 % 37-47 [facility] Laboratory - Chemistry and C hemistry - challengeOrdered By: Dr. Doshi on 10-24-2022 CO2 [Moles/Vol] 28.0 mmol/L 21.0-32.0 [facility] Urea nitrogen/Creatinine [Mass ratio] 18.0 mg/mg 10-20 [facility] Laboratory - Hematology and Cell countsOrdered By: Dr. Doshi on 10-24-2022 Erythrocyte distribution width (RBC) [Entitic vol] 44.2 fL 35.1-43.9 [facility] Erythrocyte distribution width (RBC) [Ratio] 12.7 % 11.6-14.6 [facility] Immature granulocytes/100 WBC (Bld) 0.200 % 0.0-0.9 [facility] Comment on above: IG% - Immature Granu locytes (promyelocytes, myelocytes and metamyelocytes) > 1% indicates that a LEFT SHIFT is Present. MCH (RBC) [Entitic mass] 31.7 pg 27.0-32.0 [facility] Nucleated RBC/100 WBC (Bld) [Ratio] 0 % 0-5 [facility] MCHC Auto (RBC) [Mass/Vol]Or dered By: Dr. Doshi on 10-24-2022 MCHC (RBC) [Mass/Vol] 33.7 g/dL 32-36 [facility] No Panel InformationOrdered By: Dr. Doshi on 10-24-2022 Estimated Creatinine Clearance Calc 73.11 ml/min [facility] Estimated GFR (MDRD) Amer 115 mL/min >60 [facility] Comment on above: GFR Calc Estimated GFR (MDRD) Non-Af Amer 95 mL/min >60 [facility] Comment on above: Non- GFR Calc Platelets bldOrdered By: Dr. Doshi on 10-24-2022 Platelets (Bld) [#/Vol] 173 10*3/uL 150-450 [facility] Serum or plasma calcium judy urement (mass/volume)Ordered By: Dr. Doshi on 10-24-2022 Calcium [Mass/Vol] 9.3 mg/dL 8.5-10.1 [facility] Serum or plasma cholesterol in HDL measurement (mass/volume)Ordered By: Dr. Doshi on 10-24-2022 Cholesterol in HDL [Mass/Vol] 67 mg/dL >40 [facility] Comment on above: The drugs N-Acetylcy steine and Metamizole may falsely depress this assay. Reference Range HDL <40 mg/dL Low HDL Cholesterol HDL >or= 60 mg/dL High HDL Cholesterol Serum or plasma cholesterol in VLDL measurement (mass/volume)Ordered By: Dr. Doshi on 10-24-2022 Cholesterol in VLDL [Mass/Vol] 19 mg/dL 5-40 [facility] Serum or plasma creatinine m easurement (mass/volume)Ordered By: Dr. Doshi on 10-24-2022 Creatinine [Mass/Vol] 0.66 mg/dL 0.55-1.02 [facility] Comment on above: The validity of the calculated GFR & GFRAA in patients over 70 years has not been determined. Clinical correlation is essential. Serum or plasma low density lipoprotein (LDL) cholesterol measurement (mass/volume)Ordered By: Dr. Doshi on 10-24-2022 Cholesterol in LDL [Mass/Vol] 126 mg/dL 0-130 [facility] Serum or plasma urea nitroge n measurement (mass/volume)Ordered By: Dr. Doshi on 10-24-2022 Urea nitrogen [Mass/Vol] 12 mg/dL 7-18 [facility] Thin prep Papanicolaou smear with manual screeningOrdered By: Dr. Doshi on 10-24-2022 Thin prep Papanicolaou smear with manual screening 6 5-15 [facility] Whole blood hemoglobin A1c/t otal hemoglobin ratio (mass fraction)Ordered By: Dr. Doshi on 10-24-2022 HbA1c (Bld) [Mass fraction] 5.7 % 3.8-5.6 [facility] Comment on above: Normal < 5.7 % Predi abetic 5.7 - 6.4 % Diabetic >or= 6.5 % Please note range changes. Absolute lymphocyte countOrd ered By: Dr. Elena on 10-23-2022 Lymphocytes Auto (Unsp spec) [#/Vol] 2.14 10*3/uL 0.83-4.51 [facility] Basophil percentageOrdered B y: Dr. Elena on 10-23-2022 Basophils/100 WBC (Bld) 0.6 % 0-1 [facility] Chloride [Moles/Vol] 108 mmol/L 98-107 [facility] Eosinophils/100 WBC (Bld) 1.6 % 0-5 [facility] Glucose [Mass/Vol] 108 mg/dL 74-106 [facility] Comment on above: Fasting Glucose resu lt from 100 to 125 mg/dL suggests IMPAIRED HOMEOSTASIS per A.D.A. criteria. Neutrophils (Bld) [#/Vol] 4.0 10*3/uL 2.0-7.7 [facility] Neutrophils/100 WBC (Bld) 57.6 % 47-70 [facility] Potassium [Moles/Vol] 4.1 mmol/L 3.5-5.1 [facility] Sodium [Moles/Vol] 142 mmol/L 136-145 [facility] WBC (Bld) [#/Vol] 6.9 10*3/uL 4.4-11.0 [facility] Blood erythrocytes count (nu mber/volume)Ordered By: Dr. Elena on 10-23-2022 RBC (Bld) [#/Vol] 5.01 10*6/uL 4.2-5.4 [facility] Blood hemoglobin measurement (mass/volume)Ordered By: Dr. Elena on 10-23-2022 Hemoglobin (Bld) [Mass/Vol] 15.9 g/dL 12.0-15.0 [facility] Blood lymphocytes/100 leukoc ytesOrdered By: Dr. Elena on 10-23-2022 Lymphocytes/100 WBC (Bld) 30.9 % 19-41 [facility] Blood monocytes/100 leukocyt esOrdered By: Dr. Elena on 10-23-2022 Monocytes/100 WBC (Bld) 9.0 % 0-10 [facility] Blood platelet mean volumeOr dered By: Dr. Elena on 10-23-2022 Platelet mean volume (Bld) [Entitic vol] 12.1 fL 6.2-12.0 [facility] Determination of erythrocyte mean corpuscular volume (MCV)Ordered By: Dr. Elena on 10-23-2022 MCV (RBC) [Entitic vol] 94.0 fL 81-99 [facility] Hematocrit Auto (Bld) [Volum e fraction]Ordered By: Dr. Elena on 10-23-2022 Hematocrit (Bld) [Volume fraction] 47.1 % 37-47 [facility] INR in Blood by Coagulation assayOrdered By: Dr. Elena on 10-23-2022 INR Coag (Bld) [Relative time] 1.2 {INR} [facility] Laboratory - Chemistry and C hemistry - challengeOrdered By: Dr. Elena on 10-23-2022 CO2 [Moles/Vol] 27.0 mmol/L 21.0-32.0 [facility] Urea nitrogen/Creatinine [Mass ratio] 16.7 mg/mg 10-20 [facility] Laboratory - Chemistry and C hemistry - challengeOrdered By: Dr. Doshi on 10-23-2022 Magnesium [Mass/Vol] 2.4 mg/dL 1.6-2.6 [facility] - CoagulationOrde red By: Dr. Elena on 10-23-2022 aPTT Coag (Bld) [Time] 28.2 s 24.1-36.2 [facility] PT Coag (PPP) [Time] 15.0 s 11.7-14.9 [facility] Laboratory - Hematology and Cell countsOrdered By: Dr. Elena on 10-23-2022 Erythrocyte distribution width (RBC) [Entitic vol] 44.3 fL 35.1-43.9 [facility] Erythrocyte distribution width (RBC) [Ratio] 12.9 % 11.6-14.6 [facility] Immature granulocytes/100 WBC (Bld) 0.300 % 0.0-0.9 [facility] Comment on above: IG% - Immature Granu locytes (promyelocytes, myelocytes and metamyelocytes) > 1% indicates that a LEFT SHIFT is Present. MCH (RBC) [Entitic mass] 31.7 pg 27.0-32.0 [facility] Nucleated RBC/100 WBC (Bld) [Ratio] 0 % 0-5 [facility] MCHC Auto (RBC) [Mass/Vol]Or dered By: Dr. Elena on 10-23-2022 MCHC (RBC) [Mass/Vol] 33.8 g/dL 32-36 [facility] No Panel InformationOrdered By: Dr. Elena on 10-23-2022 Estimated Creatinine Clearance Calc 73.11 ml/min [facility] Estimated GFR (MDRD) Amer 116 mL/min >60 [facility] Comment on above: GFR Calc Estimated GFR (MDRD) Non-Af Amer 96 mL/min >60 [facility] Comment on above: Non- GFR Calc Troponin I High Sensitivity 5 pg/mL 3.0-54.0 [facility] Comment on above: Please Note: New [place] t Units and Gender Specific Reference Ranges. For more information see Policy Stat Procedure Miller High Sensitivity Troponin (TNIH) and attachments. No Panel InformationOrdered By: Dr. Doshi on 10-23-2022 Thyroid Stimulating Hormone (TSH) 1.47 uIU/mL 0.358-3.74 [facility] Platelets bldOrdered By: Dr. Elena on 10-23-2022 Platelets (Bld) [#/Vol] 186 10*3/uL 150-450 [facility] Serum or plasma calcium judy urement (mass/volume)Ordered By: Dr. Elena on 10-23-2022 Calcium [Mass/Vol] 9.4 mg/dL 8.5-10.1 [facility] Serum or plasma creatinine m easurement (mass/volume)Ordered By: Dr. Elena on 10-23-2022 Creatinine [Mass/Vol] 0.66 mg/dL 0.55-1.02 [facility] Comment on above: The validity of the calculated GFR & GFRAA in patients over 70 years has not been determined. Clinical correlation is essential. Serum or plasma urea nitroge n measurement (mass/volume)Ordered By: Dr. Elena on 10-23-2022 Urea nitrogen [Mass/Vol] 11 mg/dL 7-18 [facility] Thin prep Papanicolaou smear with manual screeningOrdered By: Dr. Elena on 10-23-2022 Thin prep Papanicolaou smear with manual screening 7 5-15 [facility] CNOVon 09-02-2022 CNOV Office Visit (UCWSTR ) DEYA BLOUNT ([id number]) 1960 F Date Time Provider Department 09/02/22 12:30 PM BAILEE LARA WSTR During your visit today, we recorded the following information about you: Temperature Pulse Respiration Blood pressure 97.9 degrees 82/minute 16/minute 118/68 Weight 87.1 kg Bailee Lara APRN.CNP 09/02/2022 12:40 PM Signed Subjective Ear Problem Associated symptoms include ear discharge. Pertinent negatives include no headaches or rash. Deya Blount is a 62 year old female who [...] DX W/COLLJ SPEC WHEN PFRMD 01/18/10 Colonoscopy WC inpt PAST SURGICAL HISTORY OF 1999 surgery [...] - Patient will be seen at [facility] in half an hour. She is on their schedule for 1:15 today. She is agreeable with this plan. Bailee Lara APRN.JOSEPH Lara APRN.JOSEPH 09/02/2022 12:39 PM Addendum ASSESSMENT/PLAN: 1. Ear injury, initial encounter - ICD9: 959.09, ICD10: S09.91XA (primary diagnosis) - CONSULT TO ENT 2. Blood in left ear canal - ICD9: 388.69, ICD10: H92.22 - CONSULT TO ENT - Patient will be seen at [facility] in half an hour. She is on their schedule for 1:15 today. She is agreeable with this plan. Bailee Lara APRN.REFRIGERATION SPECIALIST Referring Provider: SELF [[id number]] Allergies As of Date: 09/02/2022 Noted Allergy Reaction AMOXICILLIN 06/25/2004 4 - Hives CEPHALOSPORINS 06/25/2004 4 - Hives Comments: Ke (more content not included)... Normal [facility] Basophil percentageOrdered B y: Enid Allen on 07-29-2022 Chloride [Moles/Vol] 106 mmol/L 98-107 [facility] Glucose [Mass/Vol] 90 mg/dL 74-106 [facility] Potassium [Moles/Vol] 4.1 mmol/L 3.5-5.1 [facility] Sodium [Moles/Vol] 141 mmol/L 136-145 [facility] Laboratory - Chemistry and C hemistry - challengeOrdered By: Enid Allen on 07-29-2022 CO2 [Moles/Vol] 32.0 mmol/L 21.0-32.0 [facility] Urea nitrogen/Creatinine [Mass ratio] 24.7 mg/mg 10-20 [facility] No Panel InformationOrdered By: Enid Allen on 07-29-2022 Estimated GFR (MDRD) Amer 111 mL/min >60 [facility] Comment on above: GFR Calc Estimated GFR (MDRD) Non-Af Amer 92 mL/min >60 [facility] Comment on above: Non- GFR Calc Serum or plasma calcium judy urement (mass/volume)Ordered By: Enid Allen on 07-29-2022 Calcium [Mass/Vol] 9.6 mg/dL 8.5-10.1 [facility] Serum or plasma creatinine m easurement (mass/volume)Ordered By: Enid Allen on 07-29-2022 Creatinine [Mass/Vol] 0.69 mg/dL 0.55-1.02 [facility] Comment on above: The validity of the calculated GFR & GFRAA in patients over 70 years has not been determined. Clinical correlation is essential. Serum or plasma urea nitroge n measurement (mass/volume)Ordered By: Enid Allen on 07-29-2022 Urea nitrogen [Mass/Vol] 17 mg/dL 7-18 [facility] Thin prep Papanicolaou smear with manual screeningOrdered By: Enid Allen on 07-29-2022 Thin prep Papanicolaou smear with manual screening 3 5-15 [facility] Absolute lymphocyte counton 06-15-2022 Lymphocytes Auto (Unsp spec) [#/Vol] 2.67 10*3/uL 0.83-4.51 [facility] Work Phone: Basophil percentageon 2021 Basophils/100 WBC (Bld) 0.5 % 0-1 [facility] Work Phone: Chloride [Moles/Vol] 106 mmol/L 98-107 [facility] Work Phone: Eosinophils/100 WBC (Bld) 1.3 % 0-5 [facility] Work Phone: Glucose [Mass/Vol] 87 mg/dL 74-106 [facility] Work Phone: Neutrophils (Bld) [#/Vol] 5.1 10*3/uL 2.0-7.7 [facility] Work Phone: Neutrophils/100 WBC (Bld) 57.9 % 47-70 [facility] Work Phone: Potassium [Moles/Vol] 3.9 mmol/L 3.5-5.1 [facility] Work Phone: Sodium [Moles/Vol] 141 mmol/L 136-145 [facility] Work Phone: WBC (Bld) [#/Vol] 8.8 10*3/uL 4.4-11.0 [facility] Work Phone: Blood erythrocytes count (nu mber/volume)on 06-15-2022 RBC (Bld) [#/Vol] 4.24 10*6/uL 4.2-5.4 [facility] Work Phone: Blood hemoglobin measurement (mass/volume)on 06-15-2022 Hemoglobin (Bld) [Mass/Vol] 13.3 g/dL 12.0-15.0 [facility] Work Phone: Blood lymphocytes/100 leukoc yteson 06-15-2022 Lymphocytes/100 WBC (Bld) 30.5 % 19-41 [facility] Work Phone: Blood monocytes/100 leukocyt eson 06-15-2022 Monocytes/100 WBC (Bld) 9.6 % 0-10 [facility] Work Phone: Blood platelet mean volumeon 06-15-2022 Platelet mean volume (Bld) [Entitic vol] 12.1 fL 6.2-12.0 [facility] Work Phone: Determination of erythrocyte mean corpuscular volume (MCV)on 06-15-2022 MCV (RBC) [Entitic vol] 93.9 fL 81-99 [facility] Work Phone: Hematocrit Auto (Bld) [Volum e fraction]on 06-15-2022 Hematocrit (Bld) [Volume fraction] 39.8 % 37-47 [facility] Work Phone: Laboratory - Chemistry and C hemistry - challengeon 06-15-2022 CO2 [Moles/Vol] 28.0 mmol/L 21.0-32.0 [facility] Work Phone: Natriuretic peptide B (Bld) [Mass/Vol] 194.2 pg/mL 0-100 [facility] Work Phone: Urea nitrogen/Creatinine [Mass ratio] 23.1 mg/mg 10-20 [facility] Work Phone: Laboratory - Hematology and Cell countson 06-15-2022 Erythrocyte distribution width (RBC) [Entitic vol] 43.9 fL 35.1-43.9 [facility] Work Phone: Erythrocyte distribution width (RBC) [Ratio] 12.8 % 11.6-14.6 [facility] Work Phone: Immature granulocytes/100 WBC (Bld) 0.200 % 0.0-0.9 [facility] Work Phone: Comment on above: IG% - Immature Granu locytes (promyelocytes, myelocytes and metamyelocytes) > 1% indicates that a LEFT SHIFT is Present. MCH (RBC) [Entitic mass] 31.4 pg 27.0-32.0 [facility] Work Phone: Nucleated RBC/100 WBC (Bld) [Ratio] 0 % 0-5 [facility] Work Phone: MCHC Auto (RBC) [Mass/Vol]on 06-15-2022 MCHC (RBC) [Mass/Vol] 33.4 g/dL 32-36 [facility] Work Phone: No Panel Informationon 06-15 Estimated GFR (MDRD) Amer 110 mL/min >60 [facility] Work Phone: Comment on above: GFR Calc Estimated GFR (MDRD) Non-Af Amer 91 mL/min >60 [facility] Work Phone: Comment on above: Non- GFR Calc Platelets bldon 06-15-2022 Platelets (Bld) [#/Vol] 168 10*3/uL 150-450 [facility] Work Phone: Serum or plasma calcium judy urement (mass/volume)on 06-15-2022 Calcium [Mass/Vol] 8.9 mg/dL 8.5-10.1 [facility] Work Phone: Serum or plasma creatinine m easurement (mass/volume)on 06-15-2022 Creatinine [Mass/Vol] 0.69 mg/dL 0.55-1.02 [facility] Work Phone: Comment on above: The validity of the calculated GFR & GFRAA in patients over 70 years has not been determined. Clinical correlation is essential. Serum or plasma urea nitroge n measurement (mass/volume)on 06-15-2022 Urea nitrogen [Mass/Vol] 16 mg/dL 7-18 [facility] Work Phone: Thin prep Papanicolaou smear with manual screeningon 06-15-2022 Thin prep Papanicolaou smear with manual screening 7 5-15 [facility] Work Phone: Basophil percentageon 2021 Chloride [Moles/Vol] 109 mmol/L 98-107 [facility] Work Phone: Glucose [Mass/Vol] 96 mg/dL 74-106 [facility] Work Phone: Potassium [Moles/Vol] 4.2 mmol/L 3.5-5.1 [facility] Work Phone: Sodium [Moles/Vol] 142 mmol/L 136-145 [facility] Work Phone: Laboratory - Chemistry and C hemistry - challengeon 03-16-2022 CO2 [Moles/Vol] 32.0 mmol/L 21.0-32.0 [facility] Work Phone: Urea nitrogen/Creatinine [Mass ratio] 23.2 mg/mg 07-16 [facility] Work Phone: No Panel Informationon 03-16 Estimated Creatinine Clearance Calc 66.10 ml/min [facility] Work Phone: Estimated GFR (MDRD) Amer 103 mL/min >60 [facility] Work Phone: Comment on above: GFR Calc Estimated GFR (MDRD) Non-Af Amer 85 mL/min >60 [facility] Work Phone: Comment on above: Non- GFR Calc Serum or plasma calcium judy urement (mass/volume)on 03-16-2022 Calcium [Mass/Vol] 9.2 mg/dL 8.5-10.1 [facility] Work Phone: Serum or plasma creatinine m easurement (mass/volume)on 03-16-2022 Creatinine [Mass/Vol] 0.73 mg/dL 0.55-1.02 [facility] Work Phone: Comment on above: The validity of the calculated GFR & GFRAA in patients over 70 years has not been determined. Clinical correlation is essential. Serum or plasma urea nitroge n measurement (mass/volume)on 03-16-2022 Urea nitrogen [Mass/Vol] 17 mg/dL 7-18 [facility] Work Phone: Thin prep Papanicolaou smear with manual screeningon 03-16-2022 Thin prep Papanicolaou smear with manual screening 1 5-15 [facility] Work Phone: Absolute lymphocyte counton 02-17-2022 Lymphocytes Auto (Unsp spec) [#/Vol] 2.85 10*3/uL 0.83-4.51 [facility] Work Phone: Basophil percentageon 2021 Basophils/100 WBC (Bld) 0.5 % 0-1 [facility] Work Phone: Bilirubin [Mass/Vol] 0.30 mg/dL 0.20-1.00 [facility] Work Phone: Comment on above: For patients on eltr ombopag therapy, use of Dimension Miller TBIL is not recommended. Chloride [Moles/Vol] 109 mmol/L 98-107 [facility] Work Phone: Eosinophils/100 WBC (Bld) 1.9 % 0-5 [facility] Work Phone: Glucose [Mass/Vol] 102 mg/dL 74-106 [facility] Work Phone: Comment on above: Fasting Glucose resu lt from 100 to 125 mg/dL suggests IMPAIRED HOMEOSTASIS per A.D.A. criteria. Neutrophils (Bld) [#/Vol] 4.2 10*3/uL 2.0-7.7 [facility] Work Phone: Neutrophils/100 WBC (Bld) 51.2 % 47-70 [facility] Work Phone: Potassium [Moles/Vol] 3.9 mmol/L 3.5-5.1 [facility] Work Phone: Protein [Mass/Vol] 6.6 g/dL 6.4-8.2 [facility] Work Phone: Sodium [Moles/Vol] 141 mmol/L 136-145 [facility] Work Phone: WBC (Bld) [#/Vol] 8.3 10*3/uL 4.4-11.0 [facility] Work Phone: Blood erythrocytes count (nu mber/volume)on 02-17-2022 RBC (Bld) [#/Vol] 4.64 10*6/uL 4.2-5.4 [facility] Work Phone: Blood hemoglobin measurement (mass/volume)on 02-17-2022 Hemoglobin (Bld) [Mass/Vol] 14.1 g/dL 12.0-15.0 [facility] Work Phone: Blood lymphocytes/100 leukoc yteson 02-17-2022 Lymphocytes/100 WBC (Bld) 34.3 % 19-41 [facility] Work Phone: Blood monocytes/100 leukocyt eson 02-17-2022 Monocytes/100 WBC (Bld) 11.9 % 0-10 [facility] Work Phone: Blood platelet mean volumeon 02-17-2022 Platelet mean volume (Bld) [Entitic vol] 13.4 fL 6.2-12.0 [facility] Work Phone: Determination of erythrocyte mean corpuscular volume (MCV)on 02-17-2022 MCV (RBC) [Entitic vol] 93.3 fL 81-99 [facility] Work Phone: Hematocrit Auto (Bld) [Volum e fraction]on 02-17-2022 Hematocrit (Bld) [Volume fraction] 43.3 % 37-47 [facility] Work Phone: Laboratory - Chemistry and C hemistry - challengeon 02-17-2022 ALP [Catalytic activity/Vol] 89 U/L 45-117 [facility] Work Phone: ALT [Catalytic activity/Vol] 44 U/L 13-56 [facility] Work Phone: CO2 [Moles/Vol] 28.0 mmol/L 21.0-32.0 [facility] Work Phone: Globulin (S) [Mass/Vol] 3.1 g/dL 2.2-4.2 [facility] Work Phone: Magnesium [Mass/Vol] 2.5 mg/dL 1.6-2.6 [facility] Work Phone: Urea nitrogen/Creatinine [Mass ratio] 27.0 mg/mg 10-20 [facility] Work Phone: Laboratory - Hematology and Cell countson 02-17-2022 Erythrocyte distribution width (RBC) [Entitic vol] 44.5 fL 35.1-43.9 [facility] Work Phone: Erythrocyte distribution width (RBC) [Ratio] 13.2 % 11.6-14.6 [facility] Work Phone: Immature granulocytes/100 WBC (Bld) 0.200 % 0.0-0.9 [facility] Work Phone: [phone] Comment on above: IG% - Immature Granu locytes (promyelocytes, myelocytes and metamyelocytes) > 1% indicates that a LEFT SHIFT is Present. MCH (RBC) [Entitic mass] 30.4 pg 27.0-32.0 [facility] Work Phone: Nucleated RBC/100 WBC (Bld) [Ratio] 0 % 0-5 [facility] Work Phone: MCHC Auto (RBC) [Mass/Vol]on 02-17-2022 MCHC (RBC) [Mass/Vol] 32.6 g/dL 32-36 [facility] Work Phone: No Panel Informationon 02-17 Estimated GFR (MDRD) Amer 108 mL/min >60 [facility] Work Phone: Comment on above: GFR Calc Estimated GFR (MDRD) Non-Af Amer 89 mL/min >60 [facility] Work Phone: Comment on above: Non- GFR Calc Platelets bldon 02-17-2022 Platelets (Bld) [#/Vol] 189 10*3/uL 150-450 [facility] Work Phone: Serum or plasma albumin judy urement (mass/volume)on 02-17-2022 Albumin [Mass/Vol] 3.5 g/dL 3.2-5.0 [facility] Work Phone: Serum or plasma albumin/glob ulin mass ratioon 02-17-2022 Albumin/Globulin [Mass ratio] 1.1 {ratio} 0.9-2.4 [facility] Work Phone: Serum or plasma calcium judy urement (mass/volume)on 02-17-2022 Calcium [Mass/Vol] 8.9 mg/dL 8.5-10.1 [facility] Work Phone: Serum or plasma creatinine m easurement (mass/volume)on 02-17-2022 Creatinine [Mass/Vol] 0.70 mg/dL 0.55-1.02 [facility] Work Phone: Comment on above: The validity of the calculated GFR & GFRAA in patients over 70 years has not been determined. Clinical correlation is essential. Serum or plasma urea nitroge n measurement (mass/volume)on 02-17-2022 Urea nitrogen [Mass/Vol] 19 mg/dL 7-18 [facility] Work Phone: Thin prep Papanicolaou smear with manual screeningon 02-17-2022 Thin prep Papanicolaou smear with manual screening 20 U/L 15-37 [facility] Work Phone: Thin prep Papanicolaou smear with manual screening 4 5-15 [facility] Work Phone: Absolute lymphocyte counton 02-03-2022 Lymphocytes Auto (Unsp spec) [#/Vol] 1.42 10*3/uL 0.83-4.51 [facility] Work Phone: [phone] Basophil percentageon 2021 Basophils/100 WBC (Bld) 0.2 % 0-1 [facility] Work Phone: [phone] Bilirubin [Mass/Vol] 0.40 mg/dL 0.20-1.00 [facility] Work Phone: [phone] Comment on above: For patients on eltr ombopag therapy, use of Dimension Miller TBIL is not recommended. Chloride [Moles/Vol] 109 mmol/L 98-107 [facility] Work Phone: Eosinophils/100 WBC (Bld) 0.0 % 0-5 [facility] Work Phone: Glucose [Mass/Vol] 106 mg/dL 74-106 [facility] Work Phone: Comment on above: Fasting Glucose resu lt from 100 to 125 mg/dL suggests IMPAIRED HOMEOSTASIS per A.D.A. criteria. Neutrophils (Bld) [#/Vol] 4.3 10*3/uL 2.0-7.7 [facility] Work Phone: Neutrophils/100 WBC (Bld) 65.1 % 47-70 [facility] Work Phone: Potassium [Moles/Vol] 3.3 mmol/L 3.5-5.1 [facility] Work Phone: [phone] Protein [Mass/Vol] 6.8 g/dL 6.4-8.2 [facility] Work Phone: [phone] Sodium [Moles/Vol] 140 mmol/L 136-145 [facility] Work Phone: [phone] WBC (Bld) [#/Vol] 6.6 10*3/uL 4.4-11.0 [facility] Work Phone: Blood erythrocytes count (nu mber/volume)on 02-03-2022 RBC (Bld) [#/Vol] 4.89 10*6/uL 4.2-5.4 [facility] Work Phone: Blood hemoglobin measurement (mass/volume)on 02-03-2022 Hemoglobin (Bld) [Mass/Vol] 15.0 g/dL 12.0-15.0 [facility] Work Phone: Blood lymphocytes/100 leukoc yteson 02-03-2022 Lymphocytes/100 WBC (Bld) 21.4 % 19-41 [facility] Work Phone: Blood monocytes/100 leukocyt eson 02-03-2022 Monocytes/100 WBC (Bld) 13.0 % 0-10 [facility] Work Phone: Blood platelet mean volumeon 02-03-2022 Platelet mean volume (Bld) [Entitic vol] 12.5 fL 6.2-12.0 [facility] Work Phone: Determination of erythrocyte mean corpuscular volume (MCV)on 02-03-2022 MCV (RBC) [Entitic vol] 91.6 fL 81-99 [facility] Work Phone: Hematocrit Auto (Bld) [Volum e fraction]on 02-03-2022 Hematocrit (Bld) [Volume fraction] 44.8 % 37-47 [facility] Work Phone: Laboratory - Chemistry and C hemistry - challengeon 02-03-2022 ALP [Catalytic activity/Vol] 85 U/L 45-117 [facility] Work Phone: ALT [Catalytic activity/Vol] 31 U/L 13-56 [facility] Work Phone: CO2 [Moles/Vol] 24.0 mmol/L 21.0-32.0 [facility] Work Phone: Globulin (S) [Mass/Vol] 3.6 g/dL 2.2-4.2 [facility] Work Phone: Urea nitrogen/Creatinine [Mass ratio] 18.6 mg/mg 10-20 [facility] Phone: Laboratory - Hematology and Cell countson 02-03-2022 Erythrocyte distribution width (RBC) [Entitic vol] 43.2 fL 35.1-43.9 [facility] Work Phone: Erythrocyte distribution width (RBC) [Ratio] 12.8 % 11.6-14.6 [facility] Work Phone: Immature granulocytes/100 WBC (Bld) 0.300 % 0.0-0.9 [facility] Work Phone: Comment on above: IG% - Immature Granu locytes (promyelocytes, myelocytes and metamyelocytes) > 1% indicates that a LEFT SHIFT is Present. MCH (RBC) [Entitic mass] 30.7 pg 27.0-32.0 [facility] Work Phone: Nucleated RBC/100 WBC (Bld) [Ratio] 0 % 0-5 [facility] Work Phone: MCHC Auto (RBC) [Mass/Vol]on 02-03-2022 MCHC (RBC) [Mass/Vol] 33.5 g/dL 32-36 [facility] Work Phone: No Panel Informationon 02-03 Estimated Creatinine Clearance Calc 89.35 ml/min [facility] Work Phone: Estimated GFR (MDRD) Amer 148 mL/min >60 [facility] Work Phone: Comment on above: GFR Calc Estimated GFR (MDRD) Non-Af Amer 122 mL/min >60 [facility] Work Phone: Comment on above: Non- GFR Calc Platelets bldon 02-03-2022 Platelets (Bld) [#/Vol] 178 10*3/uL 150-450 [facility] Work Phone: Serum or plasma albumin judy urement (mass/volume)on 02-03-2022 Albumin [Mass/Vol] 3.2 g/dL 3.2-5.0 [facility] Work Phone: Serum or plasma albumin/glob ulin mass ratioon 02-03-2022 Albumin/Globulin [Mass ratio] 0.9 {ratio} 0.9-2.4 [facility] Work Phone: Serum or plasma calcium judy urement (mass/volume)on 02-03-2022 Calcium [Mass/Vol] 8.6 mg/dL 8.5-10.1 [facility] Work Phone: Serum or plasma creatinine m easurement (mass/volume)on 02-03-2022 Creatinine [Mass/Vol] 0.54 mg/dL 0.55-1.02 [facility] Work Phone: Comment on above: The validity of the calculated GFR & GFRAA in patients over 70 years has not been determined. Clinical correlation is essential. Serum or plasma urea nitroge n measurement (mass/volume)on 02-03-2022 Urea nitrogen [Mass/Vol] 10 mg/dL 7-18 [facility] Work Phone: Thin prep Papanicolaou smear with manual screeningon 02-03-2022 Thin prep Papanicolaou smear with manual screening 19 U/L 15-37 [facility] Work Phone: Thin prep Papanicolaou smear with manual screening 7 5-15 [facility] Work Phone: Absolute lymphocyte counton 02-02-2022 Lymphocytes Auto (Unsp spec) [#/Vol] 1.84 10*3/uL 0.83-4.51 [facility] Work Phone: Basophil percentageon 2021 Basophils/100 WBC (Bld) 0.4 % 0-1 [facility] Work Phone: Chloride [Moles/Vol] 104 mmol/L 98-107 [facility] Work Phone: Eosinophils/100 WBC (Bld) 0.6 % 0-5 [facility] Work Phone: Glucose [Mass/Vol] 169 mg/dL 74-106 [facility] Work Phone: Comment on above: Fasting Glucose resu lt greater than or equal to 126 mg/dL suggests DIABETES MELLITUS per A.D.A. criteria. Neutrophils (Bld) [#/Vol] 5.0 10*3/uL 2.0-7.7 [facility] Work Phone: Neutrophils/100 WBC (Bld) 62.8 % 47-70 [facility] Work Phone: Potassium [Moles/Vol] 3.4 mmol/L 3.5-5.1 [facility] Work Phone: Sodium [Moles/Vol] 139 mmol/L 136-145 [facility] Work Phone: WBC (Bld) [#/Vol] 8.0 10*3/uL 4.4-11.0 [facility] Work Phone: Blood erythrocytes count (nu mber/volume)on 02-02-2022 RBC (Bld) [#/Vol] 5.20 10*6/uL 4.2-5.4 [facility] Work Phone: Blood hemoglobin measurement (mass/volume)on 02-02-2022 Hemoglobin (Bld) [Mass/Vol] 16.0 g/dL 12.0-15.0 [facility] Work Phone: Blood lymphocytes/100 leukoc yteson 02-02-2022 Lymphocytes/100 WBC (Bld) 23.1 % 19-41 [facility] Work Phone: Blood monocytes/100 leukocyt eson 02-02-2022 Monocytes/100 WBC (Bld) 12.7 % 0-10 [facility] Work Phone: Blood platelet mean volumeon 02-02-2022 Platelet mean volume (Bld) [Entitic vol] 12.4 fL 6.2-12.0 [facility] Work Phone: Determination of erythrocyte mean corpuscular volume (MCV)on 02-02-2022 MCV (RBC) [Entitic vol] 91.5 fL 81-99 [facility] Work Phone: Hematocrit Auto (Bld) [Volum e fraction]on 02-02-2022 Hematocrit (Bld) [Volume fraction] 47.6 % 37-47 [facility] Work Phone: INR in Blood by Coagulation assayon 02-02-2022 INR Coag (Bld) [Relative time] 1.4 {INR} [facility] Work Phone: Laboratory - Chemistry and C hemistry - challengeon 02-02-2022 CO2 [Moles/Vol] 24.0 mmol/L 21.0-32.0 [facility] Work Phone: [phone] Magnesium [Mass/Vol] 2.2 mg/dL 1.6-2.6 [facility] Work Phone: Natriuretic peptide B (Bld) [Mass/Vol] 72.5 pg/mL 0-100 [facility] Work Phone: Urea nitrogen/Creatinine [Mass ratio] 16.4 mg/mg 10-20 [facility] Work Phone: Laboratory - Coagulationon 0 02-02-2022 aPTT Coag (Bld) [Time] 29.5 s 24.1-36.2 [facility] Work Phone: PT Coag (PPP) [Time] 17.0 s 11.7-14.9 [facility] Work Phone: [phone] Laboratory - Hematology and Cell countson 02-02-2022 Erythrocyte distribution width (RBC) [Entitic vol] 43.2 fL 35.1-43.9 [facility] Work Phone: Erythrocyte distribution width (RBC) [Ratio] 12.9 % 11.6-14.6 [facility] Work Phone: [phone] Immature granulocytes/100 WBC (Bld) 0.400 % 0.0-0.9 [facility] Work Phone: Comment on above: IG% - Immature Granu locytes (promyelocytes, myelocytes and metamyelocytes) > 1% indicates that a LEFT SHIFT is Present. MCH (RBC) [Entitic mass] 30.8 pg 27.0-32.0 [facility] Work Phone: Nucleated RBC/100 WBC (Bld) [Ratio] 0 % 0-5 [facility] Work Phone: MCHC Auto (RBC) [Mass/Vol]on 02-02-2022 MCHC (RBC) [Mass/Vol] 33.6 g/dL 32-36 [facility] Work Phone: No Panel Informationon 02-02 SARS-CoV-2 & FLU Antigen (Rapid) SARS-CoV-2 (COVID 19) [facility] Work Phone: Estimated Creatinine Clearance Calc 56.77 ml/min [facility] Work Phone: Estimated GFR (MDRD) Amer 87 mL/min >60 [facility] Work Phone: Comment on above: GFR Calc Estimated GFR (MDRD) Non-Af Amer 72 mL/min >60 [facility] Work Phone: Comment on above: Non- GFR Calc Thyroid Stimulating Hormone (TSH) 1.72 uIU/mL 0.358-3.74 [facility] Work Phone: Troponin I High Sensitivity 8 pg/mL 3.0-54.0 [facility] Work Phone: Comment on above: Please Note: New [place] t Units and Gender Specific Reference Ranges. For more information see Policy Stat Procedure Miller High Sensitivity Troponin (TNIH) and attachments. Platelets bldon 02-02-2022 Platelets (Bld) [#/Vol] 207 10*3/uL 150-450 [facility] Work Phone: Serum or plasma calcium judy urement (mass/volume)on 02-02-2022 Calcium [Mass/Vol] 8.8 mg/dL 8.5-10.1 [facility] Work Phone: Serum or plasma creatinine m easurement (mass/volume)on 02-02-2022 Creatinine [Mass/Vol] 0.85 mg/dL 0.55-1.02 [facility] Work Phone: Comment on above: The validity of the calculated GFR & GFRAA in patients over 70 years has not been determined. Clinical correlation is essential. Serum or plasma urea nitroge n measurement (mass/volume)on 02-02-2022 Urea nitrogen [Mass/Vol] 14 mg/dL 7-18 [facility] Work Phone: Thin prep Papanicolaou smear with manual screeningon 02-02-2022 Thin prep Papanicolaou smear with manual screening 11 5-15 [facility] Work Phone: Basophil percentageon 2021 Chloride [Moles/Vol] 109 mmol/L 98-107 [facility] Work Phone: Glucose [Mass/Vol] 107 mg/dL 74-106 [facility] Work Phone: Comment on above: Fasting Glucose resu lt from 100 to 125 mg/dL suggests IMPAIRED HOMEOSTASIS per A.D.A. criteria. Potassium [Moles/Vol] 4.0 mmol/L 3.5-5.1 [facility] Work Phone: Sodium [Moles/Vol] 142 mmol/L 136-145 [facility] Work Phone: Laboratory - Chemistry and C hemistry - challengeon 12-19-2021 CO2 [Moles/Vol] 30.0 mmol/L 21.0-32.0 [facility] Work Phone: Urea nitrogen/Creatinine [Mass ratio] 17.4 mg/mg 10-20 [facility] Work Phone: No Panel Informationon 12-19 Estimated Creatinine Clearance Calc 87.96 ml/min [facility] Work Phone: Estimated GFR (MDRD) Amer 137 mL/min >60 [facility] Work Phone: Comment on above: GFR Calc Estimated GFR (MDRD) Non-Af Amer 113 mL/min >60 [facility] Work Phone: Comment on above: Non- GFR Calc Serum or plasma calcium judy urement (mass/volume)on 12-19-2021 Calcium [Mass/Vol] 8.9 mg/dL 8.5-10.1 [facility] Work Phone: Serum or plasma creatinine m easurement (mass/volume)on 12-19-2021 Creatinine [Mass/Vol] 0.58 mg/dL 0.55-1.02 [facility] Work Phone: Comment on above: The validity of the calculated GFR & GFRAA in patients over 70 years has not been determined. Clinical correlation is essential. Serum or plasma urea nitroge n measurement (mass/volume)on 12-19-2021 Urea nitrogen [Mass/Vol] 10 mg/dL 7-18 [facility] Work Phone: Thin prep Papanicolaou smear with manual screeningon 12-19-2021 Thin prep Papanicolaou smear with manual screening 3 5-15 [facility] Work Phone: No Panel Information SARS-CoV-2 & FLU Antigen (Rapid) SARS-CoV-2 (COVID 19) [facility] Work Phone: Vital Signs Date Time Vital Sign Value Performing Clinician Facility 10-13-2023 14:49-0500 Body height 160.[address] Virgilio Alicia Work Phone: [facility] 10-13-2023 14:44-0500 Body mass index (BMI) [Ratio] 34.9 kg/m2 Dr. Virgilio Alicia Work Phone: [facility] 10-13-2023 14:44-0500 Body weight 89.[address] Virgilio Alicia Work Phone: [facility] 10-13-2023 14:44-0500 Diastolic blood pressure 84 mm[Hg] Dr. Virgilio Alicia Work Phone: [facility] 10-13-2023 14:44-0500 Systolic blood pressure 136 mm[Hg] Dr. Virgilio Alicia Work Phone: [facility] 09-24-2023 10:03-0500 Body mass index (BMI) [Ratio] 34.3 kg/m2 Dr. Virgilio Alicia Work Phone: [facility] 09-24-2023 10:03-0500 Body weight 87.[address] Virgilio Alicia Work Phone: [facility] 09-24-2023 10:03-0500 Diastolic blood pressure 78 mm[Hg] Dr. Virgilio Alicia Work Phone: [facility] 09-24-2023 10:03-0500 Heart rate 68 /min Dr. Virgilio Alicia Work Phone: [facility] 09-24-2023 10:03-0500 Respiratory rate 18 /min Dr. Virgilio Alicia Work Phone: [facility] 09-24-2023 10:03-0500 SaO2% (BldA) [Mass fraction] 95 % Dr. Virgilio Alicia Work Phone: [facility] 09-24-2023 10:03-0500 Systolic blood pressure 122 mm[Hg] Dr. Virgilio Alicia Work Phone: [facility] 04-05-2023 14:09-0400 Body temperature 97.81 [degF] Mariangel Sparks MEDICAL DEVICE ENGINEER.REFRIGERATION SPECIALIST Work Phone: [facility] 04-05-2023 14:09-0400 Body weight 86.09 kg Mariangel Sparks MEDICAL DEVICE ENGINEER.REFRIGERATION SPECIALIST Work Phone: [facility] 04-05-2023 14:09-0400 Diastolic blood pressure 88 mm[Hg] Mariangel Sparks MEDICAL DEVICE ENGINEER.REFRIGERATION SPECIALIST Work Phone: [facility] 04-05-2023 14:09-0400 Heart rate 76 /min Mariangel Sparks MEDICAL DEVICE ENGINEER.REFRIGERATION SPECIALIST Work Phone: [facility] 04-05-2023 14:09-0400 Respiratory rate 18 /min Mariangel Sparks MEDICAL DEVICE ENGINEER.REFRIGERATION SPECIALIST Work Phone: [facility] 04-05-2023 14:09-0400 SaO2% (BldA) [Mass fraction] 96 % Mariangel Sparks MEDICAL DEVICE ENGINEER.REFRIGERATION SPECIALIST Work Phone: [facility] 04-05-2023 14:09-0400 Systolic blood pressure 132 mm[Hg] Marinagel Sparks APRN.REFRIGERATION SPECIALIST Work Phone: [facility] 03-18-2023 13:21-0400 Body weight 86.[address] Virgilio Alicia Work Phone: [facility] 03-18-2023 13:21-0400 Diastolic blood pressure 83 mm[Hg] Dr. Virgilio Alicia Work Phone: [facility] 03-18-2023 13:21-0400 Heart rate 77 /min Dr. Virgilio Alicia Work Phone: [facility] 03-18-2023 13:21-0400 Respiratory rate 16 /min Dr. Virgilio Alicia Work Phone: [facility] 03-18-2023 13:21-0400 Systolic blood pressure 124 mm[Hg] Dr. Virgilio Alicia Work Phone: [facility] 03-18-2023 10:50-0400 Body height 160.[address] Virgilio Alicia Work Phone: [facility] 03-04-2023 08:13-0400 Body height 162.6 cm Liya Rutledge MEDICAL DEVICE ENGINEER-REFRIGERATION SPECIALIST Work Phone: [facility] 03-04-2023 08:13-0400 Body mass index (BMI) [Ratio] 30.9 kg/m2 Liya Rutledge MEDICAL DEVICE ENGINEER-REFRIGERATION SPECIALIST Work Phone: [facility] 03-04-2023 08:13-0400 Body weight 81.65 kg Liya Rutledge MEDICAL DEVICE ENGINEER-REFRIGERATION SPECIALIST Work Phone: [facility] 03-03-2023 18:43-0400 Heart rate 90 /min Federico Mcclure MD Work Phone: [phone] [place] [address] 03-03-2023 18:43-0400 SaO2% (BldA) [Mass fraction] 96 % Federico Mcclure MD Work Phone: [phone] [place] [address] 03-03-2023 18:30-0400 Diastolic blood pressure 55 mm[Hg] Federico Mcclure MD Work Phone: 4(497)849-491641 [address] 03-03-2023 18:30-0400 Respiratory rate 19 /min Federico Mcclure MD Work Phone: 4([phone] [place] [address] 03-03-2023 18:30-0400 Systolic blood pressure 112 mm[Hg] Federico Mcclure MD Work Phone: [phone] [place] [address] 03-03-2023 15:04-0400 Body temperature 97.59 [degF] Federico Mcclure MD Work Phone: 3([phone])[phone] [address] 03-03-2023 08:57-0400 Body height 162.6 cm Federico Mcclure MD Work Phone: [phone] [place] [address] 03-03-2023 08:57-0400 Body mass index (BMI) [Ratio] 30.9 kg/m2 Federico Mcclure MD Work Phone: [phone] [place] [address] 03-03-2023 08:57-0400 Body weight 81.65 kg Federico Mcclure MD Work Phone: [phone] [place] [address] 11-12-2022 15:22-0500 Body weight 87.[address] Virgilio Alicia Work Phone: [facility] 11-12-2022 15:22-0500 Diastolic blood pressure 71 mm[Hg] Dr. Virgilio Alicia Work Phone: [facility] 11-12-2022 15:22-0500 Heart rate 73 /min Dr. Virgilio Alicia Work Phone: [facility] 11-12-2022 15:22-0500 Respiratory rate 20 /min Dr. Virgilio Alicia Work Phone: [facility] 11-12-2022 15:22-0500 Systolic blood pressure 119 mm[Hg] Dr. Virgilio Alicia Work Phone: [facility] 11-12-2022 08:28-0500 Body height 160.[address] Virgilio Alicia Work Phone: [facility] 10-24-2022 11:05-0500 Body mass index (BMI) [Ratio] 35.4 kg/m2 Dr. Virgilio Alicia Work Phone: [facility] 10-24-2022 10:29-0500 Diastolic blood pressure 73 mm[Hg] Dr. Virgilio Alicia Work Phone: [facility] 10-24-2022 10:29-0500 Heart rate 77 /min Dr. Virgilio Alicia Work Phone: [facility] 10-24-2022 10:29-0500 Systolic blood pressure 123 mm[Hg] Dr. Virgilio Alicia Work Phone: [facility] 10-24-2022 10:26-0500 Body temperature 97.4 [degF] Dr. Virgilio Alicia Work Phone: [facility] 10-24-2022 10:26-0500 Respiratory rate 16 /min Dr. Virgilio Alicia Work Phone: [facility] 10-24-2022 10:26-0500 SaO2% (BldA) [Mass fraction] 97 % Dr. Virgilio Alicia Work Phone: [facility] 10-24-2022 06:00-0500 Body weight 81.[address] Virgilio Alicia Work Phone: [facility] 10-23-2022 13:13-0500 Body height 160.[address] Virgilio Alicia Work Phone: [facility] 10-23-2022 12:30-0500 Diastolic blood pressure 66 mm[Hg] Dr. Virgilio Alicia Work Phone: [facility] 10-23-2022 12:30-0500 Systolic blood pressure 166 mm[Hg] Dr. Virgilio Alicia Work Phone: [facility] 10-23-2022 12:17-0500 Body temperature 97.2 [degF] Dr. Virgilio Alicia Work Phone: [facility] 10-23-2022 12:17-0500 Heart rate 55 /min Dr. Virgilio Alicia Work Phone: [facility] 10-23-2022 12:17-0500 Respiratory rate 16 /min Dr. Virgilio Alicia Work Phone: [facility] 10-23-2022 12:17-0500 SaO2% (BldA) [Mass fraction] 98 % Dr. Virgilio Alicia Work Phone: [facility] 10-23-2022 10:55-0500 Body height 160.[address] Virgilio Alicia Work Phone: [facility] 10-23-2022 10:55-0500 Body mass index (BMI) [Ratio] 35.4 kg/m2 Dr. Virgilio Alicia Work Phone: [facility] 10-23-2022 10:55-0500 Body weight 90.[address] Virgilio Alicia Work Phone: [facility] 09-02-2022 12:19-0500 Body temperature 97.9 [degF] Bailee Lara MEDICAL DEVICE ENGINEER.REFRIGERATION SPECIALIST Work Phone: [facility] 09-02-2022 12:19-0500 Body weight 87.09 kg Bailee Pastrana-Soren MEDICAL DEVICE ENGINEER.REFRIGERATION SPECIALIST Work Phone: [facility] 09-02-2022 12:19-0500 Diastolic blood pressure 68 mm[Hg] Bailee Pastrana-Soren MEDICAL DEVICE ENGINEER.REFRIGERATION SPECIALIST Work Phone: [facility] 09-02-2022 12:19-0500 Heart rate 82 /min Bailee Praisler-Wood MEDICAL DEVICE ENGINEER.REFRIGERATION SPECIALIST Work Phone: [facility] 09-02-2022 12:19-0500 Respiratory rate 16 /min Bailee Praisler-Wood MEDICAL DEVICE ENGINEER.REFRIGERATION SPECIALIST Work Phone: [facility] 09-02-2022 12:19-0500 SaO2% (BldA) [Mass fraction] 98 % Bailee Praisler-Wood MEDICAL DEVICE ENGINEER.REFRIGERATION SPECIALIST Work Phone: [facility] 09-02-2022 12:19-0500 Systolic blood pressure 118 mm[Hg] Bailee Praisler-Wood MEDICAL DEVICE ENGINEER.REFRIGERATION SPECIALIST Work Phone: [facility] 08-17-2022 11:22-0500 Body height 160.[address] Virgilio Alicia Work Phone: [facility] Work Phone: 08-17-2022 11:22-0500 Body weight 85.[address] Virgilio Alicia Work Phone: [facility] 08-14-2022 07:00-0500 Body mass index (BMI) [Ratio] 33.5 kg/m2 Dr. Virgilio Alicia Work Phone: [facility] 07-29-2022 15:21-0400 Body height 160.[address] Virgilio Alicia Work Phone: [facility] Work Phone: 07-29-2022 15:21-0400 Body mass index (BMI) [Ratio] 33.5 kg/m2 Dr. Virgilio Alicia Work Phone: [facility] 07-29-2022 15:21-0400 Body weight 85.[address] Virgilio Alicia Work Phone: [facility] 07-29-2022 15:21-0400 Diastolic blood pressure 85 mm[Hg] Dr. Virgilio Alicia Work Phone: [facility] 07-29-2022 15:21-0400 Heart rate 90 /min Dr. Virgilio Alicia Work Phone: [facility] 07-29-2022 15:21-0400 Respiratory rate 18 /min Dr. Virgilio Alicia Work Phone: [facility] 07-29-2022 15:21-0400 SaO2% (BldA) [Mass fraction] 95 % Dr. Virgilio Alicia Work Phone: [facility] 07-29-2022 15:21-0400 Systolic blood pressure 135 mm[Hg] Dr. Virgilio Alicia Work Phone: [facility] 06-15-2022 15:33-0400 Body height 160.[address] Virgilio Alicia Work Phone: [facility] Work Phone: 06-15-2022 15:33-0400 Body mass index (BMI) [Ratio] 33.6 kg/m2 Dr. Virgilio Alicia Work Phone: [facility] Work Phone: 06-15-2022 15:33-0400 Body weight 86.[address] Virgilio Alicia Work Phone: [facility] Work Phone: 06-15-2022 15:33-0400 Diastolic blood pressure 85 mm[Hg] Dr. Virgilio Alicia Work Phone: [facility] Work Phone: 06-15-2022 15:33-0400 Heart rate 63 /min Dr. Virgilio Alicia Work Phone: [facility] Work Phone: 06-15-2022 15:33-0400 Respiratory rate 16 /min Dr. Virgilio Alicia Work Phone: [facility] Work Phone: 06-15-2022 15:33-0400 Systolic blood pressure 146 mm[Hg] Dr. Virgilio Alicia Work Phone: [facility] Work Phone: 03-16-2022 07:06-0400 Body height 160.[address] Virgilio Alicia Work Phone: [facility] Work Phone: 03-16-2022 07:06-0400 Body weight 81.[address] Virgilio Alicia Work Phone: [facility] Work Phone: 03-16-2022 07:01-0400 Body mass index (BMI) [Ratio] 31.6 kg/m2 Dr. Virgilio Alicia Work Phone: [facility] Work Phone: 03-04-2022 09:06-0400 Body mass index (BMI) [Ratio] 31.6 kg/m2 Dr. Virgilio Alicia Work Phone: [facility] Work Phone: 03-04-2022 09:06-0400 Body weight 81.[address] Virgilio Alicia Work Phone: [facility] Work Phone: 03-04-2022 09:06-0400 Diastolic blood pressure 71 mm[Hg] Dr. Virgilio Alicia Work Phone: [facility] Work Phone: 03-04-2022 09:06-0400 Heart rate 70 /min Dr. Virgilio Alicia Work Phone: [facility] Work Phone: 03-04-2022 09:06-0400 Respiratory rate 18 /min Dr. Virgilio Alicia Work Phone: [facility] Work Phone: 03-04-2022 09:06-0400 SaO2% (BldA) [Mass fraction] 93 % Dr. Virgilio Alicia Work Phone: [facility] Work Phone: 03-04-2022 09:06-0400 Systolic blood pressure 126 mm[Hg] Dr. Virgilio Alicia Work Phone: [facility] Work Phone: 02-03-2022 11:00-0400 Diastolic blood pressure 58 mm[Hg] Dr. Virgilio Alicia Work Phone: [facility] Work Phone: 02-03-2022 11:00-0400 Heart rate 64 /min Dr. Virgilio Alicia Work Phone: [facility] Work Phone: 02-03-2022 11:00-0400 Respiratory rate 22 /min Dr. Virgilio Alicia Work Phone: [facility] Work Phone: 02-03-2022 11:00-0400 SaO2% (BldA) [Mass fraction] 96 % Dr. Virgilio Alicia Work Phone: [facility] Work Phone: 02-03-2022 11:00-0400 Systolic blood pressure 102 mm[Hg] Dr. Virgilio Alicia Work Phone: [facility] Work Phone: 02-03-2022 09:00-0400 Body temperature 98 [degF] Dr. Virgilio Alicia Work Phone: [facility] Work Phone: 02-02-2022 12:22-0400 Body height 160.[address] Virgilio Alicia Work Phone: [facility] Work Phone: 02-02-2022 12:22-0400 Body weight 81.[address] Virgilio Alicia Work Phone: [facility] Work Phone: 02-02-2022 09:47-0400 Body mass index (BMI) [Ratio] 31.6 kg/m2 Dr. Virgilio Alicia Work Phone: [facility] Work Phone: 02-02-2022 09:05-0400 Body temperature 97.8 [degF] Dr. Virgilio Alicia Work Phone: [facility] Work Phone: 02-02-2022 09:05-0400 Diastolic blood pressure 73 mm[Hg] Dr. Virgilio Alicia Work Phone: [facility] Work Phone: 02-02-2022 09:05-0400 Heart rate 101 /min Dr. Virgilio Alicia Work Phone: [facility] Work Phone: 02-02-2022 09:05-0400 Respiratory rate 16 /min Dr. Virgilio Alicia Work Phone: [facility] Work Phone: 02-02-2022 09:05-0400 SaO2% (BldA) [Mass fraction] 95 % Dr. Virgilio Alicia Work Phone: [facility] Work Phone: 02-02-2022 09:05-0400 Systolic blood pressure 144 mm[Hg] Dr. Virgilio Alicia Work Phone: [facility] Work Phone: 02-02-2022 07:24-0400 Inhaled oxygen flow rate 2 L/min Dr. Virgilio Alicia Work Phone: [facility] Work Phone: 02-02-2022 06:26-0400 Body height 160.[address] Virgilio Alicia Work Phone: [facility] Work Phone: 02-02-2022 06:26-0400 Body mass index (BMI) [Ratio] 31.6 kg/m2 Dr. Virgilio Alicia Work Phone: [facility] Work Phone: 02-02-2022 06:26-0400 Body weight 80.[address] Virgilio Alicia Work Phone: [facility] Work Phone: 12-18-2021 08:11-0400 Body weight 83.[address] Virgilio Alicia Work Phone: [facility] Work Phone: 12-18-2021 08:09-0400 Body mass index (BMI) [Ratio] 31.6 kg/m2 Dr. Virgilio Alicia Work Phone: [facility] Work Phone: 09-04-2021 08:41-0500 Body height 162.[address] Virgilio Alicia Work Phone: [facility] Work Phone: 09-04-2021 08:41-0500 Body mass index (BMI) [Ratio] 31.6 kg/m2 Dr. Virgilio Alicia Work Phone: [facility] Work Phone: 09-04-2021 08:41-0500 Body weight 83.[address] Virgilio Alicia Work Phone: [facility] Work Phone: 09-04-2021 08:41-0500 Diastolic blood pressure 81 mm[Hg] Dr. Virgilio Alicia Work Phone: [facility] Work Phone: 09-04-2021 08:41-0500 Heart rate 56 /min Dr. Virgilio Alicia Work Phone: [facility] Work Phone: 09-04-2021 08:41-0500 Respiratory rate 18 /min Dr. Virgilio Alicia Work Phone: [facility] Work Phone: 09-04-2021 08:41-0500 SaO2% (BldA) [Mass fraction] 94 % Dr. Virgilio Alicia Work Phone: [facility] Work Phone: 09-04-2021 08:41-0500 Systolic blood pressure 138 mm[Hg] Dr. Virgilio Alicia Work Phone: [facility] Work Phone: Encounters Encounter Date Encounter Type Care Provider Facility Start: 03-02-2025 Encounter for other preprocedural examination Helder Jane [facility] Start: 02-23-2025 End: 02-23-2025 ambulatory Helder Jane Facility:[facility] Start: 11-28-2024 End: 11-28-2024 ambulatory Beth De Luna [employer] Facility:[facility] Start: 10-14-2024 End: 10-14-2024 ambulatory Virgilio Alicia Facility:[facility] Start: 09-25-2024 End: 09-25-2024 ambulatory Virgilio Alicia Facility:[facility] Start: 09-25-2024 End: 09-25-2024 ambulatory Virgilio Alicia Facility:[facility] Start: 08-16-2024 End: 08-16-2024 ambulatory Virgilio Alicia Facility:[facility] Start: 06-19-2024 End: 06-19-2024 ambulatory Beth De Luna [employer] Facility:[facility] Start: 10-13-2023 End: 10-13-[address] Virgilio Alicia Work Phone: [facility] Work Phone: Start: 10-13-2023 End: 10-13-[address] Virgilio Aliica Work Phone: [facility]-Laboratory, Specimen Work Phone: Start: 10-13-2023 End: 10-13-[address] Virgilio Alicia Work Phone: [facility] Work Phone: Start: 09-24-2023 End: 09-24-[address] Virgilio Alicia Work Phone: [facility] Work Phone: Start: 09-01-2023 Non-patient / Non-visit Dr. Marcio Alicia Work Phone: [facility] Start: 09-01-2023 End: 09-01-[address] Virgilio Alicia Work Phone: [facility] Work Phone: Start: 09-01-2023 End: 09-01-[address] Virgilio Alicia Work Phone: [facility]-Cardiovascular Services Work Phone: Start: 07-05-2023 ambulatory CAN N JUAN ALBERTO Facility: [facility] Start: 06-16-2023 End: 06-16-[address] Virgilio Alicia Work Phone: [facility] Work Phone: Start: 06-16-2023 End: 06-16-[address] Virgilio Alicia Work Phone: [facility]-Outpatient Breast Imaging Work Phone: Start: 04-05-2023 End: 04-05-2023 ambulatory VIRGILIO ALICIA Facility:[facility] Start: 04-05-2023 End: 04-05-2023 Patient encounter procedure Mariangel Sparks APRN.REFRIGERATION SPECIALIST Work Phone: [facility] Comment on above: ETD (Eustachian tube dysfunction), left (Primary Dx) Start: 03-18-2023 End: 03-18-[address] Virgilio Alicia Work Phone: [facility] Work Phone: Start: 03-04-2023 End: 03-04-2023 Office outpatient visit 15 minutes Liya Rutledge MEDICAL DEVICE ENGINEER-REFRIGERATION SPECIALIST Work Phone: Business Continuity Global Director Center [facility] Comment on above: Persistent atrial fi brillation (Primary Dx); Typical atrial flutter; Hypertension, essential Start: 03-04-2023 ambulatory VIRGILIO ALICIA Facility:[facility] Start: 03-03-2023 End: 03-03-2023 ambulatory SELF SELF Facility:[facility] Start: 03-03-2023 End: 03-03-2023 Subsequent hospital visit by physician Federico Mcclure MD Work Phone: [facility] Comment on above: Paroxysmal atrial fi brillation Arrived Start: 01-20-2023 End: 01-20-[address] Virgilio Alicia Work Phone: [facility] Work Phone: Start: 01-20-2023 End: 01-20-[address] Virgilio Alicia Work Phone: [facility] Start: 12-29-2022 ambulatory MELITON Machuca [facility] Facility: [facility] Start: 11-12-2022 End: 11-12-[address] Virgilio Alicia Work Phone: [facility] Start: 10-28-2022 Orders Only Colten Hull Work Phone: Cardiology Comment on above: Atrial fibrillation, unspecified type (HCC) (Primary Dx) Start: 10-24-2022 Non-patient / Non-visit Dr. Marcio Alicia Work Phone: [facility] Inpatient Physicians Start: 10-24-2022 End: 10-24-2022 Non-patient / Non-visit Dr. Virgilio Alicia Work Phone: [facility] Start: 10-23-2022 Non-patient / Non-visit Dr. Marcio Alicia Work Phone: [facility] Start: 10-23-2022 Non-patient / Non-visit Dr. Marcio Alicia Work Phone: [facility] Start: 10-23-2022 End: 10-24-2022 Evaluation and management of inpatient Dr. Virgilio Alicia Work Phone: [facility] Start: 10-23-2022 End: 10-24-[address] Virgilio Alicia Work Phone: [facility] Work Phone: Start: 09-02-2022 End: 09-02-2022 ambulatory VIRGILIO ALICIA Facility:[facility] Start: 09-02-2022 End: 09-02-2022 Patient encounter procedure Bailee Lara APRN.CNP Work Phone: [facility] Comment on above: Ear injury, initial encounter (Primary Dx); Blood in left ear canal Start: 08-24-2022 End: 08-24-[address] Virgilio Alicia Work Phone: [facility] Start: 08-17-2022 Non-patient / Non-visit Dr. Marcio Alicia Work Phone: [facility] Start: 08-17-2022 End: 08-17-2022 Admission to same day surgery center Dr. Virgilio Alicia Work Phone: [facility]-Production Supply Equipment Tender/Special Procedures Start: 08-17-2022 End: 08-17-[address] Virgilio Alicia Work Phone: [facility] Work Phone: Start: 07-29-2022 End: 07-29-[address] Virgilio Alicia Work Phone: [facility] Work Phone: Start: 07-29-2022 End: 07-29-[address] Virgilio Alicia Work Phone: [facility] Start: 07-28-2022 ambulatory STANDARD PROCESSING Com prehensive Internal Med Start: 06-26-2022 Non-patient / Non-visit Dr. Marcio Alicia Work Phone: [facility] Start: 06-26-2022 End: 06-26-[address] Virgilio Alicia Work Phone: [facility]-Cardiovascular Services Start: 06-15-2022 End: 06-15-[address] Virgilio Alicia Work Phone: [facility] Work Phone: Start: 06-15-2022 End: 06-15-[address] Virgilio Alicia Work Phone: [facility] Start: 04-14-2022 End: 04-14-[address] Virgilio Alicia Work Phone: [facility] Start: 03-16-2022 End: 03-16-2022 Admission to same day surgery center Dr. Virgilio Alicia Work Phone: [facility]-Production Supply Equipment Tender/Special Procedures Start: 03-04-2022 End: 03-04-[address] Virgilio Alicia Work Phone: [facility] Start: 02-17-2022 End: 02-17-[address] Virgilio Alicia Work Phone: [facility] Start: 02-03-2022 Non-patient / Non-visit Dr. Marcio Alicia Work Phone: [facility] Inpatient Physicians Start: 02-02-2022 Non-patient / Non-visit Dr. Marcio Alicia Work Phone: [facility] Start: 02-02-2022 End: 02-03-2022 Evaluation and management of inpatient Dr. Virgilio Alicia Work Phone: [facility]-Progressive Care Unit Start: 12-19-2021 End: 12-19-2021 Admission to same day surgery center Dr. Virgilio Alicia Work Phone: [facility]-Production Supply Equipment Tender/Special Procedures Start: 12-19-2021 Non-patient / Non-visit Dr. Marcio Alicia Work Phone: [facility] Start: 12-10-2021 End: 12-10-[address] Virgilio Alicia Work Phone: [facility]-Pulmonary Services/Neurology Start: 09-04-2021 End: 09-04-[address] Virgilio Alicia Work Phone: [facility] Start: 11-06-[address] Mary Alicia Work Phone: [facility] Procedures Date Procedure Procedure Detail Performing Clinician Start: 06-16-2023 Screening mammography D jonathon Alicia Work Phone: Start: 03-03-2023 Ephys evl trnsptl tx atrial fib isolat pulm vein Federico Mcclure MD Work Phone: Start: 03-03-2023 End: 03-03-2023 Assay of magnesium Barbara Joy Manish MEDICAL DEVICE ENGINEER-REFRIGERATION SPECIALIST Work Phone: Start: 03-03-2023 CBC AND ELECTRONIC DIFF Estrellita Dozier MEDICAL DEVICE ENGINEER-REFRIGERATION SPECIALIST Work Phone: Start: 03-03-2023 Complete blood count with white cell differential, automated Estrellita Dozier MEDICAL DEVICE ENGINEER-REFRIGERATION SPECIALIST Work Phone: Start: 03-03-2023 Ct heart contrast ev al cardiac structure&morph Federico Mcclure MD Work Phone: Start: 10-23-2022 MRI of brain without contrast Dr. Virgilio Alicia Work Phone: Start: 10-23-2022 CT angiography of he ad and neck Dr. Virgilio Alicia Work Phone: Start: 10-23-2022 CT of head without contrast Dr. Virgilio Alicia Work Phone: Start: 10-23-2022 Plain chest X-ray Dr. Mary Alicia Work Phone: Start: 07-29-2022 Plain chest X-ray Dr. Mary Alicia Work Phone: Start: 06-26-2022 Cardiovascular stres s test using pharmacologic stress agent Dr. Virgilio Alicia Work Phone: Start: 04-14-[address] Kvng Alicia Work Phone: Start: 05-09-2022 SARS-CoV-2 & FLU Ant igen (Rapid) Dr. Virgilio Alicia Work Phone: Start: 02-02-2022 Plain chest X-ray Dr. Mary Alicia Work Phone: Start: 03-02-2019 Mammography Bailee Monzon MEDICAL DEVICE ENGINEER.REFRIGERATION SPECIALIST Work Phone: Start: 01-18-2010 Colonoscopy Bailee Monzon MEDICAL DEVICE ENGINEER.REFRIGERATION SPECIALIST Work Phone: SARS-CoV-2 & FLU Ant igen (Rapid) Dr. Virgilio Alicia Work Phone: Plan of Treatment Date Care Activity Detail Author Start: 03-12-2025 ambulatory Ambulatory Facility:[facility] Start: 03-06-2025 ambulatory Ambulatory Facility:[facility] Start: 06-29-2023 End: 06-29-2023 Patient encounter procedure 06/29/2023 Office Visit Electrophysiology Federico Mcclure MD [address] [place] [address] Business Continuity Global Director Center [facility] Start: 05-28-2023 Influenza vaccination [facility] Start: 04-14-2023 End: 03-03-2024 Cardiac telemetry MOBILE CARDIAC TELEMETRY ECG Routine Atrial fibrillation, persistent Expected: 04/14/2023, Expires: 03/03/2024 [facility] Comment on above: Expected: 04/14/2023, Expires: Start: 03-04-2023 End: 03-04-2023 Telemedicine consultation with patient 03/04/2023 Telemedicine Electrophysiology Liya Rutledge MEDICAL DEVICE ENGINEER-REFRIGERATION SPECIALIST [address] [place] [address] Business Continuity Global Director Center [facility] Start: 11-12-2022 Patient referral [facility] Work Phone: Start: 10-24-2022 Electrocardiographic procedure [facility] Start: 10-24-2022 Patient discharge [facility] Start: 10-24-2022 Blood chemistry [facility] Start: 10-24-2022 Thyroid stimulating hormone measurement [facility] Start: 10-23-2022 Emergency dept visit high severity&threat funcj EMERGENCY DEPT VISIT HI MDM [facility] Start: 10-23-2022 Following clinical pathway protocol [facility] Start: 10-23-2022 Ambulation without limitation [facility] Start: 10-23-2022 Assessment of risk of venous thromboembolism [facility] Start: 10-23-2022 Cardiac monitoring [facility] Start: 10-23-2022 Catheterization of vein [facility] Start: 10-23-2022 Continuous pulse oximetry [facility] Start: 10-23-2022 Elevation of head of bed [facility] Start: 10-23-2022 Exercises [facility] Start: 10-23-2022 Implementation of planned interventions [facility] Start: 10-23-2022 Insertion of catheter into peripheral vein [facility] Start: 10-23-2022 Measuring intake and output [facility] Start: 10-23-2022 MRI of brain without contrast Brain without Contrast [facility] Start: 10-23-2022 Notification of physician [facility] Start: 10-23-2022 Oxygen therapy [facility] Start: 10-23-2022 Providing care according to standard [facility] Start: 10-23-2022 Referral to occupational therapist [facility] Start: 10-23-2022 Referral to service [facility] Start: 10-23-2022 Speech therapy assessment [facility] Start: 10-23-2022 Tobacco use cessation education [facility] Start: 10-23-2022 [facility] Start: 10-23-2022 Verification routine [facility] Start: 10-23-2022 Admission procedure [facility] Start: 05-28-2022 Influenza vaccination INFLUENZA (#1) [facility] Start: 04-23-2022 LIPID SCREEN LIPID SCREEN [facility] Start: 02-03-2022 Care planning and problem solving actions [facility] Work Phone: Start: 02-03-2022 Patient discharge [facility] Work Phone: Start: 02-02-2022 Following clinical pathway protocol [facility] Work Phone: Start: 02-02-2022 Transfusion of blood product [facility] Work Phone: Start: 02-02-2022 Ambulation without limitation [facility] Work Phone: Start: 02-02-2022 Assessment of risk of venous thromboembolism [facility] Work Phone: Start: 02-02-2022 Insertion of catheter into peripheral vein [facility] Work Phone: Start: 02-02-2022 Measuring intake and output [facility] Work Phone: Start: 02-02-2022 Providing care according to standard [facility] Work Phone: Start: 02-02-2022 Admission procedure [facility] Work Phone: Start: 02-02-2022 End: 02-02-2022 [facility] Work Phone: Start: 02-02-2022 [facility] Work Phone: Start: 03-02-2020 Mammography MAMMOGRAM [facility] Start: 01-19-2020 Colonoscopy COLONOSCOPY [facility] Start: 01-19-2020 COLORECTAL CANCER SCREENING COLORECTAL CANCER SCREENING [facility] Start: 04-19-2019 HPV TESTING HPV TESTING [facility] Start: 04-19-2019 PAP TESTING PAP TESTING [facility] Start: 12-11-2016 Tetanus vaccination TETANUS [facility] Start: 12-11-2016 Urine microalbumin profile DTAP,TDAP,TD (2 - Td or Tdap) [facility] Start: 09-26-2016 DIABETES SCREEN DIABETES SCREEN [facility] Start: 01-09-2010 SHINGRIX VACCINE (1 of 2) SHINGRIX VACCINE (1 of 2) [facility] Start: 01-09-2010 Zoster vaccine hzv live for subcutaneous use ZOSTER (SHINGLES) VACCINE (1 of 2) [facility] Start: 01-09-2005 COLOGUARD (FIT-DNA) COLOGUARD (FIT-DNA) [facility] Start: 01-09-[address] COLONOGRAPHY [facility] Start: 01-09-2005 FECAL OCCULT BLOOD FECAL OCCULT BLOOD [facility] Start: 01-09-2005 Screening for malignant neoplasm of colon COLORECTAL CANCER SCREENING DISCUSSION [facility] Start: 01-09-2005 SIGMOIDOSCOPY SIGMOIDOSCOPY [facility] Start: 2000 Lipid panel LIPID SCREENING [facility] Start: 2000 Screening for malignant neoplasm of breast MAMMOGRAM SCREENING DISCUSSION [facility] Start: 01-09-1981 Screening for malignant neoplasm of cervix CERVICAL CANCER SCREENING DISCUSSION [facility] Start: 01-09-1978 HIV SCREENING HIV SCREENING [facility] Start: 01-09-1975 HIV screening HIV SCREENING DISCUSSION [facility] Start: 1960 Hepatitis C screening HEPATITIS C VIRUS SCREENING [facility] Anion gap measurement [facility] BUN/Creatinine ratio [facility] Calcium [Mass/volume ] in Serum or Plasma [facility] Carbon dioxide, tota l [Moles/volume] in Serum or Plasma [facility] Cardioversion [facility] Work Phone: Cardioversion [facility] Chloride [Moles/volu me] in Serum or Plasma [facility] Cholesterol [Mass/vo lume] in Serum or Plasma [facility] Cholesterol in HDL [Mass/volume] in Serum or Plasma [facility] Cholesterol in LDL [Mass/volume] in Serum or Plasma [facility] Creatinine [Moles/vo lume] in Serum or Plasma [facility] End: 10-28-2023 ECG COMPLETE ECG COMPLETE ECG Routine Atrial fibrillation, unspecified type (HCC) 1 Occurrences starting 10/28/2022 until 10/28/2023 [facility] Work Phone: Comment on above: 1 Occurrences starting 10/28/2022 until 10/28/2023 Electrophysiology study EP PROCE DURE - EPS/ABLATION/DEVICE Electrophysiology Routine Paroxysmal atrial fibrillation 03/03/2023 2:40 PM EDT [facility] Work Phone: Glucose [Mass/volume ] in Serum or Plasma [facility] Hematocrit [Volume F raction] of Blood [facility] Hemoglobin [Mass/vol ume] in Blood [facility] Hemoglobin A1c/Hemoglobin.total in Blood [facility] Leukocytes [#/volume ] in Blood [facility] Mean corpuscular hem oglobin concentration determination [facility] Mean corpuscular hem oglobin determination [facility] Measurement of renal function [facility] MG Breast - bilatera l Screening [facility] Neutrophil count [facility] Neutrophil percent differential count [facility] NM Heart Views W str ess and W radionuclide IV [facility] Work Phone: Patient referral [facility] Work Phone: Platelets [#/volume] in Blood [facility] Potassium [Moles/vol ume] in Serum or Plasma [facility] Red blood cell count [facility] Red cell distributio n width determination [facility] Sodium [Moles/volume ] in Serum or Plasma [facility] Thyroid stimulating hormone measurement [facility] Triglycerides measurement [facility] Urea nitrogen [Mass/ volume] in Serum or Plasma [facility] US Heart [facility] VLDL cholesterol measurement [facility] Immunizations Immunization Date Immunization Notes Care Provider Robert giordano 12-11-2006 tetanus toxoid, redu amari diphtheria toxoid, and acellular pertussis vaccine, adsorbed Bailee Lara APRN.REFRIGERATION SPECIALIST Work Phone: [facility] 10-20-2006 pneumococcal polysaccharide vaccine, 23 valent Bailee Lara APRN.REFRIGERATION SPECIALIST Work Phone: [facility] [facility] Work Phone: Payers Date Payer Category Payer Medicare [id number] 2025 Private Health Insurance [id number] 2024 Self-pay [id number] 2016 Unknown [id number] 2016 Unknown [id number] 1960 Unknown [id number] 2.16. [id number] 1960 Unknown [id number] 2.16. [id number] 1960 Unknown [id number] 2.16. [id number] 1960 Unknown [id number] 2.16. [id number] 1960 Unknown [id number] 2.16. [id number] Unknown [id number] 2.16.8 [id number] Unknown [id number] 2.16.8 [id number] Unknown [id number] 2.16.8 [id number] Unknown [id number] 2.16.8 [id number] Unknown [id number] 2.16.8 [id number] Unknown [id number] 2.16.8 [id number] Unknown [id number] 2.16.8 [id number] Unknown [id number] 2.16.8 [id number] Unknown [id number] 2.16.8 [id number] Social History Date Type Detail Facility Start: 09-04-2021 End: 10-13-2023 Tobacco smoking status TXIS Unknown if ever smoked [facility] Start: 11-02-2019 Occasional [facility] Start: 11-02-2019 None [facility] Start: 04-09-2020 Non-smoker [facility] Start: 1960 Sex Assigned At Female [facility] Start: 09-02-2022 End: 03-03-2023 Tobacco smoking status NHIS Ex-smoker [facility] Work Phone: End: 02-03-1983 History of tobacco use Current smoker [facility] Work Phone: End: 02-03-1983 History of tobacco use Cigarette Smoker [facility] Work Phone: Start: 09-02-2022 End: 03-03-2023 Tobacco use and exposure Smokeless tobacco non-user [facility] Work Phone: Start: 09-02-2022 End: 04-05-2023 Alcohol intake Current drinker of alcohol (finding) [facility] Start: 05-15-2009 Alcohol Comment Pt drinks abou t once per month (social occasions) [facility] Start: 10-24-2022 Cigarettes [facility] Start: 03-03-2023 End: 04-05-2023 Alcohol intake [facility] Start: 03-03-2023 Alcohol Comment 1 glass of win e every evening [facility] Start: 1960 Sex Assigned At Not on file O [facility] Start: 02-21-2023 End: 03-03-2023 Exposure to SARS-CoV-2 (event) Not sure [facility] Start: 04-05-2023 Tobacco use panel [facility] Start: 06-06-2019 Gender identity Identifies as female gender (finding) [facility] Start: 06-06-2019 Sexual orientation Heterosexual (rob erickson) [facility] Goals Date Patient Goal Desired Activity /State Functional Status Date Assessment Result Facility 10-24-2022 Functional status Ambulates;Up a d jennifer;Bathroom Privilege [facility] Work Phone: 02-03-2022 Functional status Ambulates;Up ad jennifer [facility] Work Phone: Mental Status Date Assessment Result Facility 10-23-2022 Cognitive function Voice/Name [facility] Work Phone: 10-23-2022 Cognitive function Appropriate;Cooperativ e [facility] Work Phone: 02-02-2022 Cognitive function Voice/Name [facility] Work Phone: 02-02-2022 Cognitive function Awake;Alert;A ppropriate;Fol lows Commands [facility] Work Phone: Clinical Notes 08-19-2010 to 10-13-2023 Mariangel Sparks APRN.JOSEPH - 04/05/2023 2:42 PM EDTLiya Rutledge APRN-JOSEPH - 03/04/2023 8:30 AM EDTPatient InstructionsNursing Notes - Lynn Lycnh, ELIAZAR - 03/03/2023 7:31 PM EDTDischarge Instr - Diet Note Date & Type Note Facility 10-13-2023 Note [facility] Pap Smear Specimen Adequacy October 13, 2023 5:17pm Comment . Satisfactory for evaluation. Endocervical and/or squamous metaplasticcells (endocervical component) are present. Comment on above: Satisfactory for suha luation. Endocervical and/or squamous metaplasticcells (endocervical component) are present. 04-05-2023 Note HNO ID: [id number] Author: Mariangel Sparks APRN.REFRIGERATION SPECIALIST Service: ? Author Type: Nurse Practitioner Type: Progress Notes Filed: 04/05/2023 2:46 PM Note Text: Subjective HPI HPI Deya Blount is a 63 year old female who [...] - FLUTICASONE PROPIONATE 50 MCG/ACTUATION NASAL SPRAY,SUSPENSION Mariangel Sparks APRN.[facility] 04-05-2023 History of Presen t illness Narrative Subjective HPI HPI Deya Blount is a 63 year old female who [...] - FLUTICASONE PROPIONATE 50 MCG/ACTUATION NASAL SPRAY,SUSPENSION Mariangel Sparks APRN.JOSEPH documented in this encounter [facility] 03-04-2023 History of Presen t illness Narrative ESTABLISHED PATIENT VIDEO VISIT - CARDIAC ELECTROPHYSIOLOGY Primary care provider: Virgilio Alicia MD Electrophysiology physician: Federico Mcclure MD Local cardiology provider: Meliton Conway MD Provider for this encounter: Liya Rutledge APRN-REFRIGERATION SPECIALIST It was my pleasure to see Deya Blount in real-time audiovisual consultation for Cardiovascular Electrophysiology on 03/04/2023. Ms. Blount is a 63 y.o. female with a history including AF, AFL, systolic HF borderline EF, HTN, obesity, former tobacco use, and Guillain [place] syndrome. Ms. Blount follows with our group for management of [...] day discharge yesterday. ASSESSMENT and PLAN Ms. Blount is managed today for the following issues: persistent atrial fibrillation and typical atrial flutter She reports feeling OK. Groin access site is soft and non tender with no ecchymosis. - Continue metoprolol for rhythm control. - Continue rivaoxaban for stroke risk reduction in setting of [id number] Score: 3 (for CHF, HTN, and gender). - Continue low dose aspirin for 30 days. - Pantoprazole for 30 days to prevent esophageal problems. - clinical safety specialist to evaluate for recurrence of atrial arrhythmias [...] not hesitate to contact me. Sincerely, Liya Rutledge APRN-REFRIGERATION SPECIALIST Clinical Electrophysiology, Division of Cardiovascular Medicine, [facility] SUBJECTIVE Today the patient reports feeling pretty good. Reports episodes of burning in LLE a/w [...] complexity was low. documented in this encounter [facility] 03-04-2023 Instructions BEN Ritchie - 03/04/2023 8:30 AM EDT Follow up as scheduled with Federico Mcclure MD on 06/29/2023. If you have any questions, please contact the nurse's line: - for urgent questions: call [phone] option 6. - non urgent questions: send [employer] message documented in this encounter [facility] 03-03-2023 Note Formatting of this n [...] pulse. Ambulates prior to DC [facility]. [facility] Miscellaneous Notes Discharge instructions and [...] video visit at 8:30 am tomorrow EP LINUX SYSTEM ADMIN. Deya Blount was instructed to remove groin dressings, wear [...] 1: Location: forearm, anterior, left Device/Lot Number: [id number] catheter system Gauge/Length: 18 gauge;1 1/4 in length Unsuccessful Insertion Attempts: Unsuccessful Attempt Location/Site: Pain Prevention/Patient Tolerance: Removal: Additional Comments: Lumen 2: Lumen 3: Peripheral IV Present on Admission: (Retired/Read Only) Location: (Retired/Read Only) Device: (Retired/Read Only) Gauge/Length: Climate Change Analyst/Lot Number: Unsuccessful Insertion Attempts: (Retired/Read Only) Unsuccessful [...] insertion. Pt arrives to room 2442 in IPR [...] monitor shows sr. documented in this encounter [facility] 03-03-2023 Note Formatting of this n ote might be different from the original. Patient seen and examined. VSS. Lungs CTA. Heart tones regular without rub. Voiding without difficulty. No CP/dyspnea. Pt provided with follow up video visit at 8:30 am tomorrow EP LINUX SYSTEM ADMIN. Deya Blount was instructed to remove groin dressings, wear loose fitting pants to allow for visualization of access sites, have AVS instructions present and to check blood pressure prior to visit. Patient verbalized understanding of all discharge instructions. Patient okay for discharge this evening at 7:30 pm when discharge criteria met. BEN Pickering [facility] 03-03-2023 Hospital Discharg e instructions BEN [...] Where can you learn more? Go to [email or web address]/[email or web address] chart. BEN Frederick - 03/03/2023 9:32 AM [...] immediate medical care. documented in this encounter [facility] 03-03-2023 Note Formatting of this n [...] 1: Location: forearm, anterior, left Device/Lot Number: [id number] catheter system Gauge/Length: 18 gauge;1 1/4 in length Unsuccessful Insertion Attempts: Unsuccessful Attempt Location/Site: Pain Prevention/Patient Tolerance: Removal: Additional Comments: Lumen 2: Lumen 3: Peripheral IV Present on Admission: (Retired/Read Only) Location: (Retired/Read Only) Device: (Retired/Read Only) Gauge/Length: Climate Change Analyst/Lot Number: Unsuccessful Insertion Attempts: (Retired/Read Only) Unsuccessful [...] pain, redness, swelling, or leakage post insertion. [facility] 03-03-2023 Note Formatting of this n ote [...] given to pt. Tele monitor shows sr. [facility] 03-03-2023 History and physical note Chief Complaint Atrial Fibrillation STONEY Blount is a 63 y.o. 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 She is on flecainide; dose increased for recurrent afib and then again decreased to 100 mg BID for concerning bradycardia. She was recently seen by Dr Mcclure for evaluation for persistent atrial fibrillation with plan for ablation and possible initiation of IV Sotalol. She presents today for scheduled procedure. Today she denies CP, SOB, lightheadedness, dizziness, fatigue. She is anticoagulated on Xarelto for [id number] of 3. She has held one dose as instructed. She has held one dose of metoprolol as instructed. Her flecainide was stopped in December per Dr. Mcclure. She denies any recent illness, fevers, chills, [...] Take 10 mcg by mouth daily. 03/01/2023 [id number] ACID PO 03/01/2023 Cyanocobalamin (Vitamin B-12) 3000 [...] [facility] PCP Virgilio SCHULER MD: Dr. Federico Mcclure Anticoagulation: Xarelto Has the patient missed any doses of anticoagulation. Yes, held one dose as instructed When was the last dose taken. Wednesday evening [id number]- Vasc score: 3 (HF, HTN,gender) Previous antiarrythmic medications: Flecainide stopped in December per Dr. Mcclure given persistent arrhythmia Prior Cardiac testing: CT [...] (Oral) Resp 20 Ht 1.626 m (5' 4) Wt 81.6 kg (180 lb) SpO2 100% [...] pending lab results Associated attestation - Federico Mcclure MD - 03/03/2023 12:49 PM EDT Discussed procedure with pt and re-addressed risk/benefits. Pt is ready to proceed. Consent signed A and O x 3 Skin W and Dry Proceed with planned procedure [facility] 03-03-2023 History and physical note Chief Complaint Atrial Fibrillation STONEY Blount is a 63 y.o. 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 She is on flecainide; dose increased for recurrent afib and then again decreased to 100 mg BID for concerning bradycardia. She was recently seen by Dr Mcclure for evaluation for persistent atrial fibrillation with plan for ablation and possible initiation of IV Sotalol. She presents today for scheduled procedure. Today she denies CP, SOB, lightheadedness, dizziness, fatigue. She is anticoagulated on Xarelto for [id number] of 3. She has held one dose as instructed. She has held one dose of metoprolol as instructed. Her flecainide was stopped in December per Dr. Mcclure. She denies any recent illness, fevers, chills, [...] Take 10 mcg by mouth daily. 03/01/2023 [id number] ACID PO 03/01/2023 Cyanocobalamin (Vitamin B-12) 3000 [...] [facility] PCP Virgilio SCHULER MD: Dr. Federico Mcclure Anticoagulation: Xarelto Has the patient missed any doses of anticoagulation. Yes, held one dose as instructed When was the last dose taken. Wednesday evening [id number]- Vasc score: 3 (HF, HTN,gender) Previous antiarrythmic medications: Flecainide stopped in December per Dr. Mcclure given persistent arrhythmia Prior Cardiac testing: CT [...] (Oral) Resp 20 Ht 1.626 m (5' 4) Wt 81.6 kg (180 lb) SpO2 100% [...] pending lab results Associated attestation - Federico Mcclure MD - 03/03/2023 12:49 PM EDT Discussed procedure with pt and re-addressed risk/benefits. Pt is ready to proceed. Consent signed A and O x 3 Skin W and Dry Proceed with planned procedure documented in this encounter [facility] 10-24-2022 Discharge summary Note Date/Time October 24, 2022 10:02am [facility] Medical Records Department [address] [place] [address] Discharge Summary 10/24/22 0957 MR#: [id number] Acct: [id number] Name: DEYA BLOUNT Rep #:[id number] : 1960 62 From: Jan Hull PCP: Dr. Virgilio Alicia MD Status:ADM JAY JAY Location: [place] [address] Providers Date of Admission: 10/23/22 Date of Discharge: 10/24/22 Primary Care Physician: Dr. Virgilio Alicia MD Reason For Visit: TIA/STROKE Diagnosis Discharge Diagnosis (1) Near syncope: Status: Acute Code(s): R55 - Syncope and collapse Plan This is 62-year-old pleasant lady was brought by EMS for dizziness lightheadedness and numbness on the left side. 1. Near syncope with left-sided numbness, most likely due to bradycardia/low cardiac output. Stroke ruled out: Patient is being admitted in PCU. First troponin is negative. Stroke order including MRI brain and 2D echo ordered. CTbrain and CT head and neck reported normal. NIH stroke scale monitoring, PT OT speech and swallow evaluation as per stroke guidelines. BP and glucose control as per stroke guidelines. No prior history of a stroke. 10/24: MRI brain and CTA head and neck are normal. Fasting profile shows elevated total cholesterol 212, LDL 126 therefore low-dose atorvastatin 20 mg daily started and prescription given. Advised to follow-up fasting profile in 3months. A1c pending. 2. Persistent A. fib on Xarelto: Currently patient is in sinus bradycardia. Serum magnesium ordered. Potassium normal. Dose of flecainide was recently increased to 150 mg twice daily but I will keep 100 mg twice daily because of bradycardia with holding parameters. Patient on metoprolol 50 mg twice daily, continued with holding parameters. 10/24: Discussed with Dr. Conway. Flecainide decreased back to 100 mg twice daily. On metoprolol 50 mg twice daily. Advised to follow-up heart rate beforetaking metoprolol and flecainide and hold if heart rate less than 55/min. Discussed with patient and at the bedside. 3. Progressively worsening dyspnea on exertion: 2D echo is ordered.She also felt numbness and tingling of left arm and leg. Patient had a stress test reported normal in May 2022.2D echo in January 2020 reported EF 50% with structurally normal valves. No RWMA. Patient does not have leg swelling. 10/16: Echo pending. 4. 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 based on lumbar puncture finding but later on in [facility] said it looked more like polio. She has below-knee muscle atrophy and wears braces and also atrophy of muscles of hand. Usually muscle atrophy and weakness in polio is asymmetrical. 5. VT prophylaxis: Patient on Xarelto 20 mg daily at 5 PM. Continued Living will/advanced directive/end of life care: Patient does not have living will or advanced directive. After discussion of benefits/risks procedures involved with full code, DNR CC arrest and DNR CC, the patient opted for full code. Patient does want artificial life support including intubation, tube feed, ventilator and/chest compression, central venous catheter, vasopressor and DC shock if needed Discharge medication reconciliation done. Discharge follow-up instructions completed. Discharge process discussed with the patient and all questions wereanswered to patient's satisfaction. Total time spent, exact 35 minutes on discharge meds reconciliation, examination, coordination of care with nurses and ancillary staff, review of imaging and blood test and discussion with the patient on follow-up instructions. Clinical Impression(s) from Imaging Studies Brain CT 10/23/22 11:00 IMPRESSION: Normal unenhanced CT scan of the brain. N.B. : The above Results were Read Back by Christoph Davila MD to Ni Elena and understanding confirmed on 10/23/2022 11:13:45 (ET). Electronically Signed: Christoph Davila MD at 11:14 EST , ADDENDUM: 10/23/22 1121 IMPRESSION: Normal unenhanced CT scan of the brain. N.B. : The above Results were Read Back by Christoph Davila MD to Ni Elena and understanding confirmed on 10/23/2022 11:13:45 (ET). Electronically Signed: Christoph Davila MD at 11:14 EST , Chest X-Ray 10/23/22 11:00 IMPRESSION: No acute abnormality is seen. Head/Neck CTA 10/23/22 11:02 IMPRESSION: Normal CTA Head and neck with contrast. Medications at Discharge Home Medications multivitamin 1 tab PO DAILY supplement 03/26/20 rivaroxaban 20 mg tablet (Xarelto) 20 mg PO DAILY blood thinner #90 tabs 06/17/22 acetaminophen 500 mg tablet (Tylenol Extra Strength) 1,000 mg PO Q6H PRN pain 10/23/22 calcium carbonate 600 mg-vitamin D3 20 mcg (800 unit) chewable tablet (Caltrate 600 plus D) 1 tab PO DAILY SUPPLEMENT 10/23/22 cyclosporine 0.05 % eye drops in a dropperette (Restasis) 1 drp EACH EYE Q12H 10/23/22 loratadine 10 mg tablet (Claritin) 10 mg PO DAILY 10/23/22 atorvastatin 20 mg tablet 20 mg PO QHS #30 tabs 10/24/22 flecainide 100 mg tablet 100 mg PO Q12H #180 tabs 10/24/22 metoprolol tartrate 50 mg tablet 50 mg PO BID #180 tabs 10/24/22 Physical Exam Narrative Seen and examined. clinical safety specialist shows sinus rhythm 66. No chest pain or shortness of breath or dizziness. Near syncope symptoms with 40-minute Physical exam General: Alert, Oriented x3, Cooperative HEENT: Atraumatic, PERRLA, EOMI, Normocephalic Oral: No Gingival or Mucosal Lesions/ Ulcerations Neck: Supple, No JVD, Negative Carotid Bruits Lungs: Air entry diminished in bilateral lung bases. No crepitation/rhonchi Cardiovascular: Sinus bradycardia, Normal S1, Normal S2, No murmurs Abdomen: Bowel Sounds Present, Soft, Non Tender, Non-Distended : No renal angle tenderness. No suprapubic tenderness. Extremities: No edema, Capillary Refill Less than 3 Seconds Skin: No rashes, No breakdown Musculoskeletal: No Tenderness to Palpation of Joints or Extremities. Muscles atrophy of lower legs below knee and thenar and hypothenar hand muscles. Wearsbraces in both lower legs. Neurological: Cranial nerves II-XII grossly intact, DTR 2+/4, NIH stroke scale 0. Chronic weakness of lower legs. Psych/Mental Status: Flat affect. Weight / BMI Weight Weight: 179 lb 7.3 oz Body Mass Index (BMI) 35.4 ABG / Lab / Microbiology Data Result Diagrams: 10/24/22 07:00 10/24/22 07:00 Laboratory: Laboratory Results - last 24 hr 10/23/22 11:00: WBC 6.9, RBC 5.01, Hgb 15.9 H, Hct 47.1 H, MCV 94.0, MCH 31.7, MCHC 33.8, RDW Std Deviation 44.3 H, RDW Coeff of Santa 12.9, Plt Count 186, MPV 12.1 H, Immature Gran % (Auto) 0.300, Neut % (Auto) 57.6, Lymph % (Auto) 30.9, Costilla % (Auto) 9.0, Eos % (Auto) 1.6, Baso % (Auto) 0.6, Absolute Neuts (auto) 4.0, Absolute Lymphs (auto) 2.14, Nucleated RBC % 0 10/23/22 11:00: PT 15.0 H, INR 1.2, APTT 28.2 10/23/22 11:00: Sodium 142, Potassium 4.1, Chloride 108 H, Carbon Dioxide 27.0, Anion Gap 7, BUN 11, Creatinine 0.66, Estim Creat Clear Calc 73.11, Est GFR (MDRD) Af Amer 116, Est GFR (MDRD) Non-Af 96, BUN/Creatinine Ratio 16.7, [id number] H, Calcium 9.4, Troponin I High Sens 5 10/23/22 11:00: Magnesium 2.4 10/23/22 11:00: TSH 1.47 10/23/22 18:22: POC Glucose 162 H 10/23/22 21:17: POC Glucose 93 10/24/22 06:05: POC Glucose 98 10/24/22 07:00: WBC 5.9, RBC 5.15, Hgb 16.3 H, Hct 48.3 H, MCV 93.8, MCH 31.7, MCHC 33.7, RDW Std Deviation 44.2 H, RDW Coeff of Santa 12.7, Plt Count 173, MPV 12.1 H, Immature Gran % (Auto) 0.200, Neut % (Auto) 50.3, Lymph % (Auto) 38.4, Costilla % (Auto) 8.9, Eos % (Auto) 1.7, Baso % (Auto) 0.5, Absolute Neuts (auto) 3.0, Absolute Lymphs (auto) 2.28, Nucleated RBC % 0 10/24/22 07:00: Sodium 142, Potassium 4.1, Chloride 108 H, Carbon Dioxide 28.0, Anion Gap 6, BUN 12, Creatinine 0.66, Estim Creat Clear Calc 73.11, Est GFR (MDRD) Af Amer 115, Est GFR (MDRD) Non-Af 95, BUN/Creatinine Ratio 18.0, [id number], Calcium 9.3, Triglycerides 97, Cholesterol 212 H, LDL Cholesterol 126, VLDL Cholesterol 19, HDL Cholesterol 67 Radiography Diagnostic Testing: Radiology Impression Brain CT 10/23/22 11:00 IMPRESSION: Normal unenhanced CT scan of the brain. N.B. : The above Results were Read Back by Christoph Davila MD to Ni Elena and understanding confirmed on 10/23/2022 11:13:45 (ET). Electronically Signed: Christoph Davila MD at 11:14 EST , ADDENDUM: 10/23/22 1121 IMPRESSION: Normal unenhanced CT scan of the brain. N.B. : The above Results were Read Back by Christoph Davila MD to Amita Kassy and understanding confirmed on 10/23/2022 11:13:45 (ET). Electronically Signed: Christoph Davila MD at 11:14 EST , Chest X-Ray 10/23/22 11:00 IMPRESSION: No acute abnormality is seen. Electronically Signed: Christoph Davila MD at 12:35 EST , Head/Neck CTA 10/23/22 11:02 IMPRESSION: Normal CTA Head and neck with contrast. Electronically Signed: Christoph Davila MD at 11:41 EST , Brain MRI 10/23/22 13:13 IMPRESSION: No intracranial hemorrhage, acute infarct, or space occupying lesion seen on this noncontrast MRI of the brain. 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 Differential diagnosis includes cystic lymph nodes, cervical dermoid cyst or neurogenic tumors. Further evaluation by routine neck CT with contrast recommended. Electronically Signed: Adan Yin MD at 15:55 EST , Meaningful Use Info Meaningful Use Diagnoses (Choose all that apply): None applicable Discharge Plan Admission Admit Date/Time: 10/23/22 11:54 Attending Provider: Jan Doshi Primary Care Provider: Virgilio Alicia Instructions Additional Instructions / Restrictions: Hold metoprolol and flecainide if heart rate is less than 55/min. Discharge Orders/Prescriptions Prescriptions: New atorvastatin 20 mg tablet 20 mg PO QHS Qty: 30 2RF Continued multivitamin Tablet 1 tab PO DAILY Caltrate 600 plus D 600 mg-20 mcg (800 unit) Tablet,Chewable 1 tab PO DAILY acetaminophen [Tylenol Extra Strength] 500 mg Tablet 1,000 mg PO Q6H PRN (Reason: pain) loratadine [Claritin] 10 mg Tablet 10 mg PO DAILY cyclosporine [Restasis] 0.05 % Dropperette 1 drp EACH EYE Q12H flecainide 100 mg tablet 100 mg PO Q12H Qty: 180 3RF Rx Instructions: Hold for heart less than 60 or systolic blood pressure less than 100 mmHg. metoprolol tartrate 50 mg tablet 50 mg PO BID Qty: 180 3RF Rx Instructions: Hold for heart less than 60 or systolic blood pressure less than 100 mmHg. Xarelto 20 mg tablet 20 mg PO DAILY Qty: 90 3RF Rx Instructions: must administer with evening meal Discontinued flecainide 50 mg tablet 50 mg PO Q12H Qty: 180 3RF Rx Instructions: Take along with 100mg tablet for a total dose of 150mg every 12 hours. Referrals / Follow Up: Meliton Conway MD [Med Staff - Active Staff] - Within 1 Month (Follow-up with Chaparrita Pope, cardiology) Virgilio Alicia MD [Primary Care Provider] - Within 2 Weeks Disposition Disposition (needs filled in before D/C Order can be placed): Home, Self Care Charges/Coding Visit Charges Inpatient E&M: 71719 Disch Hosp >30min 10/24/22 1002 <Electronically signed by Jan Doshi MD> Cosigner Signature (if applicable): CC: Dr. Virgilio Alicia MD; Dr. Jan Doshi MD~ Signed [facility] Work Phone: 1(375) 667-110601-28-[address] Doshi [facility] October 24, 2022 9:57am Note Date/Time October 24, 2022 7 :53am [facility] Medical Records Department [address] [place] [address] Instructions for Home/Discharge Instructions 10/24/22 0753 MR#: [id number] Acct: [id number] Name: DEYA BLOUNT Rep #:[id number] : 1960 62 From: Jan Hull PCP: Dr. Virgilio Alicia MD Status:ADM JAY JAY Discharge Instructions Follow Up Care Test Results: Test results from this visit will be discussed in further detail at your follow- up appointment, if applicable. Discharge Plan Admission Admit Date/Time: 10/23/22 11:54 Attending Provider: Jan Doshi Primary Care Provider: Virgilio Alicia Instructions Additional Instructions / Restrictions: Hold metoprolol and flecainide if heart rate is less than 55/min. Discharge Orders/Prescriptions Prescriptions: New atorvastatin 20 mg tablet 20 mg PO QHS Qty: 30 2RF Continued multivitamin Tablet 1 tab PO DAILY Caltrate 600 plus D 600 mg-20 mcg (800 unit) Tablet,Chewable 1 tab PO DAILY acetaminophen [Tylenol Extra Strength] 500 mg Tablet 1,000 mg PO Q6H PRN (Reason: pain) loratadine [Claritin] 10 mg Tablet 10 mg PO DAILY cyclosporine [Restasis] 0.05 % Dropperette 1 drp EACH EYE Q12H flecainide 100 mg tablet 100 mg PO Q12H Qty: 180 3RF Rx Instructions: Hold for heart less than 60 or systolic blood pressure less than 100 mmHg. metoprolol tartrate 50 mg tablet 50 mg PO BID Qty: 180 3RF Rx Instructions: Hold for heart less than 60 or systolic blood pressure less than 100 mmHg. Xarelto 20 mg tablet 20 mg PO DAILY Qty: 90 3RF Rx Instructions: must administer with evening meal Discontinued flecainide 50 mg tablet 50 mg PO Q12H Qty: 180 3RF Rx Instructions: Take along with 100mg tablet for a total dose of 150mg every 12 hours. Referrals / Follow Up: Meliton Conway MD [Med Staff - Active Staff] - Within 1 Month (Follow-up with Chaparrita Pope, cardiology) Virgilio Alicia MD [Primary Care Provider] - Within 2 Weeks Disposition Disposition (needs filled in before D/C Order can be placed): Home, Self Care 10/24/22 0957<Electronically signed by Jan Doshi MD>Jan Doshi MD CC: Dr. Virgilio Alicia MD ~ Signed [facility] Work Phone: 1(195) 674-785601-27-[address] Elena [facility] October 23, 2022 3:29pm Note Date/Time October 23, 2022 1 1:04am [facility] Medical Records Department [address] [place] [address] Emergency Department Summary 10/23/22 MR#: [id number] Acct: [id number] Name: DEYA BLOUNT Rep #:[id number] : 1960 62 From: Ni Elena DO PCP: Dr. Virgilio Alicia MD Status:ADM JAY JAY Location: [address] History of Present Illness Chief Complaint: Dizziness Detail of Chief Complaint: Numbness and tingling to left arm and left leg Informant: patient Narrative Narrative: Patient presents to the ER via EMS. 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 Patient's had off-and-on similar symptoms over the last several weeks. Patient also had some change in vision initially where she had these thunder bolts that she would see and then things kind of went dark for short time. Patient currently on Xarelto for history of A. fib. Patient also on flecainide. She denies falls or head injuries. She denies headache. She denies recent illness. No prior history of stroke. She denies weakness at thistime. She denies difficulty with speech. Prior similar symptoms: Yes PFSH [facility] Medical History Arthritis GBS (Guillain [place] syndrome) New onset atrial fibrillation (10/2019) Numbness and tingling Obesity Paroxysmal atrial fibrillation Persistent atrial fibrillation (12/16/21) Post-polio syndrome Home Medications multivitamin 1 tab PO DAILY supplement 03/26/20 [History Last Taken 02/01/22] flecainide 150 mg tablet 150 mg PO .COMPLEX #180 tabs 02/19/22 [Rx Last Taken Unknown] flecainide 100 mg tablet 100 mg PO Q12H #180 tabs 06/17/22 [Rx Last Taken 08/17/22] metoprolol tartrate 50 mg tablet 50 mg PO BID #180 tabs 06/17/22 [Rx Last Taken 08/17/22] rivaroxaban 20 mg tablet (Xarelto) 20 mg PO DAILY blood thinner #90 tabs 06/17/22 [Rx Last Taken 08/16/22] flecainide 50 mg tablet 50 mg PO Q12H #180 tabs 09/02/22 [Rx Last Taken Unknown] loratadine 10 mg PO/SL DAILY 10/23/22 [History Last Taken Unknown] Allergy/AdvReac Type Severity Reaction Status Date / Time cephalexin [From Keflex] Allergy Unknown Unknown Verified 10/23/22 10:55 amoxicillin AdvReac Hives Verified 10/23/22 10:55 Penicillins AdvReac Anaphylaxis Verified 10/23/22 10:55 Sulfa (Sulfonamide AdvReac Hives Verified 10/23/22 10:55 Antibiotics) Family History Grandfather Heart disease maternal Grandmother CVA (cerebral vascular accident) maternal Mother Breast cancer Lung cancer Osteoporosis Surgical History History of cardioversion (12/17/20) Hx of colonoscopy Hx of knee surgery Hx of wisdom tooth extraction Social History Smoking Status: Former smoker how long ago did patient quit smokin years ago second hand exposure: No alcohol intake: current alcohol intake frequency: holidays/special occasions only substance use type: does not use caffeine: Yes Type: coffee Number of servings: 2 what type of physical activity do you participate in: aerobics frequency: daily ROS ROS ED Review of Systems ROS Unobtainable: other Constitutional Constitutional ED: Reports lethargy; Denies chills, fever(s), sweats or weight loss Eyes Eyes: Denies blurry vision, change in vision or diplopia ENT ENT ED: Denies rhinorrhea or sore throat Cardiovascular Cardiovascular: Denies chest pain, orthopnea or racing heartbeat Respiratory/Chest Respiratory/Chest: Denies cough, dyspnea, dyspnea on exertion, orthopnea or sputum Gastrointestinal Gastrointestinal: Denies abdominal pain, diarrhea, nausea or vomiting Genitourinary Genitourinary ED: Denies dysuria, hematuria or urinary frequency Musculoskeletal Musculoskeletal: Denies arthralgias, back pain, myalgias or neck pain Integumentary Denies abscess, Abrasions or rash Neurologic Neurologic: Reports paresthesias and other Details: Dizziness ; Denies headache(s) or weakness Psychiatric Psychiatric: Denies anxiety, depression or suicidal thoughts Endocrine Endocrinology: Denies polydipsia, polyphagia or polyuria Hematologic/Lymphatic Hematologic/Lymphatic: Denies easy bleeding, easy bruising or lymphadenopathy Allergic/Immunologic Allergic/Immunologic ED: Denies mouth swelling, tongue swelling or urticaria EXAM Physical Exam Const Vital Signs: 10/23/22 10:55 10/23/22 11:04 10/23/22 10:58 Temperature 96.2 F L Temperature Source Temporal Pulse Rate 61 599 H Respiratory Rate 17 16 Blood Pressure 183/103 H 183/103 H Blood Pressure Mean 129 129 Pulse Ox 98 96 98 Oxygen Delivery Method Room Air Room Air Room Air 10/23/22 11:12 10/23/22 11:19 10/23/22 11:40 Temperature Temperature Source Pulse Rate 64 63 58 L Respiratory Rate 19 H 16 18 Blood Pressure 198/106 H 162/72 H 156/84 H Blood Pressure Mean 136 102 108 Pulse Ox 98 98 98 Oxygen Delivery Method Room Air Room Air Positive well nourished and well developed General Appearance ED: well developed and NAD HEENT Reports TM's clear and moist mucous membranes normocephalic and atraumatic; Negative for trauma or tenderness Tympanic Membrane ED: Yes TM's clear Eyes PERRL and EOMs intact bilaterally General Eye ED: Negative for pale conjunctiva or scleral icterus Neck no lymphadenopathy, supple and no JVD General: Negative for tenderness Chest Wall inspection of chest normal and palpation of chest normal Chest: Negative for tenderness Resp normal respiratory effort and clear to auscultation bilaterally Effort and Inspection: Negative for respiratory distress or pain with movement Auscultation: Negative for rhonchi, wheezes or diminished lung sounds Cardio regular rate, regular rhythm, S1 normal heart sound, S2 normal heart sound and no murmurs Peripheral Pulses: pulses 2+ throughout GI normal to inspection, nondistended, normoactive bowel sounds, soft to palpation,non-tender, non-distended and no masses Back/Spine no CVA tenderness and no thoracic nor lumbar tenderness Extremity normal to inspection General Extremety ED: Negative for edema General Extremity: Negative for edema Neuro oriented x3, CN's II-XII intact bilaterally, no sensory deficits noted and gait normal Neuro Narrative: Finger-nose and heel alford testing within normal limits, negative Romberg, negative for drift, fundi benign. Currently NIH stroke scale 0. Sensorium / Orientation: awake, alert, oriented to person, oriented to place andoriented to time Motor Exam: strength 5/5 throughout and strength abnormal Psych mental status grossly normal Skin no rashes or lesions noted and no wounds MDM MDM MDM Narrative Medical decision making narrative: IV established on arrival. Patient placed on paper sheeter. Concern for stroke therefore stroke team was called immediately. Patient not a thrombolyticcandidate as she is on Xarelto and currently NIH stroke scale is a 0. Patient CT scan of the brain without contrast was unremarkable. She also had CTA head and neck which were unremarkable. I discussed case with stroke neurologist who recommended admission to our facility to complete stroke work-up. In the differential would be stroke versus complex migraine versus other etiology. Labwork-up was unremarkable. EKG and troponin were unremarkable. Patient also perEMS was noted to be bradycardic at times with heart rates in the 30s and 40s on their transport of patient to the ER. Patient states that she did have her flecainide increased to the 150 mg but this was 2 months ago. Case discussed with hospitalist will evaluate patient for admission. Lab Data Labs: Laboratory Results - last 24 hr 10/23/22 10/23/22 10/23/22 11:00 11:00 11:00 WBC 6.9 RBC 5.01 Hgb 15.9 H Hct 47.1 H MCV 94.0 MCH 31.7 MCHC 33.8 RDW Std Deviation 44.3 H RDW Coeff of Santa 12.9 Plt Count 186 MPV 12.1 H Immature Gran % (Auto) 0.300 Neut % (Auto) 57.6 Lymph % (Auto) 30.9 Costilla % (Auto) 9.0 Eos % (Auto) 1.6 Baso % (Auto) 0.6 Absolute Neuts (auto) 4.0 Absolute Lymphs (auto) 2.14 Nucleated RBC % 0 PT 15.0 H INR 1.2 APTT 28.2 Sodium 142 Potassium 4.1 Chloride 108 H Carbon Dioxide 27.0 Anion Gap 7 BUN 11 Creatinine 0.66 Estim Creat Clear Calc 73.11 Est GFR (MDRD) Af Amer 116 Est GFR (MDRD) Non-Af 96 BUN/Creatinine Ratio 16.7 Glucose 108 H Calcium 9.4 Troponin I High Sens 5 Radiography Diagnostic Testing: Clinical Impression(s) from Imaging Studies Brain CT 10/23/22 11:00 IMPRESSION: Normal unenhanced CT scan of the brain. N.B. : The above Results were Read Back by Christoph Davila MD to Ni Elena and understanding confirmed on 10/23/2022 11:13:45 (ET). Electronically Signed: Christoph Davila MD at 11:14 EST , ADDENDUM: 10/23/22 1121 IMPRESSION: Normal unenhanced CT scan of the brain. N.B. : The above Results were Read Back by Christoph Davila MD to Ni Elena and understanding confirmed on 10/23/2022 11:13:45 (ET). Electronically Signed: Christoph Davila MD at 11:14 EST , Head/Neck CTA 10/23/22 11:02 IMPRESSION: Normal CTA Head and neck with contrast. Electronically Signed: Christoph Davila MD at 11:41 EST , 1 view chest x-ray obtained interpreted by myself no acute disease process. There is no evidence of infiltrate or pneumothorax. Radiology in agreement. EKG Initial EKG: Attestation: I personally reviewed and interpreted this EKG as follows: Comments: Sinus rhythm with rate of [address] changes Prior EKG tracings: available for review Prior: Unchanged Discharge Plan Triage Chief Complaint: Dizziness ED Provider: Ni Elena Dx/Rx/DC Orders Clinical Impression: Paresthesias, Hypertension, Bradycardia Prescriptions: No Action multivitamin Tablet 1 tab PO DAILY flecainide 50 mg tablet 50 mg PO Q12H Qty: 180 3RF Rx Instructions: Take along with 100mg tablet for a total dose of 150mg every 12 hours. loratadine 10 mg PO/SL DAILY flecainide 150 mg tablet 150 mg PO .COMPLEX Qty: 180 3RF Rx Instructions: 150 mg PO keep for prn use for increased heart rate; flecainide 100 mg tablet 100 mg PO Q12H Qty: 180 3RF metoprolol tartrate 50 mg tablet 50 mg PO BID Qty: 180 3RF Xarelto 20 mg tablet 20 mg PO DAILY Qty: 90 3RF Rx Instructions: must administer with evening meal Primary Care Provider: Virgilio Alicia Referrals: Virgilio Alicia MD [Primary Care Provider] - Disposition Disposition: Acute Care Hospital [facility] What to do if you have Problems For any increased pain, shortness of breath, bleeding, nausea or vomiting, chestpain, or any unexpected problems, contact your Primary Care Provider. Call [facility] ([phone]) or report to the closest Emergency Room. Call 911 if necessary. 10/23/22 9911 <Electronically signed by Ni Elena DO> Cosigner Signature (if applicable): CC: Dr. Virgilio Alicia MD ~ Signed [facility] Work Phone: 1([phone]) 551-283901-27-2023 History and physical note Author Dr. Doshi [facility] October 23, 2022 1:07pm Note Date/Time October 23, 2022 1 :07pm [facility] Medical Records Department [address] [place] [id number] H&P Exam - Hospitalist 10/23/22 1247 MR#: [id number] Acct: [id number] Name: DEYA BLOUNT Rep #:[id number] : 1960 62 From: Jan Hull PCP: Dr. 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 HPI Narrative DEYA BLOUNT, is a 62 F with history of chronic A. fib on Xarelto was brought byEMS for dizziness lightheadedness and sled down with support of table to the floor without fall. 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 She she felt like going to pass out. She did not pass out. Patient felt like blurry vision with darkness and thunderbolt before her eyes. She also felt numbness in her left arm and leg and head. EMS vitals shows shows her BP was high 169/96, heart rate 65 but in ER shows more bradycardic heart rate in low 50s. Twelve-lead EKG was done, individually reviewed sinus bradycardia at 56 bpm, first-degree block, nonspecific ST-T changes. Minimal criteria for LVH. Patient has history of Patient has persistent A. fib and on flecainide which required cardioversion in July. About 1 and half months ago she was still tachycardic and therefore flecainide dose was increased to 150 mg p.o. twice daily and is on Xarelto. In ED, CT head and CTA head and neck were done which did not show acute abnormality. NIH stroke scale 0 therefore not candidate for tPA. [facility] Medical History Arthritis GBS (Guillain [place] syndrome) New onset atrial fibrillation (10/2019) Numbness and tingling Obesity Paroxysmal atrial fibrillation Persistent atrial fibrillation (12/16/21) Post-polio syndrome Home Medications multivitamin 1 tab PO DAILY supplement 03/26/20 [History Last Taken 10/23/22] flecainide 100 mg tablet 100 mg PO Q12H #180 tabs 06/17/22 [Rx Last Taken 10/23/22] metoprolol tartrate 50 mg tablet 50 mg PO BID #180 tabs 06/17/22 [Rx Last Taken 10/23/22] rivaroxaban 20 mg tablet (Xarelto) 20 mg PO DAILY blood thinner #90 tabs 06/17/22 [Rx Last Taken 10/22/22] flecainide 50 mg tablet 50 mg PO Q12H #180 tabs 09/02/22 [Rx Last Taken 10/23/22] calcium carbonate 600 mg-vitamin D3 20 mcg (800 unit) chewable tablet (Caltrate 600 plus D) 1 tab PO DAILY SUPPLEMENT 10/23/22 [History Last Taken 10/23/22] loratadine 10 mg PO/SL DAILY 10/23/22 [History Last Taken 10/23/22] Allergy/AdvReac Type Severity Reaction Status Date / Time cephalexin [From Keflex] Allergy Unknown Unknown Verified 10/23/22 10:55 amoxicillin AdvReac Hives Verified 10/23/22 10:55 Penicillins AdvReac Anaphylaxis Verified 10/23/22 10:55 Sulfa (Sulfonamide AdvReac Hives Verified 10/23/22 10:55 Antibiotics) Family History Grandfather Heart disease maternal Grandmother CVA (cerebral vascular accident) maternal Mother Breast cancer Lung cancer Osteoporosis Surgical History History of cardioversion (12/17/20) Hx of colonoscopy Hx of knee surgery Hx of wisdom tooth extraction Social History Smoking Status: Former smoker how long ago did patient quit smokin years ago second hand exposure: No alcohol intake: current alcohol intake frequency: holidays/special occasions only substance use type: does not use caffeine: Yes Type: coffee Number of servings: 2 what type of physical activity do you participate in: aerobics frequency: daily ROS ROS Narrative Physical exam: Constitutional: Reports fatigue and weakness, dizziness and lightheadedness as mentioned in HPI HEENT: Head numbness. Blurry vision. Reports systems reviewed and no addt'l complaints, except as documented Respiratory/Chest: Denies chest pain. Patient reports dyspnea on exertion/shortness of breath since July progressively worsening. Gastrointestinal: Denies coffee ground emesis, hematemesis or vomiting Genitourinary: Denies burning urination or new urinary tract symptoms Musculoskeletal: Bilateral below-knee weakness with foot drop in 1970 when she was 11-year-old. Bilateral below knee braces. Neurologic: Denies seizure-like activity. As described in HPI. 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 No rash Endocrinology: Reports systems reviewed and no addt'l complaints, except as documented Hematologic/Lymphatic: Reports systems reviewed and no addt'l complaints, exceptas documented Rest 14 ROS are negative except as mentioned in HPI Vital Signs Vital Signs Vital Signs: 10/23/22 10:55 10/23/22 11:04 10/23/22 10:58 Temperature 96.2 F L Temperature Source Temporal Pulse Rate 61 599 H Respiratory Rate 17 16 Blood Pressure 183/103 H 183/103 H Blood Pressure Mean 129 129 Pulse Ox 98 96 98 Oxygen Delivery Method Room Air Room Air Room Air 10/23/22 11:12 10/23/22 11:19 10/23/22 11:40 Temperature Temperature Source Pulse Rate 64 63 58 L Respiratory Rate 19 H 16 18 Blood Pressure 198/106 H 162/72 H 156/84 H Blood Pressure Mean 136 102 108 Pulse Ox 98 98 98 Oxygen Delivery Method Room Air Room Air 10/23/22 12:00 10/23/22 12:17 Temperature 97.2 F L Temperature Source Temporal Pulse Rate 55 L 55 L Respiratory Rate 15 16 Blood Pressure 144/83 H 144/83 H Blood Pressure Mean 103 103 Pulse Ox 98 98 Oxygen Delivery Method Room Air Room Air Weight Weight: 200 lb 2.876 oz Body Mass Index (BMI) 35.4 Physical Exam Narrative Physical exam General: Alert, Oriented x3, Cooperative HEENT: Atraumatic, PERRLA, EOMI, Normocephalic Oral: No Gingival or Mucosal Lesions/ Ulcerations Neck: Supple, No JVD, Negative Carotid Bruits Lungs: Air entry diminished in bilateral lung bases. No crepitation/rhonchi Cardiovascular: Sinus bradycardia, Normal S1, Normal S2, No murmurs Abdomen: Bowel Sounds Present, Soft, Non Tender, Non-Distended : No renal angle tenderness. No suprapubic tenderness. Extremities: No edema, Capillary Refill Less than 3 Seconds Skin: No rashes, No breakdown Musculoskeletal: No Tenderness to Palpation of Joints or Extremities. Muscles atrophy of lower legs below knee and thenar and hypothenar hand muscles. Neurological: Cranial nerves II-XII grossly intact, DTR 2+/4, NIH stroke scale 0. Chronic weakness of lower legs. Psych/Mental Status: Flat affect. Results Lab / Micro Data Result Diagrams: 10/23/22 11:00 10/23/22 11:00 Labs: Laboratory Results - last 24 hr 10/23/22 11:00: WBC 6.9, RBC 5.01, Hgb 15.9 H, Hct 47.1 H, MCV 94.0, MCH 31.7, MCHC 33.8, RDW Std Deviation 44.3 H, RDW Coeff of Santa 12.9, Plt Count 186, MPV 12.1 H, Immature Gran % (Auto) 0.300, Neut % (Auto) 57.6, Lymph % (Auto) 30.9, Costilla % (Auto) 9.0, Eos % (Auto) 1.6, Baso % (Auto) 0.6, Absolute Neuts (auto) 4.0, Absolute Lymphs (auto) 2.14, Nucleated RBC % 0 10/23/22 11:00: PT 15.0 H, INR 1.2, APTT 28.2 10/23/22 11:00: Sodium 142, Potassium 4.1, Chloride 108 H, Carbon Dioxide 27.0, Anion Gap 7, BUN 11, Creatinine 0.66, Estim Creat Clear Calc 73.11, Est GFR (MDRD) Af Amer 116, Est GFR (MDRD) Non-Af 96, BUN/Creatinine Ratio 16.7, [id number] H, Calcium 9.4, Troponin I High Sens [address] 10/23/22 11:00 IMPRESSION: Normal unenhanced CT scan of the brain. N.B. : The above Results were Read Back by Christoph Davila MD to Ni Elena and understanding confirmed on 10/23/2022 11:13:45 (ET). Electronically Signed: Christoph Davila MD at 11:14 EST , ADDENDUM: 10/23/22 1121 IMPRESSION: Normal unenhanced CT scan of the brain. N.B. : The above Results were Read Back by Christoph Davila MD to Ni Elena and understanding confirmed on 10/23/2022 11:13:45 (ET). Electronically Signed: Christoph Davila MD at 11:14 EST , Chest X-Ray 10/23/22 11:00 IMPRESSION: No acute abnormality is seen. Electronically Signed: Christoph Davila MD at 12:35 EST , Head/Neck CTA 10/23/22 11:02 IMPRESSION: Normal CTA Head and neck with contrast. Electronically Signed: Christoph Davila MD at 11:41 EST , Assessment & Plan Assessment/Plan (1) Near syncope: PLAN: Plan This is 62-year-old pleasant lady was brought by EMS for dizziness lightheadedness and numbness on the left side. 1. Near syncope with left-sided numbness, rule out stroke: Patient is being admitted in PCU. First troponin is negative. Stroke order including MRI brain and 2D echo ordered. CT brain and CT head and neck reported normal. NIH strokescale monitoring, PT OT speech and swallow evaluation as per stroke guidelines. BP and glucose control as per stroke guidelines. No prior history of a stroke. 2. Persistent A. fib on Xarelto: Currently patient is in sinus bradycardia. Serum magnesium ordered. Potassium normal. Dose of flecainide was recently increased to 150 mg twice daily but I will keep 100 mg twice daily because of bradycardia with holding parameters. Patient on metoprolol 50 mg twice daily, continued with holding parameters. 3. Progressively worsening dyspnea on exertion: 2D echo is ordered.She also felt numbness and tingling of left arm and leg. Patient had a stress test reported normal in May 2022.2D echo in January 2020 reported EF 50% with structurally normal valves. No RWMA. Patient does not have leg swelling. 4. 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 based on lumbar puncture finding but later on in [facility] said it looked more like polio. She has below-knee muscle atrophy and wears braces and also atrophy of muscles of hand. Usually muscle atrophy and weakness in polio is asymmetrical. 5. VT prophylaxis: Patient on Xarelto 20 mg daily at 5 PM. Continued Living will/advanced directive/end of life care: Patient does not have living will or advanced directive. After discussion of benefits/risks procedures involved with full code, DNR CC arrest and DNR CC, the patient opted for full code. Patient does want artificial life support including intubation, tube feed, ventilator and/chest compression, central venous catheter, vasopressor and DC shock if needed Total time spent in [id number] encounter in discussion of advanced directive 17 minutes. Clinical Impression(s) from Imaging Studies Brain CT 10/23/22 11:00 IMPRESSION: Normal unenhanced CT scan of the brain. N.B. : The above Results were Read Back by Christoph Davila MD to Ni Elena and understanding confirmed on 10/23/2022 11:13:45 (ET). Electronically Signed: Christoph Davila MD at 11:14 EST , ADDENDUM: 10/23/22 1121 IMPRESSION: Normal unenhanced CT scan of the brain. N.B. : The above Results were Read Back by Christoph Davila MD to Ni Elena and understanding confirmed on 10/23/2022 11:13:45 (ET). Electronically Signed: Christoph Dvaila MD at 11:14 EST , Chest X-Ray 10/23/22 11:00 IMPRESSION: No acute abnormality is seen. Head/Neck CTA 10/23/22 11:02 IMPRESSION: Normal CTA Head and neck with contrast. Charges/Coding Visit Charges Inpatient E&M: 78490 Init Hosp L3 Procedures Hospitalists Procedures: 45275 Advncd Care Plan 30 Min 10/23/22 1307 <Electronically signed by Jan Doshi MD> Cosigner Signature (if applicable): CC: Dr. Virgilio Alicia MD; Dr. Jan Doshi MD~ Signed [facility] Work Phone: [phone]) 483-346412-07-2022 NoteHNO ID: [id number] Author: Bailee Lara APRN.REFRIGERATION SPECIALIST Service: ? Author Type: Nurse Practitioner Type: Progress Notes Filed: 09/02/2022 12:40 PM Note Text: Subjective Ear Problem Associated symptoms include ear discharge. Pertinent negatives include no headaches or rash. Deya Blount is a 62 year old female who [...] DX W/COLLJ SPEC WHEN PFRMD 01/18/10 Colonoscopy H inpt PAST SURGICAL HISTORY OF 1999 surgery [...] ENT - Patient will be seen at [facility] in half an hour. She is on their schedule for 1:15 today. She is agreeable with this plan. Bailee Lara APRN.[facility]PL[facility] Instructions* Patient Instructions* Bailee Lara APRN.CNP - 09/02/2022 12:31 PM EST ASSESSMENT/PLAN: 1. Ear injury, initial encounter - ICD9: 959.09, ICD10: S09.91XA (primary diagnosis) - CONSULT TO ENT 2. Blood in left ear canal - ICD9: 388.69, ICD10: H92.22 - CONSULT TO ENT - Patient will be seen at [facility] in half an hour. She is on their schedule for 1:15 today. Sheis agreeable with this plan. Bailee Lara APRN.CNP [facility] History of Present illness Narrative* Bailee Lara APRN.CNP - 09/02/2022 12:26 PM EST Subjective Ear Problem Associated symptoms include ear discharge. Pertinent negatives include no headaches or rash. Willard Blount is a 62 year old female who presents with bleeding from her left ear. She was cleaning her ear with a Q-tip this morning when she jammed it into her ear canal. She had momentary sharp pain but it did not persist. She went to work and when she bent over it started bleeding. She denies painor hearing difficulty. Review of Systems Constitutional: Negative for chills and fever. HENT: Positive for ear discharge and ear pain. Skin: Negative for rash. Neurological: Negative for dizziness and headaches. BP 118/68 Pulse 82 Temp 36.6 C (97.9 F) Resp 16 Wt 87.1 kg (192 lb) LMP 10/22/2009 KrS055% BMI 32.96 kg/m PAST MEDICAL HISTORY Diagnosis [...] Dose-Pack As Instructed per package (Patient not taking:Reported on 09/02/2022) albuterol HFA (PROAIR HFA) 90 [...] - Patient will be seen at [facility] in half an hour. She is on their schedule for 1:15 today. Sheis agreeable with this plan. Bailee Lara APRN.REFRIGERATION SPECIALIST documented in this encounter[facility] Evaluation note* Diagnosis Onset Date Resolution Status COVID-19 acute Atrial fibrillation with RVR resolved New onset atrial fibrillation October, resolved Paroxysmal atrial fibrillation resolved [facility] Work Phone: 1(337) 925-333702-01-2020 Evaluation note* Diagnosis Onset Date Resolution Status New onset atrial fibrillation October, resolved Paroxysmal atrial fibrillation resolved Chest heaviness acute TAYLOR (dyspnea on exertion) ac [place] Fatigue acute Paroxysmal atrial fibrillation resolved [facility] Work Phone: 1(933) 800-833702-01-2020 Evaluation note* Diagnosis Onset Date Resolution Status Chest heaviness acute TAYLOR (dyspnea on exertion) ac [place] Fatigue acute New onset atrial fibrillation October, resolved Paroxysmal atrial fibrillation resolved New onset atrial fibrillation October, resolved Bradycardia acute Near syncope acute Paresthesias acute Hypertension chronic [facility] Work Phone: 1(849) 378-476111-23-2010 History of Past illness Narrative* Problem Noted Date Resolved Date Pain in joint, pelvic region and thigh 0 11/04/2011 Lateral epicondylitis 08/19/2010 11/04/2011 Routine gynecological examination 07/11/2010 11/04/2011 Overview: Sees Dr. 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 Compounded HRT Fibromyalgia 07/11/2010 11/04/2011 Overview: Dx per Kevin, neurologist Tibialis tendinitis 11/17/2005 07/11/2010 Other acquired deformity of ankle and foot(736.7 9) 11/12/2005 07/11/2010 Allergic rhinitis, cause unspecified 11/04/2011 Overview: Allergic rhinitis Last Assessment & Plan: Controlled with loratidine. documented as of this encounter (statuses as of 09/02/2022) [facility]11[facility] History of Past illness Narrative* Problem Noted Date Resolved Date Pain in joint, pelvic region and thigh 0 11/04/2011 Lateral epicondylitis 08/19/2010 11/04/2011 Routine gynecological examination 07/11/2010 11/04/2011 Overview: Sees Dr. 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 Compounded HRT Fibromyalgia 07/11/2010 11/04/2011 Overview: Dx per Kevin neurologist Tibialis tendinitis 11/17/2005 07/11/2010 Other acquired deformity of ankle and foot(736.7 9) 11/12/2005 07/11/2010 Allergic rhinitis, cause unspecified 11/04/2011 Overview: Allergic rhinitis Last Assessment & Plan: Controlled with loratidine. documented as of this encounter (statuses as of 10/28/2022) [facility]11[facility] History of Past illness Narrative* Problem Noted Date Diagnosed Date Resolved Date Pain in joint, pelvic region and thigh 08/19/2010 11/04/2011 Lateral epicondylitis 08/19/20102011 Routine gynecological examination 07/11/2010 11/04/2011 Overview: Sees Dr. 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 Compounded HRT Fibromyalgia 07/11/2010 11/04/2011 Overview: Dx per Kevin neurologbee Tibialis tendinitis 11/17/2005 07/11/20 10 Other acquired deformity of ankle and foot(736.79) 11/12/2005 07/11/2010 Allergic rhinitis, cause unspecified 11/04/2011 Overview: Allergic rhinitis Last Assessment & Plan: Controlled with loratidine. documented as of this encounter (statuses as of 04/06/2023) [facility] Diagnosis Onset Date Resolution Status Paroxysmal atrial fibrillation chronic [facility] Work Phone: Evaluation note* Diagnosis Onset Date Resolution Status Atrial fibrillation with RVR acute COVID-19 acute [facility] Work Phone: Evaluation note* Diagnosis Onset Date Resolution Status COVID-19 acute Atrial fibrillation with RVR resolved [facility] Work Phone: Evaluation note* Diagnosis Onset Date Resolution Status Chest heaviness acute TAYLOR (dyspnea on exertion) ac [place] Fatigue acute Paroxysmal atrial fibrillation resolved Chest heaviness acute TAYLOR (dyspnea on exertion) ac [place] Fatigue acute New onset atrial fibrillation October, resolved Paroxysmal atrial fibrillation resolved [facility] Work Phone: Evaluation note* Diagnosis Onset Date Resolution Status Chest heaviness acute TAYLOR (dyspnea on exertion) ac [place] Fatigue acute Paroxysmal atrial fibrillation resolved Chest heaviness acute TAYLOR (dyspnea on exertion) ac [place] Fatigue acute New onset atrial fibrillation October, resolved Paroxysmal atrial fibrillation resolved New onset atrial fibrillation October, resolved [facility] Work Phone: Evaluation note* Diagnosis Ear injury, initial encounter- Primary Blood in left ear canal documented in this encounter [facility]* Diagnosis Atrial fibrillation, unspecified type (HCC)- Primary [facility]* Diagnosis Onset Date Resolution Status Hypertension chronic Bradycardia resolved Near syncope resolved Paresthesias resolved Paroxysmal atrial flutter ac [place] [facility] Work Phone: Evaluation note* Diagnosis Atrial fibrillation, persistent- Primary Atrial fibrillation Paroxysmal atrial fibrillation Atrial fibrillation Paroxysmal atrial fibrillation Atrial fibrillation [facility] Diagnosis Paroxysmal atrial fibrillation Atrial fibrillation [facility] Diagnosis Persistent atrial fibrillation- Primary Atrial fibrillation Typical atrial flutter Atrial flutter Hypertension, essential Unspecified essential hypertension [facility] Diagnosis ETD (Eustachian tube dysfunction), left- Primary documented in this encounter [facility]* Diagnosis Onset Date Resolution Status S/P ablation of atrial fibrillation acute Hypertension chronic [facility] Work Phone: Evaluation noteNo assessment information available [facility] Work Phone: Evaluation note* Diagnosis Onset Date Resolution Status S/P ablation of atrial fibrillation acute Hypertension chronic Encounter for routine gynecological examination noneactive [facility] Work Phone: History and physical note Author Dr. Doshi [facility] October 23, 2022 1:07pm Note Date/Time October 23, 2022 1 :07pm [facility] Medical Records Department [address] [place] [id number] H&P Exam - Hospitalist 10/23/22 1247 MR#: [id number] Acct: [id number] Name: DEYA BLOUNT Rep #:[id number] : 1960 62 From: Jan uHll PCP: Dr. 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 HPI Narrative DEYA BLOUNT, is a 62 F with history of chronic A. fib on Xarelto was brought byEMS for dizziness lightheadedness and sled down with support of table to the floor without fall. 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 She she felt like going to pass out. She did not pass out. Patient felt like blurry vision with darkness and thunderbolt before her eyes. She also felt numbness in her left arm and leg and head. EMS vitals shows shows her BP was high 169/96, heart rate 65 but in ER shows more bradycardic heart rate in low 50s. Twelve-lead EKG was done, individually reviewed sinus bradycardia at 56 bpm, first-degree block, nonspecific ST-T changes. Minimal criteria for LVH. Patient has history of Patient has persistent A. fib and on flecainide which required cardioversion in July. About 1 and half months ago she was still tachycardic and therefore flecainide dose was increased to 150 mg p.o. twice daily and is on Xarelto. In ED, CT head and CTA head and neck were done which did not show acute abnormality. NIH stroke scale 0 therefore not candidate for tPA. [facility] Medical History Arthritis GBS (Guillain [place] syndrome) New onset atrial fibrillation (10/2019) Numbness and tingling Obesity Paroxysmal atrial fibrillation Persistent atrial fibrillation (12/16/21) Post-polio syndrome Home Medications multivitamin 1 tab PO DAILY supplement 03/26/20 [History Last Taken 10/23/22] flecainide 100 mg tablet 100 mg PO Q12H #180 tabs 06/17/22 [Rx Last Taken 10/23/22] metoprolol tartrate 50 mg tablet 50 mg PO BID #180 tabs 06/17/22 [Rx Last Taken 10/23/22] rivaroxaban 20 mg tablet (Xarelto) 20 mg PO DAILY blood thinner #90 tabs 06/17/22 [Rx Last Taken 10/22/22] flecainide 50 mg tablet 50 mg PO Q12H #180 tabs 09/02/22 [Rx Last Taken 10/23/22] calcium carbonate 600 mg-vitamin D3 20 mcg (800 unit) chewable tablet (Caltrate 600 plus D) 1 tab PO DAILY SUPPLEMENT 10/23/22 [History Last Taken 10/23/22] loratadine 10 mg PO/SL DAILY 10/23/22 [History Last Taken 10/23/22] Allergy/AdvReac Type Severity Reaction Status Date / Time cephalexin [From Keflex] Allergy Unknown Unknown Verified 10/23/22 10:55 amoxicillin AdvReac Hives Verified 10/23/22 10:55 Penicillins AdvReac Anaphylaxis Verified 10/23/22 10:55 Sulfa (Sulfonamide AdvReac Hives Verified 10/23/22 10:55 Antibiotics) Family History Grandfather Heart disease maternal Grandmother CVA (cerebral vascular accident) maternal Mother Breast cancer Lung cancer Osteoporosis Surgical History History of cardioversion (12/17/20) Hx of colonoscopy Hx of knee surgery Hx of wisdom tooth extraction Social History Smoking Status: Former smoker how long ago did patient quit smokin years ago second hand exposure: No alcohol intake: current alcohol intake frequency: holidays/special occasions only substance use type: does not use caffeine: Yes Type: coffee Number of servings: 2 what type of physical activity do you participate in: aerobics frequency: daily ROS ROS Narrative Physical exam: Constitutional: Reports fatigue and weakness, dizziness and lightheadedness as mentioned in HPI HEENT: Head numbness. Blurry vision. Reports systems reviewed and no addt'l complaints, except as documented Respiratory/Chest: Denies chest pain. Patient reports dyspnea on exertion/shortness of breath since July progressively worsening. Gastrointestinal: Denies coffee ground emesis, hematemesis or vomiting Genitourinary: Denies burning urination or new urinary tract symptoms Musculoskeletal: Bilateral below-knee weakness with foot drop in 1969 when she was 11-year-old. Bilateral below knee braces. Neurologic: Denies seizure-like activity. As described in HPI. 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 No rash Endocrinology: Reports systems reviewed and no addt'l complaints, except as documented Hematologic/Lymphatic: Reports systems reviewed and no addt'l complaints, exceptas documented Rest 14 ROS are negative except as mentioned in HPI Vital Signs Vital Signs Vital Signs: 10/23/22 10:55 10/23/22 11:04 10/23/22 10:58 Temperature 96.2 F L Temperature Source Temporal Pulse Rate 61 599 H Respiratory Rate 17 16 Blood Pressure 183/103 H 183/103 H Blood Pressure Mean 129 129 Pulse Ox 98 96 98 Oxygen Delivery Method Room Air Room Air Room Air 10/23/22 11:12 10/23/22 11:19 10/23/22 11:40 Temperature Temperature Source Pulse Rate 64 63 58 L Respiratory Rate 19 H 16 18 Blood Pressure 198/106 H 162/72 H 156/84 H Blood Pressure Mean 136 102 108 Pulse Ox 98 98 98 Oxygen Delivery Method Room Air Room Air 10/23/22 12:00 10/23/22 12:17 Temperature 97.2 F L Temperature Source Temporal Pulse Rate 55 L 55 L Respiratory Rate 15 16 Blood Pressure 144/83 H 144/83 H Blood Pressure Mean 103 103 Pulse Ox 98 98 Oxygen Delivery Method Room Air Room Air Weight Weight: 200 lb 2.876 oz Body Mass Index (BMI) 35.4 Physical Exam Narrative Physical exam General: Alert, Oriented x3, Cooperative HEENT: Atraumatic, PERRLA, EOMI, Normocephalic Oral: No Gingival or Mucosal Lesions/ Ulcerations Neck: Supple, No JVD, Negative Carotid Bruits Lungs: Air entry diminished in bilateral lung bases. No crepitation/rhonchi Cardiovascular: Sinus bradycardia, Normal S1, Normal S2, No murmurs Abdomen: Bowel Sounds Present, Soft, Non Tender, Non-Distended : No renal angle tenderness. No suprapubic tenderness. Extremities: No edema, Capillary Refill Less than 3 Seconds Skin: No rashes, No breakdown Musculoskeletal: No Tenderness to Palpation of Joints or Extremities. Muscles atrophy of lower legs below knee and thenar and hypothenar hand muscles. Neurological: Cranial nerves II-XII grossly intact, DTR 2+/4, NIH stroke scale 0. Chronic weakness of lower legs. Psych/Mental Status: Flat affect. Results Lab / Micro Data Result Diagrams: 10/23/22 11:00 10/23/22 11:00 Labs: Laboratory Results - last 24 hr 10/23/22 11:00: WBC 6.9, RBC 5.01, Hgb 15.9 H, Hct 47.1 H, MCV 94.0, MCH 31.7, MCHC 33.8, RDW Std Deviation 44.3 H, RDW Coeff of [place] 12.9, Plt Count 186, MPV 12.1 H, Immature Gran % (Auto) 0.300, Neut % (Auto) 57.6, Lymph % (Auto) 30.9, [place] % (Auto) 9.0, Eos % (Auto) 1.6, Baso % (Auto) 0.6, Absolute Neuts (auto) 4.0, Absolute Lymphs (auto) 2.14, Nucleated RBC % 0 10/23/22 11:00: PT 15.0 H, INR 1.2, APTT 28.2 10/23/22 11:00: Sodium 142, Potassium 4.1, Chloride 108 H, Carbon Dioxide 27.0, Anion Gap 7, BUN 11, Creatinine 0.66, Estim Creat Clear Calc 73.11, Est GFR (MDRD) Af Amer 116, Est GFR (MDRD) Non-Af 96, BUN/Creatinine Ratio 16.7, [id number] H, Calcium 9.4, Troponin I High Sens [address] 10/23/22 11:00 IMPRESSION: Normal unenhanced CT scan of the brain. N.B. : The above Results were Read Back by Christoph Davila MD to Ni Elena and understanding confirmed on 10/23/2022 11:13:45 (ET). Electronically Signed: Christoph Davila MD at 11:14 EST , ADDENDUM: 10/23/22 1121 IMPRESSION: Normal unenhanced CT scan of the brain. N.B. : The above Results were Read Back by Christoph Davila MD to Ni Elena and understanding confirmed on 10/23/2022 11:13:45 (ET). Electronically Signed: Christoph Davila MD at 11:14 EST , Chest X-Ray 10/23/22 11:00 IMPRESSION: No acute abnormality is seen. Electronically Signed: Christoph Davila MD at 12:35 EST , Head/Neck CTA 10/23/22 11:02 IMPRESSION: Normal CTA Head and neck with contrast. Electronically Signed: Christoph Davila MD at 11:41 EST , Assessment & Plan Assessment/Plan (1) Near syncope: PLAN: Plan This is 62-year-old pleasant lady was brought by EMS for dizziness lightheadedness and numbness on the left side. 1. Near syncope with left-sided numbness, rule out stroke: Patient is being admitted in PCU. First troponin is negative. Stroke order including MRI brain and 2D echo ordered. CT brain and CT head and neck reported normal. NIH strokescale monitoring, PT OT speech and swallow evaluation as per stroke guidelines. BP and glucose control as per stroke guidelines. No prior history of a stroke. 2. Persistent A. fib on Xarelto: Currently patient is in sinus bradycardia. Serum magnesium ordered. Potassium normal. Dose of flecainide was recently increased to 150 mg twice daily but I will keep 100 mg twice daily because of bradycardia with holding parameters. Patient on metoprolol 50 mg twice daily, continued with holding parameters. 3. Progressively worsening dyspnea on exertion: 2D echo is ordered.She also felt numbness and tingling of left arm and leg. Patient had a stress test reported normal in May 2022.2D echo in January 2020 reported EF 50% with structurally normal valves. No RWMA. Patient does not have leg swelling. 4. 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 based on lumbar puncture finding but later on in [facility] said it looked more like polio. She has below-knee muscle atrophy and wears braces and also atrophy of muscles of hand. Usually muscle atrophy and weakness in polio is asymmetrical. 5. VT prophylaxis: Patient on Xarelto 20 mg daily at 5 PM. Continued Living will/advanced directive/end of life care: Patient does not have living will or advanced directive. After discussion of benefits/risks procedures involved with full code, DNR CC arrest and DNR CC, the patient opted for full code. Patient does want artificial life support including intubation, tube feed, ventilator and/chest compression, central venous catheter, vasopressor and DC shock if needed Total time spent in [id number] encounter in discussion of advanced directive 17 minutes. Clinical Impression(s) from Imaging Studies Brain CT 10/23/22 11:00 IMPRESSION: Normal unenhanced CT scan of the brain. N.B. : The above Results were Read Back by Christoph Davila MD to Ni Elena and understanding confirmed on 10/23/2022 11:13:45 (ET). Electronically Signed: Christoph Davila MD at 11:14 EST , ADDENDUM: 10/23/22 1121 IMPRESSION: Normal unenhanced CT scan of the brain. N.B. : The above Results were Read Back by Christoph Davila MD to Ni Elena and understanding confirmed on 10/23/2022 11:13:45 (ET). Electronically Signed: Christoph Davila MD at 11:14 EST , Chest X-Ray 10/23/22 11:00 IMPRESSION: No acute abnormality is seen. Head/Neck CTA 10/23/22 11:02 IMPRESSION: Normal CTA Head and neck with contrast. Charges/Coding Visit Charges Inpatient E&M: 25730 Init Hosp L3 Procedures Hospitalists Procedures: 79730 Advncd Care Plan 30 Min 10/23/22 1307 <Electronically signed by Jan Doshi MD> Cosigner Signature (if applicable): CC: Dr. Virgilio Alicia MD; Dr. Jan Doshi MD~ Signed [facility] Work Phone: Reason for referral (narrative)* Outpatient Procedure (Routine) - Authorized Specialty Diagnoses / Procedures Referred By Contac t Referred To [facility] Diagnoses Atrial fibrillation, unspecified type (HCC) Procedures ECG COMPLETE ECG ROUTINE ECG W/LEAST 12 LDS W/I&R Colten Estrada MD [address] [place] [address] [facility] [address] [place] [address] Referral ID Status Reason Start Date Expiration Date Visits Requested Visits Authorized [id number] Authorized Auto-Generat ed Referral 10/28/2022 10/28/2023 1 1 [facility] Chief Complaint and Reason for Visit Chief Complaint 6 M FU AFIB Reason for Visit Paroxysmal atrial fi brillation Chief Complaint 6 M FU AFIB PERSISTENT A-FIB Reason for Visit Paroxysmal atrial fi brillation Chief Complaint AFIB PERSISTENT A-FIB PERSISTENT A-FIB AFLUTTER W/ VARIABLE BLOCK,RAPID HEART RATE,COVID Reason for Visit Atrial fibrillation with RVR COVID-19 Chief Complaint AFIB PERSISTENT A-FIB PERSISTENT A-FIB AFIB RVR AND COVID AFIB RVR AND COVID AFIB RVR AND COVID Reason for Visit Atrial fibrillation with RVR COVID-19 Chief Complaint AFIB PERSISTENT A-FIB PERSISTENT A-FIB AFIB RVR AND COVID AFIB RVR AND COVID AFIB RVR AND COVID Reason for Visit COVID-19 Atrial fibrillation with RVR Chief Complaint PERSISTENT A-FIB AFIB RVR AND COVID AFIB RVR AND COVID AFIB RVR AND COVID 6 M FU AFIB RIGHT ANKLE/ FOOT PAIN Reason for Visit COVID-19 Atrial fibrillation with RVR New onset atrial fibrillation Paroxysmal atrial fibrillation Chief Complaint AFIB RVR AND COVID AFIB RVR AND COVID AFIB RVR AND COVID 6 M FU AFIB RIGHT ANKLE/ FOOT PAIN Reason for Visit COVID-19 Atrial fibrillation with RVR New onset atrial fibrillation Paroxysmal atrial fibrillation Chief Complaint 6 M FU AFIB RIGHT ANKLE/ FOOT PAIN 3 M FU E ORDER Reason for Visit New onset atrial fib rillation Paroxysmal atrial fibrillation Chest heaviness TAYLOR (dyspnea on exertion) Fatigue Paroxysmal atrial fibrillation Chief Complaint RIGHT ANKLE/ FOOT PA IN 3 M FU E ORDER CHEST HEAVINESS, SOB, FATIGUE CHEST HEAVINESS, SOB, FATIGUE 6 wk FU CARDIOVERSION, AFIB Reason for Visit Chest heaviness TAYLOR (dyspnea on exertion) Fatigue Paroxysmal atrial fibrillation Chest heaviness TAYLOR (dyspnea on exertion) Fatigue New onset atrial fibrillation Paroxysmal atrial fibrillation Chief Complaint 3 M FU E ORDER CHEST HEAVINESS, SOB, FATIGUE CHEST HEAVINESS, SOB, FATIGUE 6 wk FU CARDIOVERSION, AFIB atrial fibrillation/flutter atrial fibrillation/flutter atrial fibrillation/flutter 1 wk s/p DCCV Reason for Visit Chest heaviness TAYLOR (dyspnea on exertion) Fatigue Paroxysmal atrial fibrillation Chest heaviness TAYLOR (dyspnea on exertion) Fatigue New onset atrial fibrillation Paroxysmal atrial fibrillation New onset atrial fibrillation Chief Complaint CHEST HEAVINESS, SOB , FATIGUE CHEST HEAVINESS, SOB, FATIGUE 6 wk FU CARDIOVERSION, AFIB atrial fibrillation/flutter atrial fibrillation/flutter atrial fibrillation/flutter 1 wk s/p DCCV TIA/STROKE TIA/STROKE Reason for Visit Chest heaviness TAYLOR (dyspnea on exertion) Fatigue New onset atrial fibrillation Paroxysmal atrial fibrillation New onset atrial fibrillation Bradycardia Near syncope Paresthesias Hypertension Chief Complaint CHEST HEAVINESS, SOB , FATIGUE CHEST HEAVINESS, SOB, FATIGUE 6 wk FU CARDIOVERSION, AFIB atrial fibrillation/flutter atrial fibrillation/flutter atrial fibrillation/flutter 1 wk s/p DCCV TIA/STROKE TIA/STROKE TIA/STROKE Reason for Visit Chest heaviness TAYLOR (dyspnea on exertion) Fatigue New onset atrial fibrillation Paroxysmal atrial fibrillation New onset atrial fibrillation Bradycardia Near syncope Paresthesias Hypertension Chief Complaint TIA/STROKE TIA/STROKE AM EKG TIA/STROKE S/P [facility] ED 10-24 y fu Reason for Visit Hypertension Bradycardia Near syncope Paresthesias Paroxysmal atrial flutter Chief Complaint 4 m fu w DIGITAL ANALYST per DIGITAL ANALYST SCREENING Reason for Visit S/P ablation of atri al fibrillation Hypertension Chief Complaint SCREENING ATRIAL FIB-FLUTTER Chief Complaint ATRIAL FIB-FLUTTER 6 M FU 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 Reason for Visit S/P ablation of atri al fibrillation Hypertension Encounter for routine gynecological examination Family History No Family History Records Found Relationship Condition Age at Onset Recorded Date/T mariza grandfather Cardiac disease Unknown grandmother Cerebrovascular accident (CVA) Unknown mother Malignant neoplasm of breast Unknown Malignant neoplasm of lung Unknown Osteoporosis Unknown Advance Directives No Advanced Directives Records Found Advance Directive Response Recorded Date/ Time Advance Directives Yes December 17 12:12pm Living Will Yes December 17, 2020 12:12pm Power of Kiln Door Repairer Yes December 17 12:12pm Advance Directive Response Recorded Date/ Time Advance Directives Yes December 17 12:12pm Living Will Yes February 02, 2022 6: 30am Power of Kiln Door Repairer Yes February 02, 2022 6:30am Advance Directive Response Recorded Date/ Time Advance Directives Yes December 17 12:12pm Living Will Yes February 02, 2022 9: 48am Power of Kiln Door Repairer Yes February 02, 2022 9:48am Advance Directive Response Recorded Date/ Time Name of Medical Power of Kiln Door Repairer Jorge Blount, February 02, 2022 9:48am Advance Directives on File No March 16, 2022 7:06am Advance Directives No March 16 7:06am Living Will No March 16, 2022 7:06am Power of Kiln Door Repairer No March 16 7:06am Advance Directive Response Recorded Date/ Time Advance Directives on File No March 16, 2022 7:06am Advance Directives No March 16 7:06am Living Will No March 16, 2022 7:06am Power of Kiln Door Repairer No March 16 7:06am Advance Directive Response Recorded Date/ Time Advance Directives No March 16 6:06am Living Will No March 16, 2022 6:06am Power of Kiln Door Repairer No March 16 6:06am Advance Directive Response Recorded Date/ Time Advance Directives on File Yes 2021 11:22am Name of Medical Power of Kiln Door Repairer Jorge Blount- Spouse August 17, 2022 11:22am Advance Directives Yes July 11:22am Living Will Yes August 17 11:22am Power of Kiln Door Repairer Yes August 17, 2022 11:22am Advance Directive Response Recorded Date/ Time Advance Directives on File Yes 2021 11:22am Name of Medical Power of Kiln Door Repairer Jorge Blount- Spouse August 17, 2022 11:22am Name of Medical Power of Kiln Door Repairer , JEN BLOUNT October 23, 2022 11:14am Advance Directives Yes July 11:22am Living Will Yes October 23 11:14am Power of Kiln Door Repairer Yes October 23, 2022 11:14am Advance Directive Response Recorded Date/ Time Advance Directives on File Yes Novem yonny 21st, 2022 11:22am Name of Medical Power of Kiln Door Repairer Jorge Blount- Spouse August 17, 2022 11:22am Name of Medical Power of Kiln Door Repairer Jorge Blount [phone] October 23, 2022 1:13pm Advance Directives Yes July 11:22am Living Will Yes October 23 1:13pm Power of Kiln Door Repairer Yes October 23, 2022 1:13pm Advance Directive Response Recorded Date/ Time Name of Medical Power of Kiln Door Repairer Jorge Blount [phone] October 23, 2022 2:13pm Advance Directives Yes July 12:22pm Living Will Yes October 23 2:13pm Power of Kiln Door Repairer Yes October 23, 2022 2:13pm Latest Code Status on File Code Status Date Activated Date Inactivated Comments Full Code 03/03/2023 2:46 PM Latest Code Status on File Code Status Date Activated Date Inactivated Comments Full Code 03/03/2023 2:46 PM Advance Directive Response Recorded Date/ Time Advance Directives Yes July 12:22pm Living Will Yes October 23 2:13pm Power of Kiln Door Repairer Yes October 23, 2022 2:13pm Advance Directive Response Recorded Date/ Time Advance Directives Yes July 11:22am Living Will Yes October 23 1:13pm Power of Kiln Door Repairer Yes October 23, 2022 1:13pm Summary Purpose Reason for Referral Specialty Diagnoses / Procedures Referred By Contac t Referred To Contact Ent - Otolaryngology Diagnoses Ear injury, initial encounter Blood in left ear canal Procedures CONSULT TO ENT OFFICE/OUTPATIENT [facility] 60-74 MINUTES Bailee Lara, MEDICAL DEVICE ENGINEER.REFRIGERATION SPECIALIST [address] [place] [address] Referral ID Status Reason Start Date Expiration Date Visits Requested Visits Authorized [id number] Authorized PCP Requested Referral 09/02/2022 09/02/2023 1 1 Specialty Diagnoses / Procedures Referred By Contac t Referred To Contact Diagnoses Atrial fibrillation, persistent Procedures MOBILE CARDIAC TELEMETRY Barbara Hammond, MEDICAL DEVICE ENGINEER-REFRIGERATION SPECIALIST [address] [place] [address] Referral ID Status Reason Start Date Expiration Date V isits Requested Visits Authorized [id number] New Request 03/03/2023 03/27/2024 1 1 Specialty Diagnoses / Procedures Referred By Julio Cesar payton Referred To Contact Diagnoses Paroxysmal atrial fibrillation Procedures CT CARDIAC PULMONARY VENOGRAM [place] CHG CT HEART CONTRAST EVAL CARDIAC STRUCT/MORPH Federico Mcclure MD [address] [place] [address] Referral ID Status Reason Start Date Expiration Date Visits Re quested Visits Authorized [id number] Closed 12/29/2022 01/23/2024 1 1 Additional Source Comments Goals (unrecognized section and content) Goals may be documented in a n alternate sectionGoals may be documented in an alternate sectionGoals may be documented in an alternate sectionGoals may be documented in an alternate sectionGoals may be documented in an alternate sectionGoals may be documented in an alternate sectionGoals may be documented in an alternate sectionGoals may be documented in an alternate sectionGoals may be documented in an alternate sectionGoals may be documented in an alternate sectionGoals may be documented in an alternate sectionGoals may be documented in an alternate sectionGoals may be documented in an alternate sectionGoals may be documented in an alternate sectionGoals may be documented in an alternate sectionGoals may be documented in an alternate section INFORMATION SOURCE (unrecogn ized section and content) DATE CREATED AUTHOR 07/29/2022 [facility] DATE CREATED AUTHOR AUTHOR'S ORGANIZ ATION 04/06/2023 [facility] DATE CREATED AUTHOR AUTHOR'S ORGANIZ ATION 11/28/2023 [facility] DATE CREATED AUTHOR AUTHOR'S ORGANIZ ATION 03/03/2025 [facility] Source Comments (unrecognize d section and content) In the event this informatio n is protected by the Federal Confidentiality of Alcohol and Drug Abuse Patient Records regulations: The Federal rules restrict any use of the information to criminally investigate or prosecute any alcohol or drug abuse patient.[facility] the event this information is protected by the Federal Confidentiality of Alcohol and Drug Abuse Patient Records regulations: The Federal rules restrict any use of the information to criminally investigate or prosecute any alcohol or drug abuse patient.[facility] the event this information is protected by the Federal Confidentiality of Alcohol and Drug Abuse Patient Records regulations: The Federal rules restrict any use of the information to criminally investigate or prosecute any alcohol or drug abuse patient.[facility] Reason for Visit (unrecogniz ed section and content) Reason Comments Ear Problem poked ear with qtip x this am, bleeding Specialty Diagnoses / Procedures Referred By Contac t Referred To Contact Diagnoses Paroxysmal atrial fibrillation Paroxysmal atrial fibrillation [I48.0] Procedures MI COMPRE EP EVAL ABLTJ ATR FIB PULM VEIN ISOLATION ABLATION SCHED INTERCARDIAC A-FIB TRANSEPTAL BY PULM VEIN ISOLATION W/EP EVAL ([id number]) Federico Mcclure MD [address] [place] [id number] [facility] [address] [place] [id number] Referral ID Status Reason Start Date Expiration Date Visits Re quested Visits Authorized [id number] 1 1 Reason Comments Follow-up S/p sdd-headache Sore Throat Reason Comments Ear Problem L ear pressure and d ecreased hearing x10 days Care Teams (unrecognized sec tion and content) Team Status: Active Member Role Status Dates Dr. Sue Francisco MD Family Provider Active Dr. Virgilio Alicia MD Primary Care Provider Active Team Status: Inactive Member Role Status Dates Dr. Virgilio Alicia MD Primary Care Provider, Referring P rovider Active Enid Allen LINUX SYSTEM ADMIN, LINUX SYSTEM ADMIN-C Attending Provider Active Team Status: Active Member Role Status Dates Dr. Virgilio Alicia MD Primary Care Provider Active Enid Allen LINUX SYSTEM ADMIN, LINUX SYSTEM ADMIN-C Other Provider Active Dr. Meliton Conway MD Attending Provider, Referring Pro vider Active Team Status: Active Member Role Status Dates Dr. Virgilio Alicia MD Primary Care Provider Active Dr. Meliton Conway MD Attending Provider, Referring Provider, Other Provider Active Team Status: Inactive Member Role Status Dates Dr. Virgilio Alicia MD Primary Care Provider, Referring P rovider Active Helena Campbell Attending Provider Active Team Status: Active Member Role Status Dates Dr. Virgilio Alicia MD Primary Care Provider Active Dr. Meliton Conway MD Referring Provider, Other Provide r Active Dr. Guillaume Vazquez MD Attending Provider Active Team Status: Active Member Role Status Dates Dr. Virgilio Alicia MD Primary Care Provider Active Dr. Ni Elena DO Emergency Provider Active Dr. Jan Doshi MD Admit Provider, A ttending Provider, Other Provider Active Team Status: Inactive Member Role Status Dates Dr. Virgilio Alicia MD Primary Care Provider Active Enid Allen LINUX SYSTEM ADMIN, LINUX SYSTEM ADMIN-C Attending Provider, Referring P rovider Active Team Status: Inactive Member Role Status Dates Dr. Virgilio Alicia MD Primary Care Provider Active Dr. Meliton Conway MD Attending Provider, Referring Pro vider Active Team Status: Active Member Role Status Dates Dr. Virgilio Alicia MD Primary Care Provider Active Dr. Ni Elena DO Emergency Provider Active Dr. Jan Doshi MD Admit Provider, Attending Provi mireya Active Team Status: Inactive Member Role Status Dates Dr. Virgilio Alicia MD Primary Care Provider Active Dr. Ni Elena DO Emergency Provider Active Dr. Jan Doshi MD Admit Provider, Attending Provi mireya Active Team Status: Active Member Role Status Dates Dr. Virgilio Alicia MD Primary Care Provider Active Dr. Karen Cain MD Attending Provider, Referring Pr ovider Active Team Status: Inactive Member Role Status Dates Dr. Virgilio Alicia MD Primary Care Provider, Referring P coreyder Active Dr. Meliton Conway MD Attending Provider Active Team Status: Active Member Role Status Dates Dr. Virgilio Alicia MD Primary Care Provider Active Dr. Meliton Conway MD Attending Provider, Referring Pro vider Active Team Status: Inactive Member Role Status Dates Dr. Virgilio Alicia MD Primary Care Provider Active Dr. Ying Khalil MD Attending Provider Active Health Economist Relationship Specialty Start Date End Date Virgilio Alicia MD [address] [place] [address] PCP - General Family Medicine 10/23/22 Meliton Conway MD [address] [facility] [place] [address] Cardiovascular Disease 11/13/22 Health Economist Relationship Specialty Start Date End Date Virgilio Alicia MD [address] [place] [address] PCP - General Family Medicine 10/23/22 Meliton Conway MD [address] [facility] [address] Cardiovascular Disease 11/13/22 Health Economist Relationship Specialty Start Date End Date Virgilio Alicia MD [address] [place] [address] PCP - General Family Medicine 10/23/22 Meliton Conway MD [address] [facility] [address] Cardiovascular Disease 11/13/22 Health Economist Relationship Specialty Start Date End Date Virgilio Alicia MD [address] [facility] [address] [place] [address] PCP - General Family Medicine 04/05/23 Team Status: Inactive Member Role Status Dates Dr. Virgilio Alicia MD Primary Care Provide r, Attending Provider, Referring Provider Active Team Status: Active Member Role Status Dates Dr. Virgilio Alicia MD Primary Care Provider Active Dr. Meliton Conway MD Attending Provider Active Team Status: Inactive Member Role Status Dates Dr. Virgilio Alicia MD Primary Care Provider, Referring P rovider Active Chaparrita Pope PA, PA Attending Provider Active Team Status: Inactive Member Role Status Dates Dr. Virgilio Alicia MD Primary Care Provider, Referring P rovider Active Beth De Luna LINUX SYSTEM ADMIN, LINUX SYSTEM ADMIN-C Attending Provider Active Team Status: Inactive Member Role Status Dates Dr. Virgilio Alicia MD Primary Care Provider Active Beth De Luna LINUX SYSTEM ADMIN, LINUX SYSTEM ADMIN-C Attending Provider, Referring Provider Active Scheduled Active and Recently Administ ered Medications (unrecognized section and content) Medication Order 03/01/2023 03/02/2023 03/03/2023 aspirin chewable tablet 81 mg 81 mg, Oral, DAILY EVERY MORNING, First dose on Wed03/03/23 at 1700, Until Discontinued, Post-op/Post-Proc 1841 (Given - Provid er: Lynn Lynch RN) Metoprolol (LOPRESSOR) tablet 50 mg 50 mg, Oral, 2 TIMES DAILY, First dose on Wed03/03/23 at 1700, Until Discontinued, 1841 (Given - Provid er: Lynn Lynch RN) Pantoprazole (PROTONIX) tablet DR 40 mg 40 mg, Oral, DAILY, First dose on Wed03/03/23 at 1700, Until Discontinued, Swallow whole; do not crush or chew., Indications: Prevention of esophageal injury after catheter ablation, Post-op/Post-Proc 1841 (Given - Provid er: Lynn Lynch RN) Rivaroxaban (XARELTO) tablet 20 mg 20 mg, Oral, DAILY WITH DINNER, First dose on Wed03/03/23 at 1830, Until Discontinued, Due to the rapid onset of action of rivaroxaban, no overlap is needed with other anticoagulants (e.g. enoxaparin, heparin). Administer doses of 15mg or greater with food. For patients who cannot swallow whole tablets, the tablets may be crushed and mixed with applesauce immediately prior to use. If administered via feeding tube, crush tablets and mix with 50 mL water. Tube must empty into the stomach for this route. , Indications: Atrial Fibrillation, Post-op/Post-Proc 1843 (Given - Provid er: Lynn Lynch RN) PRN Medication Order 03/01/2023 03/02/2023 03/03/2023 Acetaminophen [...] total of 4mg in PACU ., Recovery 1616 (Given - Provid er: Lynn Lynch RN) [...] Wed03/03/23 at 1445, Until Wed03/03/23 at 2148, Other, Magnesium Replacement Therapy, If Magnesium less than 1.6, give 4 g Magnesium Sulfate IVPB over 4 hours (may give over 1 hour if arrhythmias present)., Post-op/Post-Proc Ondansetron 4mg/2ml (ZOFRAN) injection 4 mg 4 mg, Intravenous, ONCE NEEDED, 1 dose, Starting on Wed03/03/23 at 0852, Until Wed03/03/23 at 2148, Nausea / Vomiting, FIRST line antiemetic, Do not administer within 6 hours of intra-operative dose., Recovery Ondansetron 4mg/2ml (ZOFRAN) injection 4 mg 4 mg, Intravenous, EVERY 4 HOURS NEEDED, Starting on Wed03/03/23 at 1445, Until Wed03/03/23 at 2148, Nausea / Vomiting, Post-op/Post-Proc oxyCODONE (ROXICODONE) tablet 5 mg(Linked Group 2) 5 mg, Oral, EVERY 4 HOURS NEEDED, Starting on Wed03/03/23 at 1445, Until Wed03/03/23 at 2148, Moderate Pain, Severe Pain, PRN for Moderate [...] on Wed03/03/23 at 1445, Until Wed03/03/23 at 8, Moderate Pain, Severe Pain, PRN for Moderate [...] Wed03/03/23 at 0852, Until Wed03/03/23 at 2147, Moderate Pain, Severe Pain
Use as initial [...] Wed03/03/23 at 0852, Until Wed03/03/23 at 2147, Moderate Pain, Severe Pain
Higher dose may [...] (RR<10, decrease in level of consciousness)
Post-op/Post-Proc FOR RECORDS PERTAINING TO PATIENTS WHO ARE [...] BE BASED ON THE PRIMARY CLINICAL RECORDS. [facility]. provides no warranty or guarantee of the accuracy or completeness of information in this document.
== END | disposition home or self-care (01) ==
LOC: CT 08:24
PROVIDERS: PCP Family Medicine; Referring Provider Student in an Organized Health Care Education/Training Program; Visit Provider Student in an Organized Health Care Education/Training Program
DX: M17.12 Unilateral primary osteoarthritis, left knee (principal)
CPT/HCPCS: 73700

== ENCOUNTER 2025-03-12 05:25 | Day surgery (SDC) | payer MEDICARE, SELFPAY ==
--- NOTE | 2025-02-23 09:02 | EKG12_ITS ---
Test Reason : PREOP Blood Pressure : */* mmHG Vent. Rate : 64 BPM Atrial Rate : 64 BPM P-R Int : 180 ms QRS Dur : 80 ms QT Int : 396 ms P-R-T Axes : 57 -15 -10 degrees QTcB Int : 408 ms Normal sinus rhythm Nonspecific ST abnormality Abnormal ECG Confirmed by KAREN GRANADO ([id number]), book editor YOBANI COTA ([id number]) on 02/26/2025 8:12:22 AM Referred By: Helder Jane Confirmed By: KAREN GRANADO
[2025-02-23 09:58] LABS: Absolute Lymphocyte Count 2.12 X10^3/uL (0.83-4.51); Absolute Neutrophil Count 3.1 X10^3/uL (2.0-7.7); Basophil# 0.06 X10^3/uL; Basophil% 0.9 % (0-1); Eosinophil# 0.41 X10^3/uL; Eosinophils% 6.3 % (0-5); Hematocrit 41.2 % (37-47); Lymphocyte # 2.12 X10^3/ul (0.83-4.51); Lymphocyte % 32.6 % (19-41); Mean Corpuscular Hgb 31.5 pg (27.0-32.0); Mean Corpuscular Volume 92.6 fL (81-99); Mean Platelet Vol. 11.4 fl (6.2-12.0); Monocyte# 0.82 X10^3/uL; Monocyte% 12.6 % (0-10); NRBC Flagged by Analyzer 0 % (0-5); Neutrophil # 3.08 X10^3/uL (2.7-7.7); Neutrophil % 47.4 % (47-70); Platelet Count 210 K/mm3 (150-450); RBC Distribution Width CV 12.9 % (11.6-14.6); RBC Distribution Width SD 43.9 fl (35.1-43.9); Red Blood Count 4.45 M/mm3 (4.2-5.4); White Blood Count 6.5 K/mm3 (4.4-11.0)
[2025-02-23 10:37] LABS: Anion Gap 10 (5-15); BUN 13 mg/dL (4-19); BUN/Creat Ratio 23.5 RATIO (10-20); Calcium,Total 9.5 mg/dL (7.6-11.0); Carbon Dioxide 26.3 mmol/L (21.0-32.0); Chloride 102 mmol/L (98-108); Creatinine, Serum 0.55 mg/dL (0.70-1.20); EST Glomerular Filtration Rate 102 (>60); Glucose 96 mg/dL (70-99); Magnesium 2.3 mg/dL (1.5-2.2); Sodium Level 138 mmol/L (133-145)
--- NOTE | 2025-02-23 16:39 | PAT.ANESEVAL ---
Pre-Assessment Diagnosis/Proposed Procedure Planned Operative Procedure(s): (L) Total Knee Replacement Robotic Arm Assist Anesthesia History Anesthesia History - supervisor drapery hanging: Anesthesia History - supervisor drapery hanging Hx Hospitalization No 02/14/25 14:42 Any Problems With Anesthesia No 02/14/25 14:42 Cholinesterase deficiency No 02/14/25 14:42 You/Your Family Experience No 02/14/25 14:42 fever (hyperthermia) with Relationship Recent Exposure to Contagious No 08/16/24 14:19 Disease Does patient have nerve No 02/14/25 14:42 stimulator Patient instructed to have device shut off --Does patient have Pacemaker or ICD? When Was Last Pacemaker Check QUESTION #4 FULL TEXT: You/Your Family Experience fever (hyperthermia) with Anesthesia Last Oral Intake Last Oral intake: Last Oral Intake NPO since Meds taken in AM with sips of water? Meds patient instructed to take am of surgery PONV PONV - supervisor drapery hanging: PONV - supervisor drapery hanging Female Yes 02/14/25 14:42 HX of Motion Sickness No 02/14/25 14:42 HX of N/V After Surgery No 02/14/25 14:42 Non-Smoker Yes 02/14/25 14:42 Duration of Surgery greater No 02/14/25 14:42 than 60 minutes Number of Risk Factors 2 02/14/25 14:42 PONV Score Moderate Risk 02/14/25 14:42 Height & Weight Height & Weight: Anesthesia: Height & Weight Height 5 ft 3 in 11/28/24 13:16 Respiratory Assessment Respiratory Assessment - supervisor drapery hanging: Respiratory Tract Infection Hx - supervisor drapery hanging Hx Respiratory Tract Infection No 02/14/25 14:42 STOP Sleep Apnea STOP Sleep Apnea - supervisor drapery hanging: STOP Sleep Apnea - supervisor drapery hanging Hx Hypertension Yes: CONTROLLED ON MED 02/14/25 14:42 Hx Sleep Apnea No 02/14/25 14:42 CPAP BIPAP Do you snore loudly (louder No 02/14/25 14:42 than talking or can be heard Do you often feel tired/ No 02/14/25 14:42 fatigued/ sleepy during daytime? Has anyone observed you stop No 02/14/25 14:42 breathing during sleep? STOP Results Negative 02/14/25 14:42 QUESTION #5 FULL TEXT : Do you snore loudly (louder than talking or can be heard through closed doors)? 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 Specify any problems Hx of Preganancy in last 3 No 02/14/25 14:42 Months Nurse Filling Out Transfusion VCHRISTIN 02/14/25 14:42 & Questions: Date: 02/14/25 02/14/25 14:42 Time: 14:46 02/14/25 14:42 Patient unable to answer at this time (ie. confused, unrespo /Reproduction History /Reproductive History - supervisor drapery hanging: /Reproductive Hx- supervisor drapery hanging Hx Now No 02/14/25 14:42 Gestational Age (in weeks): EDC: Hx Hx Para Hx Section SAB No 02/14/25 14:42 PFSH Medical History (Updated 02/14/25 @ 14:42 by Pebbles Anderson) Wears glasses Post-menopausal Cancer Alcohol use History of steroid therapy Excessive bleeding Fibromyalgia Former smoker Leg cramps History of pain when walking History of stress test History of echocardiogram Cardiology follow-up encounter History of atrial fibrillation Influenza A Hypertension Chest heaviness TAYLOR (dyspnea on exertion) Fatigue COVID-19 Persistent atrial fibrillation (12/16/21) Paroxysmal atrial fibrillation Numbness and tingling Arthritis GBS (Guillain [place] syndrome) Obesity New onset atrial fibrillation (10/2019) Post-polio syndrome Home Medications ?Medication ?Instructions ?Recorded ?Last Taken ?Type multivitamin 1 tab PO DAILY supplement 03/26/20 10/23/22 History acetaminophen 500 mg tablet 1,000 mg PO Q6H PRN pain 10/23/22 Unknown History (Tylenol Extra Strength) loratadine 10 mg tablet (Claritin) 10 mg PO DAILY 10/23/22 10/23/22 History cholecalciferol (vitamin D3) 50 50 mcg PO DAILY 10/13/23 Unknown History mcg (2,000 unit) capsule fluorometholone 0.1 % eye 1 drp ophthalmic (eye) BID 10/13/23 Unknown History drops,suspension metoprolol tartrate 50 mg tablet 50 mg PO BID #180 TABLETS 09/25/24 Unknown Rx aspirin 81 mg tablet,delayed 81 mg PO BID 02/14/25 Unknown History release (Adult Aspirin Regimen) calcium 500 mg (as 1 tab PO DAILY 02/14/25 Unknown History carbonate)-vitamin D3 10 mcg (400 unit) tablet (Calcium 500 + D) magnesium 250 mg tablet 250 mg PO DAILY 02/14/25 Unknown History oxybutynin chloride 5 mg 5 mg PO DAILY 02/14/25 Unknown History tablet,extended release 24 hr Allergy/AdvReac Type Severity Reaction Status Date / Time milk Allergy Severe Hives Verified 02/14/25 14:28 mold Allergy Severe RUNNY NOSE Verified 02/14/25 14:28 ragweed pollen Allergy Severe RUNNY NOSE Verified 02/14/25 14:28 cephalexin (From Keflex) Allergy Unknown Unknown Verified 02/14/25 14:28 amoxicillin AdvReac Hives Verified 02/14/25 14:28 Penicillins AdvReac Anaphylaxis Verified 02/14/25 14:28 Sulfa (Sulfonamide AdvReac Hives Verified 02/14/25 14:28 Antibiotics) Family History Grandfather Heart disease maternal Grandmother CVA (cerebral vascular accident) maternal Mother Breast cancer Lung cancer Osteoporosis Surgical History S/P Mohs surgery for basal cell carcinoma S/P trigger finger release History of cardiac radiofrequency ablation (03/03/23) History of electrophysiologic study (03/03/23) History of cardioversion (12/17/20) Hx of colonoscopy Hx of wisdom tooth extraction Hx of knee surgery Social History household members: spouse number of children: 1 current occupational status: employed 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 Sinus rhythm. Nonspecific ST depression-nondiagnostic. Stress test pertinent findings: June 26, 2022. EF of 63%. No areas of reversibility to suggest ischemia. No previous infarct. Atrial fibrillation is noted. Echo (EF%) pertinent findings: 09/01/2023. EF of 55%. PASP is 38 mmHg. No aortic stenosis is noted. Consult pertinent findings: September 25, 2024. Nya DANIELS. 1. Status post ablation of atrial fibrillation?acute-patient is successfully maintaining sinus rhythm. Patient is monitoring with her Apple Watch. Her ejection fraction did improve. 2. Hypertension?chronic-this started with her diagnosis of atrial fibrillation. Patient to continue metoprolol. Recommendation Anesthesia Recommendation Anesthesia recommendation: OPTIMIZED for anesthesia
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
[2025-03-12] VITALS (14 sets, daily range): BP systolic 116–148; BP diastolic 57–79; PULSE 61–76; RESP 16–18; TEMP 36.2–36.6; O2SAT 94–100; BMI 33.5
--- OUTSIDE RECORDS SUMMARY | 2025-03-12 05:28 | XMS RPT_ITS | CCD ---
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 Virgilio Alicia Primary Care Provider [phone] Dr. Virgilio Alicia Referring Provider [phone] Alejandro JARRELL, ASUNCIONC [place] Attending Provider Dr. Virgilio Alicia Primary Care Provider Dr. Meliton Conway Attending Provider Dr. Meliton Conway Referring Provider Dr. Tristan Woodward Emergency Provider Dr. Helder Sánchez Admit Provider Dr. Helder Sánchez Attending Provider [...] Virgilio Alicia Referring Provider ASUNCION [place] NPC nEid Attending Provider Alejandro JARRELL BIOPHARMACEUTICAL REP-C [place] Other Provider Dr. Meliton Conway Attending Provider [phone] Meliton Conway Referring Provider [phone] Meliton Conway Other Provider Dr. Guillaume Vazquez Attending Provider Helena Campbell Attending Provider Unavailable Unavailable Primary Care Provider Unavailabl e Dr. Virgilio Alicia Primary Care Provider Dr. Virgilio Alicia Referring Provider Alejandro BIOPHARMACEUTICAL REP, BIOPHARMACEUTICAL REPYumiko Rossi Attending Provider Dr. Ni Elena Emergency [...] Dr. Virgilio Alicia Referring Provider Dr. Meliton Cnoway Attending Provider [phone] Virgilio Alicia Primary Care Provider Dr. Meliton Conway Attending Provider [phone] Meliton Conway Referring Provider [phone] Virgilio Alicia Referring Provider VISHNU Mcdaniel Attending Provider Annamarie BIOPHARMACEUTICAL REP, BIOPHARMACEUTICAL REP-C Beth Attending Provider [phone] CAN AVENDANO Attending Unavailable ALICIA, VIRGILIO A [...] Primary Care Unavailable MELITON CONWAY Referring Unavailable KAMIFEDERICO Attending Unavailable ALICIA, VIRGILIO A Primary Care Unavailable Chaparrita Mcdaniel Attending Unavail able Chaparrita Mcdaniel Referring Unavail able Alicia, Virgilio Primary Care Unavailable Alicia, Virgilio Primary Care Unavailable Karen Cain Attending Unavailable Spittle, Helder Referring Unavailable Spittle, Helder Referring Unavailable Alicia, Virgilio Primary Care Unavailable Spittle Helder Attending Unavailable Spittle, Helder Referring Unavailable Alicia, Virgilio Primary Care Unavailable Spittle, Helder Attending Unavailable Alicia, Virgilio Referring Unavailable Alicia, Virgilio Primary Care Unavailable Annamarie BIOPHARMACEUTICAL REPBeth Attending Unavailable Alicia, Virgilio Primary Care Unavailable Chaparrita Mcdaniel Attending Unavail able Alicia, Virgilio Referring Unavailable Kash Serrato Attending Unavailable Alicia, Virgilio Primary Care Unavailable Alicia, Virgilio Referring Unavailable Alex Milner Attending Unavailable Alicia, Virgilio Referring Unavailable Alicia, Virgilio Primary Care Unavailable Alicia, Virgilio Primary Care Unavailable Annamarie BIOPHARMACEUTICAL REPBeth Attending Unavailable Annamarie BIOPHARMACEUTICAL REPBeth Referring Unavailable Allergies Allergy Classification Reported Allergen(s) Allergy Type Date of Onset Reaction(s) Facility (20 sources) Amoxicillin; Translations: [AMOXICILLIN] Drug Allergy 06-25-20 04 Hives, Anaphylaxis, Rash [facility] Work Phone: (20 sources) Cephalexin Drug Allergy 09-04-20 21 Hives, Itching, Rash, Shortness of Breath [facility] (19 sources) Penicillins; Translations: [Penicillins] Propensity to adverse reactions 09-04-20 21 Anaphylaxis [facility] (20 sources) Sulfonamides (Antibiotic); Translations: [SULFA (SULFONAMIDE ANTIBIOTICS)] Propensity to adverse reactions 06-25-20 04 Shortness of Breath [facility] Work Phone: (8 sources) Cephalosporins (Antibiotic); Translations: [CEPHALOSPORINS] Propensity to adverse reactions 06-25-20 04 Hives [facility] Work Phone: (4 sources) Ampicillin Drug Allergy 12-30-19 23 Diarrhea, Hives, Rash, Shortness of Breath [facility] (4 sources) casein (cow milk) allergenic extract Drug Allergy 12-30-19 23 Diarrhea, Hives, Itching, Rash, Shortness of Breath [facility] (4 sources) Sulfonamides (Antibiotic) Propensity to adverse reactions to drug 12-30-19 23 Diarrhea, Hives, Rash, Shortness of Breath [facility] (1 source) Amoxicillin Drug Allergy 02-15-20 25 [facility] Repository (1 source) Cephalexin Drug Allergy 02-15-20 25 [facility] Repository (1 source) Milk Drug allergy (disorder) 02-15-20 25 [facility] Repository (1 source) Mold Extract Drug Allergy 02-15-20 25 [facility] Repository (1 source) Ragweed pollen Drug allergy (disorder) 02-15-20 25 [facility] Repository Medications Current Medications Medication Drug [...] 1 tablet by jacob th once daily. YEWZYZWK-BCAJV-XAGUOO ONIC ACID PO (4 sources) IYRETRYB-HYRZH-A YA LURONIC ACID PO cycloSPORINE 0.5 mg/ml [...] on above: Take 2 tablets by mo kyh once daily for 5 days. Take 4 [...] EVERY 6 HOURS October 23, 2022 12:00am [id number] 200 actuat albuterol 0.09 mg/actuat metered dose [...] on above: Take one(1) tablet d aily. [place]-3 Fatty Acids (18 sources) Start: 0 End: take 1000 mg by mouth once daily [place]-3 Fatty Acids Discontinued 1000 MG PO DAILY March 26, 2020 3:07pm November 05, 2020 4:47pm Start: 03-26-2020 End: 11-05-2020 take 1000 mg by mouth once daily [place]-3 Fatty Acids Discontinued 1000 MG PO DAILY March 25, 2020 11:00pm November 05, 2020 3:47pm Start: 03-26-2020 End: 11-05-2020 take 1000 mg by mouth once daily [place]-3 Fatty Acids Discontinued 1000 MG PO DAILY [...] Translations: [Unilateral primary osteoarthritis, left knee] Onset: 03-06-2025 Chronic Other aftercare (18 sources) Patient encounter status; Translations: [Encounter for therapeutic drug level monitoring] 12-16-2021 Episodic 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 Virgilio Alicia MD Status: REG CLI Study: Extremity Lower without Contra Date of Exam: 0 03/06/25 Exam# [id number] Ordering Dr: Helder Jane DO PROCEDURE: EXTREMITY LOWER WITHOUT CONTRA 03/06/2025 REASON FOR EXAM: PER RAULITO PROTOCOL, UNILATERAL PRIMARY OSTEOARTHRITIS, LEFT KNEE TECHNIQUE: Axial CT images of the left lower extremity obtained without intravenous contrast. Coronal and Sagittal reconstruction series were provided. CONTRAST: No contrast. One or more dose reduction techniques were used (e.g., Automated exposure control, adjustment of the mA and/or kV according to patient size, use of iterative reconstruction technique). RADIATION DOSE SUMMARY: CTDlvol: 18.5 mGy DLP: 1469.03 mGycm COMPARISON: None FINDINGS: Bones: No fracture or bony destruction. Joints: Imaging of the left hip joint was performed. No significant joint space narrowing is seen. No evidence of subluxation. Imaging of the knee joint was performed. There is a marked degree of joint space narrowing involving the medial compartment of the joint with degenerative spur formation. Minimal patellofemoral osteoarthritis. Imaging of the left ankle joint was obtained. There is evidence of calcaneal spurs. Soft Tissues: No significant joint effusion seen. CT/Extremity Lower without Contra IMPRESSION: Marked degree of joint space narrowing involving the medial compartment of the knee joint with degenerative spur formation. Reading Location: [place] [address] CC: Dr. Virgilio Alicia MD; Dr. Helder Jane DO [employer] Sales Consultant: Signed Normal [facility] MRSA/SAID NASAL SCREENon MRSA+SAID SCRN Reason for Exam: Surgery MRSA MRSA Negative S. AUREUS S. aureus Negative Normal [facility] Comment on above: Performed By: #### L 501.5200, M100.651, L500.2500, L100.0100 ####[facility] [address] [place], [address] 12 Lead EKGon 02-23-2025 12 Lead EKG [facility] Cardiovascular Services [address] [place] [address] 12 Lead EKG 02/23/25 0910 MR#: [id number] Acct: [id number] Name: DEYA BLOUNT Rep #: [id number] : 1960 65 From: Karen Cain MD Attending Dr: Dr. Helder Jane DO Status: PRE [facility] Ordering Dr: Helder Jane DO Date: 02/23/25 Location: [facility] Sex: F C Admitted: Test Reason : PREOP Blood Pressure : */* mmHG Vent. Rate : 64 BPM Atrial Rate : 64 BPM P-R Int : 180 ms QRS Dur : 80 ms QT Int : 396 ms P-R-T Axes : 57 -15 -10 degrees QTcB Int : 408 ms Normal sinus rhythm Nonspecific ST abnormality Abnormal ECG Confirmed by KAREN CAIN ([id number]), editor managing director YOBANI COTA ([id number]) on 02/26/2025 8:12:22 AM Referred By: Helder Jane Confirmed By: KAREN CAIN 02/26/25 0812 Date Karen Cain MD CC: Dr. Virgilio Alicia MD; Dr. Helder Jane DO Signed Normal [facility] Basic Metabolic Profile (BMP )on 02-23-2025 BUN/CRE 23.5 RATIO High 10-20 [facility] Comment on above: Performed By: #### L 501.5200, M100.651, L500.2500, L100.0100 #### [facility] Laboratory [address] [place], [address] Calcium [Mass/Vol] 9.5 mg/dL Normal 7.6-11.0 [facility] Comment on above: Performed By: #### L 501.5200, M100.651, L500.2500, L100.0100 #### [facility] [address] [place], [address] Chloride [Moles/Vol] 102 mmol/L Normal 98-108 [facility] Comment on above: Performed By: #### L 501.5200, M100.651, L500.2500, L100.0100 #### [facility] [address] [place], [address] CO2 [Moles/Vol] 26.3 mmol/L Normal 21.0-32.0 [facility] Comment on above: Performed By: #### L 501.5200, M100.651, L500.2500, L100.0100 #### [facility] [address] [place], [address] Creatinine [Mass/Vol] 0.55 mg/dL Low 0.70-1.20 [facility] Comment on above: Performed By: #### L 501.5200, M100.651, L500.2500, L100.0100 #### [facility] [address] [place], [address] GAP 10 Normal 5-15 [facility] Comment on above: Performed By: #### L 501.5200, M100.651, L500.2500, L100.0100 #### [facility] [address] [place], [address] GFR/1.73 sq M.predicted among non-blacks MDRD (S/P/Bld) [Vol rate/Area] 102 mL/min/{1.73_m2} Normal >60 [facility] Comment on above: Result Comment: mL/m in/1.73m2 CKD-EPI Creatinine Equation (2020) Performed By: #### L 501.5200, M100.651, L500.2500, L100.0100 #### [facility] [address] [place], [address] Glucose [Mass/Vol] 96 mg/dL Normal 70-99 [facility] Comment on above: Performed By: #### L 501.5200, M100.651, L500.2500, L100.0100 #### [facility] [address] [place], [address] Potassium [Moles/Vol] 4.0 mmol/L Normal 3.3-5.1 [facility] Comment on above: Performed By: #### L 501.5200, M100.651, L500.2500, L100.0100 #### [facility] [address] [place], [address] Sodium [Moles/Vol] 138 mmol/L Normal 133-145 [facility] Comment on above: Performed By: #### L 501.5200, M100.651, L500.2500, L100.0100 #### [facility] [address] [place], [address] Urea nitrogen [Mass/Vol] 13 mg/dL Normal 4-19 [facility] Comment on above: Performed By: #### L 501.5200, M100.651, L500.2500, L100.0100 #### [facility] [address] [place], [address] CBC W/Diff, Automatedon 05-3 0-2024 Absolute Lymph 2.12 X10 3/uL Normal 0.83-4.51 [facility] Comment on above: Performed By: #### L 501.5200, M100.651, L500.2500, L100.0100 #### [facility] [address] [place], [address] Absolute Neut 3.1 X10 3/uL Normal 2.0-7.7 [facility] Comment on above: Performed By: #### L 501.5200, M100.651, L500.2500, L100.0100 #### [facility] [address] [place], [address] Basophils/100 WBC (Bld) 0.9 % Normal 0-1 [facility] Comment on above: Performed By: #### L 501.5200, M100.651, L500.2500, L100.0100 #### [facility] [address] [place], [address] Eosinophils/100 WBC (Bld) 6.3 % High 0-5 [facility] Comment on above: Performed By: #### L 501.5200, M100.651, L500.2500, L100.0100 #### [facility] [address] [place], [address] Erythrocyte distribution width (RBC) [Ratio] 12.9 % Normal 11.6-14.6 [facility] Comment on above: Performed By: #### L 501.5200, M100.651, L500.2500, L100.0100 #### [facility] [address] [place], [address] Hematocrit (Bld) [Volume fraction] 41.2 % Normal 37-47 [facility] Comment on above: Performed By: #### L 501.5200, M100.651, L500.2500, L100.0100 #### [facility] [address] [place], [address] Hemoglobin (Bld) [Mass/Vol] 14.0 g/dL Normal 12.0-15.0 [facility] Comment on above: Performed By: #### L 501.5200, M100.651, L500.2500, L100.0100 #### [facility] [address] [place], [address] IG% 0.200 Normal 0.0-0.9 [facility] Comment on above: Result Comment: IG% - Immature Granulocytes (promyelocytes, myelocytes and metamyelocytes) > 1% indicates that a LEFT SHIFT is Present. Performed By: #### L 501.5200, M100.651, L500.2500, L100.0100 #### [facility] [address] [place], [address] Lymphocytes/100 WBC (Bld) 32.6 % Normal 19-41 [facility] Comment on above: Performed By: #### L 501.5200, M100.651, L500.2500, L100.0100 #### [facility] [address] [place], [address] MCH (RBC) [Entitic mass] 31.5 pg Normal 27.0-32.0 [facility] Comment on above: Performed By: #### L 501.5200, M100.651, L500.2500, L100.0100 #### [facility] [address] [place], [address] MCHC (RBC) [Mass/Vol] 34.0 g/dL Normal 32-36 [facility] Comment on above: Performed By: #### L 501.5200, M100.651, L500.2500, L100.0100 #### [facility] [address] [place], [address] MCV (RBC) [Entitic vol] 92.6 fL Normal 81-99 [facility] Comment on above: Performed By: #### L 501.5200, M100.651, L500.2500, L100.0100 #### [facility] [address] [place], [address] Monocytes/100 WBC (Bld) 12.6 % High 0-10 [facility] Comment on above: Performed By: #### L 501.5200, M100.651, L500.2500, L100.0100 #### [facility] [address] [place], [address] Neutrophils/100 WBC (Bld) 47.4 % Normal 47-70 [facility] Comment on above: Performed By: #### L 501.5200, M100.651, L500.2500, L100.0100 #### [facility] [address] [place], [address] Nucleated RBC (Bld) [#/Vol] 0 10*3/uL Normal 0-5 [facility] Comment on above: Performed By: #### L 501.5200, M100.651, L500.2500, L100.0100 #### [facility] [address] [place], [address] Platelet mean volume (Bld) [Entitic vol] 11.4 fL Normal 6.2-12.0 [facility] Comment on above: Performed By: #### L 501.5200, M100.651, L500.2500, L100.0100 #### [facility] [address] [place], [address] Platelets (Bld) [#/Vol] 210 10*3/uL Normal 150-450 [facility] Comment on above: Performed By: #### L 501.5200, M100.651, L500.2500, L100.0100 #### [facility] [address] [place], [address] RBC (Bld) [#/Vol] 4.45 10*6/uL Normal 4.2-5.4 [facility] Comment on above: Performed By: #### L 501.5200, M100.651, L500.2500, L100.0100 #### [facility] [address] [place], [address] RDW SD 43.9 fl Normal 35.1-43.9 [facility] Comment on above: Performed By: #### L 501.5200, M100.651, L500.2500, L100.0100 #### [facility] [address] [place], [address] WBC (Bld) [#/Vol] 6.5 10*3/uL Normal 4.4-11.0 [facility] Comment on above: Performed By: #### L 501.5200, M100.651, L500.2500, L100.0100 #### [facility] [address] [place], [address] MR/PAT.Heidi 02-23-2025 MR/PAT.ERWIN [facility] Medical Records Department [address] [facility] [place] [address] PAT - Anesthesia 02/23/25 1639 MR#: [id number] Acct: [id number] Name: DEYA BLOUNT Rep #: [id number] : 1960 65 From: Carlos Eduardo Nelson MD PCP: Dr. 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 Hx Hospitalization No 02/14/25 14:42 Any Problems [...] take am of surgery PONV PONV - ballpoint pens assembler: PONV - ballpoint pens assembler Female Yes 02/14/25 14:42 HX of Motion [...] 11/28/24 13:16 Respiratory Assessment Respiratory Assessment - ballpoint pens assembler: Respiratory Tract Infection Hx - ballpoint pens assembler Hx Respiratory Tract Infection No 02/14/25 14:42 STOP Sleep Apnea STOP Sleep Apnea - ballpoint pens assembler: STOP Sleep Apnea - ballpoint pens assembler Hx Hypertension Yes: CONTROLLED ON MED 02/14/25 [...] Tobacco Use History Tobacco Use History - ballpoint pens assembler: Tobacco Use History - ballpoint pens assembler Tobacco Use Cigarettes 08/16/24 14:19 Smoking Status Former smoker 02/14/25 14:42 Hx Tobacco Use No 02/14/25 14:42 Years Smoking Packs Smoked per Day Smoking Cessation Date was No - quit smoking greater 02/14/25 14:42 within the last 15 years than 15 years ago Hx Smoking Cessation Date 09/29/79 02/14/25 14:42 Hx Smoking Cessation Counseling Hematologic Medial History Hematologic Hx - ballpoint pens assembler: Hematologic 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 Hx of Blood Transfusion No 02/14/25 14:42 [...] confused, unrespo /Reproduction History /Reproductive History - ballpoint pens assembler: /Reproductive Hx- ballpoint pens assembler Hx Now No 02/14/25 14:42 Gestational Age (in weeks): EDC: Hx Hx Para Hx Section SAB No 02/14/25 14:42 [facility] Medical History (Updated 02/14/25 @ 14:42 by [...] fibrillation Numbness and tingling Arthritis GBS (Guillain Swannanoa syndrome) Obesity New onset atrial fibrillation (10/2019) Post-polio syndrome Home Medications ???Medication ???Instructions ???Recorded ???Last Taken ???Type multivitamin 1 tab PO DAILY supplement 03/26/20 10/23/22 History a (more content not included)... Normal [facility] Magnesiumon 02-23-2025 Magnesium [Mass/Vol] 2.3 mg/dL High 1.5-2.2 [facility] Comment on above: Performed By: #### L 501.5200, M100.651, L500.2500, L100.0100 #### [facility] [address] 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 Normal [facility] Urgent Care Visit Reporton 0 10-14-2024 Urgent Care Visit Report [facility] [address] , [address] [place] [address] OFFICE VISIT Date of Service: 10/14/24 MR#: [id number] Acct: [id number] Name: DEYA BLOUNT Rep #: [id number] : 1960 Provider: VISHNU Suero Age/Sex: 64/F Location: [facility] Status: Signed Intake Vital Signs 09/25/24 10:00 [...] fibrillation Numbness and tingling Arthritis GBS (Guillain Swannanoa syndrome) Obesity New onset atrial fibrillation (10/2019) [...] for chi (more content not included)... 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 [place], [place] [address] OFFICE VISIT Date of Service: 09/25/24 MR#: [id number] Acct: [id number] Name: DEYA BLOUNT Rep #: [id number] : 1960 Provider: VISHNU Leigh Age/Sex: 64/F Location: [facility] Status: Signed HPI HPI History of [...] 96 Intake Visit Reasons: 1 Y FU Youth Worker Required: No Is patient in pain?: No [...] GBS (Gu (more content not included)... Normal [facility] Lipid Profileon 09-25-2024 Cholesterol [Mass/Vol] 183 mg/dL Normal 200 [facility] Comment on above: Result Comment: <200 mg/dL Desirable 200-240 mg/dL Borderline >240 mg/dL High Risk Performed By: #### L 500.3400, L500.4100 ####[facility] [address] [place], [address] Cholesterol in HDL [Mass/Vol] 58 mg/dL Normal [facility] Comment on above: Result Comment: The drugs N-Acetylcysteine and Metamizole may falsely depress this assay. Reference Range HDL <40 mg/dL Low HDL Cholesterol HDL >or= 60 mg/dL High HDL Cholesterol Performed By: #### L 500.3400, L500.4100 ####[facility] [address] [place], [address] Cholesterol in LDL [Mass/Vol] 110 mg/dL Normal 0-130 [facility] Comment on above: Performed By: #### L 500.3400, L500.4100 ####[facility] [address] [place], [address] Cholesterol in VLDL [Mass/Vol] 15 mg/dL Normal 5-40 [facility] Comment on above: Performed By: #### L 500.3400, L500.4100 ####[facility] [address] [place], [address] Triglyceride [Mass/Vol] 75 mg/dL Normal [facility] Comment on above: Result Comment: The drugs N-Acetylcysteine and Metamizole may falsely depress this assay. Serum Triglycerides Reference Interval Normal <150 mg/dL Borderline high 150 - 199 mg/dL High 200 - 499 mg/dL Very High > or = 500 mg/dL Performed By: #### L 500.3400, L500.4100 ####[facility] [address] [place], [address] Liver Profileon 09-25-2024 Albumin [Mass/Vol] 3.7 g/dL Normal 3.2-5.0 [facility] Comment on above: Performed By: #### L 500.3400, L500.4100 ####[facility] [address] [place], [address] ALK P 81 U/L Normal 45-117 [facility] Comment on above: Performed By: #### L 500.3400, L500.4100 ####[facility] [address] [place], [address] ALT [Catalytic activity/Vol] 33 U/L Normal 13-56 [facility] Comment on above: Performed By: #### L 500.3400, L500.4100 ####[facility] [address] [place], [address] AST [Catalytic activity/Vol] 16 U/L Normal 15-37 [facility] Comment on above: Performed By: #### L 500.3400, L500.4100 ####[facility] [address] [place], [address] Bilirubin [Mass/Vol] 0.50 mg/dL Normal 0.20-1.00 [facility] Comment on above: Result Comment: For patients on eltrombopag therapy, use of Dimension [place] TBIL is not recommended. Performed By: #### L 500.3400, L500.4100 ####[facility] [address] [place], [address] Bilirubin.direct [Mass/Vol] 0.12 mg/dL Normal 0.00-0.30 [facility] Comment on above: Performed By: #### L 500.3400, L500.4100 ####[facility] [address] [place], [address] Globulin (S) [Mass/Vol] 3.4 g/dL Normal 2.2-4.2 [facility] Comment on above: Performed By: #### L 500.3400, L500.4100 ####[facility] [address] [place], [address] T PROT 7.1 g/dL Normal 6.4-8.2 [facility] Comment on above: Performed By: #### L 500.3400, L500.4100 ####[facility] [address] [place], [address] Urgent Care Visit Reporton 1 10-16-2023 Urgent Care Visit Report [facility] [address], [address] [place], [place] [address] OFFICE VISIT Date of Service: 08/16/24 MR#: [id number] Acct: [id number] Name: DEYA BLOUNT Rep #: [id number] : 1960 Provider: VISHNU Darling Age/Sex: 64/F Location: [facility] Status: Signed Intake Vital Signs 10/13/23 14:49 [...] Visit Reasons: Cough Chief Complaint: congestion, cough Youth Worker Required: No Is patient in pain?: No [...] History (Updated 10/13/23 @ 15:27 by Beth De Luna BIOPHARMACEUTICAL REP, BIOPHARMACEUTICAL REP-C) Hypertension Chest heaviness TAYLOR (dyspnea on exertion) Fatigue COVID-19 Persistent atrial fibrillation (12/16/21) Paroxysmal atrial fibrillation Numbness and tingling Arthritis GBS (Guillain Swannanoa syndrome) Obesity New onset atrial fibrillation (10/2019) [...] Bilateral: Clear (more content not included)... Normal [facility] SCRN MAMM (CAD)W/BUFFY Velásquez n 06-19-2024 SCRN MAMM (CAD)W/BUFFYTyron [facility]OWN [facility] [address] [place] [address] SCRN MAMM (CAD)W/BUFFY BROWN MR#: [id number] Acct: [id number] Name: DEYA BLOUNT Rep #: [id number] : 1960 F 64 From: Christoph mcwilliams MD PCP: Dr. Virgilio Alicia MD Status: REG [facility] Study: SCRN MAMM (CAD)W/BUFFY BILAT Date of Exam: 05/29 12/18 Exam# [id number] Ordering Dr: Beth De Luna BIOPHARMACEUTICAL REP BIOPHARMACEUTICAL REP -C [id number] MAMMOGRAPHY - BILATERAL SCREENING REASON FOR EXAM: [...] delay biopsy of a clinically suspicious abnormality. [id number] Electronically Signed: Christoph Davila MD at 8:39 EDT , CC: GIGI De Luna; Dr. Virgilio Alicia MD [employer] Sales Consultant: Signed Normal [facility] Cervical or vaginal specimen microscopic examination by liquid based cytology (reported as document)Ordered By: eBth De Luna on 10-13-2023 Cytology report Cyto stain.thin prep Doc (Cvx/Vag) Comment . [facility] Comment on above: Criteria not met, HP V Genotype not performed.Performed at: [facility] [address] [id number] Director: Urszula Martins MD, Phone: [phone] at: =[facility] [id number] Director: Urszula Maritns MD, Phone: [phone] Cervical or vagninal specime n microscopic examination by cytology stain (reported asOrdered By: Beth De Luna on 10-13-2023 Cytology report Cyto stain Doc (Cvx/Vag) Comment . [facility] Comment on above: The Pap smear [...] DNA Probe+sig amp Ql (Cvx) Negative Negative [facility] Comment on above: This nucleic acid am plification test detects fourteen high- risk HPV types (16,18,31,33,35,39,45,51,52,56,58,59,66,68)without differentiation. Laboratory - CytologyOrdered By: Beth De Luna on 10-13-2023 Passenger Agent Cyto stain Nom (Cvx/Vag) [ID] Comment . [facility] Comment on above: Deric Guillermo totechnologist (ASCP) Laboratory - Miscellaneous t estsOrdered By: Beth De Luna on 10-13-2023 Service comment (Unsp spec) [Interp] . . [facility] Thin prep Papanicolaou smear with manual screeningOrdered By: Beth De Luna on 10-13-2023 Thin prep Papanicolaou smear with manual screening Comment . [facility] Comment on above: NEGATIVE FOR INTRAEP ITHELIAL LESION OR MALIGNANCY. This liquid based Th inPrep(R) pap test was screened withthe use of an image guided system. CNOVon 04-05-2023 CNOV Office Visit (UCWSTR ) DEYA BLOUNT ([id number]) 1960 F Date Time Provider Department 04/05/23 2:00 PM MARIANGEL SPARKS [facility] During your visit today, we recorded the following information about you: Temperature Pulse Respiration Blood pressure 97.8 degrees 76/minute 18/minute 132/88 Weight 86.1 kg Mariangel Sparks APRN.CNP 04/05/2023 2:46 PM Signed Subjective HPI HPI Deya Hull Mine is a 63 year old female who [...] PROPIONATE 50 MCG/ACTUATION NASAL SPRAY,SUSPENSION Mariangel Sparks APRN.SUEDE CLEANER Allergies As of Date: 04/05/2023 Noted Allergy Reaction AMOXICILLIN 06/25/2004 4 - Hives CEPHALOSPORINS 06/25/2004 4 - Hives Comments: Keflex SULFA (SULFONAMIDE ANTIBIOTICS) 06/25/2004 12 - Shortness of Breath Date Reviewed: 04/05/2023 Reviewed by: Marianegl Sparks APRN.SUEDE CLEANER - Fully Assessed Reason for Visit: Ear Problem [38] Cmt: L ear pressure and decreased hearing x10 days Primary Visit Diagnosis:ETD (Eustachian tube dysfunction), lef (more content not included)... Normal [facility] EP PROCEDURE - EPS/ABLATION/ DEVICEon 03-05-2023 EP [...] EPS/Ablation/Device Ordering Physician: FEDERICO MCCLURE Order #: [id number] Study Date: 03/03/2023 Patient Information Name MRN Description Sammy Blount [id number] y.o. female Physicians Panel Physicians Referring [...] ablation. Ventriculoatrial (more content not included)... Normal [facility] CBC AND ELECTRONIC DIFFon Abs Baso Auto < Normal 0.00-0.[address] [facility] Comment on above: Performed By: #### L AB980 #### [facility] (DEFAULT) [address] [place] [address] Basophils/100 WBC (Bld) 0.5 % Normal [facility] Comment on above: Performed By: #### L AB980 #### [facility] (DEFAULT) [address] [place] [address] DIFF STATUS Electronic Differential Normal [facility] Comment on above: Performed By: #### L AB980 #### [facility] (DEFAULT) [address] [address] Eosinophils (Bld) [#/Vol] 0.16 10*3/uL Normal 0.00-0.[address] [facility] Comment on above: Performed By: #### L AB980 #### [facility] (DEFAULT) [address] [address] Eosinophils/100 WBC (Bld) 2.5 % Normal [facility] Comment on above: Performed By: #### L AB980 #### [facility] (DEFAULT) [address] [place] [address] Hematocrit (Bld) [Volume fraction] 42.2 % Normal 34.9-44.[address] [facility] Comment on above: Performed By: #### L AB980 #### [facility] (DEFAULT) [address] [address] Hemoglobin (Bld) [Mass/Vol] 13.9 g/dL Normal 11.4-15.[address] [facility] Comment on above: Performed By: #### L AB980 #### [facility] (DEFAULT) [address] [address] Immature Grans % 0.3 % Normal [facility] Comment on above: Performed By: #### L AB980 #### [facility] (DEFAULT) [address] [place] [address] Immature Grans Absolute < Normal <=0.[address] [facility] Comment on above: Performed By: #### L AB980 #### [facility] (DEFAULT) [address] [place] [address] Lymphocytes (Bld) [#/Vol] 2.10 10*3/uL Normal 1.16-3.[address] [facility] Comment on above: Performed By: #### L AB980 #### [facility] (DEFAULT) [address] [address] Lymphocytes/100 WBC (Bld) 32.6 % Normal [facility] Comment on above: Performed By: #### L AB980 #### [facility] (DEFAULT) [address] [address] MCV (RBC) [Entitic vol] 94.6 fL Normal 79.6-97.[address] [facility] Comment on above: Performed By: #### L AB980 #### [facility] (DEFAULT) [address] [address] Mean Cell Hgb 31.2 pg Normal 25.9-33.[address] [facility] Comment on above: Performed By: #### L AB980 #### [facility] (DEFAULT) [address] [address] Mean Cell Hgb Conc 32.9 g/dL Normal 31.4-35.9 [facility] Comment on above: Performed By: #### L AB980 #### [facility] (DEFAULT) [address] [place] [address] Monocytes (Bld) [#/Vol] 0.63 10*3/uL Normal 0.22-0.[address] [facility] Comment on above: Performed By: #### L AB980 #### [facility] (DEFAULT) [address] [address] Monocytes/100 WBC (Bld) 9.8 % Normal [facility] Comment on above: Performed By: #### L AB980 #### [facility] (DEFAULT) [address] [place] [address] Nucleated RBC 0.0 /100 WBC Normal <=0.2 [place] Comment on above: Performed By: #### L AB980 #### [facility] (DEFAULT) [address] [place] [address] Platelet mean volume (Bld) [Entitic vol] 12.3 fL High 8.5-12.[address] [facility] Comment on above: Performed By: #### L AB980 #### [facility] (DEFAULT) [address] [place] [address] Platelets (Bld) [#/Vol] 181 10*3/uL Normal 150-[address] [facility] Comment on above: Performed By: #### L AB980 #### [facility] (DEFAULT) [address] [place] [address] RBC (Bld) [#/Vol] 4.46 10*6/uL Normal 3.91-5.[address] [facility] Comment on above: Performed By: #### L AB980 #### [facility] (DEFAULT) [address] [place] [address] RBC Distribution 13.0 % Normal 10.8-14.9 [facility] Comment on above: Performed By: #### L AB980 #### [facility] (DEFAULT) [address] [place] [address] Segs + Bands Auto 54.3 % Normal [facility] Comment on above: Performed By: #### L AB980 #### [facility] (DEFAULT) [address] [address] Segs + Bands,Absolute Auto 3.51 K/uL Normal 1.64-7.[address] [facility] Comment on above: Performed By: #### L AB980 #### [facility] (DEFAULT) [address] [place] [address] WBC (Bld) [#/Vol] 6.45 10*3/uL Normal 3.99-11.[address] [facility] Comment on above: Performed By: #### L AB980 #### [facility] (DEFAULT) [address] [place] [address] Basophils (Bld) [#/Vol] K/uL 0.00 - 0.15 K/uL [facility] Basophils/100 WBC (Bld) 0.5 % [facility] Differential cell count method Nom (Bld) Electronic Differential [facility] Eosinophils (Bld) [#/Vol] 0.16 10*3/uL 0.00 - 0.42 K/uL [facility] Eosinophils/100 WBC (Bld) 2.5 % [facility] Erythrocyte distribution width (RBC) [Ratio] 13.0 % 10.8 - 14.9 % [facility] Hematocrit (Bld) [Volume fraction] 42.2 % 34.9 - 44.3 % [facility] Hemoglobin (Bld) [Mass/Vol] 13.9 g/dL 11.4 - 15.2 g/dL [facility] Immature granulocytes (Bld) [#/Vol] K/uL NINF - 0.08 K/uL [facility] Immature granulocytes/100 WBC (Bld) 0.3 % [facility] Interpretation and review of laboratory results Abnormal [facility] Lymphocytes (Bld) [#/Vol] 2.10 10*3/uL 1.16 - 3.51 K/uL [facility] Lymphocytes/100 WBC (Bld) 32.6 % [facility] MCH (RBC) [Entitic mass] 31.2 pg 25.9 - 33.9 pg [facility] MCHC (RBC) [Mass/Vol] 32.9 g/dL 31.4 - 35.9 g/dL [facility] MCV (RBC) [Entitic vol] 94.6 fL 79.6 - 97.7 fL [facility] Monocytes (Bld) [#/Vol] 0.63 10*3/uL 0.22 - 0.87 K/uL [facility] Monocytes/100 WBC (Bld) 9.8 % [facility] Neutrophils (Bld) [#/Vol] 3.51 10*3/uL 1.64 - 7.28 K/uL [facility] Nucleated RBC/100 WBC (Bld) [Ratio] 0.0 % NINF [facility] Platelet mean volume (Bld) [Entitic vol] 12.3 fL High 8.5 - 12.2 fL [facility] Platelets (Bld) [#/Vol] 181 10*3/uL 150 - 393 K/uL [facility] RBC (Bld) [#/Vol] 4.46 10*6/uL [facility] Segmented neutrophils/100 WBC (Bld) 54.3 % [facility] WBC (Bld) [#/Vol] 6.45 10*3/uL 3.99 - 11. 19 K/uL [facility] CHEM 7 (LYTES,BUN,CREA,GLUC) on 03-03-2023 Anion gap [Moles/Vol] 12 mmol/L Normal 7-17 [facility] Comment on above: Performed By: #### JANNET GRIFFITHS7 #### [facility] (DEFAULT) [address] [place] [address] Chloride [Moles/Vol] 104 mmol/L Normal 98-[address] [facility] Comment on above: Performed By: #### DAYNA GRIFFITHS #### [facility] (DEFAULT) [address] [place] [address] CO2 [Moles/Vol] 29 mmol/L Normal 21-31 [place] Comment on above: Performed By: ###JANNET MINA7 #### [facility] (DEFAULT) [address] [place] [address] Creatinine [Mass/Vol] 0.60 mg/dL Normal 0.50-1.20 [facility] Comment on above: Performed By: #### Rufino KERN CHM7 #### [facility] (DEFAULT) [address] [place] [address] eGFR, CKD-EPI, Female > Normal >=60 [facility] Comment on above: Result Comment: Repo rted eGFR is based on the CKD-EPI 2020 equation using creatinine, age, and sex. Performed By: #### JANNET GRIFFITHS7 #### [facility] (DEFAULT) [address] [place] [address] Glucose [Mass/Vol] 86 mg/dL Normal 70-99 [facility] Comment on above: Performed By: #### JANNET GRIFFITHS7 #### [facility] (DEFAULT) [address] [place] [address] Osmolality [Osmolality] 294 mosm/kg Normal 278-[address] [facility] Comment on above: Performed By: #### JANNET GRIFFITHS7 #### [facility] (DEFAULT) [address] [place] [address] Potassium [Moles/Vol] 3.8 mmol/L Normal 3.5-5.0 [facility] Comment on above: Performed By: #### Rufino KERN CHM7 #### [facility] (DEFAULT) [address] [place] [address] Sodium [Moles/Vol] 141 mmol/L Normal 135-145 [facility] Comment on above: Performed By: #### Rufino KERN CHM7 #### [facility] (DEFAULT) [address] [place] [address] Urea nitrogen [Mass/Vol] 14 mg/dL Normal 7-[address] [facility] Comment on above: Performed By: #### Rufino KERN CHM7 #### [facility] (DEFAULT) [address] [place] [address] Urea nitrogen/Creatinine [Mass ratio] 23 mg/mg Normal [facility] Comment on above: Performed By: #### Rufino KERN CHM7 #### [facility] (DEFAULT) [address] [place] [address] Anion gap [Moles/Vol] 12 mmol/L 7 - 17 mmol/L [facility] Chloride [Moles/Vol] 104 mmol/L 98 - 10 8 mmol/L [facility] CO2 [Moles/Vol] 29 mmol/L 21 - 31 mmol/L [facility] Creatinine [Mass/Vol] 0.60 mg/dL 0.50 - 1.20 mg/dL [facility] GFR/1.73 sq M.predicted CKD-EPI (S/P/Bld) [Vol rate/Area] - PINF [facility] Comment on above: Reported eGFR is bas ed on the CKD-EPI 2020 equation using creatinine, age, and sex. Glucose [Mass/Vol] 86 mg/dL 70 - 99 mg/dL [facility] Osmolality Calc [Osmolality] 294 [facility] Potassium [Moles/Vol] 3.8 mmol/L 3.5 - 5.0 mmol/L [facility] Sodium [Moles/Vol] 141 mmol/L 135 - 145 mmol/L [facility] Urea nitrogen [Mass/Vol] 14 mg/dL 7 - 25 mg/dL [facility] Urea nitrogen/Creatinine [Mass ratio] 23 mg/mg [facility] CREAT/GFRon 03-03-2023 Creatinine [Mass/Vol] 0.59 mg/dL 0.50 - 1.20 mg/dL [facility] GFR/1.73 sq M.predicted CKD-EPI (S/P/Bld) [Vol rate/Area] - PINF [facility] Comment on above: Reported eGFR is bas ed on the CKD-EPI 2020 equation using creatinine, age, and sex. Interpretation and review of laboratory results Normal [facility] Test performed at address of the patient encounter. [facility] CT CARDIAC PULMONARY VENOGRA [facility] 03-03-2023 CT CARDIAC PULMONARY VENOGRAM [facility] CT Report Name: DEYA BLOUNT : [...] cm SCAN INFO TEST TYPE: Venogram SCANNER MICROBIOLOGICAL LAB TECHNICIAN: Skeeble SCANNER MODEL: [employer] CT750 [employer] DOSE REDUCTION ALGORITHM: Prospective/Step-and-s hoot SCAN COVERAGE [...] Valle RT (R) (CT) BILLING Patient Account [id number] CPT Codes 83437 ICD10 Codes I48.0 Report generated by [employer], a product of [employer] Normal [facility] CT Report Name: DEYA BLOUNT : [...] cm SCAN INFO TEST TYPE: Venogram SCANNER MICROBIOLOGICAL LAB TECHNICIAN: Skeeble SCANNER MODEL: [employer] DOSE REDUCTION ALGORITHM: Prospective/Step-and-s hoot SCAN COVERAGE [...] Valle RT (R) (CT) BILLING Patient Account [id number] CPT Codes 03759 ICD10 Codes I48.0 Report generated by [employer], a product of [employer] CARDIOLOGY Diana Paulino, DO - 03/03/[address] [facility] [address] Report Name: DEYA BLOUNT : [...] INFO ========= ========= TEST TYPE: Venogram SCANNER MICROBIOLOGICAL LAB TECHNICIAN: Skeeble SCANNER MODEL: [employer] DOSE REDUCTION ALGORITHM: Prospective/Step-and-s hoot SCAN COVERAGE [...] (R) (CT) BILLING ========= ========= Patient Account [id number] CPT Codes 09423 ICD10 Codes I48.0 Report generated by [employer], a product of [employer] [facility] Radiology Study observation (narrative) [facility] CT CARDIAC PULMONARY VENOGRA MOrdered By: Diana Paulino on 03-03-2023 [facility] Work Phone: MAGNESIUMon 03-03-2023 Interpretation and review of laboratory results Normal [facility] Magnesium [Mass/Vol] 2.1 mg/dL 1.6 - 2 .6 mg/dL [facility] Magnesium [Mass/Vol] 2.1 mg/dL Normal 1.6-2.[address] [facility] Comment on above: Performed By: #### M JANNET KERN7 #### [facility] (DEFAULT) [address] [place] [address] PT,INR,PTTon 06-07-2023 aPTT Coag (Bld) [Time] 24.4 s Normal 24.0-34.3 [facility] Comment on above: Performed By: #### P TPTT #### [facility] (DEFAULT) [address] [place] [address] INR Coag (PPP) [Relative time] 1.0 {INR} Normal 0.9-1.[address] [facility] Comment on above: Performed By: #### P TPTT #### [facility] (DEFAULT) [address] [place] [address] PT Coag (PPP) [Time] 13.5 s Normal 11.9-14.[address] [facility] Comment on above: Performed By: #### P TPTT #### [facility] (DEFAULT) [address] [place] [address] aPTT Coag (PPP) [Time] 24.4 s OS [facility] INR Coag (Bld) [Relative time] 1.0 {INR} 0.9 - 1.1 [facility] Interpretation and review of laboratory results Normal [facility] PT Coag (PPP) [Time] 13.5 s [facility] Absolute lymphocyte countOrd ered By: Dr. Khalil on 01-20-2023 Lymphocytes Auto (Unsp spec) [#/Vol] 1.82 10*3/uL 0.83-4.51 [facility] Basophil percentageOrdered B y: Dr. Khalil on 01-20-2023 Basophil percentage Not Reportable [facility] Basophils/100 WBC (Bld) 0.6 % 0-1 [facility] Eosinophils/100 WBC (Bld) 3.2 % 0-5 [facility] Neutrophils (Bld) [#/Vol] 3.6 10*3/uL 2.0-7.7 [facility] Neutrophils/100 WBC (Bld) 57.5 % 47-70 [facility] WBC (Bld) [#/Vol] 6.2 10*3/uL 4.4-11.0 [facility] Blood erythrocytes count (nu mber/volume)Ordered By: Dr. Khalil on 01-20-2023 RBC (Bld) [#/Vol] 4.62 10*6/uL 4.2-5.4 [facility] Blood hemoglobin measurement (mass/volume)Ordered By: Dr. Khalil on 01-20-2023 Hemoglobin (Bld) [Mass/Vol] 14.7 g/dL 12.0-15.0 [facility] Blood lymphocytes/100 leukoc ytesOrdered By: Dr. Khalil on 01-20-2023 Lymphocytes/100 WBC (Bld) 29.2 % 19-41 [facility] Blood monocytes/100 leukocyt esOrdered By: Dr. Khalil on 01-20-2023 Monocytes/100 WBC (Bld) 9.5 % 0-10 [facility] Blood platelet mean volumeOr dered By: Dr. Khalil on 01-20-2023 Platelet mean volume (Bld) [Entitic vol] 13.2 fL 6.2-12.0 [facility] Determination of erythrocyte mean corpuscular volume (MCV)Ordered By: Dr. Khalil on 01-20-2023 MCV (RBC) [Entitic vol] 96.3 fL 81-99 [facility] Erythrocyte sedimentation ra teOrdered By: Dr. Khalil on 01-20-2023 ESR (Bld) [Velocity] 19 mm/h 0-30 [facility] Hematocrit Auto (Bld) [Volum e fraction]Ordered By: Dr. Khalil on 01-20-2023 Hematocrit (Bld) [Volume fraction] 44.5 % 37-47 [facility] Laboratory - Hematology and Cell countsOrdered By: Dr. Khalil on 01-20-2023 Erythrocyte distribution width (RBC) [Entitic vol] 45.9 fL 35.1-43.9 [facility] Erythrocyte distribution width (RBC) [Ratio] 12.9 % 11.6-14.6 [facility] Immature granulocytes/100 WBC (Bld) 0.000 % 0.0-0.9 [facility] Comment on above: IG% - Immature Granu locytes (promyelocytes, myelocytes and metamyelocytes) > 1% indicates that a LEFT SHIFT is Present. MCH (RBC) [Entitic mass] 31.8 pg 27.0-32.0 [facility] Nucleated RBC/100 WBC (Bld) [Ratio] 0 % 0-5 [facility] MCHC Auto (RBC) [Mass/Vol]Or dered By: Dr. Khalil on 01-20-2023 MCHC (RBC) [Mass/Vol] 33.0 g/dL 32-36 [facility] No Panel InformationOrdered By: Dr. Khalil on 01-20-2023 Anti-Nuclear Antibody Screen Negative Negative [facility] Comment on above: Performed at: [facility] [place] [id number] Director: Rachid Jaimes PhD, Phone: [phone] [employer] [facility] Antibody Not Reportable [facility] TUMBLER MACHINE OPERATOR Antibody Not Reportable [facility] [facility] Platelets bldOrdered By: Dr. Khalil on 01-20-2023 Platelets (Bld) [#/Vol] 177 10*3/uL 150-450 [facility] Serum DNA double strand anti body assay (units/volume)Ordered By: Dr. Khalil on 01-20-2023 DNA double strand Ab Qn (S) Not Reportable [facility] Serum Julia-1 antibody assay (u nits/volume)Ordered By: Dr. Khalil on 01-20-2023 Julia-1 extractable nuclear Ab Qn (S) Not Reportable [facility] Serum Scl-70 extractable nuc lear antibody assay (units/volume)Ordered By: Dr. Khalil on 01-20-2023 SCL-70 extractable nuclear Ab Qn (S) Not Reportable [facility] Serum Alicia extractable nucl ear antibody detectionOrdered By: Dr. Khalil on 01-20-2023 Alicia extractable nuclear Ab Ql (S) Not Reportable [facility] Serum or plasma C reactive p rotein measurement (mass/volume)Ordered By: Dr. Khalil on 01-20-2023 CRP [Mass/Vol] mg/L 0.0-3.0 [facility] Comment on above: C-Reactive Protein ( CRP) provides useful information for thediagnosis, therapy and monitoring of inflammatory processesand associated diseases. For the evaluation of Relative Riskfor Cardiovascular Disease, a High Sensitivity CRP (HSCRP)should be ordered. Serum or plasma uric acid me asurement (mass/volume)Ordered By: Dr. Khalil on 01-20-2023 Urate [Mass/Vol] 5.8 mg/dL 2.6-6.0 [facility] Comment on above: The drugs N-Acetylcy steine and Metamizole may falsely depress this assay. Serum rheumatoid factor dete ctionOrdered By: Dr. Khalil on 01-20-2023 Rheumatoid factor Ql (S) < 10.0 IU/mL <15 [facility] Absolute lymphocyte countOrd ered By: Dr. Doshi on 10-24-2022 Lymphocytes Auto (Unsp spec) [#/Vol] 2.28 10*3/uL 0.83-4.51 [facility] Basophil percentageOrdered B y: Dr. Doshi on 10-24-2022 Basophils/100 WBC (Bld) 0.5 % 0-1 [facility] Chloride [Moles/Vol] 108 mmol/L 98-107 [facility] Cholesterol [Mass/Vol] 212 mg/dL <200 [facility] Comment on above: <200 mg/dL Desirable 200-240 mg/dL Borderline >240 mg/dL High Risk Eosinophils/100 WBC (Bld) 1.7 % 0-5 [facility] Glucose [Mass/Vol] 94 mg/dL 74-106 [facility] Neutrophils (Bld) [#/Vol] 3.0 10*3/uL 2.0-7.7 [facility] Neutrophils/100 WBC (Bld) 50.3 % 47-70 [facility] Potassium [Moles/Vol] 4.1 mmol/L 3.5-5.1 [facility] Comment on above: Slight Hemolysis, Re sult may be falsely increased. Sodium [Moles/Vol] 142 mmol/L 136-145 [facility] Triglyceride [Mass/Vol] 97 mg/dL <199 [facility] Comment on above: The drugs N-Acetylcy steine and Metamizole may falsely depress this assay.Serum Triglycerides Reference Interval Normal <150 mg/dL Borderline high 150 - 199 mg/dL High 200 - 499 mg/dL Very High > or = 500 mg/dL WBC (Bld) [#/Vol] 5.9 10*3/uL 4.4-11.0 [facility] Blood erythrocytes count (nu mber/volume)Ordered By: Dr. Doshi on 10-24-2022 RBC (Bld) [#/Vol] 5.15 10*6/uL 4.2-5.4 [facility] Blood hemoglobin measurement (mass/volume)Ordered By: Dr. Doshi on 10-24-2022 Hemoglobin (Bld) [Mass/Vol] 16.3 g/dL 12.0-15.0 [facility] Blood lymphocytes/100 leukoc ytesOrdered By: Dr. Doshi on 10-24-2022 Lymphocytes/100 WBC (Bld) 38.4 % 19-41 [facility] Blood monocytes/100 leukocyt esOrdered By: Dr. Doshi on 10-24-2022 Monocytes/100 WBC (Bld) 8.9 % 0-10 [facility] Blood platelet mean volumeOr dered By: Dr. Doshi on 10-24-2022 Platelet mean volume (Bld) [Entitic vol] 12.1 fL 6.2-12.0 [facility] Determination of erythrocyte mean corpuscular volume (MCV)Ordered By: Dr. Doshi on 10-24-2022 MCV (RBC) [Entitic vol] 93.8 fL 81-99 [facility] Glucose Glucometer (dC) [M ass/Vol]Ordered By: Dr. Doshi on 10-24-2022 Glucose [Mass/Vol] 98 mg/dL 74-106 [facility] Comment on above: MANAGEMENT OF PATIEN T CARE PER NURSING PROTOCOL Hematocrit Auto (Bld) [Volum e fraction]Ordered By: Dr. Doshi on 10-24-2022 Hematocrit (Bld) [Volume fraction] 48.3 % 37-47 [facility] Laboratory - Chemistry and C hemistry - challengeOrdered By: Dr. Doshi on 10-24-2022 CO2 [Moles/Vol] 28.0 mmol/L 21.0-32.0 [facility] Urea nitrogen/Creatinine [Mass ratio] 18.0 mg/mg 10-20 [facility] Laboratory - Hematology and Cell countsOrdered By: Dr. Doshi on 10-24-2022 Erythrocyte distribution width (RBC) [Entitic vol] 44.2 fL 35.1-43.9 [facility] Erythrocyte distribution width (RBC) [Ratio] 12.7 % 11.6-14.6 [facility] Immature granulocytes/100 WBC (Bld) 0.200 % 0.0-0.9 [facility] Comment on above: IG% - Immature Granu locytes (promyelocytes, myelocytes and metamyelocytes) > 1% indicates that a LEFT SHIFT is Present. MCH (RBC) [Entitic mass] 31.7 pg 27.0-32.0 [facility] Nucleated RBC/100 WBC (Bld) [Ratio] 0 % 0-5 [facility] MCHC Auto (RBC) [Mass/Vol]Or dered By: Dr. Doshi on 10-24-2022 MCHC (RBC) [Mass/Vol] 33.7 g/dL 32-36 [facility] No Panel InformationOrdered By: Dr. Doshi on 10-24-2022 Estimated Creatinine Clearance Calc 73.11 ml/min [facility] Estimated GFR (MDRD) Amer 115 mL/min >60 [facility] Comment on above: GFR Calc Estimated GFR (MDRD) Non-Af Amer 95 mL/min >60 [facility] Comment on above: Non- GFR Calc Platelets bldOrdered By: Dr. Dohsi on 10-24-2022 Platelets (Bld) [#/Vol] 173 10*3/uL 150-450 [facility] Serum or plasma calcium judy urement (mass/volume)Ordered By: Dr. Doshi on 10-24-2022 Calcium [Mass/Vol] 9.3 mg/dL 8.5-10.1 [facility] Serum or plasma cholesterol in HDL measurement (mass/volume)Ordered By: Dr. Doshi on 10-24-2022 Cholesterol in HDL [Mass/Vol] 67 mg/dL >40 [facility] Comment on above: The drugs N-Acetylcy steine and Metamizole may falsely depress this assay. Reference Range HDL <40 mg/dL Low HDL Cholesterol HDL >or= 60 mg/dL High HDL Cholesterol Serum or plasma cholesterol in VLDL measurement (mass/volume)Ordered By: Dr. Doshi on 10-24-2022 Cholesterol in VLDL [Mass/Vol] 19 mg/dL 5-40 [facility] Serum or plasma creatinine m easurement (mass/volume)Ordered By: Dr. Doshi on 10-24-2022 Creatinine [Mass/Vol] 0.66 mg/dL 0.55-1.02 [facility] Comment on above: The validity of the calculated GFR & GFRAA in patients over 70 years has not been determined. Clinical correlation is essential. Serum or plasma low density lipoprotein (LDL) cholesterol measurement (mass/volume)Ordered By: Dr. Doshi on 10-24-2022 Cholesterol in LDL [Mass/Vol] 126 mg/dL 0-130 [facility] Serum or plasma urea nitroge n measurement (mass/volume)Ordered By: Dr. Doshi on 10-24-2022 Urea nitrogen [Mass/Vol] 12 mg/dL 7-18 [facility] Thin prep Papanicolaou smear with manual screeningOrdered By: Dr. Doshi on 10-24-2022 Thin prep Papanicolaou smear with manual screening 6 5-15 [facility] Whole blood hemoglobin A1c/t otal hemoglobin ratio (mass fraction)Ordered By: Dr. Doshi on 10-24-2022 HbA1c (Bld) [Mass fraction] 5.7 % 3.8-5.6 [facility] Comment on above: Normal < 5.7 % Predi abetic 5.7 - 6.4 % Diabetic >or= 6.5 % Please note range changes. Absolute lymphocyte countOrd ered By: Dr. Elena on 10-23-2022 Lymphocytes Auto (Unsp spec) [#/Vol] 2.14 10*3/uL 0.83-4.51 [facility] Basophil percentageOrdered B y: Dr. Elena on 10-23-2022 Basophils/100 WBC (Bld) 0.6 % 0-1 [facility] Chloride [Moles/Vol] 108 mmol/L 98-107 [facility] Eosinophils/100 WBC (Bld) 1.6 % 0-5 [facility] Glucose [Mass/Vol] 108 mg/dL 74-106 [facility] Comment on above: Fasting Glucose resu lt from 100 to 125 mg/dL suggests IMPAIRED HOMEOSTASIS per A.D.A. criteria. Neutrophils (Bld) [#/Vol] 4.0 10*3/uL 2.0-7.7 [facility] Neutrophils/100 WBC (Bld) 57.6 % 47-70 [facility] Potassium [Moles/Vol] 4.1 mmol/L 3.5-5.1 [facility] Sodium [Moles/Vol] 142 mmol/L 136-145 [facility] WBC (Bld) [#/Vol] 6.9 10*3/uL 4.4-11.0 [facility] Blood erythrocytes count (nu mber/volume)Ordered By: Dr. Elena on 10-23-2022 RBC (Bld) [#/Vol] 5.01 10*6/uL 4.2-5.4 [facility] Blood hemoglobin measurement (mass/volume)Ordered By: Dr. Elena on 10-23-2022 Hemoglobin (Bld) [Mass/Vol] 15.9 g/dL 12.0-15.0 [facility] Blood lymphocytes/100 leukoc ytesOrdered By: Dr. Elena on 10-23-2022 Lymphocytes/100 WBC (Bld) 30.9 % 19-41 [facility] Blood monocytes/100 leukocyt esOrdered By: Dr. Elena on 10-23-2022 Monocytes/100 WBC (Bld) 9.0 % 0-10 [facility] Blood platelet mean volumeOr dered By: Dr. Elena on 10-23-2022 Platelet mean volume (Bld) [Entitic vol] 12.1 fL 6.2-12.0 [facility] Determination of erythrocyte mean corpuscular volume (MCV)Ordered By: Dr. Elena on 10-23-2022 MCV (RBC) [Entitic vol] 94.0 fL 81-99 [facility] Hematocrit Auto (Bld) [Volum e fraction]Ordered By: Dr. Elena on 10-23-2022 Hematocrit (Bld) [Volume fraction] 47.1 % 37-47 [facility] INR in Blood by Coagulation assayOrdered By: Dr. Elena on 10-23-2022 INR Coag (Bld) [Relative time] 1.2 {INR} [facility] Laboratory - Chemistry and C hemistry - challengeOrdered By: Dr. Elena on 10-23-2022 CO2 [Moles/Vol] 27.0 mmol/L 21.0-32.0 [facility] Urea nitrogen/Creatinine [Mass ratio] 16.7 mg/mg 10-20 [facility] Laboratory - Chemistry and C hemistry - challengeOrdered By: Dr. Doshi on 10-23-2022 Magnesium [Mass/Vol] 2.4 mg/dL 1.6-2.6 [facility] Laboratory - CoagulationOrde red By: Dr. Elena on 10-23-2022 aPTT Coag (Bld) [Time] 28.2 s 24.1-36.2 [facility] PT Coag (PPP) [Time] 15.0 s 11.7-14.9 [facility] Laboratory - Hematology and Cell countsOrdered By: Dr. Elena on 10-23-2022 Erythrocyte distribution width (RBC) [Entitic vol] 44.3 fL 35.1-43.9 [facility] Erythrocyte distribution width (RBC) [Ratio] 12.9 % 11.6-14.6 [facility] Immature granulocytes/100 WBC (Bld) 0.300 % 0.0-0.9 [facility] Comment on above: IG% - Immature Granu locytes (promyelocytes, myelocytes and metamyelocytes) > 1% indicates that a LEFT SHIFT is Present. MCH (RBC) [Entitic mass] 31.7 pg 27.0-32.0 [facility] Nucleated RBC/100 WBC (Bld) [Ratio] 0 % 0-5 [facility] MCHC Auto (RBC) [Mass/Vol]Or dered By: Dr. Elena on 10-23-2022 MCHC (RBC) [Mass/Vol] 33.8 g/dL 32-36 [facility] No Panel InformationOrdered By: Dr. Elena on 10-23-2022 Estimated Creatinine Clearance Calc 73.11 ml/min [facility] Estimated GFR (MDRD) Amer 116 mL/min >60 [facility] Comment on above: GFR Calc Estimated GFR (MDRD) Non-Af Amer 96 mL/min >60 [facility] Comment on above: Non- GFR Calc Troponin I High Sensitivity 5 pg/mL 3.0-54.0 [facility] Comment on above: Please Note: [place] t Units and Gender Specific Reference Ranges. For more information see Policy Stat Procedure [place] High Sensitivity Troponin (TNIH) and attachments. No Panel InformationOrdered By: Dr. Doshi on 10-23-2022 Thyroid Stimulating Hormone (TSH) 1.47 uIU/mL 0.358-3.74 [facility] Platelets bldOrdered By: Dr. Elena on 10-23-2022 Platelets (Bld) [#/Vol] 186 10*3/uL 150-450 [facility] Serum or plasma calcium judy urement (mass/volume)Ordered By: Dr. Elena on 10-23-2022 Calcium [Mass/Vol] 9.4 mg/dL 8.5-10.1 [facility] Serum or plasma creatinine m easurement (mass/volume)Ordered By: Dr. Elena on 10-23-2022 Creatinine [Mass/Vol] 0.66 mg/dL 0.55-1.02 [facility] Comment on above: The validity of the calculated GFR & GFRAA in patients over 70 years has not been determined. Clinical correlation is essential. Serum or plasma urea nitroge n measurement (mass/volume)Ordered By: Dr. Elena on 10-23-2022 Urea nitrogen [Mass/Vol] 11 mg/dL 7-18 [facility] Thin prep Papanicolaou smear with manual screeningOrdered By: Dr. Elena on 10-23-2022 Thin prep Papanicolaou smear with manual screening 7 5-15 [facility] CNOVon 09-02-2022 CNOV Office Visit (UCWSTR ) DEYA BLOUNT ([id number]) 1960 F Date Time Provider Department 09/02/22 12:30 PM [facility]AILEE L[facility] During your visit today, we recorded the [...] ENT - Patient will be seen at [facility] in half an hour. She is [...] ENT - Patient will be seen at [facility] in half an hour. She is on their schedule for 1:15 today. She is agreeable with this plan. Bailee Lara [email or web address].JOSEPH Referring Provider: SELF [[id number]] Allergies As of Date: 09/02/2022 Noted Allergy Reaction AMOXICILLIN 06/25/2004 4 - Hives CEPHALOSPORINS 06/25/2004 4 - Hives Comments: Dioni (more content not included)... Normal [facility] Basophil percentageOrdered B y: Enid Allen on 07-29-2022 Chloride [Moles/Vol] 106 mmol/L 98-107 [facility] Glucose [Mass/Vol] 90 mg/dL 74-106 [facility] Potassium [Moles/Vol] 4.1 mmol/L 3.5-5.1 [facility] Sodium [Moles/Vol] 141 mmol/L 136-145 [facility] Laboratory - Chemistry and C hemistry - challengeOrdered By: Enid Allen on 07-29-2022 CO2 [Moles/Vol] 32.0 mmol/L 21.0-32.0 [facility] Urea nitrogen/Creatinine [Mass ratio] 24.7 mg/mg 10-20 [facility] No Panel InformationOrdered By: Enid Allen on 07-29-2022 Estimated GFR (MDRD) Amer 111 mL/min >60 [facility] Comment on above: GFR Calc Estimated GFR (MDRD) Non-Af Amer 92 mL/min >60 [facility] Comment on above: Non- GFR Calc Serum or plasma calcium judy urement (mass/volume)Ordered By: Enid Allen on 07-29-2022 Calcium [Mass/Vol] 9.6 mg/dL 8.5-10.1 [facility] Serum or plasma creatinine m easurement (mass/volume)Ordered By: Enid Allen on 07-29-2022 Creatinine [Mass/Vol] 0.69 mg/dL 0.55-1.02 [facility] Comment on above: The validity of the calculated GFR & GFRAA in patients over 70 years has not been determined. Clinical correlation is essential. Serum or plasma urea nitroge n measurement (mass/volume)Ordered By: Enid Allen on 07-29-2022 Urea nitrogen [Mass/Vol] 17 mg/dL 7-18 [facility] Thin prep Papanicolaou smear with manual screeningOrdered By: Enid Allen on 07-29-2022 Thin prep Papanicolaou smear with manual screening 3 5-15 [facility] Absolute lymphocyte counton 06-15-2022 Lymphocytes Auto (Unsp spec) [#/Vol] 2.67 10*3/uL 0.83-4.51 [facility] Work Phone: Basophil percentageon 2021 Basophils/100 WBC (Bld) 0.5 % 0-1 [facility] Work Phone: Chloride [Moles/Vol] 106 mmol/L 98-107 [facility] Work Phone: Eosinophils/100 WBC (Bld) 1.3 % 0-5 [facility] Work Phone: [phone] Glucose [Mass/Vol] 87 mg/dL 74-106 [facility] Work Phone: [phone] Neutrophils (Bld) [#/Vol] 5.1 10*3/uL 2.0-7.7 [facility] Work Phone: [phone] Neutrophils/100 WBC (Bld) 57.9 % 47-70 [facility] Work Phone: [phone] Potassium [Moles/Vol] 3.9 mmol/L 3.5-5.1 [facility] Work Phone: Sodium [Moles/Vol] 141 mmol/L 136-145 [facility] Work Phone: [phone] WBC (Bld) [#/Vol] 8.8 10*3/uL 4.4-11.0 [facility] Work Phone: [phone] Blood erythrocytes count (nu mber/volume)on 06-15-2022 RBC (Bld) [#/Vol] 4.24 10*6/uL 4.2-5.4 [facility] Work Phone: Blood hemoglobin measurement (mass/volume)on 06-15-2022 Hemoglobin (Bld) [Mass/Vol] 13.3 g/dL 12.0-15.0 [facility] Work Phone: Blood lymphocytes/100 leukoc yteson 06-15-2022 Lymphocytes/100 WBC (Bld) 30.5 % 19-41 [facility] Work Phone: Blood monocytes/100 leukocyt eson 06-15-2022 Monocytes/100 WBC (Bld) 9.6 % 0-10 [facility] Work Phone: Blood platelet mean volumeon 06-15-2022 Platelet mean volume (Bld) [Entitic vol] 12.1 fL 6.2-12.0 [facility] Work Phone: Determination of erythrocyte mean corpuscular volume (MCV)on 06-15-2022 MCV (RBC) [Entitic vol] 93.9 fL 81-99 [facility] Work Phone: Hematocrit Auto (Bld) [Volum e fraction]on 06-15-2022 Hematocrit (Bld) [Volume fraction] 39.8 % 37-47 [facility] Work Phone: Laboratory - Chemistry and C hemistry - challengeon 06-15-2022 CO2 [Moles/Vol] 28.0 mmol/L 21.0-32.0 [facility] Work Phone: Natriuretic peptide B (Bld) [Mass/Vol] 194.2 pg/mL 0-100 [facility] Work Phone: Urea nitrogen/Creatinine [Mass ratio] 23.1 mg/mg 10-20 [facility] Work Phone: Laboratory - Hematology and Cell countson 06-15-2022 Erythrocyte distribution width (RBC) [Entitic vol] 43.9 fL 35.1-43.9 [facility] Work Phone: Erythrocyte distribution width (RBC) [Ratio] 12.8 % 11.6-14.6 [facility] Work Phone: Immature granulocytes/100 WBC (Bld) 0.200 % 0.0-0.9 [facility] Work Phone: Comment on above: IG% - Immature Granu locytes (promyelocytes, myelocytes and metamyelocytes) > 1% indicates that a LEFT SHIFT is Present. MCH (RBC) [Entitic mass] 31.4 pg 27.0-32.0 [facility] Work Phone: Nucleated RBC/100 WBC (Bld) [Ratio] 0 % 0-5 [facility] Work Phone: MCHC Auto (RBC) [Mass/Vol]on 06-15-2022 MCHC (RBC) [Mass/Vol] 33.4 g/dL 32-36 [facility] Work Phone: No Panel Informationon 06-15 Estimated GFR (MDRD) Amer 110 mL/min >60 [facility] Work Phone: Comment on above: GFR Calc Estimated GFR (MDRD) Non-Af Amer 91 mL/min >60 [facility] Work Phone: Comment on above: Non- GFR Calc Platelets bldon 06-15-2022 Platelets (Bld) [#/Vol] 168 10*3/uL 150-450 [facility] Work Phone: Serum or plasma calcium judy urement (mass/volume)on 06-15-2022 Calcium [Mass/Vol] 8.9 mg/dL 8.5-10.1 [facility] Work Phone: Serum or plasma creatinine m easurement (mass/volume)on 06-15-2022 Creatinine [Mass/Vol] 0.69 mg/dL 0.55-1.02 [facility] Work Phone: Comment on above: The validity of the calculated GFR & GFRAA in patients over 70 years has not been determined. Clinical correlation is essential. Serum or plasma urea nitroge n measurement (mass/volume)on 06-15-2022 Urea nitrogen [Mass/Vol] 16 mg/dL 7-18 [facility] Work Phone: Thin prep Papanicolaou smear with manual screeningon 06-15-2022 Thin prep Papanicolaou smear with manual screening 7 5-15 [facility] Work Phone: Basophil percentageon 2021 Chloride [Moles/Vol] 109 mmol/L 98-107 [facility] Work Phone: Glucose [Mass/Vol] 96 mg/dL 74-106 [facility] Work Phone: Potassium [Moles/Vol] 4.2 mmol/L 3.5-5.1 [facility] Work Phone: Sodium [Moles/Vol] 142 mmol/L 136-145 [facility] Work Phone: Laboratory - Chemistry and C hemistry - challengeon 03-16-2022 CO2 [Moles/Vol] 32.0 mmol/L 21.0-32.0 [facility] Work Phone: Urea nitrogen/Creatinine [Mass ratio] 23.2 mg/mg - [facility] Work Phone: No Panel Informationon 03-16 Estimated Creatinine Clearance Calc 66.10 ml/min [facility] Work Phone: Estimated GFR (MDRD) Amer 103 mL/min >60 [facility] Work Phone: Comment on above: GFR Calc Estimated GFR (MDRD) Non-Af Amer 85 mL/min >60 [facility] Work Phone: Comment on above: Non- GFR Calc Serum or plasma calcium judy urement (mass/volume)on 03-16-2022 Calcium [Mass/Vol] 9.2 mg/dL 8.5-10.1 [facility] Work Phone: Serum or plasma creatinine m easurement (mass/volume)on 03-16-2022 Creatinine [Mass/Vol] 0.73 mg/dL 0.55-1.02 [facility] Work Phone: Comment on above: The validity of the calculated GFR & GFRAA in patients over 70 years has not been determined. Clinical correlation is essential. Serum or plasma urea nitroge n measurement (mass/volume)on 03-16-2022 Urea nitrogen [Mass/Vol] 17 mg/dL 7-18 [facility] Work Phone: Thin prep Papanicolaou smear with manual screeningon 03-16-2022 Thin prep Papanicolaou smear with manual screening 1 5-15 [facility] Work Phone: Absolute lymphocyte counton 02-17-2022 Lymphocytes Auto (Unsp spec) [#/Vol] 2.85 10*3/uL 0.83-4.51 [facility] Work Phone: Basophil percentageon 2021 Basophils/100 WBC (Bld) 0.5 % 0-1 [facility] Work Phone: Bilirubin [Mass/Vol] 0.30 mg/dL 0.20-1.00 [facility] Work Phone: Comment on above: For patients on eltr ombopag therapy, use of Dimension [place] TBIL is not recommended. Chloride [Moles/Vol] 109 mmol/L 98-107 [facility] Work Phone: Eosinophils/100 WBC (Bld) 1.9 % 0-5 [facility] Work Phone: Glucose [Mass/Vol] 102 mg/dL 74-106 [facility] Work Phone: Comment on above: Fasting Glucose resu lt from 100 to 125 mg/dL suggests IMPAIRED HOMEOSTASIS per A.D.A. criteria. Neutrophils (Bld) [#/Vol] 4.2 10*3/uL 2.0-7.7 [facility] Work Phone: Neutrophils/100 WBC (Bld) 51.2 % 47-70 [facility] Work Phone: Potassium [Moles/Vol] 3.9 mmol/L 3.5-5.1 [facility] Work Phone: Protein [Mass/Vol] 6.6 g/dL 6.4-8.2 [facility] Work Phone: Sodium [Moles/Vol] 141 mmol/L 136-145 [facility]: WBC (Bld) [#/Vol] 8.3 10*3/uL 4.4-11.0 [facility] Work Phone: Blood erythrocytes count (nu mber/volume)on 02-17-2022 RBC (Bld) [#/Vol] 4.64 10*6/uL 4.2-5.4 [facility]: Blood hemoglobin measurement (mass/volume)on 02-17-2022 Hemoglobin (Bld) [Mass/Vol] 14.1 g/dL 12.0-15.0 [facility] Work Phone: Blood lymphocytes/100 leukoc yteson 02-17-2022 Lymphocytes/100 WBC (Bld) 34.3 % 19-41 [facility] Work Phone: Blood monocytes/100 leukocyt eson 02-17-2022 Monocytes/100 WBC (Bld) 11.9 % 0-10 [facility] Work Phone: Blood platelet mean volumeon 02-17-2022 Platelet mean volume (Bld) [Entitic vol] 13.4 fL 6.2-12.0 [facility] Work Phone: Determination of erythrocyte mean corpuscular volume (MCV)on 02-17-2022 MCV (RBC) [Entitic vol] 93.3 fL 81-99 [facility] Work Phone: Hematocrit Auto (Bld) [Volum e fraction]on 02-17-2022 Hematocrit (Bld) [Volume fraction] 43.3 % 37-47 [facility] Work Phone: Laboratory - Chemistry and C hemistry - challengeon 02-17-2022 ALP [Catalytic activity/Vol] 89 U/L 45-117 [facility] Work Phone: ALT [Catalytic activity/Vol] 44 U/L 13-56 [facility] Work Phone: CO2 [Moles/Vol] 28.0 mmol/L 21.0-32.0 [facility] Work Phone: Globulin (S) [Mass/Vol] 3.1 g/dL 2.2-4.2 [facility] Work Phone: Magnesium [Mass/Vol] 2.5 mg/dL 1.6-2.6 [facility] Work Phone: Urea nitrogen/Creatinine [Mass ratio] 27.0 mg/mg 10-20 [facility] Work Phone: Laboratory - Hematology and Cell countson 02-17-2022 Erythrocyte distribution width (RBC) [Entitic vol] 44.5 fL 35.1-43.9 [facility] Work Phone: Erythrocyte distribution width (RBC) [Ratio] 13.2 % 11.6-14.6 [facility] Work Phone: Immature granulocytes/100 WBC (Bld) 0.200 % 0.0-0.9 [facility] Work Phone: Comment on above: IG% - Immature Granu locytes (promyelocytes, myelocytes and metamyelocytes) > 1% indicates that a LEFT SHIFT is Present. MCH (RBC) [Entitic mass] 30.4 pg 27.0-32.0 [facility] Work Phone: Nucleated RBC/100 WBC (Bld) [Ratio] 0 % 0-5 [facility] Work Phone: MCHC Auto (RBC) [Mass/Vol]on 02-17-2022 MCHC (RBC) [Mass/Vol] 32.6 g/dL 32-36 [facility] Work Phone: No Panel Informationon 02-17 Estimated GFR (MDRD) Amer 108 mL/min >60 [facility] Work Phone: Comment on above: GFR Calc Estimated GFR (MDRD) Non-Af Amer 89 mL/min >60 [facility] Work Phone: Comment on above: Non- GFR Calc Platelets bldon 02-17-2022 Platelets (Bld) [#/Vol] 189 10*3/uL 150-450 [facility] Work Phone: Serum or plasma albumin judy urement (mass/volume)on 02-17-2022 Albumin [Mass/Vol] 3.5 g/dL 3.2-5.0 [facility] Work Phone: Serum or plasma albumin/glob ulin mass ratioon 02-17-2022 Albumin/Globulin [Mass ratio] 1.1 {ratio} 0.9-2.4 [facility] Work Phone: Serum or plasma calcium judy urement (mass/volume)on 02-17-2022 Calcium [Mass/Vol] 8.9 mg/dL 8.5-10.1 [facility] Work Phone: Serum or plasma creatinine m easurement (mass/volume)on 02-17-2022 Creatinine [Mass/Vol] 0.70 mg/dL 0.55-1.02 [facility] Work Phone: Comment on above: The validity of the calculated GFR & GFRAA in patients over 70 years has not been determined. Clinical correlation is essential. Serum or plasma urea nitroge n measurement (mass/volume)on 02-17-2022 Urea nitrogen [Mass/Vol] 19 mg/dL 7-18 [facility] Work Phone: Thin prep Papanicolaou smear with manual screeningon 02-17-2022 Thin prep Papanicolaou smear with manual screening 20 U/L 15-37 [facility] Work Phone: Thin prep Papanicolaou smear with manual screening 4 5-15 [facility] Work Phone: Absolute lymphocyte counton 02-03-2022 Lymphocytes Auto (Unsp spec) [#/Vol] 1.42 10*3/uL 0.83-4.51 [facility] Work Phone: Basophil percentageon 2021 Basophils/100 WBC (Bld) 0.2 % 0-1 [facility] Work Phone: Bilirubin [Mass/Vol] 0.40 mg/dL 0.20-1.00 [facility] Work Phone: Comment on above: For patients on eltr ombopag therapy, use of Dimension [place] TBIL is not recommended. Chloride [Moles/Vol] 109 mmol/L 98-107 [facility] Work Phone: [phone] Eosinophils/100 WBC (Bld) 0.0 % 0-5 [facility] Work Phone: Glucose [Mass/Vol] 106 mg/dL 74-106 [facility] Work Phone: Comment on above: Fasting Glucose resu lt from 100 to 125 mg/dL suggests IMPAIRED HOMEOSTASIS per A.D.A. criteria. Neutrophils (Bld) [#/Vol] 4.3 10*3/uL 2.0-7.7 [facility] Work Phone: Neutrophils/100 WBC (Bld) 65.1 % 47-70 [facility] Work Phone: Potassium [Moles/Vol] 3.3 mmol/L 3.5-5.1 [facility] Work Phone: Protein [Mass/Vol] 6.8 g/dL 6.4-8.2 [facility] Work Phone: [phone] Sodium [Moles/Vol] 140 mmol/L 136-145 [facility] Work Phone: WBC (Bld) [#/Vol] 6.6 10*3/uL 4.4-11.0 [facility] Work Phone: Blood erythrocytes count (nu mber/volume)on 02-03-2022 RBC (Bld) [#/Vol] 4.89 10*6/uL 4.2-5.4 [facility] Work Phone: Blood hemoglobin measurement (mass/volume)on 02-03-2022 Hemoglobin (Bld) [Mass/Vol] 15.0 g/dL 12.0-15.0 [facility] Work Phone: Blood lymphocytes/100 leukoc yteson 02-03-2022 Lymphocytes/100 WBC (Bld) 21.4 % 19-41 [facility] Work Phone: Blood monocytes/100 leukocyt eson 02-03-2022 Monocytes/100 WBC (Bld) 13.0 % 0-10 [facility] Work Phone: Blood platelet mean volumeon 02-03-2022 Platelet mean volume (Bld) [Entitic vol] 12.5 fL 6.2-12.0 [facility] Work Phone: Determination of erythrocyte mean corpuscular volume (MCV)on 02-03-2022 MCV (RBC) [Entitic vol] 91.6 fL 81-99 [facility] Work Phone: Hematocrit Auto (Bld) [Volum e fraction]on 02-03-2022 Hematocrit (Bld) [Volume fraction] 44.8 % 37-47 [facility] Work Phone: Laboratory - Chemistry and C hemistry - challengeon 02-03-2022 ALP [Catalytic activity/Vol] 85 U/L 45-117 [facility] Work Phone: ALT [Catalytic activity/Vol] 31 U/L 13-56 [facility] Work Phone: CO2 [Moles/Vol] 24.0 mmol/L 21.0-32.0 [facility] Work Phone: Globulin (S) [Mass/Vol] 3.6 g/dL 2.2-4.2 [facility] Work Phone: Urea nitrogen/Creatinine [Mass ratio] 18.6 mg/mg 10-20 [facility] Work Phone: Laboratory - Hematology and Cell countson 05-10-2022 Erythrocyte distribution width (RBC) [Entitic vol] 43.2 fL 35.1-43.9 [facility] Work Phone: Erythrocyte distribution width (RBC) [Ratio] 12.8 % 11.6-14.6 [facility] Work Phone: Immature granulocytes/100 WBC (Bld) 0.300 % 0.0-0.9 [facility] Work Phone: Comment on above: IG% - Immature Granu locytes (promyelocytes, myelocytes and metamyelocytes) > 1% indicates that a LEFT SHIFT is Present. MCH (RBC) [Entitic mass] 30.7 pg 27.0-32.0 [facility] Work Phone: Nucleated RBC/100 WBC (Bld) [Ratio] 0 % 0-5 [facility] Work Phone: MCHC Auto (RBC) [Mass/Vol]on 02-03-2022 MCHC (RBC) [Mass/Vol] 33.5 g/dL 32-36 [facility] Work Phone: No Panel Informationon 02-03 Estimated Creatinine Clearance Calc 89.35 ml/min [facility] Work Phone: Estimated GFR (MDRD) Amer 148 mL/min >60 [facility] Work Phone: Comment on above: GFR Calc Estimated GFR (MDRD) Non-Af Amer 122 mL/min >60 [facility] Work Phone: Comment on above: Non- GFR Calc Platelets bldon 02-03-2022 Platelets (Bld) [#/Vol] 178 10*3/uL 150-450 [facility] Work Phone: Serum or plasma albumin judy urement (mass/volume)on 02-03-2022 Albumin [Mass/Vol] 3.2 g/dL 3.2-5.0 [facility] Work Phone: Serum or plasma albumin/glob ulin mass ratioon 02-03-2022 Albumin/Globulin [Mass ratio] 0.9 {ratio} 0.9-2.4 [facility] Work Phone: Serum or plasma calcium judy urement (mass/volume)on 02-03-2022 Calcium [Mass/Vol] 8.6 mg/dL 8.5-10.1 [facility] Work Phone: Serum or plasma creatinine m easurement (mass/volume)on 02-03-2022 Creatinine [Mass/Vol] 0.54 mg/dL 0.55-1.02 [facility] Work Phone: Comment on above: The validity of the calculated GFR & GFRAA in patients over 70 years has not been determined. Clinical correlation is essential. Serum or plasma urea nitroge n measurement (mass/volume)on 02-03-2022 Urea nitrogen [Mass/Vol] 10 mg/dL 7-18 [facility] Work Phone: Thin prep Papanicolaou smear with manual screeningon 02-03-2022 Thin prep Papanicolaou smear with manual screening 19 U/L 15-37 [facility] Work Phone: Thin prep Papanicolaou smear with manual screening 7 5-15 [facility] Work Phone: Absolute lymphocyte counton 02-02-2022 Lymphocytes Auto (Unsp spec) [#/Vol] 1.84 10*3/uL 0.83-4.51 [facility] Work Phone: Basophil percentageon 2021 Basophils/100 WBC (Bld) 0.4 % 0-1 [facility] Work Phone: Chloride [Moles/Vol] 104 mmol/L 98-107 [facility] Work Phone: Eosinophils/100 WBC (Bld) 0.6 % 0-5 [facility] Work Phone: Glucose [Mass/Vol] 169 mg/dL 74-106 [facility] Work Phone: Comment on above: Fasting Glucose resu lt greater than or equal to 126 mg/dL suggests DIABETES MELLITUS per A.D.A. criteria. Neutrophils (Bld) [#/Vol] 5.0 10*3/uL 2.0-7.7 [facility] Work Phone: Neutrophils/100 WBC (Bld) 62.8 % 47-70 [facility] Work Phone: Potassium [Moles/Vol] 3.4 mmol/L 3.5-5.1 [facility] Work Phone: Sodium [Moles/Vol] 139 mmol/L 136-145 [facility] Work Phone: WBC (Bld) [#/Vol] 8.0 10*3/uL 4.4-11.0 [facility] Work Phone: Blood erythrocytes count (nu mber/volume)on 02-02-2022 RBC (Bld) [#/Vol] 5.20 10*6/uL 4.2-5.4 [facility] Work Phone: Blood hemoglobin measurement (mass/volume)on 02-02-2022 Hemoglobin (Bld) [Mass/Vol] 16.0 g/dL 12.0-15.0 [facility] Work Phone: Blood lymphocytes/100 leukoc yteson 02-02-2022 Lymphocytes/100 WBC (Bld) 23.1 % 19-41 [facility] Work Phone: Blood monocytes/100 leukocyt eson 02-02-2022 Monocytes/100 WBC (Bld) 12.7 % 0-10 [facility] Work Phone: Blood platelet mean volumeon 02-02-2022 Platelet mean volume (Bld) [Entitic vol] 12.4 fL 6.2-12.0 [facility] Work Phone: Determination of erythrocyte mean corpuscular volume (MCV)on 02-02-2022 MCV (RBC) [Entitic vol] 91.5 fL 81-99 [facility] Work Phone: Hematocrit Auto (Bld) [Volum e fraction]on 02-02-2022 Hematocrit (Bld) [Volume fraction] 47.6 % 37-47 [facility] Work Phone: INR in Blood by Coagulation assayon 02-02-2022 INR Coag (Bld) [Relative time] 1.4 {INR} [facility] Work Phone: Laboratory - Chemistry and C hemistry - challengeon 02-02-2022 CO2 [Moles/Vol] 24.0 mmol/L 21.0-32.0 [facility] Work Phone: Magnesium [Mass/Vol] 2.2 mg/dL 1.6-2.6 [facility] Work Phone: Natriuretic peptide B (Bld) [Mass/Vol] 72.5 pg/mL 0-100 [facility] Work Phone: Urea nitrogen/Creatinine [Mass ratio] 16.4 mg/mg 10-20 [facility] Work Phone: Laboratory - Coagulationon 0 02-02-2022 aPTT Coag (Bld) [Time] 29.5 s 24.1-36.2 [facility] Work Phone: PT Coag (PPP) [Time] 17.0 s 11.7-14.9 [facility] Work Phone: Laboratory - Hematology and Cell countson 02-02-2022 Erythrocyte distribution width (RBC) [Entitic vol] 43.2 fL 35.1-43.9 [facility] Work Phone: Erythrocyte distribution width (RBC) [Ratio] 12.9 % 11.6-14.6 [facility] Work Phone: Immature granulocytes/100 WBC (Bld) 0.400 % 0.0-0.9 [facility] Work Phone: Comment on above: IG% - Immature Granu locytes (promyelocytes, myelocytes and metamyelocytes) > 1% indicates that a LEFT SHIFT is Present. MCH (RBC) [Entitic mass] 30.8 pg 27.0-32.0 [facility] Work Phone: Nucleated RBC/100 WBC (Bld) [Ratio] 0 % 0-5 [facility] Work Phone: MCHC Auto (RBC) [Mass/Vol]on 02-02-2022 MCHC (RBC) [Mass/Vol] 33.6 g/dL 32-36 [facility] Work Phone: No Panel Informationon 02-02 SARS-CoV-2 & FLU Antigen (Rapid) SARS-CoV-2 (COVID 19) [facility] Work Phone: Estimated Creatinine Clearance Calc 56.77 ml/min [facility] Work Phone: Estimated GFR (MDRD) Amer 87 mL/min >60 [facility] Work Phone: Comment on above: GFR Calc Estimated GFR (MDRD) Non-Af Amer 72 mL/min >60 [facility] Work Phone: Comment on above: Non- GFR Calc Thyroid Stimulating Hormone (TSH) 1.72 uIU/mL 0.358-3.74 [facility] Work Phone: Troponin I High Sensitivity 8 pg/mL 3.0-54.0 [facility] Work Phone: Comment on above: Please Note: [place] t Units and Gender Specific Reference Ranges. For more information see Policy Stat Procedure [place] High Sensitivity Troponin (TNIH) and attachments. Platelets bldon 02-02-2022 Platelets (Bld) [#/Vol] 207 10*3/uL 150-450 [facility] Work Phone: Serum or plasma calcium judy urement (mass/volume)on 02-02-2022 Calcium [Mass/Vol] 8.8 mg/dL 8.5-10.1 [facility] Work Phone: Serum or plasma creatinine m easurement (mass/volume)on 02-02-2022 Creatinine [Mass/Vol] 0.85 mg/dL 0.55-1.02 [facility] Work Phone: Comment on above: The validity of the calculated GFR & GFRAA in patients over 70 years has not been determined. Clinical correlation is essential. Serum or plasma urea nitroge n measurement (mass/volume)on 02-02-2022 Urea nitrogen [Mass/Vol] 14 mg/dL 7-18 [facility] Work Phone: Thin prep Papanicolaou smear with manual screeningon 02-02-2022 Thin prep Papanicolaou smear with manual screening 11 5-15 [facility] Work Phone: Basophil percentageon 2021 Chloride [Moles/Vol] 109 mmol/L 98-107 [facility] Work Phone: Glucose [Mass/Vol] 107 mg/dL 74-106 [facility] Work Phone: Comment on above: Fasting Glucose resu lt from 100 to 125 mg/dL suggests IMPAIRED HOMEOSTASIS per A.D.A. criteria. Potassium [Moles/Vol] 4.0 mmol/L 3.5-5.1 [facility] Work Phone: Sodium [Moles/Vol] 142 mmol/L 136-145 [facility] Work Phone: Laboratory - Chemistry and C hemistry - challengeon 12-19-2021 CO2 [Moles/Vol] 30.0 mmol/L 21.0-32.0 [facility] Work Phone: Urea nitrogen/Creatinine [Mass ratio] 17.4 mg/mg 10-20 [facility] Work Phone: No Panel Informationon 12-19 Estimated Creatinine Clearance Calc 87.96 ml/min [facility] Work Phone: Estimated GFR (MDRD) Amer 137 mL/min >60 [facility] Work Phone: Comment on above: GFR Calc Estimated GFR (MDRD) Non-Af Amer 113 mL/min >60 [facility] Work Phone: Comment on above: Non- GFR Calc Serum or plasma calcium judy urement (mass/volume)on 12-19-2021 Calcium [Mass/Vol] 8.9 mg/dL 8.5-10.1 [facility] Work Phone: Serum or plasma creatinine m easurement (mass/volume)on 12-19-2021 Creatinine [Mass/Vol] 0.58 mg/dL 0.55-1.02 [facility] Work Phone: Comment on above: The validity of the calculated GFR & GFRAA in patients over 70 years has not been determined. Clinical correlation is essential. Serum or plasma urea nitroge n measurement (mass/volume)on 12-19-2021 Urea nitrogen [Mass/Vol] 10 mg/dL 7-18 [facility] Work Phone: Thin prep Papanicolaou smear with manual screeningon 12-19-2021 Thin prep Papanicolaou smear with manual screening 3 5-15 [facility] Work Phone: No Panel Information SARS-CoV-2 & FLU Antigen (Rapid) SARS-CoV-2 (COVID 19) [facility] Work Phone: Vital Signs Date Time Vital Sign Value Performing Clinician Facility 10-13-2023 14:49-0500 Body height 160.[address] Virgilio Alicia Work Phone: [facility] 10-13-2023 14:44-0500 Body mass index (BMI) [Ratio] 34.9 kg/m2 Dr. Virgilio Alicia Work Phone: [facility] 10-13-2023 14:44-0500 Body weight 89.[address] Virgilio Alicia Work Phone: [facility] 10-13-2023 14:44-0500 Diastolic blood pressure 84 mm[Hg] Dr. Virgilio Alicia Work Phone: [facility] 10-13-2023 14:44-0500 Systolic blood pressure 136 mm[Hg] Dr. Virgilio Alicia Work Phone: [facility] 09-24-2023 10:03-0500 Body mass index (BMI) [Ratio] 34.3 kg/m2 Dr. Virgilio Alicia Work Phone: [facility] 09-24-2023 10:03-0500 Body weight 87.[address] Virgilio Alicia Work Phone: [facility] 09-24-2023 10:03-0500 Diastolic blood pressure 78 mm[Hg] Dr. Virgilio Alicia Work Phone: [facility] 09-24-2023 10:03-0500 Heart rate 68 /min Dr. Virgilio Alicia Work Phone: [facility] 09-24-2023 10:03-0500 Respiratory rate 18 /min Dr. Virgilio Alicia Work Phone: [facility] 09-24-2023 10:03-0500 SaO2% (BldA) [Mass fraction] 95 % Dr. Virgilio Alicia Work Phone: [facility] 09-24-2023 10:03-0500 Systolic blood pressure 122 mm[Hg] Dr. Virgilio Alicia Work Phone: [facility] 04-05-2023 14:09-0400 Body temperature 97.81 [degF] Mariangel Sparks DENTAL PROFESSIONAL.[employer] Work Phone: [facility] 04-05-2023 14:09-0400 Body weight 86.09 kg Mariangel Sparks DENTAL PROFESSIONAL.[employer] Work Phone: [facility] 04-05-2023 14:09-0400 Diastolic blood pressure 88 mm[Hg] Mariangel Bridger DENTAL PROFESSIONAL.[employer] Work Phone: [facility] 04-05-2023 14:09-0400 Heart rate 76 /min Mariangel Sparks DENTAL PROFESSIONAL.[employer] Work Phone: [facility] 04-05-2023 14:09-0400 Respiratory rate 18 /min Mariangel Saprks DENTAL PROFESSIONAL.[employer] Work Phone: [facility] 04-05-2023 14:09-0400 SaO2% (BldA) [Mass fraction] 96 % Mariangel Sparks DENTAL PROFESSIONAL.[employer] Work Phone: [facility] 04-05-2023 14:09-0400 Systolic blood pressure 132 mm[Hg] Mariangel Sparks APRN.[employer] Work Phone: [facility] 03-18-2023 13:21-0400 Body weight 86.[address] Virgilio Alicia Work Phone: [facility] 03-18-2023 13:21-0400 Diastolic blood pressure 83 mm[Hg] Dr. Virgilio Alicia Work Phone: [facility] 03-18-2023 13:21-0400 Heart rate 77 /min Dr. Virgilio Alicia Work Phone: [facility] 03-18-2023 13:21-0400 Respiratory rate 16 /min Dr. Virgilio Alicia Work Phone: [facility] 03-18-2023 13:21-0400 Systolic blood pressure 124 mm[Hg] Dr. Virgilio Alicia Work Phone: [facility] 03-18-2023 10:50-0400 Body height 160.[address] Virgilio Alicia Work Phone: [facility] 03-04-2023 08:13-0400 Body height 162.6 cm Liya Rutledge APRN-[employer] Work Phone: [facility] 03-04-2023 08:13-0400 Body mass index (BMI) [Ratio] 30.9 kg/m2 Liya Rutledge DENTAL PROFESSIONAL-[employer]ER Work Phone: [facility] 03-04-2023 08:13-0400 Body weight 81.65 kg Liya Rutledge DENTAL PROFESSIONAL-[employer]ER Work Phone: [facility] 03-03-2023 18:43-0400 Heart rate 90 /min Federico Mcclure MD Work Phone: [facility] 03-03-2023 18:43-0400 SaO2% (BldA) [Mass fraction] 96 % Federico Mcclure MD Work Phone: [facility] 03-03-2023 18:30-0400 Diastolic blood pressure 55 mm[Hg] Federico Mcclure MD Work Phone: [facility] 03-03-2023 18:30-0400 Respiratory rate 19 /min Federico Mcclure MD Work Phone: [facility] 03-03-2023 18:30-0400 Systolic blood pressure 112 mm[Hg] Federcio Mcclure MD Work Phone: [facility] 03-03-2023 15:04-0400 Body temperature 97.59 [degF] Federico Mcclure MD Work Phone: [facility] 03-03-2023 08:57-0400 Body height 162.6 cm Federico Mcclure MD Work Phone: [facility] 03-03-2023 08:57-0400 Body mass index (BMI) [Ratio] 30.9 kg/m2 Federico Mcclure MD Work Phone: [facility] 03-03-2023 08:57-0400 Body weight 81.65 kg Federico Mcclure MD Work Phone: [facility] 11-12-2022 15:22-0500 Body weight 87.[address] Virgilio Alicia Work Phone: [facility] 11-12-2022 15:22-0500 Diastolic blood pressure 71 mm[Hg] Dr. Virgilio Alicia Work Phone: [facility] 11-12-2022 15:22-0500 Heart rate 73 /min Dr. Virgilio Alicia Work Phone: [facility] 11-12-2022 15:22-0500 Respiratory rate 20 /min Dr. Virgilio Alicia Work Phone: [facility] 11-12-2022 15:22-0500 Systolic blood pressure 119 mm[Hg] Dr. Virgilio Alicia Work Phone: [facility] 11-12-2022 08:28-0500 Body height 160.[address] Virgilio Alicia Work Phone: [facility] 10-24-2022 11:05-0500 Body mass index (BMI) [Ratio] 35.4 kg/m2 Dr. Virgilio Alicia Work Phone: [facility] 10-24-2022 10:29-0500 Diastolic blood pressure 73 mm[Hg] Dr. Virgilio Alicia Work Phone: [facility] 10-24-2022 10:29-0500 Heart rate 77 /min Dr. Virgilio Alicia Work Phone: [facility] 10-24-2022 10:29-0500 Systolic blood pressure 123 mm[Hg] Dr. Virgilio Alicia Work Phone: [facility] 10-24-2022 10:26-0500 Body temperature 97.4 [degF] Dr. Virgilio Alicia Work Phone: [facility] 10-24-2022 10:26-0500 Respiratory rate 16 /min Dr. Virgilio Alicia Work Phone: [facility] 10-24-2022 10:26-0500 SaO2% (BldA) [Mass fraction] 97 % Dr. Virgilio Alicia Work Phone: [facility] 10-24-2022 06:00-0500 Body weight 81.[address] Virgilio Alicia Work Phone: [facility] 10-23-2022 13:13-0500 Body height 160.[address] Virgilio Alicia Work Phone: [facility] 10-23-2022 12:30-0500 Diastolic blood pressure 66 mm[Hg] Dr. Virgilio Alicia Work Phone: [facility] 10-23-2022 12:30-0500 Systolic blood pressure 166 mm[Hg] Dr. Virgilio Alicia Work Phone: [facility] 10-23-2022 12:17-0500 Body temperature 97.2 [degF] Dr. Virgilio Alicia Work Phone: [facility] 10-23-2022 12:17-0500 Heart rate 55 /min Dr. Virgilio Alicia Work Phone: [facility] 10-23-2022 12:17-0500 Respiratory rate 16 /min Dr. Virgilio Alicia Work Phone: [facility] 10-23-2022 12:17-0500 SaO2% (BldA) [Mass fraction] 98 % Dr. Virgilio Alicia Work Phone: [facility] 10-23-2022 10:55-0500 Body height 160.[address] Virgilio Alicia Work Phone: [facility] 10-23-2022 10:55-0500 Body mass index (BMI) [Ratio] 35.4 kg/m2 Dr. Virgilio Alicia Work Phone: [facility] 10-23-2022 10:55-0500 Body weight 90.[address] Virgilio Alicia Work Phone: [facility] 09-02-2022 12:19-0500 Body temperature 97.9 [degF] Bailee Praabdouller-Soren DENTAL PROFESSIONAL.[employer]ER Work Phone: [facility] 09-02-2022 12:19-0500 Body weight 87.09 kg Bailee Praisler-Wood DENTAL PROFESSIONAL.[employer]E CLE[employer]ER Work Phone: [facility] 09-02-2022 12:19-0500 Diastolic blood pressure 68 mm[Hg] Bailee Praisler-Soren DENTAL PROFESSIONAL.[employer]E CLE[employer]ER Work Phone: [facility] 09-02-2022 12:19-0500 Heart rate 82 /min Bailee PraabdoullerOskar DENTAL PROFESSIONAL.[employer]E CLE[employer]ER Work Phone: [facility] 09-02-2022 12:19-0500 Respiratory rate 16 /min Bailee BarriosabelinoJaneneSoren DENTAL PROFESSIONAL.[employer]E CLE[employer]ER Work Phone: [facility] 09-02-2022 12:19-0500 SaO2% (BldA) [Mass fraction] 98 % Bailee Lara DENTAL PROFESSIONAL.[employer]E CLE[employer]ER Work Phone: [facility] 09-02-2022 12:19-0500 Systolic blood pressure 118 mm[Hg] Bailee PastranaOskar DENTAL PROFESSIONAL.[employer]E CLE[employer]ER Work Phone: [facility] 08-17-2022 11:22-0500 Body height 160.[address] Virgilio Alicia Work Phone: [facility] Work Phone: 08-17-2022 11:22-0500 Body weight 85.[address] Virgilio Alicia Work Phone: [facility] 08-14-2022 07:00-0500 Body mass index (BMI) [Ratio] 33.5 kg/m2 Dr. Virgilio Alicia Work Phone: [facility] 07-29-2022 15:21-0400 Body height 160.[address] Virgilio Alicia Work Phone: [facility] Work Phone: 07-29-2022 15:21-0400 Body mass index (BMI) [Ratio] 33.5 kg/m2 Dr. Virgilio Alicia Work Phone: [facility] 07-29-2022 15:21-0400 Body weight 85.[address] Virgilio Alicia Work Phone: [facility] 07-29-2022 15:21-0400 Diastolic blood pressure 85 mm[Hg] Dr. Virgilio Alicia Work Phone: [facility] 07-29-2022 15:21-0400 Heart rate 90 /min Dr. Virgilio Alicia Work Phone: [facility] 07-29-2022 15:21-0400 Respiratory rate 18 /min Dr. Virgilio Alicia Work Phone: [facility] 07-29-2022 15:21-0400 SaO2% (BldA) [Mass fraction] 95 % Dr. Virgilio Alicia Work Phone: [facility] 07-29-2022 15:21-0400 Systolic blood pressure 135 mm[Hg] Dr. Virgilio Alicia Work Phone: [facility] 06-15-2022 15:33-0400 Body height 160.[address] Virgilio Alicia Work Phone: [facility] Work Phone: 06-15-2022 15:33-0400 Body mass index (BMI) [Ratio] 33.6 kg/m2 Dr. Virgilio Alicia Work Phone: [facility] Work Phone: 06-15-2022 15:33-0400 Body weight 86.[address] Virgilio Alicia Work Phone: [facility] Work Phone: 06-15-2022 15:33-0400 Diastolic blood pressure 85 mm[Hg] Dr. Virgilio Alicia Work Phone: [facility] Work Phone: 06-15-2022 15:33-0400 Heart rate 63 /min Dr. Virgilio Alicia Work Phone: [facility] Work Phone: 06-15-2022 15:33-0400 Respiratory rate 16 /min Dr. Virgilio Alicia Work Phone: [facility] Work Phone: 06-15-2022 15:33-0400 Systolic blood pressure 146 mm[Hg] Dr. Virgilio Alicia Work Phone: [facility] Work Phone: 03-16-2022 07:06-0400 Body height 160.[address] Virgilio Alicia Work Phone: [facility] Work Phone: 03-16-2022 07:06-0400 Body weight 81.[address] Virgilio Alicia Work Phone: [facility] Work Phone: 03-16-2022 07:01-0400 Body mass index (BMI) [Ratio] 31.6 kg/m2 Dr. Virgilio Alicia Work Phone: [facility] Work Phone: 03-04-2022 09:06-0400 Body mass index (BMI) [Ratio] 31.6 kg/m2 Dr. Virgilio Alicia Work Phone: [facility] Work Phone: 03-04-2022 09:06-0400 Body weight 81.[address] Virgilio Alicia Work Phone: [facility] Work Phone: 03-04-2022 09:06-0400 Diastolic blood pressure 71 mm[Hg] Dr. Virgilio Alicia Work Phone: [facility] Work Phone: 03-04-2022 09:06-0400 Heart rate 70 /min Dr. Virgilio Alicia Work Phone: [facility] Work Phone: 03-04-2022 09:06-0400 Respiratory rate 18 /min Dr. Virgilio Alicia Work Phone: [facility] Work Phone: 03-04-2022 09:06-0400 SaO2% (BldA) [Mass fraction] 93 % Dr. Virgilio Alicia Work Phone: [facility] Work Phone: 03-04-2022 09:06-0400 Systolic blood pressure 126 mm[Hg] Dr. Virgilio Alicia Work Phone: [facility] Work Phone: 05-10-2022 11:00-0400 Diastolic blood pressure 58 mm[Hg] Dr. Virgilio Alicia Work Phone: [facility] Work Phone: 02-03-2022 11:00-0400 Heart rate 64 /min Dr. Virgilio Alicia Work Phone: [facility] Work Phone: 02-03-2022 11:00-0400 Respiratory rate 22 /min Dr. Virgilio Alicia Work Phone: [facility] Work Phone: 02-03-2022 11:00-0400 SaO2% (BldA) [Mass fraction] 96 % Dr. Virgilio Alicia Work Phone: [facility] Work Phone: 02-03-2022 11:00-0400 Systolic blood pressure 102 mm[Hg] Dr. Virgilio Alicia Work Phone: [facility] Work Phone: 02-03-2022 09:00-0400 Body temperature 98 [degF] Dr. Virgilio Alicia Work Phone: [facility] Work Phone: 02-02-2022 12:22-0400 Body height 160.[address] Virgilio Alicia Work Phone: [facility] Work Phone: 02-02-2022 12:22-0400 Body weight 81.[address] Virgilio Alicia Work Phone: [facility] Work Phone: 02-02-2022 09:47-0400 Body mass index (BMI) [Ratio] 31.6 kg/m2 Dr. Virgilio Alicia Work Phone: [facility] Work Phone: 02-02-2022 09:05-0400 Body temperature 97.8 [degF] Dr. Virgilio Alicia Work Phone: [facility] Work Phone: 02-02-2022 09:05-0400 Diastolic blood pressure 73 mm[Hg] Dr. Virgilio Alicia Work Phone: [facility] Work Phone: 02-02-2022 09:05-0400 Heart rate 101 /min Dr. Virgilio Alicia Work Phone: [facility] Work Phone: 02-02-2022 09:05-0400 Respiratory rate 16 /min Dr. Virgilio Alicia Work Phone: [facility] Work Phone: 02-02-2022 09:05-0400 SaO2% (BldA) [Mass fraction] 95 % Dr. Virgilio Alicia Work Phone: [facility] Work Phone: 02-02-2022 09:05-0400 Systolic blood pressure 144 mm[Hg] Dr. Virgilio Alicia Work Phone: [facility] Work Phone: 02-02-2022 07:24-0400 Inhaled oxygen flow rate 2 L/min Dr. Virgilio Alicia Work Phone: [facility] Work Phone: 02-02-2022 06:26-0400 Body height 160.[address] Virgilio Alicia Work Phone: [facility] Work Phone: 02-02-2022 06:26-0400 Body mass index (BMI) [Ratio] 31.6 kg/m2 Dr. Virgilio Alicia Work Phone: [facility] Work Phone: 02-02-2022 06:26-0400 Body weight 80.[address] Virgilio Alicia Work Phone: [facility] Work Phone: 12-18-2021 08:11-0400 Body weight 83.[address] Virgilio Alicia Work Phone: [facility] Work Phone: 12-18-2021 08:09-0400 Body mass index (BMI) [Ratio] 31.6 kg/m2 Dr. Virgilio Alicia Work Phone: [facility] Work Phone: 09-04-2021 08:41-0500 Body height 162.[address] Virgilio Alicia Work Phone: [facility] Work Phone: 09-04-2021 08:41-0500 Body mass index (BMI) [Ratio] 31.6 kg/m2 Dr. Virgilio Alicia Work Phone: [facility] Work Phone: 09-04-2021 08:41-0500 Body weight 83.[address] Virgilio Alicia Work Phone: [facility] Work Phone: 09-04-2021 08:41-0500 Diastolic blood pressure 81 mm[Hg] Dr. Virgilio Alicia Work Phone: [facility] Work Phone: 09-04-2021 08:41-0500 Heart rate 56 /min Dr. Virgilio Alicia Work Phone: [facility] Work Phone: 09-04-2021 08:41-0500 Respiratory rate 18 /min Dr. Virgilio Alicia Work Phone: [facility] Work Phone: 09-04-2021 08:41-0500 SaO2% (BldA) [Mass fraction] 94 % Dr. Virgilio Alicia Work Phone: [facility] Work Phone: 09-04-2021 08:41-0500 Systolic blood pressure 138 mm[Hg] Dr. Virgilio Alicia Work Phone: [facility] Work Phone: Encounters Encounter Date Encounter Type Care Provider Facility Start: 03-12-2025 ambulatory Helder Garcia ty:[facility] Start: 03-09-2025 Encounter for other preprocedural examination Helder Jane [facility] Start: 03-06-2025 ambulatory Helder Fentonjt Amatoi ty:[facility] Start: 02-23-2025 End: 02-23-2025 ambulatory Virgilio Alicia Facility:[facility] Start: 11-28-2024 End: 11-28-2024 ambulatory Virgilio Alicia Facility:[facility] Start: 10-14-2024 End: 10-14-2024 ambulatory Alex Milner Facility:[facility] Start: 09-25-2024 End: 09-25-2024 ambulatory Virgilio Alicia Facility:[facility] Start: 09-25-2024 End: 09-25-2024 ambulatory Chaparrita MARES Facility:[facility] Start: 08-16-2024 End: 08-16-2024 ambulatory Kash MARES Facility:[facility] Start: 06-19-2024 End: 06-19-2024 ambulatory Virgilio Alicia Facility:[facility] Start: 10-13-2023 End: 10-13-[address] Virgilio Alicia Work Phone: [facility] Work Phone: Start: 10-13-2023 End: 10-13-[address] Virgilio Alicia Work Phone: [facility]-Laboratory, Specimen Work Phone: Start: 10-13-2023 End: 10-13-[address] Virgilio Alicia Work Phone: [facility] Work Phone: Start: 09-24-2023 End: 09-24-[address] Virgilio Alicia Work Phone: [facility] Work Phone: Start: 09-01-2023 Non-patient / Non-visit Dr. Marcio Alicia Work Phone: [facility] Start: 09-01-2023 End: 09-01-[address] Virgilio Alicia Work Phone: [facility] Work Phone: Start: 09-01-2023 End: 09-01-[address] Virgilio Alicia Work Phone: [facility]-Cardiovascular Services Work Phone: Start: 07-05-2023 ambulatory CAN AVENDANO Facility: [facility] Start: 06-16-2023 End: 06-16-[address] Virgilio Alicia Work Phone: [facility] Work Phone: Start: 06-16-2023 End: 06-16-[address] Virgilio Alicia Work Phone: [facility]-Outpatient Breast Imaging Work Phone: Start: 04-05-2023 End: 04-05-2023 ambulatory VIRGILIO ALICIA Facility:[facility] Start: 04-05-2023 End: 04-05-2023 Patient encounter procedure Mariangel Sparks APRN.[employer] Work Phone: [facility] Comment on above: ETD (Eustachian tube dysfunction), left (Primary Dx) Start: 03-18-2023 End: 03-18-[address] Virgilio Alicia Work Phone: [facility] Work Phone: Start: 03-04-2023 End: 03-04-2023 Office outpatient visit 15 minutes Liya Rutledge DENTAL PROFESSIONAL-[employer]EDE CLEANER Work Phone: [facility] Comment on above: Persistent atrial fi brillation (Primary Dx); Typical atrial flutter; Hypertension, essential Start: 03-04-2023 ambulatory VIRGILIO ALICIA Facility:[facility] Start: 03-03-2023 End: 03-03-2023 ambulatory SELF SELF Facility:[facility] Start: 03-03-2023 End: 03-03-2023 Subsequent hospital visit by physician Federico Mcclure MD Work Phone: [facility] Comment on above: Paroxysmal atrial fi brillation Arrived Start: 01-20-2023 End: 01-20-[address] Virgilio Alicia Work Phone: [facility] Work Phone: Start: 01-20-2023 End: 01-20-[address] Virgilio Alicia Work Phone: [facility] Start: 12-29-2022 ambulatory MELITONJoanna NAGYORI Facility: [facility] Start: 11-12-2022 End: 11-12-[address] Virgilio Alicia Work Phone: [facility] Start: 10-28-2022 Orders Only Colten Hull Work Phone: Cardiology Comment on above: Atrial fibrillation, unspecified type (HCC) (Primary Dx) Start: 10-24-2022 Non-patient / Non-visit Dr. Marcio Alicia Work Phone: [facility] Start: 10-24-2022 End: 10-24-2022 Non-patient / Non-visit Dr. Virgilio Alicia Work Phone: [facility] Start: 10-23-2022 Non-patient / Non-visit Dr. Marcio Alicia Work Phone: [facility] Start: 10-23-2022 Non-patient / Non-visit Dr. Marcio Alicia Work Phone: [facility] Start: 10-23-2022 End: 10-24-2022 Evaluation and management of inpatient Dr. Virgilio Alicia Work Phone: [facility] Start: 10-23-2022 End: 10-24-[address] Virgilio Alicia Work Phone: [facility] Work Phone: Start: 09-02-2022 End: 09-02-2022 ambulatory VIRGILIO ALICIA Facility:[facility] Start: 09-02-2022 End: 09-02-2022 Patient encounter procedure Bailee Lara APRN.CNP Work Phone: [facility] Comment on above: Ear injury, initial encounter (Primary Dx); Blood in left ear canal Start: 08-24-2022 End: 08-24-[address] Virgilio Alicia Work Phone: [facility] Start: 08-17-2022 Non-patient / Non-visit Dr. Marcio Alicia Work Phone: [facility] Start: 08-17-2022 End: 08-17-2022 Admission to same day surgery center Dr. Virgilio Alicia Work Phone: [facility]/Special Procedures Start: 08-17-2022 End: 08-17-[address] Virgilio Alicia Work Phone: [facility] Work Phone: Start: 07-29-2022 End: 07-29-[address] Virgilio Alicia Work Phone: [facility] Work Phone: Start: 07-29-2022 End: 07-29-[address] Virgilio Alicia Work Phone: [facility] Start: 07-28-2022 ambulatory STANDARD PROCESSING Com prehensive Internal Med Start: 06-26-2022 Non-patient / Non-visit Dr. Marcio Alicia Work Phone: [facility] Start: 06-26-2022 End: 06-26-[address] Virgilio Alicia Work Phone: [facility]-Cardiovascular Services Start: 06-15-2022 End: 06-15-[address] Virgilio Alicia Work Phone: [facility] Work Phone: Start: 06-15-2022 End: 06-15-[address] Virgilio Alicia Work Phone: [facility] Start: 04-14-2022 End: 04-14-[address] Virgilio Alicia Work Phone: [facility] Start: 03-16-2022 End: 03-16-2022 Admission to same day surgery center Dr. Virgilio Alicia Work Phone: [facility]Special Procedures Start: 03-04-2022 End: 03-04-[address] Virgilio Alicia Work Phone: [facility] Start: 02-17-2022 End: 02-17-[address] Virgilio Alicia Work Phone: [facility] Start: 02-03-2022 Non-patient / Non-visit Dr. Marcio Alicia Work Phone: [facility] Start: 02-02-2022 Non-patient / Non-visit Dr. Marcio Alicia Work Phone: [facility] Start: 02-02-2022 End: 02-03-2022 Evaluation and management of inpatient Dr. Virgilio Alicia Work Phone: [facility]-Progressive Care Unit Start: 12-19-2021 End: 12-19-2021 Admission to same day surgery center Dr. Virgilio Alicia Work Phone: [facility]/Special Procedures Start: 12-19-2021 Non-patient / Non-visit Dr. Marcio Alicia Work Phone: [facility] Start: 12-10-2021 End: 12-10-[address] Virgilio Alicia Work Phone: [facility]-Pulmonary Services/Neurology Start: 09-04-2021 End: 09-04-[address] Virgilio Alicia Work Phone: [facility] Start: 11-06-[address] Virgilio Alicia Work Phone: [facility] Procedures Date Procedure Procedure Detail Performing Clinician Start: 06-16-2023 Screening mammography D jonathon Alicia Work Phone: Start: 03-03-2023 Ephys evl trnsptl tx atrial fib isolat pulm vein Federico Mcclure MD Work Phone: Start: 03-03-2023 End: 03-03-2023 Assay of magnesium Barbara Joy Manish DENTAL PROFESSIONAL-[employer]EDE CLEANER Work Phone: Start: 03-03-2023 CBC AND ELECTRONIC DIFF Estrellita Dozier DENTAL PROFESSIONAL-[employer]EDE CLEANER Work Phone: Start: 03-03-2023 Complete blood count with white cell differential, automated Estrellita Dozier DENTAL PROFESSIONAL-SUEDE CLEANER Work Phone: Start: 03-03-2023 Ct heart contrast ev al cardiac structure&morph Federico Mcclure MD Work Phone: Start: 10-23-2022 MRI of brain without contrast Dr. Vigrilio Alicia Work Phone: Start: 10-23-2022 CT angiography [...] ankle Dr Kvng Alicia Work Phone: Start: 02-02-2022 SARS-CoV-2 & FLU Ant igen (Rapid) Dr. Virgilio Alicia Work Phone: Start: 02-02-2022 Plain chest X-ray Dr. Mary Alicia Work Phone: Start: 03-02-2019 Mammography Bailee Monzon DENTAL PROFESSIONAL.[employer]EDE CLEANER Work Phone: Start: 01-18-2010 Colonoscopy Bailee Monzon DENTAL PROFESSIONAL.SUEDE CLEANER Work Phone: SARS-CoV-2 & FLU Ant igen (Rapid) Dr. Virgilio Alicia Work Phone: Plan of Treatment Date Care Activity Detail Author Start: 06-29-2023 End: 06-29-2023 Patient encounter procedure 06/29/2023 Office Visit Electrophysiology Federico Mcclure MD [address] [place] [address] [facility] Start: 05-28-2023 Influenza vaccination [facility] Start: 04-14-2023 End: 03-03-2024 Cardiac telemetry MOBILE CARDIAC TELEMETRY ECG Routine Atrial fibrillation, persistent Expected: 04/14/2023, Expires: 03/03/2024 [facility] Comment on above: Expected: 04/14/2023, Expires: Start: 03-04-2023 End: 03-04-2023 Telemedicine consultation with patient 03/04/2023 Telemedicine Electrophysiology Liya Rutledge, DENTAL PROFESSIONAL-SUEDE CLEANER [address] [place] [address] [facility] Start: 11-12-2022 Patient referral [facility] Work Phone: Start: 10-24-2022 Electrocardiographic procedure [facility] Start: 10-24-2022 Patient discharge [facility] Start: 10-24-2022 Blood chemistry [facility] Start: 10-24-2022 Thyroid stimulating hormone measurement [facility] Start: 10-23-2022 Emergency dept visit high severity&threat funcj EMERGENCY DEPT VISIT HI MDM [facility] Start: 10-23-2022 Following clinical pathway protocol [facility] Start: 10-23-2022 Ambulation without limitation [facility] Start: 10-23-2022 Assessment of risk of venous thromboembolism [facility] Start: 10-23-2022 Cardiac monitoring [facility] Start: 10-23-2022 Catheterization of vein [facility] Start: 10-23-2022 Continuous pulse oximetry [facility] Start: 10-23-2022 Elevation of head of bed [facility] Start: 10-23-2022 Exercises [facility] Start: 10-23-2022 Implementation of planned interventions [facility] Start: 10-23-2022 Insertion of catheter into peripheral vein [facility] Start: 10-23-2022 Measuring intake and output [facility] Start: 10-23-2022 MRI of brain without contrast Brain without Contrast [facility] Start: 10-23-2022 Notification of physician [facility] Start: 10-23-2022 Oxygen therapy [facility] Start: 10-23-2022 Providing care according to standard [facility] Start: 10-23-2022 Referral to occupational therapist [facility] Start: 10-23-2022 Referral to service [facility] Start: 10-23-2022 Speech therapy assessment [facility] Start: 10-23-2022 Tobacco use cessation education [facility] Start: 10-23-2022 [facility] Start: 10-23-2022 Verification routine [facility] Start: 10-23-2022 Admission procedure [facility] Start: 05-28-2022 Influenza vaccination INFLUENZA (#1) [facility] Start: 04-23-2022 LIPID SCREEN LIPID SCREEN [facility] Start: 02-03-2022 Care planning and problem solving actions [facility] Work Phone: Start: 02-03-2022 Patient discharge [facility] Work Phone: Start: 02-02-2022 Following clinical pathway protocol [facility] Work Phone: Start: 02-02-2022 Transfusion of blood product [facility] Work Phone: Start: 02-02-2022 Ambulation without limitation [facility] Work Phone: Start: 02-02-2022 Assessment of risk of venous thromboembolism [facility] Work Phone: Start: 02-02-2022 Insertion of catheter into peripheral vein [facility] Work Phone: Start: 02-02-2022 Measuring intake and output [facility] Work Phone: Start: 02-02-2022 Providing care according to standard [facility] Work Phone: Start: 02-02-2022 Admission procedure [facility] Work Phone: Start: 02-02-2022 End: 02-02-2022 [facility] Work Phone: Start: 02-02-2022 [facility] Work Phone: Start: 03-02-2020 Mammography MAMMOGRAM [facility] Start: 01-19-2020 Colonoscopy COLONOSCOPY [facility] Start: 01-19-2020 COLORECTAL CANCER SCREENING COLORECTAL CANCER SCREENING [facility] Start: 04-19-2019 HPV TESTING HPV TESTING [facility] Start: 04-19-2019 PAP TESTING PAP TESTING [facility] Start: 12-11-2016 Tetanus vaccination TETANUS [facility] Start: 12-11-2016 Urine microalbumin profile DTAP,TDAP,TD (2 - Td or Tdap) [facility] Start: 09-26-2016 DIABETES SCREEN DIABETES SCREEN [facility] Start: 01-09-2010 SHINGRIX VACCINE (1 of 2) SHINGRIX VACCINE (1 of 2) [facility] Start: 01-09-2010 Zoster vaccine hzv live for subcutaneous use ZOSTER (SHINGLES) VACCINE (1 of 2) [facility] Start: 01-09-2005 COLOGUARD (FIT-DNA) COLOGUARD (FIT-DNA) [facility] Start: 01-09-[address] COLONOGRAPHY [facility] Start: 01-09-2005 FECAL OCCULT BLOOD FECAL OCCULT BLOOD [facility] Start: 01-09-2005 Screening for malignant neoplasm of colon COLORECTAL CANCER SCREENING DISCUSSION [facility] Start: 01-09-2005 SIGMOIDOSCOPY SIGMOIDOSCOPY [facility] Start: 2000 Lipid panel LIPID SCREENING [facility] Start: 2000 Screening for malignant neoplasm of breast MAMMOGRAM SCREENING DISCUSSION [facility] Start: 01-09-1981 Screening for malignant neoplasm of cervix CERVICAL CANCER SCREENING DISCUSSION [facility] Start: 01-09-1978 HIV SCREENING HIV SCREENING [facility] Start: 01-09-1975 HIV screening HIV SCREENING DISCUSSION [facility] Start: 1960 Hepatitis C screening HEPATITIS C VIRUS SCREENING [facility] Anion gap measurement [facility] BUN/Creatinine ratio [facility] Calcium [Mass/volume ] in Serum or Plasma [facility] Carbon dioxide, tota l [Moles/volume] in Serum or Plasma [facility] Cardioversion [facility] Work Phone: Cardioversion [facility] Chloride [Moles/volu me] in Serum or Plasma [facility] Cholesterol [Mass/vo lume] in Serum or Plasma [facility] Cholesterol in HDL [Mass/volume] in Serum or Plasma [facility] Cholesterol in LDL [Mass/volume] in Serum or Plasma [facility] Creatinine [Moles/vo lume] in Serum or Plasma [facility] End: 10-28-2023 ECG COMPLETE ECG COMPLETE ECG Routine Atrial fibrillation, unspecified type (HCC) 1 Occurrences starting 10/28/2022 until 10/28/2023 [facility] Work Phone: Comment on above: 1 Occurrences starting 10/28/2022 until 10/28/2023 Electrophysiology study EP PROCE DURE - EPS/ABLATION/DEVICE Electrophysiology Routine Paroxysmal atrial fibrillation 03/03/2023 2:40 PM EDT [facility] Work Phone: Glucose [Mass/volume ] in Serum or Plasma [facility] Hematocrit [Volume F raction] of Blood [facility] Hemoglobin [Mass/vol ume] in Blood [facility] Hemoglobin A1c/Hemoglobin.total in Blood [facility] Leukocytes [#/volume ] in Blood [facility] Mean corpuscular hem oglobin concentration determination [facility] Mean corpuscular hem oglobin determination [facility] Measurement of renal function [facility] MG Breast - bilatera l Screening [facility] Neutrophil count [facility] Neutrophil percent differential count [facility] NM Heart Views W str ess and W radionuclide IV [facility] Work Phone: Patient referral [facility] Work Phone: Platelets [#/volume] in Blood [facility] Potassium [Moles/vol ume] in Serum or Plasma [facility] Red blood cell count [facility] Red cell distributio n width determination [facility] Sodium [Moles/volume ] in Serum or Plasma [facility] Thyroid stimulating hormone measurement [facility] Triglycerides measurement [facility] Urea nitrogen [Mass/ volume] in Serum or Plasma [facility] US Heart [facility] VLDL cholesterol measurement [facility] Immunizations Immunization Date Immunization Notes Care Provider Fa adelita 12-11-2006 tetanus toxoid, redu amari diphtheria toxoid, and acellular pertussis vaccine, adsorbed Bailee Lara APRN.SUEDE CLEANER Work Phone: [facility] 10-20-2006 pneumococcal polysaccharide vaccine, 23 valent Bailee Lara APRN.SUEDE CLEANER Work Phone: [facility] Work Phone: Payers Date Payer Category Payer Medicare [id number] 2025 Private Health Insurance [id number] 2024 Self-pay [id number] 2016 Unknown [id number] 2016 Unknown [id number] 1960 Unknown [id number] 2.16. [id number] 1960 Unknown [id number] 2.16. [id number] 1960 Unknown [id number] 2.16. 840.1.151089.3.579.2.594 1960 Unknown [id number] 2.16. 840.1.204000.3.579.2.594 1960 Unknown [id number] 2.16. 840.1.015732.3.579.2.594 Unknown [id number] 2.16.8 [id number] Unknown [id number] 2.16.8 40.1.315441.3.579.2.462 Unknown [id number] 2.16.8 40.1.495043.3.579.2.462 Unknown [id number] 2.16.8 40.1.933268.3.579.2.462 Unknown [id number] 2.16.8 40.1.762381.3.579.2.462 Unknown [id number] 2.16.8 40.1.911977.3.579.2.462 Unknown [id number] 2.16.8 40.1.939893.3.579.2.462 Unknown [id number] 2.16.8 40.1.038713.3.579.2.462 Unknown [id number] 2.16.8 [id number] Social History Date Type Detail Facility Start: 09-04-2021 End: 10-13-2023 Tobacco smoking status PAIS Unknown if ever smoked [facility] Start: 11-02-2019 Occasional [facility] Start: 11-02-2019 None [facility] Start: 04-09-2020 Non-smoker [facility] Start: 1960 Sex Assigned At [facility] Start: 09-02-2022 End: 03-03-2023 Tobacco smoking status NHIS Ex-smoker [facility] Work Phone: End: 02-03-1983 History of tobacco use Current smoker [facility] Work Phone: End: 02-03-1983 History of tobacco use Cigarette Smoker [facility] Work Phone: Start: 09-02-2022 End: 03-03-2023 Tobacco use and exposure Smokeless tobacco non-user [facility] Work Phone: Start: 09-02-2022 End: 04-05-2023 Alcohol intake Current drinker of alcohol (finding) [facility] Start: 05-15-2009 Alcohol Comment Pt drinks abou t once per month (social occasions) [facility] Start: 10-24-2022 Cigarettes [facility] Start: 03-03-2023 End: 04-05-2023 Alcohol intake [facility] Start: 03-03-2023 Alcohol Comment 1 glass of win e every evening [facility] Start: 1960 Sex Assigned At Not on file [facility] Start: 02-21-2023 End: 03-03-2023 Exposure to SARS-CoV-2 (event) Not sure [facility] Start: 04-05-2023 Tobacco use panel [facility] Start: 06-06-2019 Gender identity Identifies as female gender (finding) [facility] Start: 06-06-2019 Sexual orientation Heterosexual (fin georgina) [facility] Goals Date Patient Goal Desired Activity /State Functional Status Date Assessment Result Facility 10-24-2022 Functional status Ambulates;Up a d jennifer;Bathroom Privilege [facility] Work Phone: 02-03-2022 Functional status Ambulates;Up ad jennifer [facility] Work Phone: Mental Status Date Assessment Result Facility 10-23-2022 Cognitive function Voice/Name [facility] Work Phone: 10-23-2022 Cognitive function Appropriate;Cooperativ e [facility] Work Phone: 02-02-2022 Cognitive function Voice/Name [facility] Work Phone: 02-02-2022 Cognitive function Awake;Alert;A ppropriate;Fol lows Commands [facility] Work Phone: Clinical Notes 08-19-2010 to 10-13-2023 Mariangel Sparks APRN.JOSEPH - 04/05/2023 2:42 PM Twyla Rutledge APRN-JOSEPH - 03/04/2023 8:30 AM EDTPatient InstructionsNursing Notes - Lynn Lynch RN - 03/03/2023 7:31 PM EDTDischarge Instr - Diet Note Date & Type Note Facility 10-13-2023 Note [facility] Pap Smear Specimen Adequacy October 13, 2023 5:17pm Comment . Satisfactory for evaluation. Endocervical and/or squamous metaplasticcells (endocervical component) are present. Comment on above: Satisfactory for suha luation. Endocervical and/or squamous metaplasticcells (endocervical component) are present. 04-05-2023 Note HNO ID: [id number] Author: Mariangel Sparks APRN.JOSEPH Service: ? 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 Ms. Blount is a 63 y.o. female with a history including AF, AFL, systolic HF borderline EF, HTN, obesity, former tobacco use, and Guillain Swannanoa syndrome. Ms. Blount follows with our group [...] for stroke risk reduction in setting of [id number] Score: 3 (for CHF, HTN, and gender). - Continue low dose aspirin for 30 days. - Pantoprazole for 30 days to prevent esophageal problems. - playground monitor to evaluate for recurrence of atrial arrhythmias [...] hesitate to contact me. Sincerely, Liya Rutledge APRN-SUEDE CLEANER Clinical Electrophysiology, Division of Cardiovascular Medicine, [facility] SUBJECTIVE Today the patient reports feeling [...] complexity was low. documented in this encounter [facility] 03-04-2023 Instructions BEN Ritchie - 03/04/2023 8:30 AM EDT Follow up as scheduled with Federico Mcclure MD on 06/29/2023. If you have any questions, please contact the nurse's line: - for urgent questions: call [phone] option 6. - non urgent questions: send OSividence message documented in this encounter [facility] 03-03-2023 Note Formatting of this n [...] pulse. Ambulates prior to DC without difficulty. [facility] 03-03-2023 Miscellaneous Notes Discharge instructions and [...] video visit at 8:30 am tomorrow EP BIOPHARMACEUTICAL REP. Deya Mine was instructed to remove groin dressings, wear [...] 1: Location: forearm, anterior, left Device/Lot Number: [id number] catheter system Gauge/Length: 18 gauge;1 1/4 in length Unsuccessful Insertion Attempts: Unsuccessful Attempt Location/Site: Pain Prevention/Patient Tolerance: Removal: Additional Comments: Lumen 2: Lumen 3: Peripheral IV Present on Admission: (Retired/Read Only) Location: (Retired/Read Only) Device: (Retired/Read Only) Gauge/Length: Mid Level Developer/Lot Number: Unsuccessful Insertion Attempts: (Retired/Read Only) Unsuccessful [...] monitor shows sr. documented in this encounter [facility] 03-03-2023 Note Formatting of this n ote might be different from the original. Patient seen and examined. VSS. Lungs CTA. Heart tones regular without rub. Voiding without difficulty. No CP/dyspnea. Pt provided with follow up video visit at 8:30 am tomorrow EP BIOPHARMACEUTICAL REP. Deay Blount was instructed to remove groin dressings, wear loose fitting pants to allow for visualization of access sites, have AVS instructions present and to check blood pressure prior to visit. Patient verbalized understanding of all discharge instructions. Patient okay for discharge this evening at 7:30 pm when discharge criteria met. [facility] Discharg e instructions BEN Frederick [...] medical care. documented in this encounter [facility] 03-03-2023 Note Formatting of this n [...] 18 gauge;1 1/4 in length (Active) 03/03/23 09 Present On Admission : no Guiding Device: ultrasound Lumen 1: Location: forearm, anterior, left Device/Lot Number: [id number] catheter system Gauge/Length: 18 gauge;1 1/4 in length Unsuccessful Insertion Attempts: Unsuccessful Attempt Location/Site: Pain Prevention/Patient Tolerance: Removal: Additional Comments: Lumen 2: Lumen 3: Peripheral IV Present on Admission: (Retired/Read Only) Location: (Retired/Read Only) Device: (Retired/Read Only) Gauge/Length: Mid Level Developer/Lot Number: Unsuccessful Insertion Attempts: (Retired/Read Only) Unsuccessful [...] pain, redness, swelling, or leakage post insertion. [facility] 03-03-2023 Note Formatting of this n [...] given to pt. Tele monitor shows sr. [facility] 03-03-2023 History and physical note Chief Complaint Atrial Fibrillation STONEY Blount is a 63 y.o. 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 She is anticoagulated on Xarelto for PYFT2MC7-CXFn of 3. She has held one dose [...] Take 10 mcg by mouth daily. 03/01/2023 [id number] ACID PO 03/01/2023 Cyanocobalamin (Vitamin B-12) 3000 [...] was the last dose taken. Wednesday evening JCS0IP3- Vasc score: 3 (HF, HTN,gender) Previous antiarrythmic [...] and Dry Proceed with planned procedure [facility] 03-03-2023 History and physical note Chief Complaint Atrial Fibrillation STONEY Blount is a 63 y.o. 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 She is anticoagulated on Xarelto for DNBX2VE9-ADNo of 3. She has held one dose [...] Take 10 mcg by mouth daily. 03/01/2023 [id number]-GBSXJ-PYIPVSOQST ACID PO 03/01/2023 Cyanocobalamin (Vitamin B-12) 3000 [...] was the last dose taken. Wednesday evening USA3JC9- Vasc score: 3 (HF, HTN,gender) Previous antiarrythmic [...] planned procedure documented in this encounter [facility] 10-24-2022 Discharge summary Note Date/Time October 24, 2022 10:02am [facility] Medical Records Department [address] [place] [address] Discharge Summary 10/24/22 0957 MR#: [id number] Acct: [id number] Name: DEYA BLOUNT Rep #:[id number] : 1960 62 From: Jan Hull PCP: Dr. Virgilio Alicia MD Status:ADM JAY JAY Location: [place] [address] Providers Date of Admission: 10/23/22 Date of [...] Guillain-Candelaria? or polio: She was told by [facility] in 1970 that she has Guillain-Candelaria? based [...] 10/24/22 Physical Exam Narrative Seen and examined. playground monitor shows sinus rhythm 66. No chest pain [...] % (Auto) 57.6, Lymph % (Auto) 30.9, [place] % (Auto) 9.0, Eos % (Auto) 1.6, [...] GFR (MDRD) Non-Af 96, BUN/Creatinine Ratio 16.7, Xngvfxd648 H, Calcium 9.4, Troponin I High Sens [...] % (Auto) 50.3, Lymph % (Auto) 38.4, [place] % (Auto) 8.9, Eos % (Auto) 1.7, Baso % (Auto) 0.5, Absolute Neuts (auto) 3.0, Absolute Lymphs (auto) 2.28, Nucleated RBC % 0 10/24/22 07:00: Sodium 142, Potassium 4.1, Chloride 108 H, Carbon Dioxide 28.0, Anion Gap 6, BUN 12, Creatinine 0.66, Estim Creat Clear Calc 73.11, Est GFR (MDRD) Af Amer 115, Est GFR (MDRD) Non-Af 95, BUN/Creatinine Ratio 18.0, Ubkwbbs38, Calcium 9.3, Triglycerides 97, Cholesterol 212 H, [...] Staff] - Within 1 Month (Follow-up with Chaparriat Pope, cardiology) Virgilio Alicia MD [Primary Care Provider] - Within 2 Weeks Disposition Disposition (needs filled in before D/C Order can be placed): Home, Self Care Charges/Coding Visit Charges Inpatient E&M: 80284 Disch Hosp >30min 10/24/22 1002 <Electronically signed by Jan Doshi MD> Cosigner Signature (if applicable): CC: Dr. Virgilio Alicia MD; Dr. Jan Doshi MD~ Signed [facility] Work Phone: 1(937) 850-726001-28-[address] Doshi [facility] October 24, 2022 9:57am Note Date/Time October 24, 2022 7 :53am [facility] Medical Records Department [address] [place] [address] Instructions for Home/Discharge Instructions 10/24/22 0753 MR#: [id number] Acct: [id number] Name: DEYA BLOUNT Rep #:[id number] : [...] CC: Dr. Virgilio Alicia MD ~ Signed [facility] Work Phone: 1(240) 264-641601-27-[address] Elena [facility] October 23, 2022 3:29pm Note Date/Time October 23, 2022 1 1:04am [facility] Medical Records Department [address] [place] [address] Emergency Department Summary 10/23/22 MR#: [id number] Acct: [id number] Name: DEYA BLOUNT Rep #:[id number] : 1960 62 From: Ni Elena DO PCP: Dr. Virgilio Alicia MD Status:ADM JAY JAY Location: [place] [address] HPI History of Present Illness Chief Complaint: Dizziness [...] with speech. Prior similar symptoms: Yes PFSH PFSH Medical History Arthritis GBS (Guillain Swannanoa syndrome) New onset atrial fibrillation (10/2019) Numbness [...] IV established on arrival. Patient placed on monitor tech. Concern for stroke therefore stroke team was [...] % (Auto) 57.6 Lymph % (Auto) 30.9 [place] % (Auto) 9.0 Eos % (Auto) 1.6 [...] Provider] - Disposition Disposition: Acute Care Hospital [facility] What to do if you have Problems For any increased pain, shortness of breath, bleeding, nausea or vomiting, chestpain, or any unexpected problems, contact your Primary Care Provider. Call [facility] ([phone]) or report to the closest Emergency Room. Call 911 if necessary. 10/23/22 1529 <Electronically signed by Ni Elena DO> Cosigner Signature (if applicable): CC: Dr. Virgilio Alicia MD ~ Signed [facility] Work Phone: 1(482) 861-709101-27-2023 History and physical note Author Dr. Doshi [facility] October 23, 2022 1:07pm Note Date/Time October 23, 2022 1 :07pm [facility] Medical Records Department [address] [place] [address] H&P Exam - Hospitalist 10/23/22 1247 MR#: [id number] Acct: [id number] Name: MINEDEYA SAMMY Rep #:[id number] : 1960 62 From: Jan Hull PCP: Dr. Virgilio Alicia MD Status:ADM JAY JAY Location: [place] [address] HPI - General General Date of Admission: [...] scale 0 therefore not candidate for tPA. [facility] Medical History Arthritis GBS (Guillain Swannanoa syndrome) New onset atrial fibrillation (10/2019) Numbness [...] % (Auto) 57.6, Lymph % (Auto) 30.9, [place] % (Auto) 9.0, Eos % (Auto) 1.6, [...] GFR (MDRD) Non-Af 96, BUN/Creatinine Ratio 16.7, Jmkdldn022 H, Calcium 9.4, Troponin I High Sens [...] Guillain-Candelaria? or polio: She was told by [facility] in 1970 that she has Guillain-Candelaria? based [...] shock if needed Total time spent in cbku-ux-djet encounter in discussion of advanced directive 17 [...] with contrast. Charges/Coding Visit Charges Inpatient E&M: 55489 Init Hosp L3 Procedures Hospitalists Procedures: 03402 Advncd Care Plan 30 Min 10/23/22 1307 <Electronically signed by Jan Doshi MD> Cosigner Signature (if applicable): CC: Dr. Virgilio Alicia MD; Dr. Jan Doshi MD~ Signed [facility] Work Phone: 1(498) 462-675412-07-2022 NoteHNO ID: [id number] Author: Bailee Lara APRN.SUEDE CLEANER Service: ? Author Type: Nurse Practitioner Type: [...] ENT - Patient will be seen at [facility] in half an hour. She is on their schedule for 1:15 today. She is agreeable with this plan. [facility] Instructions* Patient Instructions* Bailee Lara APRN.CNP - 09/02/2022 12:31 PM EST ASSESSMENT/PLAN: 1. Ear injury, initial encounter - ICD9: 959.09, ICD10: S09.91XA (primary diagnosis) - CONSULT TO ENT 2. Blood in left ear canal - ICD9: 388.69, ICD10: H92.22 - CONSULT TO ENT - Patient will be seen at [facility] in half an hour. She is on their schedule for 1:15 today. Sheis agreeable with this plan. Bailee Lara APRN.CNP [facility] History of Present illness Narrative* Bailee Lara [...] Wt 87.1 kg (192 lb) LMP 10/22/2009 WwS232% BMI 32.96 kg/m PAST MEDICAL HISTORY Diagnosis [...] ENT - Patient will be seen at [facility] in half an hour. She is on their schedule for 1:15 today. Sheis agreeable with this plan. Bailee Lara APRN.SUEDE CLEANER [facility] Evaluation note* Diagnosis Onset Date Resolution Status COVID-19 acute Atrial fibrillation with RVR resolved New onset atrial fibrillation October, resolved Paroxysmal atrial fibrillation resolved [facility] Work Phone: 1(915) 865-396402-01-2020 Evaluation note* Diagnosis Onset Date Resolution Status New onset atrial fibrillation October, resolved Paroxysmal atrial fibrillation resolved Chest heaviness acute TAYLOR (dyspnea on exertion) ac kaw Fatigue acute Paroxysmal atrial fibrillation resolved [facility] Work Phone: 1(722) 301-858202-01-2020 Evaluation note* Diagnosis Onset Date Resolution Status Chest heaviness acute TAYLOR (dyspnea on exertion) ac kaw Fatigue acute New onset atrial fibrillation October, resolved Paroxysmal atrial fibrillation resolved New onset atrial fibrillation October, resolved Bradycardia acute Near syncope acute Paresthesias acute Hypertension chronic [facility] Work Phone: 1(444) 934-979311-23-2010 History of Past illness Narrative* Problem Noted Date Resolved Date Pain in joint, pelvic region and thigh 0 11/04/2011 Lateral epicondylitis 08/19/2010 11/04/2011 Routine gynecological examination 07/11/2010 11/04/2011 Overview: Sees Dr. Gill at [facility] for SOFTWARE SPECIALIST needs. Compounded HRT Fibromyalgia 07/11/2010 11/04/2011 Overview: Dx per Kevin, neurologist Tibialis tendinitis 11/17/2005 07/11/2010 Other acquired deformity of ankle and foot(736.7 9) 11/12/2005 07/11/2010 Allergic rhinitis, cause unspecified 11/04/2011 Overview: Allergic rhinitis Last Assessment & Plan: Controlled with loratidine. documented as of this encounter (statuses as of 09/02/2022) [facility] History of Past illness Narrative* Problem Noted Date Resolved Date Pain in joint, pelvic region and thigh 0 11/04/2011 Lateral epicondylitis 08/19/2010 11/04/2011 Routine gynecological examination 07/11/2010 11/04/2011 Overview: Sees Dr. Gill at [facility] for SOFTWARE SPECIALIST needs. Compounded HRT Fibromyalgia 07/11/2010 11/04/2011 Overview: Dx per Kevin, neurologist Tibialis tendinitis 11/17/2005 07/11/2010 Other acquired deformity of ankle and foot(736.7 9) 11/12/2005 07/11/2010 Allergic rhinitis, cause unspecified 11/04/2011 Overview: Allergic rhinitis Last Assessment & Plan: Controlled with loratidine. documented as of this encounter (statuses as of 10/28/2022) [facility] History of Past illness Narrative* Problem Noted Date Diagnosed Date Resolved Date Pain in joint, pelvic region and thigh 08/19/2010 11/04/2011 Lateral epicondylitis 08/19/20102011 Routine gynecological examination 07/11/2010 11/04/2011 Overview: Sees Dr. Gill at [facility] for SOFTWARE SPECIALIST needs. Compounded HRT Fibromyalgia 07/11/2010 11/04/2011 Overview: Dx per Kevin, neurologist Tibialis tendinitis 11/17/2005 07/11/20 10 Other acquired deformity of ankle and foot(736.79) 11/12/2005 07/11/2010 Allergic rhinitis, cause unspecified 11/04/2011 Overview: Allergic rhinitis Last Assessment & Plan: Controlled with loratidine. documented as of this encounter (statuses as of 04/06/2023) [facility] Diagnosis Onset Date Resolution Status Paroxysmal atrial fibrillation chronic [facility] Work Phone: Evaluation note* Diagnosis Onset Date Resolution Status Atrial fibrillation with RVR acute COVID-19 acute [facility] Work Phone: Evaluation note* Diagnosis Onset Date Resolution Status COVID-19 acute Atrial fibrillation with RVR resolved [facility] Work Phone: Evaluation note* Diagnosis Onset Date Resolution Status Chest heaviness acute TAYLOR (dyspnea on exertion) ac kaw Fatigue acute Paroxysmal atrial fibrillation resolved Chest heaviness acute TAYLOR (dyspnea on exertion) ac kaw Fatigue acute New onset atrial fibrillation October, resolved Paroxysmal atrial fibrillation resolved [facility] Work Phone: Evaluation note* Diagnosis Onset Date Resolution Status Chest heaviness acute TAYLOR (dyspnea on exertion) ac kaw Fatigue acute Paroxysmal atrial fibrillation resolved Chest heaviness acute TAYLOR (dyspnea on exertion) ac kaw Fatigue acute New onset atrial fibrillation October, resolved Paroxysmal atrial fibrillation resolved New onset atrial fibrillation October, resolved [facility] Work Phone: Evaluation note* Diagnosis Ear injury, initial encounter- Primary Blood in left ear canal [facility] Diagnosis Atrial fibrillation, unspecified type (HCC)- Primary [facility]* Diagnosis Onset Date Resolution Status Hypertension chronic Bradycardia resolved Near syncope resolved Paresthesias resolved Paroxysmal atrial flutter ac kaw [facility] Work Phone: Evaluation note* Diagnosis Atrial fibrillation, persistent- Primary Atrial fibrillation Paroxysmal atrial fibrillation Atrial fibrillation Paroxysmal atrial fibrillation Atrial fibrillation [facility] Paroxysmal atrial fibrillation Atrial fibrillation [facility] Persistent atrial fibrillation- Primary Atrial fibrillation Typical atrial flutter Atrial flutter Hypertension, essential Unspecified essential hypertension [facility] Diagnosis ETD (Eustachian tube dysfunction), left- Primary [facility] Diagnosis Onset Date Resolution Status S/P ablation of atrial fibrillation acute Hypertension chronic [facility] Work Phone: Evaluation noteNo assessment information available [facility] Work Phone: Evaluation note* Diagnosis Onset Date Resolution Status S/P ablation of atrial fibrillation acute Hypertension chronic Encounter for routine gynecological examination noneactive [facility] Work Phone: History and physical note Author Dr. Doshi [facility] October 23, 2022 1:07pm Note Date/Time October 23, 2022 1 :07pm [facility] Medical Records Department [address] [place] [id number] H&P Exam - Hospitalist 10/23/22 1247 MR#: [id number] Acct: [id number] Name: DEYA BLOUNT Rep #:[id number] : 1960 62 From: Jan Hull PCP: Dr. Virgilio Alicia MD Status:ADM JAY JAY Location: [place] [address] HPI - General General Date of Admission: [...] scale 0 therefore not candidate for tPA. 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 Charges/Coding Visit Charges Inpatient E&M: 46583 Init Hosp L3 Procedures Hospitalists Procedures: 86535 Advncd Care Plan 30 Min 10/23/22 1307 <Electronically signed by Jan Doshi MD> Cosigner Signature (if applicable): CC: Dr. Virgilio Alicia MD; Dr. Jan Doshi MD~ Signed [facility] Work Phone: Reason for referral (narrative)* Outpatient Procedure (Routine) - Authorized Specialty Diagnoses / Procedures Referred By Contac t Referred To [facility] Diagnoses Atrial fibrillation, unspecified type (HCC) Procedures ECG COMPLETE ECG ROUTINE ECG W/LEAST 12 LDS W/I&R Colten Estrada MD [address] [place] [address] [facility] [place] [address] [place] [address] Referral ID Status Reason Start Date Expiration Date Visits Requested Visits Authorized [id number] Authorized Auto-Generat ed Referral 10/28/2022 10/28/2023 1 1 [facility] Chief Complaint and Reason for Visit [...] Complaint TIA/STROKE TIA/STROKE AM EKG TIA/STROKE S/P [facility] ED 10-24 y fu Reason for Visit Hypertension Bradycardia Near syncope Paresthesias Paroxysmal atrial flutter Chief Complaint 4 m fu w SHANK BREAKER per SHANK BREAKER SCREENING Reason for Visit S/P ablation of atri al fibrillation Hypertension Chief Complaint SCREENING ATRIAL FIB-FLUTTER Chief Complaint ATRIAL FIB-FLUTTER 6 M FU 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) PAP Reason for Visit S/P ablation [...] Yes December 17, 2020 12:12pm Power of Customer Marketing Manager Yes December 17 12:12pm Advance Directive Response Recorded Date/ Time Advance Directives Yes December 17 12:12pm Living Will Yes February 02, 2022 6: 30am Power of Customer Marketing Manager Yes February 02, 2022 6:30am Advance Directive Response Recorded Date/ Time Advance Directives Yes December 17 12:12pm Living Will Yes February 02, 2022 9: 48am Power of Customer Marketing Manager Yes February 02, 2022 9:48am Advance Directive Response Recorded Date/ Time Name of Medical Power of Customer Marketing Manager Jorge Blount, February 02, 2022 9:48am Advance Directives on File No March 16, 2022 7:06am Advance Directives No March 16 7:06am Living Will No March 16, 2022 7:06am Power of Customer Marketing Manager No March 16 7:06am Advance Directive Response Recorded Date/ Time Advance Directives on File No March 16, 2022 7:06am Advance Directives No March 16 7:06am Living Will No March 16, 2022 7:06am Power of Customer Marketing Manager No March 16 7:06am Advance Directive Response Recorded Date/ Time Advance Directives No March 16 6:06am Living Will No March 16, 2022 6:06am Power of Customer Marketing Manager No March 16 6:06am Advance Directive Response Recorded Date/ Time Advance Directives on File Yes 2021 11:22am Name of Medical Power of Customer Marketing Manager Jorge Blount- Spouse August 17, 2022 11:22am Advance Directives Yes July 11:22am Living Will Yes August 17 11:22am Power of Customer Marketing Manager Yes August 17, 2022 11:22am Advance Directive Response Recorded Date/ Time Advance Directives on File Yes 2021 11:22am Name of Medical Power of Customer Marketing Manager Jorge Blount- Spouse August 17, 2022 11:22am Name of Medical Power of Customer Marketing Manager , JEN BLOUNT October 23, 2022 11:14am Advance Directives Yes July 11:22am Living Will Yes October 23 11:14am Power of Customer Marketing Manager Yes October 23, 2022 11:14am Advance Directive Response Recorded Date/ Time Advance Directives on File Yes 2021 11:22am Name of Medical Power of Customer Marketing Manager Jorge Wilsonda- Spouse August 17, 2022 11:22am Name of Medical Power of Customer Marketing Manager Jorge Blount [phone] October 23, 2022 1:13pm Advance Directives Yes July 11:22am Living Will Yes October 23 1:13pm Power of Customer Marketing Manager Yes October 23, 2022 1:13pm Advance Directive Response Recorded Date/ Time Name of Medical Power of Customer Marketing Manager Jorge Blount [phone] October 23, 2022 2:13pm Advance Directives Yes July 12:22pm Living Will Yes October 23 2:13pm Power of Customer Marketing Manager Yes October 23, 2022 2:13pm Latest Code Status on File Code Status Date Activated Date Inactivated Comments Full Code 03/03/2023 2:46 PM Latest Code Status on File Code Status Date Activated Date Inactivated Comments Full Code 03/03/2023 2:46 PM Advance Directive Response Recorded Date/ Time Advance Directives Yes July 12:22pm Living Will Yes October 23 2:13pm Power of Customer Marketing Manager Yes October 23, 2022 2:13pm Advance Directive Response Recorded Date/ Time Advance Directives Yes July 11:22am Living Will Yes October 23 1:13pm Power of Customer Marketing Manager Yes October 23, 2022 1:13pm Summary Purpose Reason for Referral Specialty Diagnoses / Procedures Referred By Contac t Referred To Contact Ent - Otolaryngology Diagnoses Ear injury, initial encounter Blood in left ear canal Procedures CONSULT TO ENT OFFICE/OUTPATIENT [facility] 60-74 MINUTES Bailee Lara, DENTAL PROFESSIONAL.SUEDE CLEANER [address] [place] [address] Referral ID Status Reason Start Date Expiration Date Visits Requested Visits Authorized [id number] Authorized PCP Requested Referral 09/02/2022 09/02/2023 1 1 Specialty Diagnoses / Procedures Referred By Contac t Referred To Contact Diagnoses Atrial fibrillation, persistent Procedures MOBILE CARDIAC TELEMETRY Barbara Hammond, DENTAL PROFESSIONAL-SUEDE CLEANER [address] [place] [address] Referral ID Status Reason Start Date Expiration Date V isits Requested Visits Authorized [id number] New Request 03/03/2023 03/27/2024 1 1 Specialty Diagnoses / Procedures Referred By Contac t Referred To Contact Diagnoses Paroxysmal atrial fibrillation Procedures CT CARDIAC PULMONARY VENOGRAM IN CHG CT HEART CONTRAST EVAL CARDIAC STRUCT/MORPH Federico Mcclure MD [address] [place] [address] Referral ID Status Reason Start Date Expiration Date Visits Re quested Visits Authorized [id number] Closed 12/29/2022 01/23/2024 1 1 Additional Source [...] DATE CREATED AUTHOR 07/29/2022 [facility] DATE CREATED AUTHOR AUTHOR'S ORGANIZ ATION 04/06/2023 [facility] DATE CREATED AUTHOR AUTHOR'S ORGANIZ ATION 11/28/2023 [facility] DATE CREATED AUTHOR AUTHOR'S ORGANIZ ATION 03/11/2025 [facility] Source Comments (unrecognize d section and content) In the event this informatio n is protected by the Federal Confidentiality of Alcohol and Drug Abuse Patient Records regulations: The Federal rules restrict any use of the information to criminally investigate or prosecute any alcohol or drug abuse patient[facility] the event this information is protected by the Federal Confidentiality of Alcohol and Drug Abuse Patient Records regulations: The Federal rules restrict any use of the information to criminally investigate or prosecute any alcohol or drug abuse patient.[facility] the event this information is protected by the Federal Confidentiality of Alcohol and Drug Abuse Patient Records regulations: The Federal rules restrict any use of the information to criminally investigate or prosecute any alcohol or drug abuse patient.[facility] Reason for Visit (unrecogniz ed section and content) Reason Comments Ear Problem poked ear with qtip x this am, bleeding Specialty Diagnoses / Procedures Referred By Contac t Referred To Contact Diagnoses Paroxysmal atrial fibrillation Paroxysmal atrial fibrillation [I48.0] Procedures IN COMPRE EP EVAL ABLTJ ATR FIB PULM VEIN ISOLATION ABLATION SCHED INTERCARDIAC A-FIB TRANSEPTAL BY PULM VEIN ISOLATION W/EP EVAL (27710) Federico Mcclure MD [address] [place] [address] [facility] [address] [place] [id number] Referral ID Status Reason Start Date Expiration Date Visits Re quested Visits Authorized [id number] 1 1 Reason Comments Follow-up S/p sdd-headache [...] Provider, Referring P rovider Active Enid Allen BIOPHARMACEUTICAL REP, BIOPHARMACEUTICAL REP-C Attending Provider Active Team Status: Active Member Role Status Dates Dr. Virgilio Alicia MD Primary Care Provider Active Enid Allen BIOPHARMACEUTICAL REP, BIOPHARMACEUTICAL REP-C Other Provider Active Dr. Meliton Conway MD [...] MD Primary Care Provider Active Enid Allen BIOPHARMACEUTICAL REP, BIOPHARMACEUTICAL REP-C Attending Provider, Referring P rovider Active Team [...] Primary Care Provider, Referring P rovider Active Dr. Meliton Conway MD Attending Provider Active Team Status: Active Member Role Status Dates Dr. Virgilio Alicia MD Primary Care Provider Active Dr. Meliton Conway MD Attending Provider, Referring Pro vider Active Team Status: Inactive Member Role Status Dates Dr. Virgilio Alicia MD Primary Care Provider Active Dr. Ying Khalil MD Attending Provider Active Laundry Press Operator Relationship Specialty Start Date End Date Virgilio Alicia MD [address] [place] [address] PCP - General Family Medicine 10/23/22 Meliton Conway MD [address] [place] [address] Cardiovascular Disease 11/13/22 Laundry Press Operator Relationship Specialty Start Date End Date Virgilio Alicia MD [address] [place] [address] PCP - General Family Medicine 10/23/22 Meliton Conway MD [address] [place] [address] Cardiovascular Disease 11/13/22 Laundry Press Operator Relationship Specialty Start Date End Date Virgilio Alicia MD [address] [place] [address] PCP - General Family Medicine 10/23/22 Meliton Conway MD [address] [place] [address] Cardiovascular Disease 11/13/22 Laundry Press Operator Relationship Specialty Start Date End Date Virgilio Alicia MD [address] [place] [address] PCP - General Family Medicine 04/05/23 Team [...] Alicia MD Primary Care Provider, Referring P roarnaud Active Chaparrita Pope PA, PA Attending Provider Active Team Status: Inactive Member Role Status Dates Dr. Virgilio Alicia MD Primary Care Provider, Referring P rovider Active Beth De Luna BIOPHARMACEUTICAL REP, BIOPHARMACEUTICAL REP-C Attending Provider Active Team Status: Inactive Member Role Status Dates Dr. Virgilio Alicia MD Primary Care Provider Active Beth De Luna BIOPHARMACEUTICAL REP, BIOPHARMACEUTICAL REP-C Attending Provider, Referring Provider Active Scheduled Active [...] on Wed03/03/23 at 1445, Until Wed03/03/23 at 214, See admin instructions, For Magnesium 1.6 - [...] Until Wed03/03/23 at 2148, See admin instructions, If Cr 2.0 - [...] Until Wed03/03/23 at 2148, See admin instructions, If Cr less than [...] on Wed03/03/23 at 0832, Until Wed03/03/23 at 2148, Per treatment plan, Start the morning of [...] Wed03/03/23 at 2148, Moderate Pain, Severe Pain
Use as initial [...] BE BASED ON THE PRIMARY CLINICAL RECORDS. [employer] [facility]. provides no warranty or guarantee of the accuracy or completeness of information in this document.
[2025-03-12] MEDS: LR 1,000 ML - BOLUS PREOP 999 ML IV (06:15)
--- NOTE | 2025-03-12 06:29 | PRE.ANES_ITS ---
ASA Classification* ASA Classification ASA Classification: 3 Assessment & Plan Anesthesia* Anesthesia Assessment Anesthesia Assessment: Discussed sedation and/or anesthesia options, risks, benefits, and alternatives with patient/parents/legal guardian/POA. Questions invited. The patient/parents/legal guardian/POA seems to understand and agrees to proceed with anesthesia plan. Reviewed the physical assessment, medical history, allergy history and patient home medications list prior to surgery/procedure/anesthetic and documented any changes. Performed airway and anesthesia risk assessments. Anesthesia Type Anesthesia Type: Spinal and Block (Patient is consented for adductor canal block.) History Source History Obtained from:: Patient and Chart Anesthesia Focused Assessment* Temperature: 97.1 F Pulse Rate: 64 Blood Pressure: 116/74 Respiratory Rate: 16 Pulse Ox: 96 Oxygen Delivery Method: Room Air Airway Assessment Mouth opens: >3 cm Mallampati Score: III Teeth Condition: Caps/Crowns (Patient has multiple crowns. They are all tight.) Neck Range of motion (ROM): Limited ROM (Somewhat decreased extension) Labs Anesthesia Preop lab: CBC WBC 6.5 K/mm3 (4.4-11.0) 02/23/25 09:02/23/25 RBC 4.45 M/mm3 (4.2-5.4) 02/23/25 09:02/23/25 Hgb 14.0 g/dL (12.0-15.0) 02/23/25 09:02/23/25 Hct 41.2 % (37-47) 02/23/25 09:26 02/23/25 Plt Count 210 K/mm3 (150-450) 02/23/25 09:02/23/25 CHEMISTRY Potassium 4.0 mmol/L (3.3-5.1) 02/23/25 09:26 02/23/25 Sodium 138 mmol/L (133-145) 02/23/25 09:02/23/25 Magnesium 2.3 mg/dL (1.5-2.2) H 02/23/25 09:02/23/25 BUN 13 mg/dL (4-19) 02/23/25 09:02/23/25 Creatinine 0.55 mg/dL (0.70-1.20) L 02/23/25 09: Glucose 96 mg/dL (70-99) 02/23/25 09:26 02/23/25 POC Glucose 98 mg/dL (74-106) 10/24/22 06:05 10/24/22 TSH 1.47 uIU/mL (0.358-3.74) 10/23/22 11:00 COAG PT 15.0 SECONDS (11.7-14.9) H 10/23/22 11:00 09/28 04/18 Pre-Assessment Diagnosis/Proposed Procedure Planned Operative Procedure(s): (L) Total Knee Replacement Robotic Arm Assist Anesthesia History Anesthesia History - student support services director: Anesthesia History - student support services director Hx Hospitalization No 02/14/25 14:42 Any Problems With Anesthesia No 02/14/25 14:42 Cholinesterase deficiency No 02/14/25 14:42 You/Your Family Experience No 02/14/25 14:42 fever (hyperthermia) with Relationship Recent Exposure to Contagious No 08/16/24 14:19 Disease Does patient have nerve No 02/14/25 14:42 stimulator Patient instructed to have device shut off --Does patient have Pacemaker or ICD? When Was Last Pacemaker Check QUESTION #4 FULL TEXT: You/Your Family Experience fever (hyperthermia) with Anesthesia Last Oral Intake Last Oral intake: Last Oral Intake NPO since Meds taken in AM with sips of water? Meds patient instructed to take am of surgery Any additional information?: Yes NPO since: 00:00 Meds taken in AM with sips of water?: Yes Meds patient instructed to take am of surgery: Metoprolol PONV PONV - student support services director: PONV - student support services director Female Yes 02/14/25 14:42 HX of Motion Sickness No 02/14/25 14:42 HX of N/V After Surgery No 02/14/25 14:42 Non-Smoker Yes 02/14/25 14:42 Duration of Surgery greater No 02/14/25 14:42 than 60 minutes Number of Risk Factors 2 02/14/25 14:42 PONV Score Moderate Risk 02/14/25 14:42 Height & Weight Height & Weight: Anesthesia: Height & Weight Height 5 ft 3 in 11/28/24 13:16 Respiratory Assessment Respiratory Assessment - student support services director: Respiratory Tract Infection Hx - student support services director Hx Respiratory Tract Infection No 02/14/25 14:42 STOP Sleep Apnea STOP Sleep Apnea - student support services director: STOP Sleep Apnea - student support services director Hx Hypertension Yes: CONTROLLED ON MED 02/14/25 14:42 Hx Sleep Apnea No 02/14/25 14:42 CPAP BIPAP Do you snore loudly (louder No 02/14/25 14:42 than talking or can be heard Do you often feel tired/ No 02/14/25 14:42 fatigued/ sleepy during daytime? Has anyone observed you stop No 02/14/25 14:42 breathing during sleep? STOP Results Negative 02/14/25 14:42 QUESTION #5 FULL TEXT : Do you snore loudly (louder than talking or can be heard through closed doors)? 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 Specify any problems Hx of Preganancy in last 3 No 02/14/25 14:42 Months Nurse Filling Out Transfusion VCHRISTIN 02/14/25 14:42 & Questions: Date: 02/14/25 02/14/25 14:42 Time: 14:46 02/14/25 14:42 Patient unable to answer at this time (ie. confused, unrespo /Reproduction History /Reproductive History - student support services director: /Reproductive Hx- student support services director Hx Now No 02/14/25 14:42 Gestational Age (in weeks): EDC: Hx Hx Para Hx Section SAB No 02/14/25 14:42 Active Medications Active Medications: Current Medications Generic Name Dose Route Start Last Admin Trade Name Artemioq PRN Reason Stop Dose Admin Acetaminophen 1,000 mg 03/12/25 10:00 Acetaminophen 500 Mg Tablet PO 03/12/25 10:01 PREOP ONE Celecoxib 400 mg 03/12/25 10:00 Celecoxib 200 Mg Capsule PO 03/12/25 10:01 PREOP ONE Sodium Chloride 77.4 ml/ 0 ml 03/12/25 10:00 Ropivacaine 200 mg/ OPERA.SITE 03/12/25 10:01 Epinephrine HCl 0.6 mg/ INTRAOP ONE Ketorolac Tromethamine 30 mg/ Morphine Sulfate 5 mg Dexamethasone Sodium Phosphate 10 mg 03/12/25 10:00 Dexamethasone 10 Mg/Ml Vial IV 03/12/25 10:01 INTRAOP ONE Gabapentin 600 mg 03/12/25 10:00 Gabapentin 600 Mg Tablet PO 03/12/25 10:01 PREOP ONE Lactated Ringer's 1,000 mls @ 999 mls/hr 03/12/25 10:00 03/12/25 06:15 IV 03/12/25 11:00 999 mls/hr .Q1H1M CLEM Administration Clindamycin Phosphate 900 mg in 50 mls @ 75 mls/hr 03/12/25 10:00 Cleocin IV 03/12/25 10:39 INTRAOP ONE Tranexamic Acid 1,000 mg/ 110 mls @ 660 mls/hr 03/12/25 10:00 Sodium Chloride IV 03/12/25 10:09 INTRAOP ONE Tranexamic Acid 1,000 mg/ 110 mls @ 660 mls/hr 03/12/25 10:00 Sodium Chloride IV 03/12/25 10:09 INTRAOP ONE Lactated Ringer's 1,000 mls @ 999 mls/hr 03/12/25 10:00 IV 03/12/25 11:00 .Q1H1M CLEM Lactated Ringer's 1,000 mls @ 125 mls/hr 03/12/25 10:00 IV 03/12/25 17:59 .Q8H CLEM Magnesium Sulfate 1 gm/ 102 mls @ 408 mls/hr 03/12/25 10:00 Dextrose IV 03/12/25 10:14 INTRAOP ONE Insulin Human Lispro 1 - 6 unit 03/12/25 10:00 Insulin Lispro 100 Unit/Ml Insuln.Pen SC 03/12/25 18:00 Q4H PRN PRN BG>/= 180, SEE PROTOCOL Protocol PFSH Medical History Wears glasses Post-menopausal Cancer Alcohol use History of steroid therapy Excessive bleeding Fibromyalgia Former smoker Leg cramps History of pain when walking History of stress test History of echocardiogram Cardiology follow-up encounter History of atrial fibrillation Influenza A Hypertension Chest heaviness TAYLOR (dyspnea on exertion) Fatigue COVID-19 Persistent atrial fibrillation (12/16/21) Paroxysmal atrial fibrillation Numbness and tingling Arthritis GBS (Guillain [place] syndrome) Obesity New onset atrial fibrillation (10/2019) Post-polio syndrome Home Medications ?Medication ?Instructions ?Recorded ?Last Taken ?Type multivitamin 1 tab PO DAILY supplement 03/11/25 History acetaminophen 500 mg tablet 1,000 mg PO Q6H PRN pain 0 10/23/22 03/11/25 History (Tylenol Extra Strength) loratadine 10 mg tablet (Claritin) 10 mg PO DAILY 09/2803/11/25 History fluorometholone 0.1 % eye 1 drp ophthalmic (eye) BID 0 10/13/23 03/11/25 History drops,suspension metoprolol tartrate 50 mg tablet 50 mg PO BID #180 TAB LETS 09/25/24 03/12/25 Rx calcium 500 mg (as 1 tab PO DAILY 02/14/2502/25 History carbonate)-vitamin D3 10 mcg (400 unit) tablet (Calcium 500 + D) magnesium 250 mg tablet 250 mg PO DAILY 02/14/25 History oxybutynin chloride 5 mg 5 mg PO DAILY 02/14/2503/11 History tablet,extended release 24 hr aspirin 81 mg tablet,delayed 81 mg PO QDAY 03/06/25 History release (Adult Aspirin Regimen) Allergy/AdvReac Type Severity Reaction Status Date / Time milk Allergy Severe Hives Verified 03/12/25 06:11 mold Allergy Severe RUNNY NOSE Verified 03/12/25 06:11 ragweed pollen Allergy Severe RUNNY NOSE Verified 03/12/25 06:11 cephalexin (From Keflex) Allergy Unknown Unknown Verified 03/12/25 06:11 amoxicillin AdvReac Hives Verified 03/12/25 06:11 Penicillins AdvReac Anaphylaxis Verified 03/12/25 06:11 Sulfa (Sulfonamide AdvReac Hives Verified 03/12/25 06:11 Antibiotics) Family History Grandfather Heart disease maternal Grandmother CVA (cerebral vascular accident) maternal Mother Breast cancer Lung cancer Osteoporosis Surgical History S/P Mohs surgery for basal cell carcinoma S/P trigger finger release History of cardiac radiofrequency ablation (03/03/23) History of electrophysiologic study (03/03/23) History of cardioversion (12/17/20) Hx of colonoscopy Hx of wisdom tooth extraction Hx of knee surgery Social History household members: spouse number of children: 1 current occupational status: employed 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
[2025-03-12] MEDS: Magnesium 1 GM over 15 mins IV (06:30)
[2025-03-12] MEDS: Gabapentin 600 MG Tablet PO (06:38)
[2025-03-12] MEDS: Celecoxib 200 MG Capsule 400 MG PO (06:38)
[2025-03-12] MEDS: Acetaminophen 500 MG Tablet 1000 MG PO ×2 (06:39→13:52)
[2025-03-12] MEDS: Clindamycin 900 MG/50 ML BAG 75 MG IV ×2 (07:42→12:42)
[2025-03-12] MEDS: TXA 1000mg in NS100 100ml (IVPB at Incision) 660 MG IV (07:55)
[2025-03-12] MEDS: dexAMETHasone 10 MG/ML Vial IV (08:28)
[2025-03-12] MEDS: TXA 1000mg in NS100 100ml (IVPB at Closure) 660 MG IV (08:47)
[2025-03-12] MEDS: JPS (Morphine 10mg/ml) OPERA.SITE (09:07)
--- NOTE | 2025-03-12 09:16 | PCM.OPRPT ---
Operative Report (Standard) Operative Information Date of Procedure: 03/12/25 Pre-Operative Diagnosis: Left knee osteoarthritis Post-Operative Diagnosis: Left knee osteoarthritis Surgery/Procedure Performed: Robotic arm assisted left total knee arthroplasty diplomatic officer: Yes Spray Painter Helper: Connie Rossi Tasks completed by wheelchair van operator first responder: Opening & closing, Implanting device and Hemostasis: Electrocautery Type of Anesthesia: Spinal/Supplemental RN Documented Start/Stop Times: Operation Date: 03/12/25 07:30 Case Time Into Pre-Op 03/12/25 05:44 Out of Pre-Op 03/12/25 07:25 Anesthesia Start 03/12/25 07:31 Into Room 03/12/25 07:31 Procedure Start 03/12/25 07:59 Procedure End 03/12/25 09:14 Procedure Start Time: 07:59 Procedure Stop Time: 09:14 Select all DRAINS/GRAFTS/IMPLANTS that apply: Implanted device Implanted device details: [employer] triathlon press-fit CR size #2 femur, size #2 press-fit tibia, CS 9 mm polyethylene Estimated Blood Loss: 25 cc Specimen collected: No Description of surgery: Patient was identified in the preoperative holding area by name, medical record number, and date of . Informed consent was confirmed with the patient. The operative knee was marked with a surgical marker. At time of she procedure, patient brought to the operative suite and positioned supine a standard operating table. Anesthesia then administered a spinal anesthetic. She was then repositioned in the supine position with all bony prominences well-padded. We then placed a well-padded pneumatic tourniquet on the left upper thigh. The left upper extremity was brought across patient's chest throughout the procedure. We then prepped and draped the left lower extremity in a normal, sterile orthopedic fashion. We performed a timeout with all parties in attendance in agreement with the side, site, operation be performed. No concerns were voiced and would like to proceed with surgery. 600 mg clindamycin IV was administered prior to the incision by anesthesia staff as well as 1 g IV TXA. First exsanguinated the left lower extremity with a Esmarch bandage. Tourniquet was inflated to 250 mmHg which remained elevated for 47 minutes. Esmarch was removed. I planned a standard midline approach to the left knee approximately 15 cm in length. Skin was sharply incised with a 10 blade scalpel developing full-thickness layers down to the retinaculum. Layers were developed identifying the VMO. I then planned a standard medial parapatellar arthrotomy performed in flexion. The anterior horn of the medial meniscus was released. Hoffa's fat pad was then released. I then everted the patella in extension and brought the knee into 90 degrees of flexion. The anterior horn of the lateral meniscus was then released. The ACL was split in its mid substance with a 10 blade. We then brought the knee back into extension. 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 I made a decision to leave the patella [place] and not resurface. I then placed pins in the metaphyseal distal femur medial to lateral for the Yobany arrays. In similar fashion, I made a 2 cm incision approximately a handsbreadth distal to the tibial tubercle along the medial aspect of the tibia, drilling 2 bicortical pins for the tibial array. The knee was brought into flexion. The patella was subluxed laterally but not everted. Medial lateral retractors were placed. We then utilized the M[employer]ero software to confirm our planned surgical procedure and oriented with the patient's osseous anatomy. All checks with the Moneero system were confirmed. Patient had a significant flexible varus deformity after performing stress examination utilizing the Moneero software. We elected to plan for neutral cuts. Sawblade was then brought in. I first started with the tibial cut, ensuring protection of the MCL and patellar tendon. A tibial wafer was then excised. I then proceeded to make the posterior femoral, anterior, anterior chamfer cuts with the same blade. Ligaments were protected with [employer] retractors. Sawblade was then exchanged to perform the distal femoral and posterior chamfer cuts. The robot was then removed from the surgical field. Remaining loose bone and meniscus was excised carefully. Posterior osteophytes were removed from the distal femur with a curved osteotome and rongeur. Trial components were then placed. Balance was excellent in both extension and 90 degrees flexion. No mid flexion instability was apparent. Tracking was excellent. We then marked for tibial baseplate. Distal femoral pegs were drilled. Tibial keel was punched. Trials were removed. Periarticular block was administered. The wound was copiously irrigated with normal saline solution. Tourniquet was deflated. Hemostasis was excellent. An additional 1 g TXA was administered IV. Tibia and subsequently femoral components were then impacted with excellent pullout strength. I selected a size 9 mm polyethylene which was placed and impacted per stemhole borer recommendations. Final components appeared very well balanced with excellent range of motion. The wound was copiously irrigated with normal saline solution. Capsule was closed watertight with #1 strata fix barbed suture. Deeper bursal layer was reapproximated with 0 Vicryl suture. Dermis was reapproximated buried interrupted 2-0 Vicryl suture. Skin was finally reapproximated ryan. Patient tolerated the procedure well without apparent complication. She was safely awakened in the operative suite, transferred to her hospital bed and subsequently to PACU in stable condition. Need for skilled physician assistant primary care: Connie Rossi PA-C was critical to the outcome of the case. During the course of the procedure the physician physician assistant primary care played a vital role. Her intimate knowledge of my steps in the procedure aided in safe and expedient completion of the procedure. The PA played a vital role in positioning particularly in obtaining the appropriate positioning. The PA was also vital in the retraction of soft tissues during the exposure and projecting vital structures. The PA was also vital and protecting soft tissues during times of bony cuts. She also played a vital role in closure with my direct supervision. The PA was also important during reduction and dislocation of the joint and trials intraoperatively. Post Operative Plan: Plan for same-day discharge today. Physical therapy to start in 3 days which has been scheduled. Physical therapy will see the patient prior to discharge today. Weightbearing: Range of motion and weightbearing as tolerated left lower extremity. Antibiotics: Clindamycin prior to discharge DVT Prophylaxis: Multimodal with aspirin, SCDs, DESEAN hose and early mobilization Martell: None Dressing: Maintain silver dressing x5 days X-Rays: 2-week x-rays in the office. Follow-up: 2 weeks in my office for staple removal Surgical Findings: Stable following final fixation. Excellent tracking. Complications Complications: No Admit VTE Documentation VTE Present on Admission: No VTE Mechan Device Prophylaxis: SCD's and Thigh High DESEAN Hose VTE Pharm Prophylaxis ordered?: Yes
[2025-03-12 09:18] LABS: Bedside Glucose 138 mg/dL (74-106)
--- NOTE | 2025-03-12 09:20 | RAD_ITS ---
PROCEDURE: KNEE 1 OR 2 VIEWS 03/12/2025 REASON FOR EXAM: POST OP TKA TECHNIQUE: KNEE 1 OR 2 VIEWS COMPARISON: None FINDINGS: Two views of the right knee demonstrate a total knee arthroplasty. The patellar femoral and tibial components are in normal apposition. There is no evidence of complications. There is normal postoperative fluid and air in the knee joint. There are skin ryan over the knee anteriorly. RAD/Knee 1 or 2 Views IMPRESSION: Normal-appearing total knee arthroplasty. Reading Location: [id number]
--- NOTE | 2025-03-12 09:27 | PCM.POST.ANE ---
Anesthesia: Postop Eval I Current Vital Signs Temperature: 97.3 F Pulse Rate: 70 Blood Pressure: 116/57 Respiratory Rate: 18 Pulse Ox: 95 Oxygen Delivery Method: Room Air Fraction of Inspired Oxygen (FIO2): 21 Assessment Airway patent: Yes Spontaneous unlabored respirations: Yes Mental status: Calm and Asleep nausea: No Vomiting: No Anesthesia Complication: No Fluid Hydration Crystalloid volume administer (ml): 1,500 Total IV fluid infused: 1,500 Progress Note Post-operative progress note: VSS see PACU notes for details Anesthesia document: Postop Eval 1 completed: Yes
[2025-03-12] MEDS: LR 1,000 ML - BOLUS POSTOP 999 ML IV (10:00)
[2025-03-12] MEDS: LR 1,000 ML - 125 ML/HR (POST BOLUS) POST OP IV (11:14)
--- NOTE | 2025-03-12 12:38 | POSTOPAN2_ITS ---
Anesthesia Postop Eval I Sum Postop Eval Completion status Anesthesia document: Postop Eval 1 completed: Yes Anesthesia Postop Eval I Summary Anesthesia Postop Eval I Summary: Anesthesia Postop Eval I: Assessment Summary Airway patent Yes 03/12/25 09:28 [email or web address] Spontaneous unlabored Yes 03/12/25 09:28 FINE [email or web address] respirations Mental status Calm,Asleep 03/12/25 09:28 [email or web address] nausea No 03/12/25 09:28 [email or web address] [email or web address] Vomiting No 03/12/25 09:28 [email or web address] [email or web address] Anesthesia Postop Eval I: Fluid Summary Crystalloid volume administer 1,500 03/12/25 09:28 FINE [email or web address] (ml) Colloids volume administered ( ml) Blood Product volume administered (ml) Total IV fluid infused 1,500 03/12/25 09:28 FINE [email or web address] Anesthesia Postop Eval I: Summary Notes Anesthesia Complication No 03/12/25 09:28 [email or web address] Anesthesia Complication Comment: Post-operative progress note VSS see PACU notes 03/12/25 09:28 [email or web address] for details Anesthesia: Postop Eval II Evaluation Mental status: Awake and Calm Pain Level: 1 nausea: No Vomiting: No Complications Anesthesia Complication: No
--- NOTE | 2025-03-12 12:38 | PCM.POSTANE2 ---
Anesthesia Postop Eval I Sum Postop Eval Completion status Anesthesia document: Postop Eval 1 completed: Yes Anesthesia Postop Eval I Summary Anesthesia Postop Eval I Summary: Anesthesia Postop Eval I: Assessment Summary Airway patent Yes 03/12/25 09:28 CLEARANCE CENTER [email or web address] Spontaneous unlabored Yes 03/12/25 09:28 CLEARANCE CENTER [email or web address] respirations Mental status Calm,Asleep 03/12/25 09:28 CLEARANCE CENTER [email or web address] nausea No 03/12/25 09:28 CLEARANCE CENTER MANAGER.[email or web address] Vomiting No 03/12/25 09:28 CLEARANCE CENTER MANAGER.[email or web address] Anesthesia Postop Eval I: Fluid Summary Crystalloid volume administer 1,500 03/12/25 09:28 CLEARANCE CENTER [email or web address] (ml) Colloids volume administered ( ml) Blood Product volume administered (ml) Total IV fluid infused 1,500 03/12/25 09:28 CLEARANCE CENTER MANAGER.[email or web address] Anesthesia Postop Eval I: Summary Notes Anesthesia Complication No 03/12/25 09:28 CLEARANCE CENTER MANAGER.[email or web address] Anesthesia Complication Comment: Post-operative progress note VSS see PACU notes 03/12/25 09:28 CLEARANCE CENTER [email or web address] for details Anesthesia: Postop Eval II Evaluation Mental status: Awake and Calm Pain Level: 1 nausea: No Vomiting: No Complications Anesthesia Complication: No
== END 2025-03-12 15:25 | disposition home or self-care (01) ==
LOC: SDC 05:26 → AC 05:26
PROVIDERS: PCP Family Medicine; Referring Provider Student in an Organized Health Care Education/Training Program; Visit Provider Student in an Organized Health Care Education/Training Program
PROC: 0SRD0JZ Replacement of Left Knee Joint with Synthetic Substitute, Open Approach (ICD-10-PCS; CPT 27447; principal; 2025-03-12 07:00)
DX: M17.12 Unilateral primary osteoarthritis, left knee (principal); I48.91 Unspecified atrial fibrillation; F17.210 Nicotine dependence, cigarettes, uncomplicated; Z79.82 Long term (current) use of aspirin; Z79.899 Other long term (current) drug therapy; Z86.16 Personal history of COVID-19
CPT/HCPCS: 27447; 01402; 36415; 73560; 80048; 82962; 83735; 85025; 87081; 93005; 97162; C1776; J3475

== ENCOUNTER → 2025-04-26 | Outpatient (CLI) | payer MEDICARE, SELFPAY ==
--- NOTE | 2025-04-26 13:07 | VDLE_ITS ---
Reason For Study Reason For Study: Left leg pain RIGHT LEFT CFV is compressible, spontaneous, phasic, competent GSV is normal. and demonstrates normal augmentation. CFV is compressible, spontaneous, phasic, competent, Procedure and demonstrates normal augmentation. This is a venous duplex using B-mode, color flow and FV is compressible, spontaneous, phasic, competent spectral Doppler. and demonstrates normal augmentation. Exam performed in department. POP V is compressible, spontaneous, phasic, competent A preliminary report was called and/or faxed to and demonstrates normal augmentation. Lucinda. T/P Trunk is compressible. PTV is compressible. LT PerV is compressible. VL/Venous Duplex US, Unilateral Interpretation Summary Deep veins of the left lower extremity are patent and compressible segmentally. There is no evidence of left lower extremity deep vein thrombosis. The left great saphenous vein appears patent an d compressible segmentally. Ordering Physician: Helder Jane Referring Physician: Chris Alicia MD Performed By: Jennifer Tolbert RVT
== END | disposition home or self-care (01) ==
LOC: CVS 12:56
PROVIDERS: PCP Family Medicine; Referring Provider Student in an Organized Health Care Education/Training Program; Visit Provider Student in an Organized Health Care Education/Training Program
DX: M79.662 Pain in left lower leg (principal)
CPT/HCPCS: 93971

== ENCOUNTER → 2025-06-25 | Outpatient (CLI) | payer MEDICARE, SELFPAY ==
--- NOTE | 2025-06-25 08:15 | BI_ITS ---
EXAM: SCRN MAMM (CAD)W/BUFFY BILAT DATE: 06/25/2025 CLINICAL HISTORY: F, Age 65 y/o , SCREENING FOR BREAST CANCER TECHNIQUE: Procedure Code: [id number] Modality: MG Procedure: SCRN MAMM (CAD)W/BUFFY BILAT COMPARISON: Prior exam(s) dated 06/19/2024, 06/16/2023, and 05/01/2021 FINDINGS: TISSUE DENSITY: There are scattered areas of fibroglandular density. Bilateral Breast Mammographic Findings: No significant masses, calcifications or other abnormalities are identified. A stable 8 mm nodular masslike density in the lateral aspect of the right breast is noted. Benign round microcalcifications are seen in the right breast. Stable nodular masslike densities are seen in the lateral aspect of the left breast. Benign round microcalcifications are seen in the left breast. BI/SCRN MAMM (CAD)W/BUFFY BILAT IMPRESSION: Benign screening mammogram OVERALL FINAL ASSESSMENT BI-RADS 2: BENIGN RECOMMENDATION: Routine annual follow-up in 1 Year Additional Recommendation none A letter with findings and recommendations will be mailed to the patient. Reading Location: [id number]
== END | disposition home or self-care (01) ==
LOC: OPBI 08:09
PROVIDERS: PCP Family Medicine; Referring Provider Nurse Practitioner Women's Health; Visit Provider Nurse Practitioner Women's Health
DX: Z12.31 Encounter for screening mammogram for malignant neoplasm of breast (principal)
CPT/HCPCS: 77063; 77067

== ENCOUNTER → 2025-07-30 | Outpatient (CLI) | payer MEDICARE, SELFPAY ==
[2025-07-30 18:07] LABS: Hematocrit 40.1 % (37-47); Hemoglobin 13.2 g/dL (12.0-15.0); Immature Granulocytes Count 0.020 X10^3/uL (0.0-0.0); Mean Corp Hgb Conc 32.9 g/dL (32-36); Mean Corpuscular Volume 89.7 fL (81-99); Mean Platelet Vol. 12.2 fl (6.2-12.0); NRBC Flagged by Analyzer 0 % (0-5); Platelet Count 253 K/mm3 (150-450); RBC Distribution Width CV 13.2 % (11.6-14.6); RBC Distribution Width SD 43.5 fl (35.1-43.9); Red Blood Count 4.47 M/mm3 (4.2-5.4); White Blood Count 7.9 K/mm3 (4.4-11.0)
[2025-07-30 18:22] LABS: AST(SGOT) 29 U/L (<=31); Alanine Aminotransfer ALT/SGPT 24 U/L (<=34); Albumin, Serum 4.0 g/dL (3.4-4.8); Alkaline Phosphatase 81 U/L (35-104); Anion Gap 11 (5-15); BUN 18 mg/dL (4-19); BUN/Creat Ratio 31.6 RATIO (10-20); Calcium,Total 9.6 mg/dL (7.6-11.0); Carbon Dioxide 26.8 mmol/L (21.0-32.0); Chloride 103 mmol/L (98-108); FOLATES,SERUM (FOLIC ACID) 19.50 ng/mL (4.60-34.80); Ferritin 126 ng/mL (22-378); Globulin 2.7 g/dL (2.2-4.2); Glucose 94 mg/dL (70-99); Potassium 3.7 mmol/L (3.3-5.1); Vitamin B12 429 pg/mL (180-914)
[2025-07-30 18:52] LABS: CRP < 3.00 mg/L (0.0-3.0); Iron 55 ug/dL (50-170); Iron Binding Capacity,Total 330 ug/dL (250-450); Iron Binding Capacity,Unsat 275 ug/dL (228-428)
[2025-08-09 18:08] LABS: Arsenic 7245 6 ug/L (0-9); Lead, Blood < 1.0 ug/dL (0.0-3.4); Mercury, Blood 85324 7.2 ug/L (0.0-14.9)
== END | disposition home or self-care (01) ==
PROVIDERS: PCP Family Medicine; Referring Provider Family Medicine; Visit Provider Family Medicine
DX: G89.18 Other acute postprocedural pain (principal); R53.83 Other fatigue
CPT/HCPCS: 36415; 80053; 82175; 82607; 82728; 82746; 83540; 83550; 83655; 83825; 84443; 85025; 85652; 86140